=== PATIENT | female | born 1940 | race Caucasian/White ===

== ENCOUNTER 2016-09-20 16:32 | Emergency (ER) | payer MEDICARE, MEDICAID ==
[2016-09-20 16:47] VITALS: BP 156/97
--- NOTE | 2016-09-20 17:26 | EDM.PDOC ---
ED HPI GENERAL MEDICAL PROBLEM - General Chief Complaint: Neurological Problem Stated Complaint: SHARP PAIN IN HEAD SENT FROM [facility] Time Seen by Provider: 09/20/16 17:00 Source of Information: Reports: Patient History Limitations: Reports: No Limitations - History of Present Illness INITIAL COMMENTS - FREE TEXT/NARRATIVE: Patient is a 76-year-old female who presents to the ED with a 4 month history of intermittent sharp pain to the right side of her head/temporal area. Patient states this comes and goes intermittently throughout the course today with no precipitating factors. She states it usually comes on quickly and resolves quickly. States today it has occurred 7 times with increasing intensity noted. She presents to the ED with no complaints at this time. Has been no vision changes, slurred speech, difficulty walking, no sitting, weakness, chest pain, shortness breath, fever/chills, or neurological deficits, or recent head trauma. States symptoms started approx 4 months ago. Prior to that patient has not really had any headache complaints. States she has chronic back discomfort secondary to multiple surgeries to her shoulders and back. She denies any increasing discomfort to her hips. She is on multiple medications for pain therapy. Again patient describes pain as being sharp in intensity short in duration always located on the right side of her head. Onset: Sudden Duration: Getting Worse, Intermittent, Resolved Prior to Arrival, Waxing/Waning Location: Reports: Head, Face Quality: Reports: Sharp, Stabbing Severity: Severe Improves with: Reports: None Worsens with: Reports: None - Related Data Allergies Allergy/AdvReac Type Severity Reaction Status Date / Time codeine AdvReac Vomiting Verified 09/20/16 16:42 Home Meds: Home Meds Levothyroxine 25 mcg PO ACBREAKFAST 09/10/15 [History] Lisinopril 5 mg PO DAILY 09/10/15 [History] Mirabegron [Myrbetriq] 50 mg PO DAILY 09/10/15 [History] Omeprazole 20 mg PO ACBREAKFAST 09/10/15 [History] Pregabalin [Lyrica] 150 mg PO BID 09/10/15 [History] Venlafaxine HCl [Venlafaxine ER] 150 mg PO DAILY 09/10/15 [History] atorvaSTATin [Lipitor] 40 mg PO BEDTIME 09/10/15 [History] Cholecalciferol (Vitamin D3) [Vitamin D3] 5,000 unit PO WEEKLY 01/19/16 [History ] Ondansetron [Zofran ODT] 4 mg PO Q4H PRN 01/19/16 [History] fentaNYL [Duragesic] 50 mcg TRDERM Q72H 01/19/16 [History] Forteo 20 mcg SQ DAILY 02/12/16 [History] Aspirin 325 mg PO DAILY 02/14/16 [History] oxyCODONE HCl/Acetaminophen [Percocet 5-325 mg Tablet] 1 - 2 tab PO BID PRN [History] Modafinil [Provigil] 100 mg PO DAILY #14 tablet 03/07/16 [Rx] Sennosides/Docusate Sodium [Senna-Docusate Sodium] 2 tab PO DAILY #0 03/07/16 [ Rx] Past Medical History HEENT History: Reports: Glaucoma, Macular Degeneration Cardiovascular History: Reports: Heart Murmur, High Cholesterol, Hypertension Respiratory History: Reports: Asthma, TB Other Respiratory History: 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 Gastrointestinal History: Reports: GERD Genitourinary History: Reports: Other (See Below) Other Genitourinary History: Urinary dribbling [employer] History: Reports: Musculoskeletal History: Reports: Back Pain, Chronic, Osteoarthritis, Other ( See Below) Other Musculoskeletal History: Spinal Stenosis Neurological History: Reports: CVA Other Neuro History: Right side deficit, mild Psychiatric History: Reports: Anxiety, Depression Other Psychiatric History: Nicotine dependence Endocrine/Metabolic History: Reports: Hypothyroidism Hematologic History: Reports: Anemia Oncologic (Cancer) History: Reports: Breast - Infectious Disease History Infectious Disease History: Reports: Chicken Pox, Rheumatic Fever - Past Surgical History HEENT Surgical History: Reports: Cataract Surgery Respiratory Surgical History: Reports: Lung Resection GI Surgical History: Reports: Cholecystectomy Musculoskeletal Surgical History: Reports: Arthroscopic Procedure, Knee Replacement, Shoulder Surgery Oncologic Surgical History: Reports: Mastectomy, Other (See Below) Dermatological Surgical History: Reports: Other (See Below) Social & Family History - Family History Family Medical History: Noncontributory Cardiac: Reports: [place] - Tobacco Use Smoking Status *Q: Current Every Day Smoker Years of Tobacco use: 50 Packs/Tins Daily: 0.3 Used Tobacco, but Quit: Yes Month Tobacco Last Used: december Second Hand Smoke Exposure: No - Caffeine Use Caffeine Use: Reports: Coffee, Soda - Recreational Drug Use Recreational Drug Use: No - Living Situation & Occupation Living situation: Reports: Occupation: Retired ED ROS GENERAL - Review of Systems Review Of Systems: ROS reveals no pertinent complaints other than HPI. - Physical Exam Exam: See Below Exam Limited By: No Limitations General Appearance: Alert, WD/WN, No Apparent Distress Eye Exam: Bilateral Eye: EOMI, PERRL Ears: Hearing Grossly Normal Nose: Normal Inspection Throat/Mouth: Normal Voice, No Airway Compromise Head Exam: Facial Tenderness (Right temporal increased with palpation. No swelling, redness, trauma noted.) Neck: Normal Inspection, Supple, Non-Tender, Full Range of Motion. No: Lymphadenopathy (L), Lymphadenopathy (R) Respiratory/Chest: No Respiratory Distress, Lungs Clear, Normal Breath Sounds, No Accessory Muscle Use, Chest Non-Tender Cardiovascular: Normal Peripheral Pulses, Regular Rate, Rhythm Neuro Exam (Abbreviated): Alert, Oriented, CN II-XII Intact, Normal Cognition, No Motor/Sensory Deficits, Other (Cerebellar function intact. No facial droop, slurred speech, weakness to upper/lower extremities.) Back Exam: Normal Inspection Extremities: Normal Inspection, Non-Tender, No Pedal Edema, Normal Capillary Refill Psychiatric: Normal Affect, Normal Mood Skin Exam: Warm, Dry, Intact, Normal Color Course - Vital Signs Last Recorded V/S: Last Vital Signs Temp 97.9 F 09/20/16 16:42 Pulse 100 09/20/16 16:42 Resp 18 09/20/16 16:42 BP 156/97 H 09/20/16 16:42 Pulse Ox 98 09/20/16 16:42 - Orders/Labs/Meds Labs: Laboratory Tests 09/20/16 09/20/16 09/20/16 Range/Units 17:42 17:42 17:47 WBC 9.51 (3.98-10.04) K/mm3 RBC 4.34 (3.98-5.22) M/mm3 Hgb 12.8 (11.2-15.7) gm/L Hct 39.2 (34.1-44.9) % MCV 90.3 (79.4-94.8) fl MCH 29.5 (25.6-32.2) pg MCHC 32.7 (32.2-35.5) g/dl RDW Std Deviation 46.6 H (36.4-46.3) fL Plt Count 195 (182-369) K/mm3 MPV 11.4 (9.4-12.3) fl Neut % (Auto) 58.0 (34.0-71.1) % Lymph % (Auto) 32.0 (19.3-51.7) % [place] % (Auto) 6.9 (4.7-12.5) % Eos % (Auto) 2.5 (0.7-5.8) Baso % (Auto) 0.5 (0.1-1.2) % Neut # (Auto) 5.51 (1.56-6.13) K/mm3 Lymph # (Auto) 3.04 (1.18-3.74) K/mm3 [place] # (Auto) 0.66 H (0.24-0.36) K/mm3 Eos # (Auto) 0.24 (0.04-0.36) K/mm3 Baso # (Auto) 0.05 (0.01-0.08) K/mm3 ESR 19 (0-20) mm/hr Sodium 144 (136-145) mEq/L Potassium 3.7 (3.5-5.1) mEq/L Chloride 106 (98-107) mEq/L Carbon Dioxide 27 (21-32) mEq/L Anion Gap 14.7 (5-15) BUN 12 (7-18) mg/dL Creatinine 0.7 (0.55-1.02) mg/dL Est Cr Clr Drug Dosing 58.33 mL/min Estimated GFR (MDRD) > 60 (>60) mL/min BUN/Creatinine Ratio 17.1 (14-18) Glucose 101 (83-115) mg/dL Calcium 9.2 (8.5-10.1) mg/dL Total Bilirubin 0.2 (0.2-1.0) mg/dL AST 15 (15-37) U/L ALT 13 L (14-59) U/L Alkaline Phosphatase 71 (46-116) U/L C-Reactive Protein < 0.2 (<1.0) mg/dL Total Protein 7.3 (6.4-8.2) g/dl Albumin 3.5 (3.4-5.0) g/dl Globulin 3.8 gm/dL Albumin/Globulin Ratio 0.9 L (1-2) - Re-Assessments/Exams Free Text/Narrative Re-Assessment/Exam: Ordered CBC, chem 14, ESR, and CRP. Do not believe CT of the head would be beneficial at this time. Symptoms have been going on for the past 4 months intermittent and pattern. This more likely fall and a pattern of neuralgia and/ or temporal arteritis. CBC and chemistry panel essentially normal. 09/20/16 18:52 ESR and CRP within normal limits. Patient is wishing to be discharged home. Will do so with instructions as provided. Patient has no neurological deficits thus no CT of the head will be obtained. Etiology most likely related to neuralgia. Will have the patient see her primary care provider for further management. Departure - Departure Time of Disposition: 18:55 Disposition: Home, Self-Care 01 Condition: good Clinical Impression: Intermittent headache - Discharge Information Referrals: Eun Allen MD [Primary Care Provider] - Forms: ED Department Discharge Additional Instructions: Call your primary care's clinic tomorrow morning to schedule appointment to be seen in the next week for reevaluation. Continue taking all your home medications as prescribed. Return to ED if experience any new or worsening symptoms
== END 2016-09-20 19:20 | disposition home or self-care (01) ==
LOC: JD.ED 16:32
DX: R51 Headache (principal); F17.210 Nicotine dependence, cigarettes, uncomplicated; I10 Essential (primary) hypertension; E78.00 Pure hypercholesterolemia, unspecified; J45.909 Unspecified asthma, uncomplicated; K21.9 Gastro-esophageal reflux disease without esophagitis; M19.90 Unspecified osteoarthritis, unspecified site; F41.9 Anxiety disorder, unspecified; F32.9 Major depressive disorder, single episode, unspecified; E03.9 Hypothyroidism, unspecified; Z86.73 Personal history of transient ischemic attack (TIA), and cerebral infarction without residual deficits; Z98.49 Cataract extraction status, unspecified eye; Z96.659 Presence of unspecified artificial knee joint; Z98.890 Other specified postprocedural states; Z79.82 Long term (current) use of aspirin; Z79.899 Other long term (current) drug therapy; Z88.5 Allergy status to narcotic agent; Z85.3 Personal history of malignant neoplasm of breast; Z86.2 Personal history of diseases of the blood and blood-forming organs and certain disorders involving the immune mechanism
CPT/HCPCS: 36415; 80053; 85025; 85652; 86140; 99282; 99284

== ENCOUNTER 2016-12-05 13:14 | Emergency (ER) | payer MEDICARE, MEDICAID ==
[2016-12-05 13:51] VITALS: BP 98/79
[2016-12-05] MEDS ORDERED: Acetaminophen/HYDROcodone 325-5 MG Tab PO ONE (14:38)
--- NOTE | 2016-12-05 16:06 | EDM.PDOC ---
ED HPI GENERAL MEDICAL PROBLEM - General Chief Complaint: Lower Extremity Injury/Pain Stated Complaint: RT KNEE SWOLLEN Time Seen by Provider: 12/05/16 14:15 Source of Information: Reports: Patient History Limitations: Reports: No Limitations - History of Present Illness INITIAL COMMENTS - FREE TEXT/NARRATIVE: Patient is a 76 y/o female who presents to the E.D. complaining of pain to the right knee, ankle, and foot. Patient was walking to her neighbors yard and tripped on some rocks injuring the affected area. Swelling noted with increased pain with palpation. She was to get up on her own accord and ambulate with discomfort. This a.m. the pain has worsened thus prompting E.D. visit. Denies loc, head/neck/back pain, n/t, or any additional complaints. Right Leg Pain Score (Numeric/FACES): 6 - Related Data Allergies Allergy/AdvReac Type Severity Reaction Status Date / Time codeine AdvReac Vomiting Verified 12/05/16 13:42 Home Meds: Home Meds Levothyroxine 25 mcg PO ACBREAKFAST 09/10/15 [History] Lisinopril 5 mg PO DAILY 09/10/15 [History] Mirabegron [Myrbetriq] 50 mg PO DAILY 09/10/15 [History] Omeprazole 20 mg PO ACBREAKFAST 09/10/15 [History] Pregabalin [Lyrica] 150 mg PO BID 09/10/15 [History] Venlafaxine HCl [Venlafaxine ER] 150 mg PO DAILY 09/10/15 [History] atorvaSTATin [Lipitor] 40 mg PO BEDTIME 09/10/15 [History] Cholecalciferol (Vitamin D3) [Vitamin D3] 5,000 unit PO WEEKLY 01/19/16 [History ] Ondansetron [Zofran ODT] 4 mg PO Q4H PRN 01/19/16 [History] fentaNYL [Duragesic] 50 mcg TRDERM Q72H 01/19/16 [History] Forteo 20 mcg SQ DAILY 02/12/16 [History] Aspirin 325 mg PO DAILY 02/14/16 [History] Modafinil [Provigil] 100 mg PO DAILY #14 tablet 03/07/16 [Rx] Sennosides/Docusate Sodium [Senna-Docusate Sodium] 2 tab PO DAILY #0 03/07/16 [ Rx] traMADol [Ultram] 50 mg PO TID 12/05/16 [History] Past Medical History HEENT History: Reports: Glaucoma, Macular Degeneration Cardiovascular History: Reports: Heart Murmur, High Cholesterol, Hypertension Respiratory History: Reports: Asthma, TB Other Respiratory History: 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: Musculoskeletal History: Reports: Back Pain, Chronic, Osteoarthritis, Other ( See Below) Other Musculoskeletal History: Spinal Stenosis Neurological History: Reports: CVA Other Neuro History: Right side deficit, mild Psychiatric History: Reports: Anxiety, Depression Other Psychiatric History: Nicotine dependence Endocrine/Metabolic History: Reports: Hypothyroidism Hematologic History: Reports: Anemia Oncologic (Cancer) History: Reports: Breast - Infectious Disease History Infectious Disease History: Reports: Chicken Pox, Rheumatic Fever - Past Surgical History HEENT Surgical History: Reports: Cataract Surgery Respiratory Surgical History: Reports: Lung Resection GI Surgical History: Reports: Cholecystectomy Musculoskeletal Surgical History: Reports: Arthroscopic Procedure, Knee Replacement, Shoulder Surgery Oncologic Surgical History: Reports: Mastectomy, Other (See Below) Dermatological Surgical History: Reports: Other (See Below) Social & Family History - Family History Family Medical History: Noncontributory Cardiac: Reports: [place] - Tobacco Use Smoking Status *Q: Current Every Day Smoker Years of Tobacco use: 40 Packs/Tins Daily: 0.5 Used Tobacco, but Quit: Yes Month Tobacco Last Used: december Second Hand Smoke Exposure: No - Caffeine Use Caffeine Use: Reports: Coffee - Recreational Drug Use Recreational Drug Use: No - Living Situation & Occupation Living situation: Reports: Occupation: Retired Review of Systems - Review of Systems Review Of Systems: ROS reveals no pertinent complaints other than HPI. ED EXAM, GENERAL - Physical Exam Exam: See Below Exam Limited By: No Limitations General Appearance: Alert, WD/WN, No Apparent Distress Ears: Normal External Exam, Hearing Grossly Normal Nose: Normal Inspection Throat/Mouth: Normal Voice, No Airway Compromise Neck: Normal Inspection, Supple Respiratory/Chest: No Respiratory Distress, Lungs Clear, Normal Breath Sounds, No Accessory Muscle Use Cardiovascular: Normal Peripheral Pulses, Regular Rate, Rhythm Peripheral Pulses: 2+: Radial (R) GI/Abdominal: Normal Bowel Sounds, Soft, Non-Tender, No Organomegaly Back Exam: Normal Inspection, Full Range of Motion, Vertebral Tenderness. No: Decreased Range of Motion, Paraspinal Tenderness Extremities: No Pedal Edema, Normal Capillary Refill, Other (Right knee: swelling to the anterior lateral with increased pain with palpation. Limited exam due to pain with provactive testing. No bony abnormalities noted . Right ankle: swellinganterio/lateral. Pain with palpation and movement. No bony abnormalities. Right foot: pain with palpation of the dorsal aspect of the foot with no bony abnormalities. limted range of motion 2nd to pain. no sensory deficits. ) Neurological: Alert, Oriented, CN II-XII Intact, Normal Cognition. No: Normal Gait Psychiatric: Normal Affect, Normal Mood Skin Exam: Warm, Dry, Intact, Normal Color. No: Ecchymosis Course - Vital Signs Last Recorded V/S: Last Vital Signs Temp 98 F 12/05/16 13:46 Pulse 97 12/05/16 13:46 Resp 20 12/05/16 13:46 BP 98/79 12/05/16 13:46 Pulse Ox 96 12/05/16 13:46 - Orders/Labs/Meds Meds: Medications Discontinued Medications Generic Name Dose Route Start Last Admin Trade Name Freq PRN Reason Stop Dose Admin Hydrocodone Bitart/Acetaminophen 1 tab 12/05/16 14:38 12/05/16 14:44 [place] 325-5 Mg PO 12/05/16 14:39 1 tab ONETIME ONE Administration - Re-Assessments/Exams Free Text/Narrative Re-Assessment/Exam: Ordered x-ray of the right knee, ankle, foot, and [place] one tab by mouth. Will apply ice to the right knee. X-rays of the right knee, foot, ankle did not reveal any acute bony abnormalities. Final interpretation is pending. Will have a knee immobilizer applied with crutches. Patient is unable to straighten her knee 2nd to pain. Discharge home with instructions. Departure - Departure Time of Disposition: 16:03 Disposition: Home, Self-Care 01 Condition: Good Clinical Impression: Contusion, lower limb, multiple sites Qualifiers: Encounter type: initial encounter Laterality: right Qualified Code(s): S80.11XA - Contusion of right lower leg, initial encounter Contusion of knee, right Qualifiers: Encounter type: initial encounter Qualified Code(s): S80.01XA - Contusion of right knee, initial encounter Contusion of ankle, right Qualifiers: Encounter type: initial encounter Qualified Code(s): S90.01XA - Contusion of right ankle, initial encounter Contusion of foot, right Qualifiers: Encounter type: initial encounter Qualified Code(s): S90.31XA - Contusion of right foot, initial encounter Right ankle sprain Qualifiers: Encounter type: initial encounter Involved ligament of ankle: unspecified ligament Qualified Code(s): S93.401A - Sprain of unspecified ligament of right ankle, initial encounter - Discharge Information Instructions: Crutch Use, [id number], Ankle Sprain, [id number], Cast or Splint Care, [id number], Foot Sprain, Knee Sprain, [id number], Pain Medicine Instructions, [id number] Referrals: Eun Allen MD [Primary Care Provider] - Bruno Sexton MD [Physician] - Forms: ED Department Discharge Additional Instructions: No obvious fracture identified on x-ray of the right knee, ankle, and foot. Will have you wear the knee immobilizer and be nonweightbearing until evaluated by Dr. Sexton within the next week to 10 days. Most likely etiology current complaint is related to contusions and sprains. Elevate when able to reduce swelling and pain. Continue with her all your home medications including her narcotic pain medications. Take ibuprofen and Tylenol in alternating fashion. Apply ice to affected area 6 times daily, 20 to duration, do not apply ice directly on the skin. Followup with PCP this coming week as needed. Return to the E.D. for any new or worsening symptoms.
--- NOTE | 2016-12-06 09:20 | CR ---
Right knee: AP, lateral and sunrise patellar views of the right knee were obtained. Comparison: No previous study. Severe joint space narrowing is noted within the medial patellofemoral joint. Slight chondrocalcinosis is seen. Small joint effusion is seen. Minimal degenerative change is seen within the medial joint compartment. No acute fracture or other bony abnormality is appreciated. Impression: 1. Degenerative change as noted above. 2. Small joint effusion. 3. No acute bony abnormality is identified. Diagnostic code #2
--- NOTE | 2016-12-06 09:20 | CR ---
Right ankle: Three views of the right ankle were obtained. Comparison: No previous study. Plantar spur is seen. Slight calcification is also seen within the plantar fascia at the attachment to the calcaneus. Minimal spur is noted off the calcaneus at the attachment of the Achilles tendon. Slight calcification is noted medially compatible with old injury. Slight degenerative change is partially visualized within the mid foot. No acute fracture or dislocation is identified. Impression: 1. Incidental findings as noted above. 2. Nothing acute is appreciated on right ankle exam. Diagnostic code #2
--- NOTE | 2016-12-06 09:20 | CR ---
Right foot: Three views of the right foot were obtained. Comparison: No prior study. Deformity identified within the distal first metatarsal presumably from previous bunion surgery. Deformity involving the proximal phalanx of the first toe with bone staple in place likely representing change from previous bunion surgery. Please correlate. Calcaneal spurs are again noted. Mild degenerative change is scattered within the mid foot. No acute fracture or other abnormality is seen. Impression: 1. Findings which are felt to be incidental as described above. 2. No acute bony abnormality is identified on right foot exam. Diagnostic code #1
== END 2016-12-05 16:30 | disposition home or self-care (01) ==
LOC: JD.ED 13:14
DX: S93.401A Sprain of unspecified ligament of right ankle, initial encounter (principal); S90.01XA Contusion of right ankle, initial encounter; S90.31XA Contusion of right foot, initial encounter; S80.01XA Contusion of right knee, initial encounter; I10 Essential (primary) hypertension; E78.00 Pure hypercholesterolemia, unspecified; J45.909 Unspecified asthma, uncomplicated; K21.9 Gastro-esophageal reflux disease without esophagitis; M19.90 Unspecified osteoarthritis, unspecified site; F32.9 Major depressive disorder, single episode, unspecified; E03.9 Hypothyroidism, unspecified; F17.210 Nicotine dependence, cigarettes, uncomplicated; Z86.73 Personal history of transient ischemic attack (TIA), and cerebral infarction without residual deficits; Z79.82 Long term (current) use of aspirin; Z86.2 Personal history of diseases of the blood and blood-forming organs and certain disorders involving the immune mechanism; Z85.3 Personal history of malignant neoplasm of breast; Z98.49 Cataract extraction status, unspecified eye; Z90.49 Acquired absence of other specified parts of digestive tract; Z98.890 Other specified postprocedural states; Z96.659 Presence of unspecified artificial knee joint; Z79.899 Other long term (current) drug therapy; Z88.5 Allergy status to narcotic agent; W22.8XXA Striking against or struck by other objects, initial encounter
CPT/HCPCS: 73562; 73610; 73630; 99284; A9270; 99283

== ENCOUNTER 2017-03-07 07:49 | Day surgery (SDC) | payer MEDICARE, MEDICAID ==
[~2017-03-07 07:49] MED LIST: Lactated Ringers 1,000 ML IV SCH; Lidocaine 1% 4 ML ONE; Lidocaine 1%/Sod Bicarbonate in NS 8.4% 1 ML Syringe PRN; Propofol 200 MG/20 ML SDV ONE; Sodium Chloride 0.9% 10 ML Syringe FLUSH PRN; fentaNYL 100 MCG/2 ML SDV ONE
[2017-03-07] MEDS ORDERED: Propofol 200 MG/20 ML SDV ONE (09:24)
--- NOTE | 2017-03-07 09:42 | PCM.PREANE ---
Preanesthetic Assessment - Anesthesia/Transfusion/Family Hx Anesthesia History: Prior Anesthesia Without Reaction Transfusion History: Prior Transfusion Without Reaction Intubation History: Unknown - Review of Systems General: Other (Influenza about 2 weeks ago. Feels good today. ) Pulmonary: Shortness of Breath (with exertion), Cough (On occasion. ), Other ( COPD) Cardiovascular: No Symptoms, Other (Stroke) Gastrointestinal: Abdominal Pain Neurological: Other (memory loss, stroke, chronic back pain) Other: Reports: Thyroid Problems, Anxiety - Physical Assessment NPO Status Date: 03/06/17 NPO Status Time: 21:00 O2 Sat by Pulse Oximetry: 98 Respiratory Rate: 16 Vital Signs: Last Vital Signs Temp 37.1 C 03/07/17 08:10 Pulse 99 03/07/17 08:10 Resp 16 03/07/17 08:10 BP 150/80 H 03/07/17 08:10 Pulse Ox 98 03/07/17 08:10 Height: 1.63 m Weight: 60.781 kg ASA Class: 3 Mental Status: Alert & Oriented x3 Airway Class: Mallampati = 2 Dentition: Reports: Dentures Thyro-Mental Finger Breadths: 3 Mouth Opening Finger Breadths: 3 ROM/Head Extension: Full Lungs: Clear to Auscultation, Normal Respiratory Effort, Decreased Breath Sounds Cardiovascular: Regular Rate, Regular Rhythm - Allergies Allergies/Adverse Reactions: Allergies Allergy/AdvReac Type Severity Reaction Status Date / Time codeine AdvReac Vomiting Verified 03/04/17 11:09 - Anesthesia Plan Beta Adeola: Metoprolol Med Last Dose Date: 03/06/17 Med Last Dose Time: 08:00 - Acknowledgements Anesthesia Type Planned: MAC Pt an Appropriate Candidate for the Planned Anesthesia: Yes Alternatives and Risks of Anesthesia Discussed w Pt/Guardian: Yes Pt/Guardian Understands and Agrees with Anesthesia Plan: Yes PreAnesthesia Questionnaire HEENT History: Reports: Cataract, Glaucoma, Macular Degeneration, Other (See Below) Other HEENT History: dentures, glasses Cardiovascular History: Reports: Heart Murmur, High Cholesterol, Hypertension, Other (See Below) Other Cardiovascular History: palpitations, precordial pain, chest pain, aortic regurgitation Respiratory History: Reports: Asthma, COPD, TB Other Respiratory History: 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 Gastrointestinal History: Reports: GERD, Hemorrhoids, Other (See Below) Other Gastrointestinal History: anal itching and pain, abdominal wall pain Genitourinary History: Reports: Renal Calculus, Other (See Below) Other Genitourinary History: Urinary dribbling [employer] History: Reports: Musculoskeletal History: Reports: Arthritis, Back Pain, Chronic, Osteoarthritis , Other (See Below) Other Musculoskeletal History: Spinal Stenosis, chronic pain syndrome, lumbar facet arthropathy, myofascial pain, shoulder bursitis Neurological History: Reports: CVA, Headaches, Chronic Other Neuro History: dizziness, confusion, white matter periventricular infarction, hand tremor Psychiatric History: Reports: Addiction, Anxiety, Depression Other Psychiatric History: Nicotine dependence Endocrine/Metabolic History: Reports: Hypothyroidism Hematologic History: Reports: Anemia Immunologic History: Reports: None Oncologic (Cancer) History: Reports: Breast, Lung Dermatologic History: Reports: Cellulitis - Infectious Disease History Infectious Disease History: Reports: Chicken Pox, Rheumatic Fever - Past Surgical History Head Surgeries/Procedures: HEENT Surgical History: Reports: Cataract Surgery Cardiovascular Surgical History: Reports: None Respiratory Surgical History: Reports: Lung Resection GI Surgical History: Reports: Appendectomy, Cholecystectomy, Colonoscopy Female Surgical History: Reports: Hysterectomy, Mastectomy Other Female Surgeries/Procedures: L mastectomy r/t breast CA. Neurological Surgical History: Reports: None Musculoskeletal Surgical History: Reports: Arthroscopic Procedure, Knee Replacement, Shoulder Surgery, Other (See Below) Other Musculoskeletal Surgeries/Procedures:: left total knee replacement, toe surgery, shoulder surgery Oncologic Surgical History: Reports: Mastectomy, Other (See Below) Other Oncologic Surgeries/Procedures: Left side Dermatological Surgical History: Reports: Other (See Below) - SUBSTANCE USE Smoking Status *Q: Current Every Day Smoker Tobacco Use Within Last Twelve Months: Cigarettes Second Hand Smoke Exposure: No Recreational Drug Use History: No - HOME MEDS Home Medications: Home Meds Levothyroxine 25 mcg PO ACBREAKFAST 09/10/15 [History] Omeprazole 20 mg PO ACBREAKFAST 09/10/15 [History] Pregabalin [Lyrica] 150 mg PO BID 09/10/15 [History] atorvaSTATin [Lipitor] 40 mg PO BEDTIME 09/10/15 [History] Cholecalciferol (Vitamin D3) [Vitamin D3] 5,000 unit PO DAILY 01/19/16 [History] Ondansetron [Zofran ODT] 4 mg PO Q4H PRN 01/19/16 [History] fentaNYL [Duragesic] 50 mcg TRDERM Q72H 01/19/16 [History] Forteo 20 mcg SQ DAILY 02/12/16 [History] Aspirin 325 mg PO DAILY 02/14/16 [History] traMADol [Ultram] 50 mg PO TID 12/05/16 [History] Albuterol [Proventil HFA] 2 puff INH Q4H PRN 03/04/17 [History] Docusate Sodium [Colace] 100 mg PO BID 03/04/17 [History] Fluticasone/Salmeterol [Advair 250-50 Diskus] 1 puff INH BID 03/04/17 [History] Ketoprofen, Micronized [Frotek] 1 dose TOP ASDIRECTED 03/04/17 [History] Metoprolol Succinate 12.5 mg PO DAILY 03/04/17 [History] Oxybutynin [Oxybutynin ER] 5 mg PO DAILY 03/04/17 [History] Sertraline HCl [Sertraline HCl] 50 mg PO DAILY 03/04/17 [History] carBAMazepine [Tegretol XR] 100 mg PO QID 03/04/17 [History] guaiFENesin [Mucinex] 600 mg PO BID 03/04/17 [History] - CURRENT (IN HOUSE) MEDS Current Meds: Current Medications Lactated Ringer's (Ringers, Lactated) 1,000 mls @ 125 mls/hr IV ASDIRECTED EDYTA Stop: 03/07/17 23:00 Last Admin: 03/07/17 08:30 Dose: 125 mls/hr Lidocaine/Sodium Bicarbonate (Buffered Lidocaine 1% In Ns 8.4%) 0.25 ml .XX ONETIME PRN PRN Reason: Prior to IV Start Stop: 03/07/17 18:00 Sodium Chloride (Saline Flush) 10 ml FLUSH ASDIRECTED PRN PRN Reason: Keep Vein Open Stop: 03/07/17 18:00 Discontinued Medications Fentanyl (Sublimaze) Confirm Administered Dose 100 mcg .ROUTE .STK-MED ONE Stop: 03/07/17 07:04 Lidocaine HCl (Xylocaine-Mpf 1%) Confirm Administered Dose 4 mls @ as directed .ROUTE .STK-MED ONE Stop: 03/07/17 07:04 Propofol (Diprivan 20 Ml) Confirm Administered Dose 400 mg .ROUTE .STK-MED ONE Stop: 03/07/17 07:04 Propofol (Diprivan 20 Ml) Confirm Administered Dose 200 mg .ROUTE .STK-MED ONE Stop: 03/07/17 09:25
[2017-03-07] MEDS ORDERED: fentaNYL 100 MCG/2 ML SDV ONE (09:52)
[2017-03-07] MEDS ORDERED: Ondansetron 4 MG/2 ML SDV ONE (10:05)
[2017-03-07] MEDS ORDERED: Metoprolol Tartrate 5 MG/5 ML SDV ONE (10:34)
--- NOTE | 2017-03-07 10:41 | PCM.OPNOTE ---
- General Post-Op/Procedure Note Date of Surgery/Procedure: 03/07/17 Operative Procedure(s): EGD/colonoscopy to cecum Pre Op Diagnosis: positive FIT test Post-Op Diagnosis: Same Anesthesia Technique: MAC Primary Surgeon: Cristian Fabian EBL in mLs: 0 Complications: None Condition: Good
[2017-03-07 11:00] VITALS: BP 156/88
--- NOTE | 2017-03-07 11:01 | PCM48HPAN ---
Post Anesthesia Note - EVALUATION WITHIN 48HRS OF ANESTHETIC Vital Signs in Normal Range: Yes Patient Participated in Evaluation: Yes Respiratory Function Stable: Yes Airway Patent: Yes Cardiovascular Function Stable: Yes Hydration Status Stable: Yes Pain Control Satisfactory: Yes Nausea and Vomiting Control Satisfactory: Yes Mental Status Recovered: Yes
--- NOTE | 2017-03-07 13:01 | OR ---
DATE OF OPERATION: 03/07/2017 SURGEON: Cristian Fabian MD PREOPERATIVE DIAGNOSIS: Positive FIT test. POSTOPERATIVE DIAGNOSIS: Positive FIT test. OPERATION PERFORMED: Esophagogastroduodenoscopy. FINDINGS: Some chronic gastritis. Small sliding hiatal hernia and GE junction located about 38 cm, did not show any acute pathology at the GE junction. Second portion of the duodenum, duodenal bulb, pyloric channel, and balance of the esophagus did not show any acute disease. Fundus of the stomach could not be seen since the stomach would not completely expand. ANESTHESIA: Done under IV sedation. DESCRIPTION OF PROCEDURE: The patient was taken to the endoscopy room, connected to monitoring equipment, given IV sedation, and placed in a left lateral position. Bite block was inserted and secured. Video Olympus gastroscope was placed in the posterior oropharynx, under direct vision, threaded past the cricopharyngeus, down the esophagus and into the stomach. The stomach was insufflated, and the scope was then advanced through the pylorus to the second portion of the duodenum. It was slowly withdrawn showing normal second portion of the duodenum, duodenal bulb, and pyloric channel. Antrum showed chronic gastritis. Body and cardia of the stomach were only partially seen along with the fundus because the stomach would not insufflate, the patient kept erupting the air. Scope was withdrawn to the GE junction, which did not show any acute pathology. The rest of the esophagus seen as the scope withdrawn was negative. The patient tolerated the procedure. IV sedation continued for colonoscopy. ESTIMATED BLOOD LOSS: MMODAL /[id number]
--- NOTE | 2017-03-07 13:05 | OR ---
DATE OF OPERATION: 03/07/2017 SURGEON: Cristian Fabian MD PREOPERATIVE DIAGNOSIS: Positive FIT test. POSTOPERATIVE DIAGNOSIS: Positive FIT test. OPERATION PERFORMED: Colonoscopy to cecum. FINDINGS: Internal hemorrhoids and external hemorrhoidal tags, likely source of her positive FIT test. There was also melanosis coli noted on the right side of the colon. There were no angiodysplasias, neoplasias, large tumor masses, or ulcerations noted. ANESTHESIA: Done under IV sedation. DESCRIPTION OF PROCEDURE: The patient was taken to the endoscopy room and having been connected to monitoring equipment and given sedation for upper GI endoscopy, sedation was continued for colonoscopy. She was placed in left lateral position. Her perianal area showed hemorrhoidal tags. Rectal exam showed good sphincter tone. A video Olympus colonoscope was then introduced into the rectum and threaded up without problem to the cecum, where the appendicular orifice was noted and ileocecal valve was identified. Prep was good. [place] cleansing score grade B. The scope was slowly withdrawn showing the cecum, ascending colon, transverse colon, descending colon, sigmoid colon, and rectum. Retroflexed view was not done. The patient tolerated the procedure. The above noted was found. The patient will be followed up as needed in the clinic. ESTIMATED BLOOD LOSS: MMODAL /[id number]
== END 2017-03-07 11:30 | disposition home or self-care (01) ==
LOC: JD.SDS 07:49
PROVIDERS: ATTEND Surgery
DX: Z12.11 Encounter for screening for malignant neoplasm of colon (principal); K64.8 Other hemorrhoids; K64.4 Residual hemorrhoidal skin tags; K63.89 Other specified diseases of intestine; K29.50 Unspecified chronic gastritis without bleeding; K44.9 Diaphragmatic hernia without obstruction or gangrene; K59.00 Constipation, unspecified; I44.7 Left bundle-branch block, unspecified; I35.0 Nonrheumatic aortic (valve) stenosis; I35.1 Nonrheumatic aortic (valve) insufficiency; I10 Essential (primary) hypertension; E78.00 Pure hypercholesterolemia, unspecified; F41.9 Anxiety disorder, unspecified; M54.5 Low back pain; M81.0 Age-related osteoporosis without current pathological fracture; M51.36 Other intervertebral disc degeneration, lumbar region; G89.4 Chronic pain syndrome; M79.1 Myalgia; J44.9 Chronic obstructive pulmonary disease, unspecified; K21.9 Gastro-esophageal reflux disease without esophagitis; E03.9 Hypothyroidism, unspecified; F32.9 Major depressive disorder, single episode, unspecified; F17.210 Nicotine dependence, cigarettes, uncomplicated; Z85.3 Personal history of malignant neoplasm of breast; Z85.118 Personal history of other malignant neoplasm of bronchus and lung; Z86.73 Personal history of transient ischemic attack (TIA), and cerebral infarction without residual deficits; Z82.3 Family history of stroke; Z79.82 Long term (current) use of aspirin; Z79.51 Long term (current) use of inhaled steroids; Z79.891 Long term (current) use of opiate analgesic; Z79.899 Other long term (current) drug therapy; Z88.5 Allergy status to narcotic agent; Z96.652 Presence of left artificial knee joint; Z90.49 Acquired absence of other specified parts of digestive tract; Z90.710 Acquired absence of both cervix and uterus; Z90.12 Acquired absence of left breast and nipple; Z90.2 Acquired absence of lung [part of]; Z98.890 Other specified postprocedural states
CPT/HCPCS: 43235; G0105; J2405; J3010; J7120; J2704; J3490

== ENCOUNTER 2017-03-07 13:11 | Inpatient (IN) | payer MEDICARE, MEDICAID ==
[2017-03-07] MEDS ORDERED: Lactated Ringers 500 ML IV ONE (13:30)
--- NOTE | 2017-03-07 13:44 | EDM.PDOC ---
ED HPI GENERAL MEDICAL PROBLEM - General Chief Complaint: Cardiovascular Problem Stated Complaint: [facility] Time Seen by Provider: 03/07/17 13:20 - History of Present Illness INITIAL COMMENTS - FREE TEXT/NARRATIVE: 76-year-old female brought in the emergency room hypotensive. She also has some abdominal discomfort. Patient had a colonoscopy this morning. Patient states she had some significant dizziness last night before going to bed she had an oral bowel prep yesterday. Patient underwent a colonoscopy this morning without biopsy. According to the surgeon, Dr. Fabian, the procedure was uneventful. Patient does not have a history of heart problems denies congestive heart failure. She's had no breathing difficulties or shortness of breath no chest pain or chest pressure. The patient did have some dizziness last night after the bowel prep Abdomen Pain Score (Numeric/FACES): 10 - Related Data Allergies Allergy/AdvReac Type Severity Reaction Status Date / Time codeine AdvReac Vomiting Verified 03/07/17 13:21 Home Meds: Home Meds Levothyroxine 25 mcg PO ACBREAKFAST 09/10/15 [History] Omeprazole 20 mg PO ACBREAKFAST 09/10/15 [History] Pregabalin [Lyrica] 150 mg PO BID 09/10/15 [History] atorvaSTATin [Lipitor] 40 mg PO BEDTIME 09/10/15 [History] Ondansetron [Zofran ODT] 4 mg PO Q4H PRN 01/19/16 [History] fentaNYL [Duragesic] 50 mcg TRDERM Q72H 01/19/16 [History] Forteo 20 mcg SQ DAILY 02/12/16 [History] traMADol [Ultram] 50 mg PO Q6H PRN 12/05/16 [History] Albuterol [Proventil HFA] 2 puff INH Q4H PRN 03/04/17 [History] Docusate Sodium [Colace] 100 mg PO BID 03/04/17 [History] Fluticasone/Salmeterol [Advair 250-50 Diskus] 1 puff INH BID 03/04/17 [History] Ketoprofen, Micronized [Frotek] 1 dose TOP ASDIRECTED 03/04/17 [History] Oxybutynin [Oxybutynin ER] 5 mg PO DAILY 03/04/17 [History] Sertraline HCl [Sertraline HCl] 50 mg PO DAILY 03/04/17 [History] carBAMazepine [Tegretol XR] 200 mg PO BID 03/04/17 [History] guaiFENesin [Mucinex] 1,200 mg PO BID 03/04/17 [History] Aspirin [Lo-Dose Aspirin EC] 81 mg PO DAILY 03/07/17 [History] Cholecalciferol (Vitamin D3) [Vitamin D] 50,000 unit PO ASDIRECTED 03/07/17 [ History] Lisinopril [Prinivil] 5 mg PO DAILY 03/07/17 [History] Polyethylene Glycol 3350 [MiraLAX] 17 gm PO Q3D 03/07/17 [History] Verapamil [Calan SR] 120 mg PO DAILY 03/07/17 [History] Past Medical History HEENT History: Reports: Cataract, Glaucoma, Macular Degeneration, Other (See Below) Other HEENT History: dentures, glasses Cardiovascular History: Reports: Heart Murmur, High Cholesterol, Hypertension, Other (See Below) Other Cardiovascular History: palpitations, precordial pain, chest pain, aortic regurgitation Respiratory History: Reports: Asthma, COPD, TB Other Respiratory History: 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 Gastrointestinal History: Reports: GERD, Hemorrhoids, Other (See Below) Other Gastrointestinal History: anal itching and pain, abdominal wall pain Genitourinary History: Reports: Renal Calculus, Other (See Below) Other Genitourinary History: Urinary dribbling [employer] History: Reports: Musculoskeletal History: Reports: Arthritis, Back Pain, Chronic, Osteoarthritis , Other (See Below) Other Musculoskeletal History: Spinal Stenosis, chronic pain syndrome, lumbar facet arthropathy, myofascial pain, shoulder bursitis Neurological History: Reports: CVA, Headaches, Chronic Other Neuro History: dizziness, confusion, white matter periventricular infarction, hand tremor Psychiatric History: Reports: Addiction, Anxiety, Depression Other Psychiatric History: Nicotine dependence Endocrine/Metabolic History: Reports: Hypothyroidism Hematologic History: Reports: Anemia Immunologic History: Reports: None Oncologic (Cancer) History: Reports: Breast, Lung Dermatologic History: Reports: Cellulitis - Infectious Disease History Infectious Disease History: Reports: Chicken Pox, Rheumatic Fever - Past Surgical History Head Surgeries/Procedures: HEENT Surgical History: Reports: Cataract Surgery Cardiovascular Surgical History: Reports: None Respiratory Surgical History: Reports: Lung Resection GI Surgical History: Reports: Appendectomy, Cholecystectomy, Colonoscopy Female Surgical History: Reports: Hysterectomy, Mastectomy Other Female Surgeries/Procedures: L mastectomy r/t breast CA. Neurological Surgical History: Reports: None Musculoskeletal Surgical History: Reports: Arthroscopic Procedure, Knee Replacement, Shoulder Surgery, Other (See Below) Other Musculoskeletal Surgeries/Procedures:: left total knee replacement, toe surgery, shoulder surgery Oncologic Surgical History: Reports: Mastectomy, Other (See Below) Other Oncologic Surgeries/Procedures: Left side Dermatological Surgical History: Reports: Other (See Below) Social & Family History - Family History Family Medical History: Noncontributory Cardiac: Reports: MA - Tobacco Use Smoking Status *Q: Light Tobacco Smoker Years of Tobacco use: 15 Packs/Tins Daily: 0.1 Used Tobacco, but Quit: No Month Tobacco Last Used: december Hand Smoke Exposure: No - Caffeine Use Caffeine Use: Reports: Coffee, Tea - Recreational Drug Use Recreational Drug Use: No - Living Situation & Occupation Living situation: Reports: Occupation: Retired ED ROS GENERAL - Review of Systems Review Of Systems: See Below Constitutional: Reports: Weakness, Fatigue HEENT: Reports: No Symptoms Respiratory: Reports: No Symptoms Cardiovascular: Reports: No Symptoms GI/Abdominal: Reports: Abdominal Pain : Reports: No Symptoms Neurological: Reports: Dizziness. Denies: Headache ED EXAM, GENERAL - Physical Exam Exam: See Below Exam Limited By: No Limitations General Appearance: Alert, Other (She is hypotensive) Head: Atraumatic, Normocephalic Neck: Normal Inspection, Supple, Non-Tender, Full Range of Motion Respiratory/Chest: No Respiratory Distress, Lungs Clear, Normal Breath Sounds Cardiovascular: Regular Rate, Rhythm, No Edema, No Murmur GI/Abdominal: Other (She has active bowel sounds perhaps slightly diminished with some significant upper quadrant discomfort) Back Exam: Normal Inspection. No: CVA Tenderness (L), CVA Tenderness (R) Extremities: Normal Inspection, No Pedal Edema Course - Vital Signs Last Recorded V/S: Last Vital Signs Temp 36.7 C 03/07/17 13:15 Pulse 96 03/07/17 13:32 Resp 14 03/07/17 13:15 BP 81/39 L 03/07/17 13:32 Pulse Ox 94 L 03/07/17 13:15 - Orders/Labs/Meds Orders: Active Orders 24 hr Category Date Time Status EKG Documentation Completion [RC] STAT Care 03/07/17 14:09 Active PATIENT RETYPE [BBK] Stat Lab 03/07/17 14:57 Results TYPE AND SCREEN [BBK] Stat Lab 03/07/17 14:57 Results Lactated Ringers [Ringers, Lactated] 1,000 ml Med 03/07/17 15:30 Active IV ASDIRECTED fentaNYL [Duragesic] Med 03/07/17 16:45 Active 50 mcg TRDERM Q72H Medication Orders Fentanyl (Duragesic) 50 mcg TRDERM Q72H [facility] Last Admin: 03/07/17 16:56 Dose: 50 mcg Lactated Ringer's (Ringers, Lactated) 1,000 mls @ 125 mls/hr IV ASDIRECTED EDYTA Last Admin: 03/07/17 15:26 Dose: 125 mls/hr Labs: Laboratory Tests 03/07/17 03/07/17 03/07/17 Range/Units 14:57 14:57 14:57 WBC 16.55 H (3.98-10.04) K/mm3 RBC 3.06 L (3.98-5.22) M/mm3 Hgb 9.4 L (11.2-15.7) gm/L Hct 28.0 L (34.1-44.9) % MCV 91.5 (79.4-94.8) fl MCH 30.7 (25.6-32.2) pg MCHC 33.6 (32.2-35.5) g/dl RDW Std Deviation 47.0 H (36.4-46.3) fL Plt Count 186 (182-369) K/mm3 MPV 10.8 (9.4-12.3) fl Neutrophils % (Manual) 85 H (40-60) % Band Neutrophils % 0 (0-10) % Lymphocytes % (Manual) 8 L (20-40) % Atypical Lymphs % 0 % Monocytes % (Manual) 4 (2-10) % Eosinophils % (Manual) 1 (0.7-5.8) % Basophils % (Manual) 2 H (0.1-1.2) Toxic Granulation See note Platelet Estimate Adequate Plt Morphology Comment Normal RBC Morph Comment Normal PT (8.0-13.0) SECONDS INR Sodium 141 (136-145) mEq/L Potassium 4.0 (3.5-5.1) mEq/L Chloride 106 (98-107) mEq/L Carbon Dioxide 27 (21-32) mEq/L Anion Gap 12.0 (5-15) BUN 8 (7-18) mg/dL Creatinine 0.6 (0.55-1.02) mg/dL Est Cr Clr Drug Dosing 71.03 mL/min Estimated GFR (MDRD) > 60 (>60) mL/min BUN/Creatinine Ratio 13.3 L (14-18) Glucose 87 (83-115) mg/dL Lactic Acid (0.4-2.0) mmol/L Calcium 8.4 L (8.5-10.1) mg/dL Total Bilirubin 0.3 (0.2-1.0) mg/dL Direct Bilirubin (0.0-0.2) mg/dl GGT (5-55) U/L AST 22 (15-37) U/L ALT 16 (14-59) U/L Alkaline Phosphatase 67 (46-116) U/L Troponin I (0.00-0.056) ng/mL Total Protein 5.6 L (6.4-8.2) g/dl Albumin 2.6 L (3.4-5.0) g/dl Globulin 3.0 gm/dL Albumin/Globulin Ratio 0.9 L (1-2) Lipase (73-393) U/L Urine Color (Yellow) Urine Appearance (Clear) Urine pH (5.0-8.0) Ur Specific [place] (1.005-1.030) Urine Protein (Negative) Urine Glucose (UA) (Negative) Urine Ketones (Negative) Urine Occult Blood (Negative) Urine Nitrite (Negative) Urine Bilirubin (Negative) Urine Urobilinogen (0.2-1.0) Ur Leukocyte Esterase (Negative) Urine RBC (0-5) /hpf Urine WBC (0-5) /hpf Ur Epithelial Cells (0-5) /hpf Urine Bacteria (FEW) /hpf Hyaline Casts (0-5) /lpf Urine Mucus (FEW) /hpf Blood Type A NEGATIVE Gel Antibody Screen Negative 03/07/17 03/07/17 03/07/17 Range/Units 14:57 14:57 14:57 WBC (3.98-10.04) K/mm3 RBC (3.98-5.22) M/mm3 Hgb (11.2-15.7) gm/L Hct (34.1-44.9) % MCV (79.4-94.8) fl MCH (25.6-32.2) pg MCHC (32.2-35.5) g/dl RDW Std Deviation (36.4-46.3) fL Plt Count (182-369) K/mm3 MPV (9.4-12.3) fl Neutrophils % (Manual) (40-60) % Band Neutrophils % (0-10) % Lymphocytes % (Manual) (20-40) % Atypical Lymphs % % Monocytes % (Manual) (2-10) % Eosinophils % (Manual) (0.7-5.8) % Basophils % (Manual) (0.1-1.2) Toxic Granulation Platelet Estimate Plt Morphology Comment RBC Morph Comment PT 10.9 (8.0-13.0) SECONDS INR 1.00 Sodium (136-145) mEq/L Potassium (3.5-5.1) mEq/L Chloride (98-107) mEq/L Carbon Dioxide (21-32) mEq/L Anion Gap (5-15) BUN (7-18) mg/dL Creatinine (0.55-1.02) mg/dL Est Cr Clr Drug Dosing mL/min Estimated GFR (MDRD) (>60) mL/min BUN/Creatinine Ratio (14-18) Glucose (83-115) mg/dL Lactic Acid 1.8 (0.4-2.0) mmol/L Calcium (8.5-10.1) mg/dL Total Bilirubin (0.2-1.0) mg/dL Direct Bilirubin (0.0-0.2) mg/dl GGT (5-55) U/L AST (15-37) U/L ALT (14-59) U/L Alkaline Phosphatase (46-116) U/L Troponin I 0.046 (0.00-0.056) ng/mL Total Protein (6.4-8.2) g/dl Albumin (3.4-5.0) g/dl Globulin gm/dL Albumin/Globulin Ratio (1-2) Lipase (73-393) U/L Urine Color (Yellow) Urine Appearance (Clear) Urine pH (5.0-8.0) Ur Specific [place] (1.005-1.030) Urine Protein (Negative) Urine Glucose (UA) (Negative) Urine Ketones (Negative) Urine Occult Blood (Negative) Urine Nitrite (Negative) Urine Bilirubin (Negative) Urine Urobilinogen (0.2-1.0) Ur Leukocyte Esterase (Negative) Urine RBC (0-5) /hpf Urine WBC (0-5) /hpf Ur Epithelial Cells (0-5) /hpf Urine Bacteria (FEW) /hpf Hyaline Casts (0-5) /lpf Urine Mucus (FEW) /hpf Blood Type Gel Antibody Screen 03/07/17 03/07/17 Range/Units 14:57 15:06 WBC (3.98-10.04) K/mm3 RBC (3.98-5.22) M/mm3 Hgb (11.2-15.7) gm/L Hct (34.1-44.9) % MCV (79.4-94.8) fl MCH (25.6-32.2) pg MCHC (32.2-35.5) g/dl RDW Std Deviation (36.4-46.3) fL Plt Count (182-369) K/mm3 MPV (9.4-12.3) fl Neutrophils % (Manual) (40-60) % Band Neutrophils % (0-10) % Lymphocytes % (Manual) (20-40) % Atypical Lymphs % % Monocytes % (Manual) (2-10) % Eosinophils % (Manual) (0.7-5.8) % Basophils % (Manual) (0.1-1.2) Toxic Granulation Platelet Estimate Plt Morphology Comment RBC Morph Comment PT (8.0-13.0) SECONDS INR Sodium (136-145) mEq/L Potassium (3.5-5.1) mEq/L Chloride (98-107) mEq/L Carbon Dioxide (21-32) mEq/L Anion Gap (5-15) BUN (7-18) mg/dL Creatinine (0.55-1.02) mg/dL Est Cr Clr Drug Dosing mL/min Estimated GFR (MDRD) (>60) mL/min BUN/Creatinine Ratio (14-18) Glucose (83-115) mg/dL Lactic Acid (0.4-2.0) mmol/L Calcium (8.5-10.1) mg/dL Total Bilirubin (0.2-1.0) mg/dL Direct Bilirubin 0.10 (0.0-0.2) mg/dl GGT 20 (5-55) U/L AST (15-37) U/L ALT (14-59) U/L Alkaline Phosphatase (46-116) U/L Troponin I (0.00-0.056) ng/mL Total Protein (6.4-8.2) g/dl Albumin (3.4-5.0) g/dl Globulin gm/dL Albumin/Globulin Ratio (1-2) Lipase 46 L (73-393) U/L Urine Color Light yellow (Yellow) Urine Appearance Clear (Clear) Urine pH 6.0 (5.0-8.0) Ur Specific [place] 1.015 (1.005-1.030) Urine Protein Negative (Negative) Urine Glucose (UA) Negative (Negative) Urine Ketones Negative (Negative) Urine Occult Blood Negative (Negative) Urine Nitrite Negative (Negative) Urine Bilirubin Negative (Negative) Urine Urobilinogen 0.2 (0.2-1.0) Ur Leukocyte Esterase Negative (Negative) Urine RBC 0-5 (0-5) /hpf Urine WBC 0-5 (0-5) /hpf Ur Epithelial Cells 0-5 (0-5) /hpf Urine Bacteria Rare (FEW) /hpf Hyaline Casts 0-5 (0-5) /lpf Urine Mucus Not seen (FEW) /hpf Blood Type Gel Antibody Screen Meds: Medications Generic Name Dose Route Start Last Admin Trade Name Freq PRN Reason Stop Dose Admin Fentanyl 50 mcg 03/07/17 16:45 03/07/17 16:56 Duragesic TRDERM 50 mcg Q72H EDYTA Administration Lactated Ringer's 1,000 mls @ 125 mls/hr 03/07/17 15:30 03/07/17 15:26 Ringers, Lactated IV 125 mls/hr ASDIRECTED EDYTA Administration Discontinued Medications Generic Name Dose Route Start Last Admin Trade Name Freq PRN Reason Stop Dose Admin Fentanyl 25 mcg 03/07/17 14:54 03/07/17 15:17 Sublimaze IVPUSH 03/07/17 14:55 25 mcg ONETIME ONE Administration Fentanyl 25 mcg 03/07/17 15:37 03/07/17 15:43 Sublimaze IVPUSH 03/07/17 15:38 25 mcg ONETIME ONE Administration Hydromorphone HCl 0.5 mg 03/07/17 16:03 03/07/17 16:15 Dilaudid IVPUSH 03/07/17 16:04 0.5 mg ONETIME ONE Administration Lactated Ringer's 500 mls @ 999 mls/hr 03/07/17 13:30 03/07/17 13:37 Ringers, Lactated IV 03/07/17 14:00 999 mls/hr .BOLUS ONE Administration Lactated Ringer's 1,000 mls @ 999 mls/hr 03/07/17 14:13 03/07/17 14:23 Ringers, Lactated IV 03/07/17 15:13 999 mls/hr .BOLUS ONE Administration Iopamidol 100 ml 03/07/17 13:46 03/07/17 13:50 Isovue-300 (61%) IVPUSH 03/07/17 13:47 100 ml ONETIME ONE Administration - Re-Assessments/Exams Free Text/Narrative Re-Assessment/Exam: 03/07/17 14:19 Awaiting radiologic interpretation of her CT it appears that she has a fair amount of abdominal ascites and a little bit of fluid in the pelvis this does not appear to be blood 03/07/17 14:[address] Fabian including CT report he is reviewing the CT now. 03/07/17 17:18 Dr. Fabian is reviewed CT and discussed the patient's case with Dr. Allen the patient's regular physician they believe this is a new process with the ascites cause unknown thus far liver function tests appear fairly normal. At this point the patient will be placed in the hospital by the on-call surgeon who also discussed the situation with Dr. Fabian. Departure - Departure Time of Disposition: 16:44 Disposition: Refer to Observation Clinical Impression: Abdominal pain of unknown cause, Ascites - My Orders Last 24 Hours: My Active Orders 03/07/17 14:09 EKG Documentation Completion [RC] STAT 03/07/17 14:57 PATIENT RETYPE [BBK] Stat TYPE AND SCREEN [BBK] Stat 03/07/17 15:30 Lactated Ringers [Ringers, Lactated] 1,000 ml IV ASDIRECTED 03/07/17 16:45 fentaNYL [Duragesic] 50 mcg TRDERM Q72H - Assessment/Plan Last 24 Hours: My Active Orders 03/07/17 14:09 EKG Documentation Completion [RC] STAT 03/07/17 14:57 PATIENT RETYPE [BBK] Stat TYPE AND SCREEN [BBK] Stat 03/07/17 15:30 Lactated Ringers [Ringers, Lactated] 1,000 ml IV ASDIRECTED 03/07/17 16:45 fentaNYL [Duragesic] 50 mcg TRDERM Q72H
[2017-03-07] MEDS ORDERED: Iopamidol 612 MG/ML 100 ML Bottle IVPUSH ONE (13:46)
[2017-03-07] MEDS ORDERED: Lactated Ringers 1,000 ML IV ONE (14:13)
--- NOTE | 2017-03-07 14:29 | CT ---
CT abdomen and pelvis Technique: Multiple axial sections were obtained from above the dome of the diaphragm inferiorly through the pubic symphysis. Intravenous contrast was utilized. Delayed images were also obtained through the bladder. Comparison: Previous CT abdomen and pelvis exam of 01/19/16. Findings: Ascites is identified throughout the abdomen and pelvis. Liver appears somewhat small which appears as an interval change from prior exam suggesting cirrhosis. Small cyst is noted within the left lobe of the liver which appear stable from prior exam. Mild intrahepatic biliary duct dilatation is seen which is felt compatible with previous cholecystectomy. Right-sided hydronephrosis is seen which stops at the UPJ. This is similar to previous exam. Small nonobstructing stone measuring less than 5 mm is seen within the upper right kidney. Larger nonobstructing stone noted inferiorly within the right kidney measuring 1.0 cm. Left kidney shows no hydronephrosis. Small nonobstructing stone is noted within the upper left kidney measuring about 1 mm. Adrenal glands show no nodule. Pancreas is atrophied. Aorta shows atherosclerotic change which continues into the iliac vessels. No aneurysm is seen. No bowel dilatation is identified. No pelvic mass or adenopathy is seen. Delayed images shows contrast within the bladder. Bone window settings were reviewed which shows scoliosis and scattered degenerative change within the spine. Artifact is noted within the lower abdomen from surgical clips. Impression: 1. Ascites throughout the abdomen and pelvis. Liver appears somewhat small suggesting cirrhosis. These findings are an interval change from prior CT exam. 2. 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 Nonobstructing calculi are seen within both kidneys. 3. Other findings which are felt to be incidental as described above. Diagnostic code #3
[2017-03-07] MEDS ORDERED: fentaNYL 100 MCG/2 ML SDV IVPUSH ONE ×2 (14:54→15:37)
[2017-03-07] MEDS ORDERED: Lactated Ringers 1,000 ML IV SCH ×2 (15:30→20:30)
[2017-03-07] MEDS ORDERED: HYDROmorphone 0.5 MG/0.5 ML Syringe IVPUSH ONE (16:03)
[2017-03-07] MEDS: fentaNYL 50 MCG/HR Transdermal Patch TRDERM SCH (16:56)
[2017-03-07] MEDS ORDERED: traMADol 50 MG Tab PO PRN ×2 (18:37→20:17)
[2017-03-07] MEDS: Ondansetron 4 MG/2 ML SDV IVPUSH PRN (18:50)
[2017-03-07] MEDS ORDERED: Albuterol 6.7 GM Inhaler INH PRN (20:17)
[2017-03-07] MEDS ORDERED: Ondansetron 4 MG Tab.DIS PO PRN (20:17)
[2017-03-07] MEDS: Verapamil 120 MG Tab.ER PO SCH (20:20)
[2017-03-07] MEDS ORDERED: fentaNYL 50 MCG/HR Transdermal Patch TRDERM SCH (20:30)
[2017-03-07] MEDS ORDERED: CARBAMAZEPINE 100 MG PO SCH (21:00)
[2017-03-07] MEDS: guaiFENesin 600 MG Tab.ER PO SCH (22:16)
[2017-03-07] MEDS: traMADol 50 MG Tab PO SCH (22:16)
[2017-03-07] MEDS ORDERED: Metoprolol Tartrate 5 MG in Sodium Chloride 0.9% 50 ML IV ONE (23:39)
[2017-03-07] MEDS ORDERED: Metoprolol Tartrate 5 MG/5 ML SDV IV ONE (23:50)
[2017-03-07] MEDS ORDERED: Metoprolol Tartrate 5 MG/5 ML SDV IVPUSH ONE (23:50)
[2017-03-08] MEDS: traMADol 50 MG Tab PO SCH ×5 (05:51→19:23)
[2017-03-08] MEDS: Levothyroxine 25 MCG Tab PO SCH (06:24)
[2017-03-08] MEDS ORDERED: Sodium Chloride 0.9% 1,000 ML IV SCH (08:55)
[2017-03-08] MEDS ORDERED: Lactated Ringers 500 ML IV ONE (08:55)
[2017-03-08] MEDS ORDERED: Verapamil 120 MG Tab.ER PO SCH (09:00)
[2017-03-08] MEDS ORDERED: Lisinopril 5 MG Tab PO SCH (09:00)
[2017-03-08] MEDS ORDERED: METOPROLOL SUCCINATE 25 MG PO SCH (09:00)
[2017-03-08] MEDS: guaiFENesin 600 MG Tab.ER PO SCH ×2 (09:58→20:41)
[2017-03-08] MEDS: Oxybutynin 5 MG Tab.ER PO SCH (09:58)
[2017-03-08] MEDS: Formoterol/Mometasone 200-5 MCG 8.8 GM Inhaler IH SCH ×3 (09:59→21:07)
[2017-03-08] MEDS: Verapamil 120 MG Tab.ER PO SCH (10:04)
[2017-03-08] MEDS: Lisinopril 5 MG Tab PO SCH (10:07)
[2017-03-08] MEDS: Sertraline 50 MG Tab PO SCH (10:09)
[2017-03-08] MEDS: Lactated Ringers 1,000 ML IV SCH ×2 (16:18→23:10)
[2017-03-08] MEDS: Ondansetron 4 MG/2 ML SDV IVPUSH PRN (16:18)
[2017-03-08] MEDS: Morphine 2 MG/ML Syringe IVPUSH PRN ×3 (16:37→23:16)
[2017-03-08] MEDS ORDERED: Iopamidol 612 MG/ML 100 ML Bottle IVPUSH ONE (16:51)
[2017-03-08] MEDS ORDERED: Diatrizoate Meglumine/Diatrizoate Sodium 37% 120 ML Bottle PO ONE (16:51)
[2017-03-08] MEDS ORDERED: Sodium Chloride 0.9% 10 ML Syringe FLUSH PRN (16:51)
--- NOTE | 2017-03-08 21:18 | PN ---
DATE OF SERVICE: 03/08/2017 Gisela Leger became my patient last evening. The events of the day included colonoscopy and sudden onset of abdominal pain a few hours after her normal colonoscopy. She throughout the night dipped her pressure and this was supported with fluids, and yesterday when she arrived back from her home after her colonoscopy her hemoglobin last evening was 9.4, drifted down to 7.7 overnight, at 4 o'clock in the morning on the it was 7.7, and then now after transfusion of 1 unit of blood her hemoglobin is 8.8. [place] [address] [place] [address]. Her vital signs throughout the night remained roughly stable. She did get some hypotensive and was treated with boluses of fluid, and this morning her hemoglobin had dropped from I believe 12 down to 9.4, and with that a review of the CT scan performed yesterday, which was essentially unremarkable except having fluid in the abdominal cavity. No sign of any perforation. The patient was empirically given 1 unit of blood, which brought her from 7.7 back up to 8.8 L. Her vital signs remained stable since that time. She has been at bedrest in the ICU. Her blood pressure is running in the 120 range over 70 and pulse rate of about 80-90. She is on multiple medications for pain and this has increased the difficulty in evaluating her. She has maintained tenderness in her entire abdomen yesterday and then with bowel sounds present, and now the pain is localized basically in the left flank and left lower quadrant. The patient underwent a repeat CT scan this evening to delineate what further information and its salient finding was basically that the patient did have an increased amount of blood. The fluid along the left lateral aspect of the abdomen measures 40-60 Hounsfield units consistent with a hemoperitoneum. On the basis of this and although the spleen appears to be intact, perhaps the pedicle of the spleen and some smaller vessels were torn in the process of negotiating the splenic flexure and she may well have had adhesions in that area to limiting the amount of mobility. Anyway, the mystery appears to be solved and that is the source of her pain in her hemoperitoneum. Presumably, it is all in the left flank and the left lower quadrant now. So, we will continue to watch her. Her hemoglobin now is close to 9. We will recheck it in the morning. She is going to be kept in the ICU and her blood pressures will be monitored. She has some blood available, type and crossed should she need that and we will see what the lab shows in the morning and what progress tonight shows. JIGAR /[id number]
[2017-03-08] MEDS ORDERED: Sodium Chloride 0.9% 250 ML IV SCH (21:30)
[2017-03-09] MEDS: Morphine 2 MG/ML Syringe IVPUSH PRN ×7 (01:16→20:50)
[2017-03-09] MEDS: traMADol 50 MG Tab PO SCH ×4 (01:17→20:21)
[2017-03-09] MEDS: Levothyroxine 25 MCG Tab PO SCH (05:38)
[2017-03-09] MEDS: Formoterol/Mometasone 200-5 MCG 8.8 GM Inhaler IH SCH ×2 (06:06→20:40)
[2017-03-09] MEDS: Lactated Ringers 1,000 ML IV SCH ×2 (07:39→16:08)
[2017-03-09] MEDS: Verapamil 120 MG Tab.ER PO SCH (09:49)
[2017-03-09] MEDS: Metoprolol Succinate 25 MG Tab.ER PO SCH (09:49)
[2017-03-09] MEDS: Lisinopril 5 MG Tab PO SCH (09:49)
[2017-03-09] MEDS: Sertraline 50 MG Tab PO SCH (09:59)
[2017-03-09] MEDS: Oxybutynin 5 MG Tab.ER PO SCH (09:59)
[2017-03-09] MEDS: guaiFENesin 600 MG Tab.ER PO SCH ×2 (09:59→20:20)
--- NOTE | 2017-03-09 10:45 | CT ---
CT abdomen and pelvis Technique: Multiple axial sections were obtained from above the dome of the diaphragm inferiorly through the pubic symphysis. Intravenous contrast was utilized. Oral contrast is seen. Comparison: Prior CT abdomen and pelvis exam of 03/07/17. Findings: Fluid is identified within the abdomen and pelvis. Fluid within the right side of the abdomen and within the pelvis does not have Hounsfield unit measurements of blood. Hounsfield unit measurements within the left side of the abdomen have increased Hounsfield unit measurements possibly representing hemoperitoneum. Spleen is somewhat abnormal in configuration and difficult to exclude a chronic subcapsular splenic hematoma that is leaking. Deformity to several right lower ribs are seen compatible with old trauma. Small right-sided pleural effusion is seen. Parenchymal densities seen within both lung bases worse on the left side which is felt compatible with atelectasis. Small cysts noted within the dome of the left lobe of the liver. Intrahepatic biliary duct dilatation is seen which is stable. Liver again felt to be slightly small in size. Kidneys show contrast enhancement. Dilated right renal pelvis is seen compatible with so-called functional UPJ obstruction. Several nonobstructing calculi are seen within the right kidney. Small nonobstructing calculus seen within the left kidney. Adrenal glands show no nodule. Aorta shows atherosclerotic change without aneurysmal dilatation. Atherosclerotic calcification continues into the iliac vessels. Surgical clips are seen within the retroperitoneum. No pelvic mass or adenopathy is seen. Delayed images show contrast within the distal ureters and within the bladder. Cecum is somewhat dilated felt to be incidental as contrast is noted within other portions of the colon. Small bowel appears slightly prominent in size felt to be due to the hypertonic effect of contrast. Scoliosis present within the spine with degenerative change. Impression: 1. Fluid within the abdomen and pelvis which appears fairly stable from prior exam. As noted above, fluid on the left side of the abdomen could represent hemoperitoneum with fluid on the right side having more of a transudate Hounsfield unit measurements. Sampling would confirm which etiology. 2. Mildly abnormal configuration of the spleen as seen on the reconstructed coronal images. Findings raise the possibility of a chronic leaking subcapsular splenic hematoma. 3. Other findings as described above believed to be incidental. Diagnostic code #3 I agree with preliminary report issued by [facility] ([facility] report finalized on 03/08/17, 7:09 PM Central Time)
--- NOTE | 2017-03-09 20:20 | PN ---
DATE OF SERVICE: 03/09/2017 Gisela Leger has been in the unit now overnight and her hemoglobin this morning was 9.9 and this evening is 9.9. She overnight finished off her second unit of blood. She is doing well. Her vital signs remained stable. Her pressure right now, systolic was 150. She is running at about 90 to 100 beats per minute and generally feels well. Her pain is about the same as it was earlier, but that is controversial because of the fact that she is basically a person who has a lot of pain and takes multiple medications for that, but her abdominal examination reveals the right side of the abdomen now is pretty much normal sensation. In the left lower quadrant and left flank, she still has pain from the area where the bleeding presumably from the short vessels or at least the splenic pedicle emanates. She is starting to take a full liquid diet and basically is doing well and hopefully in the morning, we would able to move her to the brown and see how she does. JIGAR /[id number]
[2017-03-10] MEDS: Morphine 2 MG/ML Syringe IVPUSH PRN ×6 (00:46→18:02)
[2017-03-10] MEDS: traMADol 50 MG Tab PO SCH ×4 (01:53→20:24)
[2017-03-10] MEDS ORDERED: Metoprolol Tartrate 5 MG/5 ML SDV IVPUSH PRN (03:52)
[2017-03-10] MEDS: Formoterol/Mometasone 200-5 MCG 8.8 GM Inhaler IH SCH ×2 (05:45→20:41)
[2017-03-10] MEDS: Levothyroxine 25 MCG Tab PO SCH (06:12)
[2017-03-10] MEDS: Metoprolol Succinate 25 MG Tab.ER PO SCH (10:17)
[2017-03-10] MEDS: Oxybutynin 5 MG Tab.ER PO SCH (10:17)
[2017-03-10] MEDS: Potassium Chloride 20 MEQ Tab.ER PO SCH ×3 (10:21→20:24)
[2017-03-10] MEDS: Lisinopril 5 MG Tab PO SCH (10:23)
[2017-03-10] MEDS: guaiFENesin 600 MG Tab.ER PO SCH ×3 (10:23→20:27)
[2017-03-10] MEDS: Verapamil 120 MG Tab.ER PO SCH (10:24)
[2017-03-10] MEDS: Sertraline 50 MG Tab PO SCH (10:26)
[2017-03-10] MEDS: Acetaminophen/oxyCODONE 325-5 MG Tab PO PRN ×3 (10:39→22:37)
[2017-03-10] MEDS: Lactated Ringers 1,000 ML IV SCH (10:44)
--- NOTE | 2017-03-10 11:35 | PN ---
DATE OF SERVICE: 03/10/2017 Gisela Hall is doing well. Her hemoglobin is up to 10 from 9.9 yesterday, so she is not losing. She is running a little bit of a tachycardia that might be just fluid overloaded. She also has a low potassium of 3.3. Her pain, she says is about the same, maybe a little bit less and now more localized just medial to the anterior superior iliac spine and anterior abdominal wall and left lower quadrant. Rest of her abdomen is soft, and bowel sounds are present, and she is tolerating a full liquid diet now. Her potassium is 3.3, and she will need some oral potassium supplements. I will be leaving him. I have discussed the patient with Dr. Garibay, and he will assume her care in the interim. She will probably need several more days, and if the patient will need to stay greater than 96 hours because of the severity of her injury, which at the time of her admission was not able to be ascertained, then she will require at least 2-3 more days of care. She is in the ICU at this point. She hopefully will be able to have progressive mobility, and her diet can be advanced as tolerated. She did have a bowel movement yesterday, and is passing gas. JIGAR /[id number]
[2017-03-10] MEDS ORDERED: Potassium Chloride 20 MEQ Tab.ER PO SCH (15:00)
[2017-03-10] MEDS: fentaNYL 50 MCG/HR Transdermal Patch TRDERM SCH (16:42)
[2017-03-11] MEDS: Acetaminophen/oxyCODONE 325-5 MG Tab PO PRN ×4 (02:13→21:59)
[2017-03-11] MEDS: traMADol 50 MG Tab PO SCH ×4 (02:13→21:54)
[2017-03-11] MEDS: Formoterol/Mometasone 200-5 MCG 8.8 GM Inhaler IH SCH ×2 (05:48→20:06)
[2017-03-11] MEDS: Levothyroxine 25 MCG Tab PO SCH (06:18)
[2017-03-11] MEDS: Lactated Ringers 1,000 ML IV SCH (06:18)
--- NOTE | 2017-03-11 08:53 | PCM.CONSN ---
- General Info Date of Service: 03/11/17 Functional Status: Reports: Pain Controlled (She states her pain is improving daily and she emphasizes much better than yesterday.), Tolerating Diet ( Tolerating a clear liquid diet well and specifically asked for a regular diet.) , Urinating - Review of Systems Gastrointestinal: Reports: Abdominal Pain (She has left upper quadrant and left lower quadrant abdominal pain.), Flatus - Patient Data Vitals - Most Recent: Last Vital Signs Temp 37.2 C 03/11/17 08:12 Pulse 92 03/11/17 08:12 Resp 20 03/11/17 08:12 BP 133/67 03/11/17 08:12 Pulse Ox 96 03/11/17 08:12 Weight - Most Recent: 67.358 kg I&O - Last 24 Hours: Intake & Output 03/10/17 03/11/17 03/11/17 22:59 06:59 14:59 Intake Total 1387 751 Output Total 820 700 200 Balance 567 51 -200 Med Orders - Current: Current Medications Albuterol (Proventil Hfa) 0 gm INH Q4H PRN PRN Reason: Shortness of Breath Carbamazepine (Tegretol) 200 mg PO BID [facility] Last Admin: 03/10/17 20:25 Dose: 200 mg Fentanyl (Duragesic) 50 mcg TRDERM Q72H [facility] Last Admin: 03/10/17 16:42 Dose: 50 mcg Guaifenesin (Mucinex) 1,200 mg PO BID [facility] Last Admin: 03/10/17 20:27 Dose: Not Given Sodium Chloride (Normal Saline) 250 mls @ 25 mls/hr IV ASDIRECTED [facility] Lactated Ringer's (Ringers, Lactated) 1,000 mls @ 50 mls/hr IV ASDIRECTED [facility] Last Admin: 03/11/17 06:18 Dose: 50 mls/hr Levothyroxine Sodium (Levothyroxine) 25 mcg PO ACBREAKFAST [facility] Last Admin: 03/11/17 06:18 Dose: 25 mcg Lisinopril (Prinivil) 5 mg PO DAILY [facility] Last Admin: 03/10/17 10:23 Dose: 5 mg Metoprolol Succinate (Toprol Xl) 12.5 mg PO DAILY [facility] Last Admin: 03/10/17 10:17 Dose: 12.5 mg Metoprolol Tartrate (Lopressor) 5 mg IVPUSH Q6H PRN PRN Reason: Tachycardia Last Admin: 03/10/17 04:04 Dose: 5 mg Mometasone Furoate/Formoterol Fumar (Dulera 200-5 Mcg) 2 puff IH BIDRT [facility] Last Admin: 03/11/17 05:48 Dose: 2 puff Morphine Sulfate (Morphine) 2 mg IVPUSH Q2H PRN PRN Reason: Pain Last Admin: 03/10/17 18:02 Dose: 2 mg Ondansetron HCl (Zofran) 4 mg IVPUSH Q4H PRN PRN Reason: Nausea Last Admin: 03/08/17 16:18 Dose: 4 mg Ondansetron HCl (Zofran Odt) 4 mg PO Q4H PRN PRN Reason: Nausea/Vomiting Last Admin: 03/10/17 02:33 Dose: 4 mg Oxybutynin Chloride (Oxybutynin Er) 5 mg PO DAILY [facility] Last Admin: 03/10/17 10:17 Dose: 5 mg Oxycodone/Acetaminophen (Percocet 325-5 Mg) 1 tab PO Q4H PRN PRN Reason: Pain Last Admin: 03/11/17 06:18 Dose: 1 tab Potassium Chloride (Klor-Con M20) 20 meq PO TID [facility] Last Admin: 03/10/17 20:24 Dose: 20 meq Sertraline HCl (Zoloft) 50 mg PO DAILY [facility] Last Admin: 03/10/17 10:26 Dose: 50 mg Sodium Chloride (Saline Flush) 10 ml FLUSH ONETIME PRN PRN Reason: IV FLUSH Last Admin: 03/08/17 17:31 Dose: 10 ml Tramadol HCl (Ultram) 50 mg PO Q6H [facility] Last Admin: 03/11/17 02:13 Dose: 50 mg Verapamil HCl (Calan Sr) 120 mg PO DAILY [facility] Last Admin: 03/10/17 10:24 Dose: 120 mg Discontinued Medications Diatrizoate Meglum/Diatrizoate Sod (Gastrografin 37%) 90 ml PO ONETIME ONE Stop: 03/08/17 16:52 Last Admin: 03/08/17 17:31 Dose: 90 ml Fentanyl (Sublimaze) 25 mcg IVPUSH ONETIME ONE Stop: 03/07/17 14:55 Last Admin: 03/07/17 15:17 Dose: 25 mcg Fentanyl (Sublimaze) 25 mcg IVPUSH ONETIME ONE Stop: 03/07/17 15:38 Last Admin: 03/07/17 15:43 Dose: 25 mcg Fentanyl (Duragesic) 50 mcg TRDERM Q72H [facility] Last Admin: 03/07/17 22:15 Dose: Not Given Hydromorphone HCl (Dilaudid) 0.5 mg IVPUSH ONETIME ONE Stop: 03/07/17 16:04 Last Admin: 03/07/17 16:15 Dose: 0.5 mg Lactated Ringer's (Ringers, Lactated) 500 mls @ 999 mls/hr IV .BOLUS ONE Stop: 03/07/17 14:00 Last Admin: 03/07/17 13:37 Dose: 999 mls/hr Lactated Ringer's (Ringers, Lactated) 1,000 mls @ 999 mls/hr IV .BOLUS ONE Stop: 03/07/17 15:13 Last Admin: 03/07/17 14:23 Dose: 999 mls/hr Lactated Ringer's (Ringers, Lactated) 1,000 mls @ 125 mls/hr IV ASDIRECTED [facility] Last Admin: 03/07/17 15:26 Dose: 125 mls/hr Lactated Ringer's (Ringers, Lactated) 1,000 mls @ 75 mls/hr IV ASDIRECTED [facility] Last Admin: 03/08/17 01:26 Dose: 75 mls/hr Metoprolol Tartrate 5 mg/ (Sodium Chloride) 55 mls @ 100 mls/hr IV ONETIME ONE Stop: 03/08/17 00:11 Last Admin: 03/07/17 23:45 Dose: Not Given Sodium Chloride (Normal Saline) 1,000 mls @ 150 mls/hr IV ASDIRECTED [facility] Last Admin: 03/08/17 11:00 Dose: 150 mls/hr Lactated Ringer's (Ringers, Lactated) 500 mls @ 999 mls/hr IV .BOLUS ONE Stop: 03/08/17 09:25 Last Admin: 03/08/17 08:55 Dose: 999 mls/hr Lactated Ringer's (Ringers, Lactated) 1,000 mls @ 125 mls/hr IV ASDIRECTED [facility] Last Admin: 03/09/17 07:39 Dose: 125 mls/hr Iopamidol (Isovue-300 (61%)) 100 ml IVPUSH ONETIME ONE Stop: 03/07/17 13:47 Last Admin: 03/07/17 13:50 Dose: 100 ml Iopamidol (Isovue-300 (61%)) 100 ml IVPUSH ONETIME ONE Stop: 03/08/17 16:52 Last Admin: 03/08/17 17:31 Dose: 100 ml Lisinopril (Prinivil) 5 mg PO DAILY [facility] Metoprolol Succinate (Toprol Xl) 25 mg PO DAILY [facility] Last Admin: 03/08/17 21:03 Dose: Not Given Metoprolol Tartrate (Lopressor) 5 mg IV ONETIME ONE Stop: 03/07/17 23:51 Metoprolol Tartrate (Lopressor) 5 mg IVPUSH ONETIME ONE Stop: 03/07/17 23:51 Last Admin: 03/07/17 23:50 Dose: 5 mg (Carbamazepine [ Tegretol Xr] 100 Mg) Own Med 200 mg PO BID [facility] Last Admin: 03/07/17 22:15 Dose: Not Given Potassium Chloride (Klor-Con M20) 20 meq PO TID [facility] Tramadol HCl (Ultram) 50 mg PO Q6H PRN PRN Reason: Pain Last Admin: 03/07/17 18:50 Dose: 50 mg Tramadol HCl (Ultram) 50 mg PO Q6H PRN PRN Reason: Pain (moderate 4-6) Verapamil HCl (Calan Sr) 120 mg PO DAILY [facility] - Exam General: Alert, Oriented, Cooperative, No Acute Distress GI/Abdominal Exam: No Distention, Tender (Left upper quadrant tenderness with some voluntary guarding and mild left lower quadrant tenderness) Consult PN Assessment/Plan Procedures: Procedures AIRWAY INHALATION TREATMENT (02/12/16) ASSAY OF BLOOD OSMOLALITY (09/10/15) ASSAY OF FREE THYROXINE (01/19/16) ASSAY OF LIPASE (01/19/16) ASSAY OF MAGNESIUM (03/05/16) ASSAY OF NATRIURETIC PEPTIDE (09/10/15) ASSAY OF SERUM POTASSIUM (02/12/16) ASSAY OF TROPONIN QUANT (03/05/16) ASSAY THYROID STIM HORMONE (01/19/16) C-REACTIVE PROTEIN (09/20/16) CARDIOVASCULAR STRESS TEST (07/30/15) CHEST X-RAY 1 VIEW FRONTAL (03/05/16) CHEST X-RAY 2VW FRONTAL&LATL (08/22/15) COMPLETE CBC W/AUTO DIFF WBC (09/20/16) COMPREHEN METABOLIC PANEL (09/20/16) CREATINE MB FRACTION (09/10/15) CT ABD & PELV W/CONTRAST (01/19/16) CT HEAD/BRAIN W/O DYE (03/05/16) CT NECK SPINE W/O DYE (08/22/15) DXA BONE DENSITY AXIAL (02/07/17) EGD DIAGNOSTIC BRUSH WASH (03/07/17) ELECTROCARDIOGRAM TRACING (03/05/16) EMERGENCY DEPT VISIT (12/05/16) EMERGENCY DEPT VISIT (03/05/16) EVALUATE PT USE OF INHALER (02/12/16) EVALUATE SWALLOWING FUNCTION (03/05/16) EXTRACRANIAL BILAT STUDY (01/19/16) FLUOROSCOPE EXAMINATION (02/12/16) GAIT TRAINING THERAPY (02/12/16) HT MUSCLE IMAGE SPECT MULT (07/30/15) HYDRATE IV INFUSION ADD-ON (01/19/16) HYDRATION IV INFUSION INIT (09/10/15) INSERT BLADDER CATHETER (01/19/16) LIPID PANEL (03/05/16) MANUAL THERAPY 1/> REGIONS (02/12/16) MEASURE BLOOD OXYGEN LEVEL (01/19/16) METABOLIC PANEL TOTAL CA (03/05/16) MR-STAPH DNA AMP PROBE (12/21/16) MRI BRAIN STEM W/O & W/DYE (01/19/16) MRI BRAIN STEM W/O DYE (03/05/16) OT EVALUATION (02/12/16) PROTHROMBIN TIME (03/05/16) PT EVALUATION (03/05/16) RBC SED RATE AUTOMATED (09/20/16) ROUTINE VENIPUNCTURE (09/20/16) SELF CARE MNGMENT TRAINING (02/12/16) THER/PROPH/DIAG INJ IV PUSH (03/05/16) THERAPEUTIC ACTIVITIES (02/12/16) THERAPEUTIC EXERCISES (03/05/16) THROMBOPLASTIN TIME PARTIAL (03/05/16) TTE W/DOPPLER COMPLETE (01/19/16) TX/PRO/DX INJ NEW DRUG ADDON (01/19/16) TX/PRO/DX INJ SAME DRUG CANE LOADER (03/05/16) URINALYSIS AUTO W/SCOPE (03/05/16) URINE CULTURE/COLONY COUNT (09/10/15) X-RAY EXAM OF ANKLE (12/05/16) X-RAY EXAM OF FOOT (12/05/16) X-RAY EXAM OF HAND (08/22/15) X-RAY EXAM OF KNEE 3 (12/05/16) X-RAY EXAM OF SHOULDER (02/12/16) (1) 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 SNOMED Code(s): 844071345 Code(s): D78.32 - POSTPROC HEMATOMA OF THE SPLEEN FOLLOWING OTHER PROCEDURE Priority: Medium Current Visit: Yes Onset Date: ~03/07/17 Assessment:: imp: Improving clinically as she is noting less and less abdominal discomfort. Her vital signs have been stable. Her abdominal examination is consistent with local chemical peritonitis from the hemoperitoneum. This inflammatory reaction should improve daily. Her hematocrits 4 have been stable. Her potassium is a little low but is being supplemented. With this grade 1 type of splenic injury, generally a week of bed rest with bathroom privileges is sufficient to minimize the chances of a rebleed. After discharge she'll need a follow-up CT scan at 6 weeks to evaluate her for a pseudoaneurysm. Dr. Fabian is aware of this. Problem List Initiated/Reviewed/Updated: Yes Plan: Rec: Regular diet. She can shower.
[2017-03-11] MEDS ORDERED: Sodium Chloride 0.9% 10 ML Syringe FLUSH PRN (08:55)
[2017-03-11] MEDS: Lisinopril 5 MG Tab PO SCH (09:15)
[2017-03-11] MEDS: Oxybutynin 5 MG Tab.ER PO SCH (09:16)
[2017-03-11] MEDS: Metoprolol Succinate 25 MG Tab.ER PO SCH (09:18)
[2017-03-11] MEDS: Potassium Chloride 20 MEQ Tab.ER PO SCH ×3 (09:18→21:52)
[2017-03-11] MEDS: Sertraline 50 MG Tab PO SCH (09:18)
[2017-03-11] MEDS: Verapamil 120 MG Tab.ER PO SCH (09:20)
[2017-03-11] MEDS: Ondansetron 4 MG/2 ML SDV IVPUSH PRN (09:49)
[2017-03-11] MEDS ORDERED: Ergocalciferol (Vitamin D2) 50,000 Unit Cap PO SCH (10:15)
[2017-03-11] MEDS: guaiFENesin 600 MG Tab.ER PO SCH ×2 (10:30→21:54)
--- NOTE | 2017-03-11 14:14 | PCM.CONSN ---
- General Info Date of Service: 03/11/17 (Hospitalist Serv Consult requested by primary service , gen surg.) Functional Status: Reports: Pain Controlled, Tolerating Diet - Review of Systems General: Reports: No Symptoms HEENT: Reports: No Symptoms Pulmonary: Reports: No Symptoms Cardiovascular: Reports: No Symptoms Gastrointestinal: Reports: No Symptoms Genitourinary: Reports: No Symptoms Musculoskeletal: Reports: No Symptoms Skin: Reports: No Symptoms Neurological: Reports: No Symptoms Psychiatric: Reports: No Symptoms - Patient Data Vitals - Most Recent: Last Vital Signs Temp 37.2 C 03/11/17 08:12 Pulse 101 H 03/11/17 09:20 Resp 20 03/11/17 08:12 BP 133/67 03/11/17 09:20 Pulse Ox 96 03/11/17 08:12 Weight - Most Recent: 67.358 kg I&O - Last 24 Hours: Intake & Output 03/10/17 03/11/17 03/11/17 22:59 06:59 14:59 Intake Total 1387 751 159 Output Total 820 700 400 Balance 567 51 -241 Lab Results Last 24 Hours: Laboratory Results - last 24 hr 03/11/17 03/11/17 03/11/17 Range/Units 09:29 10:55 10:55 WBC 7.36 (3.98-10.04) K/mm3 RBC 3.21 L (3.98-5.22) M/mm3 Hgb 9.5 L (11.2-15.7) gm/L Hct 29.3 L (34.1-44.9) % MCV 91.3 (79.4-94.8) fl MCH 29.6 (25.6-32.2) pg MCHC 32.4 (32.2-35.5) g/dl RDW Std Deviation 50.4 H (36.4-46.3) fL Plt Count 160 L (182-369) K/mm3 MPV 10.7 (9.4-12.3) fl Neut % (Auto) 82.5 H (34.0-71.1) % Lymph % (Auto) 5.8 L (19.3-51.7) % [place] % (Auto) 10.1 (4.7-12.5) % Eos % (Auto) 1.4 (0.7-5.8) Baso % (Auto) 0.1 (0.1-1.2) % Neut # (Auto) 6.07 (1.56-6.13) K/mm3 Lymph # (Auto) 0.43 L (1.18-3.74) K/mm3 [place] # (Auto) 0.74 H (0.24-0.36) K/mm3 Eos # (Auto) 0.10 (0.04-0.36) K/mm3 Baso # (Auto) 0.01 (0.01-0.08) K/mm3 Manual Slide Review Abnormal smear Sodium 138 (136-145) mEq/L Potassium 3.9 (3.5-5.1) mEq/L Chloride 103 (98-107) mEq/L Carbon Dioxide 30 (21-32) mEq/L Anion Gap 8.9 (5-15) BUN 6 L (7-18) mg/dL Creatinine 0.4 L (0.55-1.02) mg/dL Est Cr Clr Drug Dosing 106.55 mL/min Estimated GFR (MDRD) > 60 (>60) mL/min BUN/Creatinine Ratio 15.0 (14-18) Glucose 109 (83-115) mg/dL Calcium 8.1 L (8.5-10.1) mg/dL Magnesium 1.6 L (1.8-2.4) mg/dl C-Reactive Protein 27.2 H* (<1.0) mg/dL Med Orders - Current: Current Medications Albuterol (Proventil Hfa) 0 gm INH Q4H PRN PRN Reason: Shortness of Breath Carbamazepine (Tegretol) 200 mg PO BID [facility] Last Admin: 03/11/17 09:16 Dose: 200 mg Docusate Sodium (Colace) 100 mg PO BID [facility] Ergocalciferol (Vitamin D2) 50,000 units PO ASDIRECTED [facility] Ergocalciferol (Vitamin D2) 50,000 units PO Mo@0900 [facility] Fentanyl (Duragesic) 50 mcg TRDERM Q72H [facility] Last Admin: 03/10/17 16:42 Dose: 50 mcg Guaifenesin (Mucinex) 1,200 mg PO BID [facility] Last Admin: 03/11/17 10:30 Dose: Not Given Sodium Chloride (Normal Saline) 250 mls @ 25 mls/hr IV ASDIRECTED [facility] Lactated Ringer's (Ringers, Lactated) 1,000 mls @ 50 mls/hr IV ASDIRECTED [facility] Last Admin: 03/11/17 06:18 Dose: 50 mls/hr Levothyroxine Sodium (Levothyroxine) 25 mcg PO ACBREAKFAST [facility] Last Admin: 03/11/17 06:18 Dose: 25 mcg Lisinopril (Prinivil) 5 mg PO DAILY [facility] Last Admin: 03/11/17 09:15 Dose: 5 mg Metoprolol Succinate (Toprol Xl) 12.5 mg PO DAILY [facility] Last Admin: 03/11/17 09:18 Dose: 12.5 mg Metoprolol Tartrate (Lopressor) 5 mg IVPUSH Q6H PRN PRN Reason: Tachycardia Last Admin: 03/10/17 04:04 Dose: 5 mg Mometasone Furoate/Formoterol Fumar (Dulera 200-5 Mcg) 2 puff IH BIDRT [facility] Last Admin: 03/11/17 05:48 Dose: 2 puff Morphine Sulfate (Morphine) 2 mg IVPUSH Q2H PRN PRN Reason: Pain Last Admin: 03/10/17 18:02 Dose: 2 mg Ondansetron HCl (Zofran) 4 mg IVPUSH Q4H PRN PRN Reason: Nausea Last Admin: 03/11/17 09:49 Dose: 4 mg Ondansetron HCl (Zofran Odt) 4 mg PO Q4H PRN PRN Reason: Nausea/Vomiting Last Admin: 03/10/17 02:33 Dose: 4 mg Oxybutynin Chloride (Oxybutynin Er) 5 mg PO DAILY [facility] Last Admin: 03/11/17 09:16 Dose: 5 mg Oxycodone/Acetaminophen (Percocet 325-5 Mg) 1 tab PO Q4H PRN PRN Reason: Pain Last Admin: 03/11/17 12:27 Dose: 1 tab Potassium Chloride (Klor-Con M20) 20 meq PO TID [facility] Last Admin: 03/11/17 09:18 Dose: 20 meq Pregabalin (Lyrica) 150 mg PO BID [facility] Rosuvastatin Calcium (Crestor) 10 mg PO BEDTIME [facility] Sertraline HCl (Zoloft) 50 mg PO DAILY [facility] Last Admin: 03/11/17 09:18 Dose: 50 mg Sodium Chloride (Saline Flush) 10 ml FLUSH ONETIME PRN PRN Reason: IV FLUSH Last Admin: 03/08/17 17:31 Dose: 10 ml Sodium Chloride (Saline Flush) 10 ml FLUSH ASDIRECTED PRN PRN Reason: Keep Vein Open Tramadol HCl (Ultram) 50 mg PO Q6H [facility] Last Admin: 03/11/17 09:17 Dose: 50 mg Verapamil HCl (Calan Sr) 120 mg PO DAILY [facility] Last Admin: 03/11/17 09:20 Dose: 120 mg Discontinued Medications Diatrizoate Meglum/Diatrizoate Sod (Gastrografin 37%) 90 ml PO ONETIME ONE Stop: 03/08/17 16:52 Last Admin: 03/08/17 17:31 Dose: 90 ml Fentanyl (Sublimaze) 25 mcg IVPUSH ONETIME ONE Stop: 03/07/17 14:55 Last Admin: 03/07/17 15:17 Dose: 25 mcg Fentanyl (Sublimaze) 25 mcg IVPUSH ONETIME ONE Stop: 03/07/17 15:38 Last Admin: 03/07/17 15:43 Dose: 25 mcg Fentanyl (Duragesic) 50 mcg TRDERM Q72H [facility] Last Admin: 03/07/17 22:15 Dose: Not Given Hydromorphone HCl (Dilaudid) 0.5 mg IVPUSH ONETIME ONE Stop: 03/07/17 16:04 Last Admin: 03/07/17 16:15 Dose: 0.5 mg Lactated Ringer's (Ringers, Lactated) 500 mls @ 999 mls/hr IV .BOLUS ONE Stop: 03/07/17 14:00 Last Admin: 03/07/17 13:37 Dose: 999 mls/hr Lactated Ringer's (Ringers, Lactated) 1,000 mls @ 999 mls/hr IV .BOLUS ONE Stop: 03/07/17 15:13 Last Admin: 03/07/17 14:23 Dose: 999 mls/hr Lactated Ringer's (Ringers, Lactated) 1,000 mls @ 125 mls/hr IV ASDIRECTED [facility] Last Admin: 03/07/17 15:26 Dose: 125 mls/hr Lactated Ringer's (Ringers, Lactated) 1,000 mls @ 75 mls/hr IV ASDIRECTED [facility] Last Admin: 03/08/17 01:26 Dose: 75 mls/hr Metoprolol Tartrate 5 mg/ (Sodium Chloride) 55 mls @ 100 mls/hr IV ONETIME ONE Stop: 03/08/17 00:11 Last Admin: 03/07/17 23:45 Dose: Not Given Sodium Chloride (Normal Saline) 1,000 mls @ 150 mls/hr IV ASDIRECTED [facility] Last Admin: 03/08/17 11:00 Dose: 150 mls/hr Lactated Ringer's (Ringers, Lactated) 500 mls @ 999 mls/hr IV .BOLUS ONE Stop: 03/08/17 09:25 Last Admin: 03/08/17 08:55 Dose: 999 mls/hr Lactated Ringer's (Ringers, Lactated) 1,000 mls @ 125 mls/hr IV ASDIRECTED [facility] Last Admin: 03/09/17 07:39 Dose: 125 mls/hr Iopamidol (Isovue-300 (61%)) 100 ml IVPUSH ONETIME ONE Stop: 03/07/17 13:47 Last Admin: 03/07/17 13:50 Dose: 100 ml Iopamidol (Isovue-300 (61%)) 100 ml IVPUSH ONETIME ONE Stop: 03/08/17 16:52 Last Admin: 03/08/17 17:31 Dose: 100 ml Lisinopril (Prinivil) 5 mg PO DAILY [facility] Metoprolol Succinate (Toprol Xl) 25 mg PO DAILY [facility] Last Admin: 03/08/17 21:03 Dose: Not Given Metoprolol Tartrate (Lopressor) 5 mg IV ONETIME ONE Stop: 03/07/17 23:51 Metoprolol Tartrate (Lopressor) 5 mg IVPUSH ONETIME ONE Stop: 03/07/17 23:51 Last Admin: 03/07/17 23:50 Dose: 5 mg (Carbamazepine [ Tegretol Xr] 100 Mg) Own Med 200 mg PO BID [facility] Last Admin: 03/07/17 22:15 Dose: Not Given Potassium Chloride (Klor-Con M20) 20 meq PO TID [facility] Tramadol HCl (Ultram) 50 mg PO Q6H PRN PRN Reason: Pain Last Admin: 03/07/17 18:50 Dose: 50 mg Tramadol HCl (Ultram) 50 mg PO Q6H PRN PRN Reason: Pain (moderate 4-6) Verapamil HCl (Calan Sr) 120 mg PO DAILY [facility] - Exam Quality Assessment: DVT Prophylaxis General: Alert, Oriented, Cooperative, No Acute Distress HEENT: Pupils Equal, Pupils Reactive, EOMI Neck: Supple, Trachea Midline Lungs: Normal Respiratory Effort Cardiovascular: Regular Rate, Regular Rhythm GI/Abdominal Exam: Normal Bowel Sounds, Soft, No Organomegaly, No Distention, Distended (left sided) (Female) Exam: Deferred Back Exam: Normal Inspection Extremities: Normal Inspection Skin: Warm Neurological: No New Focal Deficit Psy/Mental Status: Alert, Normal Affect, Normal Mood Consult PN Assessment/Plan POD#: 5 Procedures: Procedures AIRWAY INHALATION TREATMENT (02/12/16) ASSAY OF BLOOD OSMOLALITY (09/10/15) ASSAY OF FREE THYROXINE (01/19/16) ASSAY OF LIPASE (01/19/16) ASSAY OF MAGNESIUM (03/05/16) ASSAY OF NATRIURETIC PEPTIDE (09/10/15) ASSAY OF SERUM POTASSIUM (02/12/16) ASSAY OF TROPONIN QUANT (03/05/16) ASSAY THYROID STIM HORMONE (01/19/16) C-REACTIVE PROTEIN (09/20/16) CARDIOVASCULAR STRESS TEST (07/30/15) CHEST X-RAY 1 VIEW FRONTAL (03/05/16) CHEST X-RAY 2VW FRONTAL&LATL (08/22/15) COMPLETE CBC W/AUTO DIFF WBC (09/20/16) COMPREHEN METABOLIC PANEL (09/20/16) CREATINE MB FRACTION (09/10/15) CT ABD & PELV W/CONTRAST (01/19/16) CT HEAD/BRAIN W/O DYE (03/05/16) CT NECK SPINE W/O DYE (08/22/15) DXA BONE DENSITY AXIAL (02/07/17) EGD DIAGNOSTIC BRUSH WASH (03/07/17) ELECTROCARDIOGRAM TRACING (03/05/16) EMERGENCY DEPT VISIT (12/05/16) EMERGENCY DEPT VISIT (03/05/16) EVALUATE PT USE OF INHALER (02/12/16) EVALUATE SWALLOWING FUNCTION (03/05/16) EXTRACRANIAL BILAT STUDY (01/19/16) FLUOROSCOPE EXAMINATION (02/12/16) GAIT TRAINING THERAPY (02/12/16) HT MUSCLE IMAGE SPECT MULT (07/30/15) HYDRATE IV INFUSION ADD-ON (01/19/16) HYDRATION IV INFUSION INIT (09/10/15) INSERT BLADDER CATHETER (01/19/16) LIPID PANEL (03/05/16) MANUAL THERAPY 1/> REGIONS (02/12/16) MEASURE BLOOD OXYGEN LEVEL (01/19/16) METABOLIC PANEL TOTAL CA (03/05/16) MR-STAPH DNA AMP PROBE (12/21/16) MRI BRAIN STEM W/O & W/DYE (01/19/16) MRI BRAIN STEM W/O DYE (03/05/16) OT EVALUATION (02/12/16) PROTHROMBIN TIME (03/05/16) PT EVALUATION (03/05/16) RBC SED RATE AUTOMATED (09/20/16) ROUTINE VENIPUNCTURE (09/20/16) SELF CARE MNGMENT TRAINING (02/12/16) THER/PROPH/DIAG INJ IV PUSH (03/05/16) THERAPEUTIC ACTIVITIES (02/12/16) THERAPEUTIC EXERCISES (03/05/16) THROMBOPLASTIN TIME PARTIAL (03/05/16) TTE W/DOPPLER COMPLETE (01/19/16) TX/PRO/DX INJ NEW DRUG ADDON (01/19/16) TX/PRO/DX INJ SAME DRUG KNIFE CHANGER (03/05/16) URINALYSIS AUTO W/SCOPE (03/05/16) URINE CULTURE/COLONY COUNT (09/10/15) X-RAY EXAM OF ANKLE (12/05/16) X-RAY EXAM OF FOOT (12/05/16) X-RAY EXAM OF HAND (08/22/15) X-RAY EXAM OF KNEE 3 (12/05/16) X-RAY EXAM OF SHOULDER (02/12/16) (1) Abdominal pain of unknown cause SNOMED Code(s): 221469908 Code(s): R10.9 - UNSPECIFIED ABDOMINAL PAIN Current Visit: Yes (2) Ascites SNOMED Code(s): 994761995 Code(s): R18.8 - OTHER ASCITES Current Visit: Yes (3) 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 SNOMED Code(s): 050735787 Code(s): D78.32 - POSTPROC HEMATOMA OF THE SPLEEN FOLLOWING OTHER PROCEDURE Priority: Medium Current Visit: Yes Onset Date: ~03/07/17 (4) Abdominal pain SNOMED Code(s): 64995497 Code(s): R10.9 - UNSPECIFIED ABDOMINAL PAIN Priority: High Current Visit : No Qualifiers: Abdominal location: generalized Qualified Code(s): R10.84 - Generalized abdominal pain (5) 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 SNOMED Code(s): 982343167 Code(s): Z47.1 - AFTERCARE FOLLOWING JOINT REPLACEMENT SURGERY; 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 Priority: High Current Visit: No (6) COPD (chronic obstructive pulmonary disease) SNOMED Code(s): 26505513 Code(s): J44.9 - CHRONIC OBSTRUCTIVE PULMONARY DISEASE, UNSPECIFIED Priority: High Current Visit: No Qualifiers: COPD type: unspecified COPD Qualified Code(s): J44.9 - Chronic obstructive pulmonary disease, unspecified (7) CVA (cerebral vascular accident) SNOMED Code(s): 770509196 Code(s): I63.9 - CEREBRAL INFARCTION, UNSPECIFIED Current Visit: No Qualifiers: CVA mechanism: unspecified Qualified Code(s): I63.9 - Cerebral infarction, unspecified (8) Chronic anemia SNOMED Code(s): 846966188 Code(s): D64.9 - ANEMIA, UNSPECIFIED Priority: Medium Current Visit: No (9) Chronic pain SNOMED Code(s): 36324814 Code(s): G89.29 - OTHER CHRONIC PAIN Priority: Medium Current Visit: No Qualifiers: Chronic pain type: chronic pain syndrome Qualified Code(s): G89.4 - Chronic pain syndrome (10) HTN (hypertension) SNOMED Code(s): 80490552 Code(s): I10 - ESSENTIAL (PRIMARY) HYPERTENSION Priority: Medium Current Visit: No Qualifiers: Hypertension type: essential hypertension Qualified Code(s): I10 - Essential (primary) hypertension (11) Hydronephrosis SNOMED Code(s): 83044902 Code(s): N13.30 - UNSPECIFIED HYDRONEPHROSIS Priority: Medium Current Visit: No Comment: noted on abdominal CT- fup with Urology as outpatient Qualifiers: Hydronephrosis type: unspecified Qualified Code(s): N13.30 - Unspecified hydronephrosis (12) Hypothyroid SNOMED Code(s): 66151217 Code(s): E03.9 - HYPOTHYROIDISM, UNSPECIFIED Priority: Medium Current Visit: No Qualifiers: Hypothyroidism type: unspecified Qualified Code(s): E03.9 - Hypothyroidism , unspecified (13) Mild atherosclerosis of both carotid arteries SNOMED Code(s): 943164893 Code(s): I65.23 - OCCLUSION AND STENOSIS OF BILATERAL CAROTID ARTERIES Priority: Medium Current Visit: No Comment: 1-49% plaque bilaterally on carotid US during hospital stay Problem List Initiated/Reviewed/Updated: Yes Plan: Impression: S/P Colonoscopy complication with hemoperitoneum S/P transfusion for drop in Hgb 9.4--->7.7 Improving left sided abdominal pain Diet advance per primary service Chronic Valvular heart disease HTN HLD H/O TB CPS on narcotics Spinal stenosis Plan: Resume Home meds Advance diet per Gen Surg Advance activity per primary service, General Surgery Daily Labs Replace electrolytes as needed DVT/GI prophylaxis
[2017-03-11] MEDS ORDERED: Morphine 2 MG/ML Syringe IM PRN (18:06)
[2017-03-11] MEDS: Rosuvastatin 10 MG Tab PO SCH (21:52)
[2017-03-11] MEDS: Pregabalin 75 MG Cap PO SCH (21:52)
[2017-03-11] MEDS: Docusate Sodium 100 MG Cap PO SCH (21:54)
[2017-03-12] MEDS: traMADol 50 MG Tab PO SCH ×4 (03:26→21:51)
[2017-03-12] MEDS: Levothyroxine 25 MCG Tab PO SCH (06:29)
[2017-03-12] MEDS: Formoterol/Mometasone 200-5 MCG 8.8 GM Inhaler IH SCH ×2 (06:54→20:18)
[2017-03-12] MEDS: Metoprolol Succinate 25 MG Tab.ER PO SCH (08:37)
[2017-03-12] MEDS: Oxybutynin 5 MG Tab.ER PO SCH (08:38)
[2017-03-12] MEDS: Pregabalin 75 MG Cap PO SCH ×2 (08:39→21:52)
[2017-03-12] MEDS: Verapamil 120 MG Tab.ER PO SCH (08:41)
[2017-03-12] MEDS: Sertraline 50 MG Tab PO SCH (08:42)
[2017-03-12] MEDS: Lisinopril 5 MG Tab PO SCH (08:43)
[2017-03-12] MEDS: Docusate Sodium 100 MG Cap PO SCH ×2 (08:43→21:52)
[2017-03-12] MEDS: guaiFENesin 600 MG Tab.ER PO SCH ×2 (08:44→22:03)
[2017-03-12] MEDS: Potassium Chloride 20 MEQ Tab.ER PO SCH ×3 (08:44→21:52)
--- NOTE | 2017-03-12 08:56 | PCM.CONSN ---
- General Info Date of Service: 03/12/17 Functional Status: Reports: Pain Controlled, Tolerating Diet, Ambulating, Urinating - Review of Systems General: Reports: Other (She is insistent in wanting to go home.) Gastrointestinal: Reports: Abdominal Pain (She notes daily improvement.), Diarrhea - Patient Data Vitals - Most Recent: Last Vital Signs Temp 36.7 C 03/12/17 03:00 Pulse 99 03/12/17 08:41 Resp 18 03/12/17 03:00 BP 125/62 03/12/17 08:43 Pulse Ox 94 L 03/12/17 06:57 Weight - Most Recent: 64.319 kg I&O - Last 24 Hours: Intake & Output 03/11/17 03/12/17 03/12/17 22:59 06:59 14:59 Intake Total 1095 850 100 Output Total 200 600 350 Balance 895 250 -250 Lab Results Last 24 Hours: Laboratory Results - last 24 hr 03/11/17 03/11/17 03/11/17 Range/Units 09:29 10:55 10:55 WBC 7.36 (3.98-10.04) K/mm3 RBC 3.21 L (3.98-5.22) M/mm3 Hgb 9.5 L (11.2-15.7) gm/L Hct 29.3 L (34.1-44.9) % MCV 91.3 (79.4-94.8) fl MCH 29.6 (25.6-32.2) pg MCHC 32.4 (32.2-35.5) g/dl RDW Std Deviation 50.4 H (36.4-46.3) fL Plt Count 160 L (182-369) K/mm3 MPV 10.7 (9.4-12.3) fl Neut % (Auto) 82.5 H (34.0-71.1) % Lymph % (Auto) 5.8 L (19.3-51.7) % [place] % (Auto) 10.1 (4.7-12.5) % Eos % (Auto) 1.4 (0.7-5.8) Baso % (Auto) 0.1 (0.1-1.2) % Neut # (Auto) 6.07 (1.56-6.13) K/mm3 Lymph # (Auto) 0.43 L (1.18-3.74) K/mm3 [place] # (Auto) 0.74 H (0.24-0.36) K/mm3 Eos # (Auto) 0.10 (0.04-0.36) K/mm3 Baso # (Auto) 0.01 (0.01-0.08) K/mm3 Manual Slide Review Abnormal smear Sodium 138 (136-145) mEq/L Potassium 3.9 (3.5-5.1) mEq/L Chloride 103 (98-107) mEq/L Carbon Dioxide 30 (21-32) mEq/L Anion Gap 8.9 (5-15) BUN 6 L (7-18) mg/dL Creatinine 0.4 L (0.55-1.02) mg/dL Est Cr Clr Drug Dosing 106.55 mL/min Estimated GFR (MDRD) > 60 (>60) mL/min BUN/Creatinine Ratio 15.0 (14-18) Glucose 109 (83-115) mg/dL Calcium 8.1 L (8.5-10.1) mg/dL Magnesium 1.6 L (1.8-2.4) mg/dl C-Reactive Protein 27.2 H* (<1.0) mg/dL 03/12/17 03/12/17 Range/Units 07:03 07:03 WBC 6.07 (3.98-10.04) K/mm3 RBC 3.34 L (3.98-5.22) M/mm3 Hgb 9.9 L (11.2-15.7) gm/L Hct 31.0 L (34.1-44.9) % MCV 92.8 (79.4-94.8) fl MCH 29.6 (25.6-32.2) pg MCHC 31.9 L (32.2-35.5) g/dl RDW Std Deviation 51.6 H (36.4-46.3) fL Plt Count 204 (182-369) K/mm3 MPV 10.7 (9.4-12.3) fl Neut % (Auto) 68.4 (34.0-71.1) % Lymph % (Auto) 14.7 L (19.3-51.7) % [place] % (Auto) 14.5 H (4.7-12.5) % Eos % (Auto) 2.0 (0.7-5.8) Baso % (Auto) 0.2 (0.1-1.2) % Neut # (Auto) 4.16 (1.56-6.13) K/mm3 Lymph # (Auto) 0.89 L (1.18-3.74) K/mm3 [place] # (Auto) 0.88 H (0.24-0.36) K/mm3 Eos # (Auto) 0.12 (0.04-0.36) K/mm3 Baso # (Auto) 0.01 (0.01-0.08) K/mm3 Manual Slide Review Sodium 137 (136-145) mEq/L Potassium 3.5 (3.5-5.1) mEq/L Chloride 102 (98-107) mEq/L Carbon Dioxide 27 (21-32) mEq/L Anion Gap 11.5 (5-15) BUN 7 (7-18) mg/dL Creatinine 0.7 (0.55-1.02) mg/dL Est Cr Clr Drug Dosing 60.89 mL/min Estimated GFR (MDRD) > 60 (>60) mL/min BUN/Creatinine Ratio 10.0 L (14-18) Glucose 115 (83-115) mg/dL Calcium 8.3 L (8.5-10.1) mg/dL Magnesium (1.8-2.4) mg/dl C-Reactive Protein (<1.0) mg/dL Med Orders - Current: Current Medications Albuterol (Proventil Hfa) 0 gm INH Q4H PRN PRN Reason: Shortness of Breath Carbamazepine (Tegretol) 200 mg PO BID [facility] Last Admin: 03/12/17 08:41 Dose: 200 mg Docusate Sodium (Colace) 100 mg PO BID [facility] Last Admin: 03/12/17 08:43 Dose: 100 mg Ergocalciferol (Vitamin D2) 50,000 units PO ASDIRECTED [facility] Ergocalciferol (Vitamin D2) 50,000 units PO Mo@0900 [facility] Fentanyl (Duragesic) 50 mcg TRDERM Q72H [facility] Last Admin: 03/10/17 16:42 Dose: 50 mcg Guaifenesin (Mucinex) 1,200 mg PO BID [facility] Last Admin: 03/12/17 08:44 Dose: Not Given Sodium Chloride (Normal Saline) 250 mls @ 25 mls/hr IV ASDIRECTED [facility] Lactated Ringer's (Ringers, Lactated) 1,000 mls @ 50 mls/hr IV ASDIRECTED [facility] Last Admin: 03/11/17 06:18 Dose: 50 mls/hr Levothyroxine Sodium (Levothyroxine) 25 mcg PO ACBREAKFAST [facility] Last Admin: 03/12/17 06:29 Dose: 25 mcg Lisinopril (Prinivil) 5 mg PO DAILY [facility] Last Admin: 03/12/17 08:43 Dose: 5 mg Metoprolol Succinate (Toprol Xl) 12.5 mg PO DAILY [facility] Last Admin: 03/12/17 08:37 Dose: 12.5 mg Metoprolol Tartrate (Lopressor) 5 mg IVPUSH Q6H PRN PRN Reason: Tachycardia Last Admin: 03/10/17 04:04 Dose: 5 mg Mometasone Furoate/Formoterol Fumar (Dulera 200-5 Mcg) 2 puff IH BIDRT [facility] Last Admin: 03/12/17 06:54 Dose: 2 puff Morphine Sulfate (Morphine) 2 mg IM Q2H PRN PRN Reason: Pain Ondansetron HCl (Zofran) 4 mg IVPUSH Q4H PRN PRN Reason: Nausea Last Admin: 03/11/17 09:49 Dose: 4 mg Ondansetron HCl (Zofran Odt) 4 mg PO Q4H PRN PRN Reason: Nausea/Vomiting Last Admin: 03/10/17 02:33 Dose: 4 mg Oxybutynin Chloride (Oxybutynin Er) 5 mg PO DAILY [facility] Last Admin: 03/12/17 08:38 Dose: 5 mg Oxycodone/Acetaminophen (Percocet 325-5 Mg) 1 tab PO Q4H PRN PRN Reason: Pain Last Admin: 03/11/17 21:59 Dose: 1 tab Potassium Chloride (Klor-Con M20) 20 meq PO TID [facility] Last Admin: 03/12/17 08:44 Dose: 20 meq Pregabalin (Lyrica) 150 mg PO BID [facility] Last Admin: 03/12/17 08:39 Dose: 150 mg Rosuvastatin Calcium (Crestor) 10 mg PO BEDTIME [facility] Last Admin: 03/11/17 21:52 Dose: 10 mg Sertraline HCl (Zoloft) 50 mg PO DAILY [facility] Last Admin: 03/12/17 08:42 Dose: 50 mg Sodium Chloride (Saline Flush) 10 ml FLUSH ONETIME PRN PRN Reason: IV FLUSH Last Admin: 03/08/17 17:31 Dose: 10 ml Sodium Chloride (Saline Flush) 10 ml FLUSH ASDIRECTED PRN PRN Reason: Keep Vein Open Tramadol HCl (Ultram) 50 mg PO Q6H [facility] Last Admin: 03/12/17 08:42 Dose: 50 mg Verapamil HCl (Calan Sr) 120 mg PO DAILY [facility] Last Admin: 03/12/17 08:41 Dose: 120 mg Discontinued Medications Diatrizoate Meglum/Diatrizoate Sod (Gastrografin 37%) 90 ml PO ONETIME ONE Stop: 03/08/17 16:52 Last Admin: 03/08/17 17:31 Dose: 90 ml Fentanyl (Sublimaze) 25 mcg IVPUSH ONETIME ONE Stop: 03/07/17 14:55 Last Admin: 03/07/17 15:17 Dose: 25 mcg Fentanyl (Sublimaze) 25 mcg IVPUSH ONETIME ONE Stop: 03/07/17 15:38 Last Admin: 03/07/17 15:43 Dose: 25 mcg Fentanyl (Duragesic) 50 mcg TRDERM Q72H [facility] Last Admin: 03/07/17 22:15 Dose: Not Given Hydromorphone HCl (Dilaudid) 0.5 mg IVPUSH ONETIME ONE Stop: 03/07/17 16:04 Last Admin: 03/07/17 16:15 Dose: 0.5 mg Lactated Ringer's (Ringers, Lactated) 500 mls @ 999 mls/hr IV .BOLUS ONE Stop: 03/07/17 14:00 Last Admin: 03/07/17 13:37 Dose: 999 mls/hr Lactated Ringer's (Ringers, Lactated) 1,000 mls @ 999 mls/hr IV .BOLUS ONE Stop: 03/07/17 15:13 Last Admin: 03/07/17 14:23 Dose: 999 mls/hr Lactated Ringer's (Ringers, Lactated) 1,000 mls @ 125 mls/hr IV ASDIRECTED [facility] Last Admin: 03/07/17 15:26 Dose: 125 mls/hr Lactated Ringer's (Ringers, Lactated) 1,000 mls @ 75 mls/hr IV ASDIRECTED [facility] Last Admin: 03/08/17 01:26 Dose: 75 mls/hr Metoprolol Tartrate 5 mg/ (Sodium Chloride) 55 mls @ 100 mls/hr IV ONETIME ONE Stop: 03/08/17 00:11 Last Admin: 03/07/17 23:45 Dose: Not Given Sodium Chloride (Normal Saline) 1,000 mls @ 150 mls/hr IV ASDIRECTED [facility] Last Admin: 03/08/17 11:00 Dose: 150 mls/hr Lactated Ringer's (Ringers, Lactated) 500 mls @ 999 mls/hr IV .BOLUS ONE Stop: 03/08/17 09:25 Last Admin: 03/08/17 08:55 Dose: 999 mls/hr Lactated Ringer's (Ringers, Lactated) 1,000 mls @ 125 mls/hr IV ASDIRECTED [facility] Last Admin: 03/09/17 07:39 Dose: 125 mls/hr Iopamidol (Isovue-300 (61%)) 100 ml IVPUSH ONETIME ONE Stop: 03/07/17 13:47 Last Admin: 03/07/17 13:50 Dose: 100 ml Iopamidol (Isovue-300 (61%)) 100 ml IVPUSH ONETIME ONE Stop: 03/08/17 16:52 Last Admin: 03/08/17 17:31 Dose: 100 ml Lisinopril (Prinivil) 5 mg PO DAILY [facility] Metoprolol Succinate (Toprol Xl) 25 mg PO DAILY [facility] Last Admin: 03/08/17 21:03 Dose: Not Given Metoprolol Tartrate (Lopressor) 5 mg IV ONETIME ONE Stop: 03/07/17 23:51 Metoprolol Tartrate (Lopressor) 5 mg IVPUSH ONETIME ONE Stop: 03/07/17 23:51 Last Admin: 03/07/17 23:50 Dose: 5 mg Morphine Sulfate (Morphine) 2 mg IVPUSH Q2H PRN PRN Reason: Pain Last Admin: 03/10/17 18:02 Dose: 2 mg (Carbamazepine [ Tegretol Xr] 100 Mg) Own Med 200 mg PO BID [facility] Last Admin: 03/07/17 22:15 Dose: Not Given Potassium Chloride (Klor-Con M20) 20 meq PO TID [facility] Tramadol HCl (Ultram) 50 mg PO Q6H PRN PRN Reason: Pain Last Admin: 03/07/17 18:50 Dose: 50 mg Tramadol HCl (Ultram) 50 mg PO Q6H PRN PRN Reason: Pain (moderate 4-6) Verapamil HCl (Calan Sr) 120 mg PO DAILY [facility] - Exam Quality Assessment: Supplemental Oxygen General: Alert, Oriented, Cooperative, No Acute Distress GI/Abdominal Exam: Soft, Tender (Mild in the left upper quadrant) Consult PN Assessment/Plan Procedures: Procedures AIRWAY INHALATION TREATMENT (02/12/16) ASSAY OF BLOOD OSMOLALITY (09/10/15) ASSAY OF FREE THYROXINE (01/19/16) ASSAY OF LIPASE (01/19/16) ASSAY OF MAGNESIUM (03/05/16) ASSAY OF NATRIURETIC PEPTIDE (09/10/15) ASSAY OF SERUM POTASSIUM (02/12/16) ASSAY OF TROPONIN QUANT (03/05/16) ASSAY THYROID STIM HORMONE (01/19/16) C-REACTIVE PROTEIN (09/20/16) CARDIOVASCULAR STRESS TEST (07/30/15) CHEST X-RAY 1 VIEW FRONTAL (03/05/16) CHEST X-RAY 2VW FRONTAL&LATL (08/22/15) COMPLETE CBC W/AUTO DIFF WBC (09/20/16) COMPREHEN METABOLIC PANEL (09/20/16) CREATINE MB FRACTION (09/10/15) CT ABD & PELV W/CONTRAST (01/19/16) CT HEAD/BRAIN W/O DYE (03/05/16) CT NECK SPINE W/O DYE (08/22/15) DXA BONE DENSITY AXIAL (02/07/17) EGD DIAGNOSTIC BRUSH WASH (03/07/17) ELECTROCARDIOGRAM TRACING (03/05/16) EMERGENCY DEPT VISIT (12/05/16) EMERGENCY DEPT VISIT (03/05/16) EVALUATE PT USE OF INHALER (02/12/16) EVALUATE SWALLOWING FUNCTION (03/05/16) EXTRACRANIAL BILAT STUDY (01/19/16) FLUOROSCOPE EXAMINATION (02/12/16) GAIT TRAINING THERAPY (02/12/16) HT MUSCLE IMAGE SPECT MULT (07/30/15) HYDRATE IV INFUSION ADD-ON (01/19/16) HYDRATION IV INFUSION INIT (09/10/15) INSERT BLADDER CATHETER (01/19/16) LIPID PANEL (03/05/16) MANUAL THERAPY 1/> REGIONS (02/12/16) MEASURE BLOOD OXYGEN LEVEL (01/19/16) METABOLIC PANEL TOTAL CA (03/05/16) MR-STAPH DNA AMP PROBE (12/21/16) MRI BRAIN STEM W/O & W/DYE (01/19/16) MRI BRAIN STEM W/O DYE (03/05/16) OT EVALUATION (02/12/16) PROTHROMBIN TIME (03/05/16) PT EVALUATION (03/05/16) RBC SED RATE AUTOMATED (09/20/16) ROUTINE VENIPUNCTURE (09/20/16) SELF CARE MNGMENT TRAINING (02/12/16) THER/PROPH/DIAG INJ IV PUSH (03/05/16) THERAPEUTIC ACTIVITIES (02/12/16) THERAPEUTIC EXERCISES (03/05/16) THROMBOPLASTIN TIME PARTIAL (03/05/16) TTE W/DOPPLER COMPLETE (01/19/16) TX/PRO/DX INJ NEW DRUG ADDON (01/19/16) TX/PRO/DX INJ SAME DRUG APPLIANCE REPAIRER (03/05/16) URINALYSIS AUTO W/SCOPE (03/05/16) URINE CULTURE/COLONY COUNT (09/10/15) X-RAY EXAM OF ANKLE (12/05/16) X-RAY EXAM OF FOOT (12/05/16) X-RAY EXAM OF HAND (08/22/15) X-RAY EXAM OF KNEE 3 (12/05/16) X-RAY EXAM OF SHOULDER (02/12/16) (1) 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 Patient has a slightly low magnesium which will be replaced. Nursing staff tells me that she is little unstable with her balance in moving about the room. She is clear about her refusal to participate in a [facility] facility status. Problem List Initiated/Reviewed/Updated: Yes My Orders Last 24 Hours: My Active Orders 03/11/17 08:55 Bedrest Bathroom Privileges [RC] ASDIRECTED May Shower [RC] ASDIRECTED Sodium Chloride 0.9% [Saline Flush] 10 ml FLUSH ASDIRECTED PRN Convert IV to Peripheral Lock [Convert IV to Saline Lock] [OM.PC] Routine 03/11/17 14:36 OT Evaluation and Treatment [CONS] Routine 03/11/17 17:57 Admission Status [Patient Status] [ADT] Routine 03/11/17 18:03 Cut Off Operator Scorer Discontinue [Cardiac Monitoring Discontinue] [RC] Click to Edit 03/11/17 18:04 Peripheral IV Discontinue [OM.PC] Routine 03/11/17 18:06 Morphine 2 mg IM Q2H PRN 03/11/17 Lunch Regular Diet [DIET] 03/12/17 09:00 Magnesium Oxide 400 mg PO BID Potassium Chloride [Klor-Con M20] 20 meq PO DAILY Plan: Same. Considering discharge tomorrow, or Tuesday.
[2017-03-12] MEDS ORDERED: Potassium Chloride 20 MEQ Tab.ER PO SCH (09:00)
[2017-03-12] MEDS: Magnesium Oxide 400 MG Tab PO SCH ×2 (09:26→21:53)
--- NOTE | 2017-03-12 12:55 | PCM.CONSN ---
- General Info Date of Service: 03/12/17 Functional Status: Reports: Tolerating Diet, Ambulating, Urinating - Review of Systems General: Reports: Weakness HEENT: Reports: No Symptoms Pulmonary: Reports: No Symptoms Cardiovascular: Reports: No Symptoms Gastrointestinal: Reports: No Symptoms Genitourinary: Reports: No Symptoms Musculoskeletal: Reports: No Symptoms Skin: Reports: No Symptoms Neurological: Reports: No Symptoms Psychiatric: Reports: No Symptoms - Patient Data Vitals - Most Recent: Last Vital Signs Temp 37.3 C 03/12/17 09:00 Pulse 99 03/12/17 09:00 Resp 16 03/12/17 09:00 BP 125/62 03/12/17 08:43 Pulse Ox 97 03/12/17 09:00 Weight - Most Recent: 64.319 kg I&O - Last 24 Hours: Intake & Output 03/11/17 03/12/17 03/12/17 22:59 06:59 14:59 Intake Total 1095 850 280 Output Total 200 600 350 Balance 895 250 -70 Lab Results Last 24 Hours: Laboratory Results - last 24 hr 03/12/17 03/12/17 Range/Units 07:03 07:03 WBC 6.07 (3.98-10.04) K/mm3 RBC 3.34 L (3.98-5.22) M/mm3 Hgb 9.9 L (11.2-15.7) gm/L Hct 31.0 L (34.1-44.9) % MCV 92.8 (79.4-94.8) fl MCH 29.6 (25.6-32.2) pg MCHC 31.9 L (32.2-35.5) g/dl RDW Std Deviation 51.6 H (36.4-46.3) fL Plt Count 204 (182-369) K/mm3 MPV 10.7 (9.4-12.3) fl Neut % (Auto) 68.4 (34.0-71.1) % Lymph % (Auto) 14.7 L (19.3-51.7) % [place] % (Auto) 14.5 H (4.7-12.5) % Eos % (Auto) 2.0 (0.7-5.8) Baso % (Auto) 0.2 (0.1-1.2) % Neut # (Auto) 4.16 (1.56-6.13) K/mm3 Lymph # (Auto) 0.89 L (1.18-3.74) K/mm3 [place] # (Auto) 0.88 H (0.24-0.36) K/mm3 Eos # (Auto) 0.12 (0.04-0.36) K/mm3 Baso # (Auto) 0.01 (0.01-0.08) K/mm3 Sodium 137 (136-145) mEq/L Potassium 3.5 (3.5-5.1) mEq/L Chloride 102 (98-107) mEq/L Carbon Dioxide 27 (21-32) mEq/L Anion Gap 11.5 (5-15) BUN 7 (7-18) mg/dL Creatinine 0.7 (0.55-1.02) mg/dL Est Cr Clr Drug Dosing 60.89 mL/min Estimated GFR (MDRD) > 60 (>60) mL/min BUN/Creatinine Ratio 10.0 L (14-18) Glucose 115 (83-115) mg/dL Calcium 8.3 L (8.5-10.1) mg/dL Med Orders - Current: Current Medications Albuterol (Proventil Hfa) 0 gm INH Q4H PRN PRN Reason: Shortness of Breath Carbamazepine (Tegretol) 200 mg PO BID [facility] Last Admin: 03/12/17 08:41 Dose: 200 mg Docusate Sodium (Colace) 100 mg PO BID [facility] Last Admin: 03/12/17 08:43 Dose: 100 mg Ergocalciferol (Vitamin D2) 50,000 units PO ASDIRECTED [facility] Ergocalciferol (Vitamin D2) 50,000 units PO Mo@0900 [facility] Fentanyl (Duragesic) 50 mcg TRDERM Q72H [facility] Last Admin: 03/10/17 16:42 Dose: 50 mcg Guaifenesin (Mucinex) 1,200 mg PO BID [facility] Last Admin: 03/12/17 08:44 Dose: Not Given Sodium Chloride (Normal Saline) 250 mls @ 25 mls/hr IV ASDIRECTED [facility] Lactated Ringer's (Ringers, Lactated) 1,000 mls @ 50 mls/hr IV ASDIRECTED [facility] Last Admin: 03/11/17 06:18 Dose: 50 mls/hr Levothyroxine Sodium (Levothyroxine) 25 mcg PO ACBREAKFAST [facility] Last Admin: 03/12/17 06:29 Dose: 25 mcg Lisinopril (Prinivil) 5 mg PO DAILY [facility] Last Admin: 03/12/17 08:43 Dose: 5 mg Magnesium Oxide (Magnesium Oxide) 400 mg PO BID [facility] Last Admin: 03/12/17 09:26 Dose: 400 mg Metoprolol Succinate (Toprol Xl) 12.5 mg PO DAILY [facility] Last Admin: 03/12/17 08:37 Dose: 12.5 mg Metoprolol Tartrate (Lopressor) 5 mg IVPUSH Q6H PRN PRN Reason: Tachycardia Last Admin: 03/10/17 04:04 Dose: 5 mg Mometasone Furoate/Formoterol Fumar (Dulera 200-5 Mcg) 2 puff IH BIDRT [facility] Last Admin: 03/12/17 06:54 Dose: 2 puff Morphine Sulfate (Morphine) 2 mg IM Q2H PRN PRN Reason: Pain Ondansetron HCl (Zofran) 4 mg IVPUSH Q4H PRN PRN Reason: Nausea Last Admin: 03/11/17 09:49 Dose: 4 mg Ondansetron HCl (Zofran Odt) 4 mg PO Q4H PRN PRN Reason: Nausea/Vomiting Last Admin: 03/10/17 02:33 Dose: 4 mg Oxybutynin Chloride (Oxybutynin Er) 5 mg PO DAILY [facility] Last Admin: 03/12/17 08:38 Dose: 5 mg Oxycodone/Acetaminophen (Percocet 325-5 Mg) 1 tab PO Q4H PRN PRN Reason: Pain Last Admin: 03/11/17 21:59 Dose: 1 tab Potassium Chloride (Klor-Con M20) 20 meq PO TID [facility] Last Admin: 03/12/17 08:44 Dose: 20 meq Pregabalin (Lyrica) 150 mg PO BID [facility] Last Admin: 03/12/17 08:39 Dose: 150 mg Rosuvastatin Calcium (Crestor) 10 mg PO BEDTIME [facility] Last Admin: 03/11/17 21:52 Dose: 10 mg Sertraline HCl (Zoloft) 50 mg PO DAILY [facility] Last Admin: 03/12/17 08:42 Dose: 50 mg Sodium Chloride (Saline Flush) 10 ml FLUSH ONETIME PRN PRN Reason: IV FLUSH Last Admin: 03/08/17 17:31 Dose: 10 ml Sodium Chloride (Saline Flush) 10 ml FLUSH ASDIRECTED PRN PRN Reason: Keep Vein Open Tramadol HCl (Ultram) 50 mg PO Q6H [facility] Last Admin: 03/12/17 08:42 Dose: 50 mg Verapamil HCl (Calan Sr) 120 mg PO DAILY [facility] Last Admin: 03/12/17 08:41 Dose: 120 mg Discontinued Medications Diatrizoate Meglum/Diatrizoate Sod (Gastrografin 37%) 90 ml PO ONETIME ONE Stop: 03/08/17 16:52 Last Admin: 03/08/17 17:31 Dose: 90 ml Fentanyl (Sublimaze) 25 mcg IVPUSH ONETIME ONE Stop: 03/07/17 14:55 Last Admin: 03/07/17 15:17 Dose: 25 mcg Fentanyl (Sublimaze) 25 mcg IVPUSH ONETIME ONE Stop: 03/07/17 15:38 Last Admin: 03/07/17 15:43 Dose: 25 mcg Fentanyl (Duragesic) 50 mcg TRDERM Q72H [facility] Last Admin: 03/07/17 22:15 Dose: Not Given Hydromorphone HCl (Dilaudid) 0.5 mg IVPUSH ONETIME ONE Stop: 03/07/17 16:04 Last Admin: 03/07/17 16:15 Dose: 0.5 mg Lactated Ringer's (Ringers, Lactated) 500 mls @ 999 mls/hr IV .BOLUS ONE Stop: 03/07/17 14:00 Last Admin: 03/07/17 13:37 Dose: 999 mls/hr Lactated Ringer's (Ringers, Lactated) 1,000 mls @ 999 mls/hr IV .BOLUS ONE Stop: 03/07/17 15:13 Last Admin: 03/07/17 14:23 Dose: 999 mls/hr Lactated Ringer's (Ringers, Lactated) 1,000 mls @ 125 mls/hr IV ASDIRECTED [facility] Last Admin: 03/07/17 15:26 Dose: 125 mls/hr Lactated Ringer's (Ringers, Lactated) 1,000 mls @ 75 mls/hr IV ASDIRECTED [facility] Last Admin: 03/08/17 01:26 Dose: 75 mls/hr Metoprolol Tartrate 5 mg/ (Sodium Chloride) 55 mls @ 100 mls/hr IV ONETIME ONE Stop: 03/08/17 00:11 Last Admin: 03/07/17 23:45 Dose: Not Given Sodium Chloride (Normal Saline) 1,000 mls @ 150 mls/hr IV ASDIRECTED [facility] Last Admin: 03/08/17 11:00 Dose: 150 mls/hr Lactated Ringer's (Ringers, Lactated) 500 mls @ 999 mls/hr IV .BOLUS ONE Stop: 03/08/17 09:25 Last Admin: 03/08/17 08:55 Dose: 999 mls/hr Lactated Ringer's (Ringers, Lactated) 1,000 mls @ 125 mls/hr IV ASDIRECTED [facility] Last Admin: 03/09/17 07:39 Dose: 125 mls/hr Iopamidol (Isovue-300 (61%)) 100 ml IVPUSH ONETIME ONE Stop: 03/07/17 13:47 Last Admin: 03/07/17 13:50 Dose: 100 ml Iopamidol (Isovue-300 (61%)) 100 ml IVPUSH ONETIME ONE Stop: 03/08/17 16:52 Last Admin: 03/08/17 17:31 Dose: 100 ml Lisinopril (Prinivil) 5 mg PO DAILY [facility] Metoprolol Succinate (Toprol Xl) 25 mg PO DAILY [facility] Last Admin: 03/08/17 21:03 Dose: Not Given Metoprolol Tartrate (Lopressor) 5 mg IV ONETIME ONE Stop: 03/07/17 23:51 Metoprolol Tartrate (Lopressor) 5 mg IVPUSH ONETIME ONE Stop: 03/07/17 23:51 Last Admin: 03/07/17 23:50 Dose: 5 mg Morphine Sulfate (Morphine) 2 mg IVPUSH Q2H PRN PRN Reason: Pain Last Admin: 03/10/17 18:02 Dose: 2 mg (Carbamazepine [ Tegretol Xr] 100 Mg) Own Med 200 mg PO BID [facility] Last Admin: 03/07/17 22:15 Dose: Not Given Potassium Chloride (Klor-Con M20) 20 meq PO TID [facility] Tramadol HCl (Ultram) 50 mg PO Q6H PRN PRN Reason: Pain Last Admin: 03/07/17 18:50 Dose: 50 mg Tramadol HCl (Ultram) 50 mg PO Q6H PRN PRN Reason: Pain (moderate 4-6) Verapamil HCl (Calan Sr) 120 mg PO DAILY [facility] - Exam Quality Assessment: DVT Prophylaxis General: Alert, Oriented, Cooperative, No Acute Distress HEENT: Pupils Equal, Pupils Reactive, EOMI Neck: Supple, Trachea Midline Lungs: Clear to Auscultation, Normal Respiratory Effort Cardiovascular: Regular Rate, Regular Rhythm GI/Abdominal Exam: Normal Bowel Sounds, Soft, Non-Tender, No Organomegaly, No Distention (Female) Exam: Deferred Back Exam: Normal Inspection Extremities: Normal Inspection Skin: Warm Neurological: No New Focal Deficit Psy/Mental Status: Alert Consult PN Assessment/Plan POD#: 6 Procedures: Procedures AIRWAY INHALATION TREATMENT (02/12/16) ASSAY OF BLOOD OSMOLALITY (09/10/15) ASSAY OF FREE THYROXINE (01/19/16) ASSAY OF LIPASE (01/19/16) ASSAY OF MAGNESIUM (03/05/16) ASSAY OF NATRIURETIC PEPTIDE (09/10/15) ASSAY OF SERUM POTASSIUM (02/12/16) ASSAY OF TROPONIN QUANT (03/05/16) ASSAY THYROID STIM HORMONE (01/19/16) C-REACTIVE PROTEIN (09/20/16) CARDIOVASCULAR STRESS TEST (07/30/15) CHEST X-RAY 1 VIEW FRONTAL (03/05/16) CHEST X-RAY 2VW FRONTAL&LATL (08/22/15) COMPLETE CBC W/AUTO DIFF WBC (09/20/16) COMPREHEN METABOLIC PANEL (09/20/16) CREATINE MB FRACTION (09/10/15) CT ABD & PELV W/CONTRAST (01/19/16) CT HEAD/BRAIN W/O DYE (03/05/16) CT NECK SPINE W/O DYE (08/22/15) DXA BONE DENSITY AXIAL (02/07/17) EGD DIAGNOSTIC BRUSH WASH (03/07/17) ELECTROCARDIOGRAM TRACING (03/05/16) EMERGENCY DEPT VISIT (12/05/16) EMERGENCY DEPT VISIT (03/05/16) EVALUATE PT USE OF INHALER (02/12/16) EVALUATE SWALLOWING FUNCTION (03/05/16) EXTRACRANIAL BILAT STUDY (01/19/16) FLUOROSCOPE EXAMINATION (02/12/16) GAIT TRAINING THERAPY (02/12/16) HT MUSCLE IMAGE SPECT MULT (07/30/15) HYDRATE IV INFUSION ADD-ON (01/19/16) HYDRATION IV INFUSION INIT (09/10/15) INSERT BLADDER CATHETER (01/19/16) LIPID PANEL (03/05/16) MANUAL THERAPY 1/> REGIONS (02/12/16) MEASURE BLOOD OXYGEN LEVEL (01/19/16) METABOLIC PANEL TOTAL CA (03/05/16) MR-STAPH DNA AMP PROBE (12/21/16) MRI BRAIN STEM W/O & W/DYE (01/19/16) MRI BRAIN STEM W/O DYE (03/05/16) OT EVALUATION (02/12/16) PROTHROMBIN TIME (03/05/16) PT EVALUATION (03/05/16) RBC SED RATE AUTOMATED (09/20/16) ROUTINE VENIPUNCTURE (09/20/16) SELF CARE MNGMENT TRAINING (02/12/16) THER/PROPH/DIAG INJ IV PUSH (03/05/16) THERAPEUTIC ACTIVITIES (02/12/16) THERAPEUTIC EXERCISES (03/05/16) THROMBOPLASTIN TIME PARTIAL (03/05/16) TTE W/DOPPLER COMPLETE (01/19/16) TX/PRO/DX INJ NEW DRUG ADDON (01/19/16) TX/PRO/DX INJ SAME DRUG AUDIT MACHINE OPERATOR (03/05/16) URINALYSIS AUTO W/SCOPE (03/05/16) URINE CULTURE/COLONY COUNT (09/10/15) X-RAY EXAM OF ANKLE (12/05/16) X-RAY EXAM OF FOOT (12/05/16) X-RAY EXAM OF HAND (08/22/15) X-RAY EXAM OF KNEE 3 (12/05/16) X-RAY EXAM OF SHOULDER (02/12/16) (1) Abdominal pain of unknown cause SNOMED Code(s): 707413584 Code(s): R10.9 - UNSPECIFIED ABDOMINAL PAIN Current Visit: Yes (2) Ascites SNOMED Code(s): 284079861 Code(s): R18.8 - OTHER ASCITES Current Visit: Yes (3) 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 SNOMED Code(s): 377741487 Code(s): D78.32 - POSTPROC HEMATOMA OF THE SPLEEN FOLLOWING OTHER PROCEDURE Priority: Medium Current Visit: Yes Onset Date: ~03/07/17 (4) Abdominal pain SNOMED Code(s): 39869765 Code(s): R10.9 - UNSPECIFIED ABDOMINAL PAIN Priority: High Current Visit : No Qualifiers: Abdominal location: generalized Qualified Code(s): R10.84 - Generalized abdominal pain (5) 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 SNOMED Code(s): 905391946 Code(s): Z47.1 - AFTERCARE FOLLOWING JOINT REPLACEMENT SURGERY; 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 Priority: High Current Visit: No (6) COPD (chronic obstructive pulmonary disease) SNOMED Code(s): 93325782 Code(s): J44.9 - CHRONIC OBSTRUCTIVE PULMONARY DISEASE, UNSPECIFIED Priority: High Current Visit: No Qualifiers: COPD type: unspecified COPD Qualified Code(s): J44.9 - Chronic obstructive pulmonary disease, unspecified (7) CVA (cerebral vascular accident) SNOMED Code(s): 920387296 Code(s): I63.9 - CEREBRAL INFARCTION, UNSPECIFIED Current Visit: No Qualifiers: CVA mechanism: unspecified Qualified Code(s): I63.9 - Cerebral infarction, unspecified (8) Chronic anemia SNOMED Code(s): 649174867 Code(s): D64.9 - ANEMIA, UNSPECIFIED Priority: Medium Current Visit: No (9) Chronic pain SNOMED Code(s): 69913653 Code(s): G89.29 - OTHER CHRONIC PAIN Priority: Medium Current Visit: No Qualifiers: Chronic pain type: chronic pain syndrome Qualified Code(s): G89.4 - Chronic pain syndrome (10) HTN (hypertension) SNOMED Code(s): 51556913 Code(s): I10 - ESSENTIAL (PRIMARY) HYPERTENSION Priority: Medium Current Visit: No Qualifiers: Hypertension type: essential hypertension Qualified Code(s): I10 - Essential (primary) hypertension (11) Hydronephrosis SNOMED Code(s): 97527626 Code(s): N13.30 - UNSPECIFIED HYDRONEPHROSIS Priority: Medium Current Visit: No Comment: noted on abdominal CT- fup with Urology as outpatient Qualifiers: Hydronephrosis type: unspecified Qualified Code(s): N13.30 - Unspecified hydronephrosis (12) Hypothyroid SNOMED Code(s): 67080750 Code(s): E03.9 - HYPOTHYROIDISM, UNSPECIFIED Priority: Medium Current Visit: No Qualifiers: Hypothyroidism type: unspecified Qualified Code(s): E03.9 - Hypothyroidism , unspecified (13) Mild atherosclerosis of both carotid arteries SNOMED Code(s): 045596162 Code(s): I65.23 - OCCLUSION AND STENOSIS OF BILATERAL CAROTID ARTERIES Priority: Medium Current Visit: No Comment: 1-49% plaque bilaterally on carotid US during hospital stay Problem List Initiated/Reviewed/Updated: Yes Plan: Impression: S/P Colonoscopy complication with hemoperitoneum S/P transfusion for drop in Hgb 9.4--->7.7 Improving left sided abdominal pain Diet advance per primary service Chronic Valvular heart disease HTN HLD H/O TB CPS on narcotics Spinal stenosis Plan: Resume Home meds Advance diet per Gen Surg Advance activity per primary service, General Surgery Daily Labs Replace electrolytes as needed DVT/GI prophylaxis
[2017-03-12] MEDS: Rosuvastatin 10 MG Tab PO SCH (21:52)
[2017-03-13] MEDS: traMADol 50 MG Tab PO SCH ×3 (03:17→13:27)
[2017-03-13] MEDS: Levothyroxine 25 MCG Tab PO SCH (06:21)
[2017-03-13] MEDS: Formoterol/Mometasone 200-5 MCG 8.8 GM Inhaler IH SCH (06:57)
[2017-03-13] MEDS: Verapamil 120 MG Tab.ER PO SCH (08:34)
[2017-03-13] MEDS: Pregabalin 75 MG Cap PO SCH (08:35)
[2017-03-13] MEDS: Docusate Sodium 100 MG Cap PO SCH (08:35)
[2017-03-13] MEDS: Potassium Chloride 20 MEQ Tab.ER PO SCH (08:35)
[2017-03-13] MEDS: guaiFENesin 600 MG Tab.ER PO SCH (08:36)
[2017-03-13] MEDS: Magnesium Oxide 400 MG Tab PO SCH (08:36)
[2017-03-13] MEDS: Oxybutynin 5 MG Tab.ER PO SCH (08:36)
[2017-03-13] MEDS: Lisinopril 5 MG Tab PO SCH (08:37)
[2017-03-13] MEDS: Sertraline 50 MG Tab PO SCH (08:38)
[2017-03-13] MEDS: Metoprolol Succinate 25 MG Tab.ER PO SCH (08:40)
[2017-03-13 08:42] VITALS: BP 144/67
--- NOTE | 2017-03-13 08:44 | PCM.CONSN ---
- General Info Date of Service: 03/13/17 Admission Dx/Problem (Free Text): Abdominal pain secondary to iatrogenic splenic injury Functional Status: Reports: Pain Controlled (Noted minor residual left lower quadrant abdominal pain), Tolerating Diet, Ambulating, Urinating - Review of Systems Gastrointestinal: Reports: Abdominal Pain (Noted minor residual left lower quadrant abdominal pain) - Patient Data Vitals - Most Recent: Last Vital Signs Temp 37.4 C 03/13/17 03:30 Pulse 90 03/13/17 03:30 Resp 18 03/13/17 03:30 BP 123/59 L 03/13/17 03:30 Pulse Ox 92 L 03/13/17 03:30 Weight - Most Recent: 63.367 kg I&O - Last 24 Hours: Intake & Output 03/12/17 03/13/17 03/13/17 22:59 06:59 14:59 Intake Total 680 500 Output Total 350 950 Balance 330 -450 Med Orders - Current: Current Medications Albuterol (Proventil Hfa) 0 gm INH Q4H PRN PRN Reason: Shortness of Breath Carbamazepine (Tegretol) 200 mg PO BID [facility] Last Admin: 03/12/17 21:53 Dose: 200 mg Docusate Sodium (Colace) 100 mg PO BID [facility] Last Admin: 03/12/17 21:52 Dose: 100 mg Ergocalciferol (Vitamin D2) 50,000 units PO ASDIRECTED [facility] Ergocalciferol (Vitamin D2) 50,000 units PO Mo@0900 [facility] Fentanyl (Duragesic) 50 mcg TRDERM Q72H [facility] Last Admin: 03/10/17 16:42 Dose: 50 mcg Guaifenesin (Mucinex) 1,200 mg PO BID [facility] Last Admin: 03/12/17 22:03 Dose: Not Given Sodium Chloride (Normal Saline) 250 mls @ 25 mls/hr IV ASDIRECTED [facility] Lactated Ringer's (Ringers, Lactated) 1,000 mls @ 50 mls/hr IV ASDIRECTED [facility] Last Admin: 03/11/17 06:18 Dose: 50 mls/hr Levothyroxine Sodium (Levothyroxine) 25 mcg PO ACBREAKFAST [facility] Last Admin: 03/13/17 06:21 Dose: 25 mcg Lisinopril (Prinivil) 5 mg PO DAILY [facility] Last Admin: 03/12/17 08:43 Dose: 5 mg Magnesium Oxide (Magnesium Oxide) 400 mg PO BID [facility] Last Admin: 03/12/17 21:53 Dose: 400 mg Metoprolol Succinate (Toprol Xl) 12.5 mg PO DAILY [facility] Last Admin: 03/12/17 08:37 Dose: 12.5 mg Metoprolol Tartrate (Lopressor) 5 mg IVPUSH Q6H PRN PRN Reason: Tachycardia Last Admin: 03/10/17 04:04 Dose: 5 mg Mometasone Furoate/Formoterol Fumar (Dulera 200-5 Mcg) 2 puff IH BIDRT [facility] Last Admin: 03/13/17 06:57 Dose: 2 puff Morphine Sulfate (Morphine) 2 mg IM Q2H PRN PRN Reason: Pain Ondansetron HCl (Zofran) 4 mg IVPUSH Q4H PRN PRN Reason: Nausea Last Admin: 03/11/17 09:49 Dose: 4 mg Ondansetron HCl (Zofran Odt) 4 mg PO Q4H PRN PRN Reason: Nausea/Vomiting Last Admin: 03/10/17 02:33 Dose: 4 mg Oxybutynin Chloride (Oxybutynin Er) 5 mg PO DAILY [facility] Last Admin: 03/12/17 08:38 Dose: 5 mg Oxycodone/Acetaminophen (Percocet 325-5 Mg) 1 tab PO Q4H PRN PRN Reason: Pain Last Admin: 03/11/17 21:59 Dose: 1 tab Potassium Chloride (Klor-Con M20) 20 meq PO TID [facility] Last Admin: 03/12/17 21:52 Dose: 20 meq Pregabalin (Lyrica) 150 mg PO BID [facility] Last Admin: 03/12/17 21:52 Dose: 150 mg Rosuvastatin Calcium (Crestor) 10 mg PO BEDTIME [facility] Last Admin: 03/12/17 21:52 Dose: 10 mg Sertraline HCl (Zoloft) 50 mg PO DAILY [facility] Last Admin: 03/12/17 08:42 Dose: 50 mg Sodium Chloride (Saline Flush) 10 ml FLUSH ONETIME PRN PRN Reason: IV FLUSH Last Admin: 03/08/17 17:31 Dose: 10 ml Sodium Chloride (Saline Flush) 10 ml FLUSH ASDIRECTED PRN PRN Reason: Keep Vein Open Tramadol HCl (Ultram) 50 mg PO Q6H [facility] Last Admin: 03/13/17 03:17 Dose: 50 mg Verapamil HCl (Calan Sr) 120 mg PO DAILY [facility] Last Admin: 03/12/17 08:41 Dose: 120 mg Discontinued Medications Diatrizoate Meglum/Diatrizoate Sod (Gastrografin 37%) 90 ml PO ONETIME ONE Stop: 03/08/17 16:52 Last Admin: 03/08/17 17:31 Dose: 90 ml Fentanyl (Sublimaze) 25 mcg IVPUSH ONETIME ONE Stop: 03/07/17 14:55 Last Admin: 03/07/17 15:17 Dose: 25 mcg Fentanyl (Sublimaze) 25 mcg IVPUSH ONETIME ONE Stop: 03/07/17 15:38 Last Admin: 03/07/17 15:43 Dose: 25 mcg Fentanyl (Duragesic) 50 mcg TRDERM Q72H [facility] Last Admin: 03/07/17 22:15 Dose: Not Given Hydromorphone HCl (Dilaudid) 0.5 mg IVPUSH ONETIME ONE Stop: 03/07/17 16:04 Last Admin: 03/07/17 16:15 Dose: 0.5 mg Lactated Ringer's (Ringers, Lactated) 500 mls @ 999 mls/hr IV .BOLUS ONE Stop: 03/07/17 14:00 Last Admin: 03/07/17 13:37 Dose: 999 mls/hr Lactated Ringer's (Ringers, Lactated) 1,000 mls @ 999 mls/hr IV .BOLUS ONE Stop: 03/07/17 15:13 Last Admin: 03/07/17 14:23 Dose: 999 mls/hr Lactated Ringer's (Ringers, Lactated) 1,000 mls @ 125 mls/hr IV ASDIRECTED [facility] Last Admin: 03/07/17 15:26 Dose: 125 mls/hr Lactated Ringer's (Ringers, Lactated) 1,000 mls @ 75 mls/hr IV ASDIRECTED [facility] Last Admin: 03/08/17 01:26 Dose: 75 mls/hr Metoprolol Tartrate 5 mg/ (Sodium Chloride) 55 mls @ 100 mls/hr IV ONETIME ONE Stop: 03/08/17 00:11 Last Admin: 03/07/17 23:45 Dose: Not Given Sodium Chloride (Normal Saline) 1,000 mls @ 150 mls/hr IV ASDIRECTED [facility] Last Admin: 03/08/17 11:00 Dose: 150 mls/hr Lactated Ringer's (Ringers, Lactated) 500 mls @ 999 mls/hr IV .BOLUS ONE Stop: 03/08/17 09:25 Last Admin: 03/08/17 08:55 Dose: 999 mls/hr Lactated Ringer's (Ringers, Lactated) 1,000 mls @ 125 mls/hr IV ASDIRECTED [facility] Last Admin: 03/09/17 07:39 Dose: 125 mls/hr Iopamidol (Isovue-300 (61%)) 100 ml IVPUSH ONETIME ONE Stop: 03/07/17 13:47 Last Admin: 03/07/17 13:50 Dose: 100 ml Iopamidol (Isovue-300 (61%)) 100 ml IVPUSH ONETIME ONE Stop: 03/08/17 16:52 Last Admin: 03/08/17 17:31 Dose: 100 ml Lisinopril (Prinivil) 5 mg PO DAILY [facility] Metoprolol Succinate (Toprol Xl) 25 mg PO DAILY [facility] Last Admin: 03/08/17 21:03 Dose: Not Given Metoprolol Tartrate (Lopressor) 5 mg IV ONETIME ONE Stop: 03/07/17 23:51 Metoprolol Tartrate (Lopressor) 5 mg IVPUSH ONETIME ONE Stop: 03/07/17 23:51 Last Admin: 03/07/17 23:50 Dose: 5 mg Morphine Sulfate (Morphine) 2 mg IVPUSH Q2H PRN PRN Reason: Pain Last Admin: 03/10/17 18:02 Dose: 2 mg (Carbamazepine [ Tegretol Xr] 100 Mg) Own Med 200 mg PO BID [facility] Last Admin: 03/07/17 22:15 Dose: Not Given Potassium Chloride (Klor-Con M20) 20 meq PO TID [facility] Tramadol HCl (Ultram) 50 mg PO Q6H PRN PRN Reason: Pain Last Admin: 03/07/17 18:50 Dose: 50 mg Tramadol HCl (Ultram) 50 mg PO Q6H PRN PRN Reason: Pain (moderate 4-6) Verapamil HCl (Calan Sr) 120 mg PO DAILY [facility] - Exam General: Alert, Oriented, Cooperative, No Acute Distress GI/Abdominal Exam: Tender (Very mild to deep palpation in the left lower quadrant) Consult PN Assessment/Plan Procedures: Procedures AIRWAY INHALATION TREATMENT (02/12/16) ASSAY OF BLOOD OSMOLALITY (09/10/15) ASSAY OF FREE THYROXINE (01/19/16) ASSAY OF LIPASE (01/19/16) ASSAY OF MAGNESIUM (03/05/16) ASSAY OF NATRIURETIC PEPTIDE (09/10/15) ASSAY OF SERUM POTASSIUM (02/12/16) ASSAY OF TROPONIN QUANT (03/05/16) ASSAY THYROID STIM HORMONE (01/19/16) C-REACTIVE PROTEIN (09/20/16) CARDIOVASCULAR STRESS TEST (07/30/15) CHEST X-RAY 1 VIEW FRONTAL (03/05/16) CHEST X-RAY 2VW FRONTAL&LATL (08/22/15) COMPLETE CBC W/AUTO DIFF WBC (09/20/16) COMPREHEN METABOLIC PANEL (09/20/16) CREATINE MB FRACTION (09/10/15) CT ABD & PELV W/CONTRAST (01/19/16) CT HEAD/BRAIN W/O DYE (03/05/16) CT NECK SPINE W/O DYE (08/22/15) DXA BONE DENSITY AXIAL (02/07/17) EGD DIAGNOSTIC BRUSH WASH (03/07/17) ELECTROCARDIOGRAM TRACING (03/05/16) EMERGENCY DEPT VISIT (12/05/16) EMERGENCY DEPT VISIT (03/05/16) EVALUATE PT USE OF INHALER (02/12/16) EVALUATE SWALLOWING FUNCTION (03/05/16) EXTRACRANIAL BILAT STUDY (01/19/16) FLUOROSCOPE EXAMINATION (02/12/16) GAIT TRAINING THERAPY (02/12/16) HT MUSCLE IMAGE SPECT MULT (07/30/15) HYDRATE IV INFUSION ADD-ON (01/19/16) HYDRATION IV INFUSION INIT (09/10/15) INSERT BLADDER CATHETER (01/19/16) LIPID PANEL (03/05/16) MANUAL THERAPY 1/> REGIONS (02/12/16) MEASURE BLOOD OXYGEN LEVEL (01/19/16) METABOLIC PANEL TOTAL CA (03/05/16) MR-STAPH DNA AMP PROBE (12/21/16) MRI BRAIN STEM W/O & W/DYE (01/19/16) MRI BRAIN STEM W/O DYE (03/05/16) OT EVALUATION (02/12/16) PROTHROMBIN TIME (03/05/16) PT EVALUATION (03/05/16) RBC SED RATE AUTOMATED (09/20/16) ROUTINE VENIPUNCTURE (09/20/16) SELF CARE MNGMENT TRAINING (02/12/16) THER/PROPH/DIAG INJ IV PUSH (03/05/16) THERAPEUTIC ACTIVITIES (02/12/16) THERAPEUTIC EXERCISES (03/05/16) THROMBOPLASTIN TIME PARTIAL (03/05/16) TTE W/DOPPLER COMPLETE (01/19/16) TX/PRO/DX INJ NEW DRUG ADDON (01/19/16) TX/PRO/DX INJ SAME DRUG CUTTING MACHINE OPERATOR (03/05/16) URINALYSIS AUTO W/SCOPE (03/05/16) URINE CULTURE/COLONY COUNT (09/10/15) X-RAY EXAM OF ANKLE (12/05/16) X-RAY EXAM OF FOOT (12/05/16) X-RAY EXAM OF HAND (08/22/15) X-RAY EXAM OF KNEE 3 (12/05/16) X-RAY EXAM OF SHOULDER (02/12/16) (1) 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 SNOMED Code(s): 005195880 Code(s): D78.32 - POSTPROC HEMATOMA OF THE SPLEEN FOLLOWING OTHER PROCEDURE Priority: Medium Current Visit: Yes Onset Date: ~03/07/17 Assessment:: Patient satisfies all discharge criteria. Her ambulatory status has improved and she demonstrated this to me while I rounded on her this morning. Slightly elevated temperatures overnight but 98 this morning and this is most likely due to the inflammatory response from resolution of her hematoma. Ready for discharge. Problem List Initiated/Reviewed/Updated: Yes My Orders Last 24 Hours: My Active Orders 03/12/17 09:00 Magnesium Oxide 400 mg PO BID 03/13/17 08:39 Ready for Discharge [RC] PER UNIT ROUTINE Plan: Discharge today. I informed her that it would be important for her to avoid strenuous activity and heavy lifting of more than 10 pounds for another week. She agreed to this. Her son will drive her home. In the morning she'll be contacted regarding the need for home health. The patient and her son will make that decision. She will need to follow-up with her primary care provider to have her potassium levels checked. In 6 weeks consideration could be giving to repeat CT scan to look for resolution of the sub-capsular splenic hematoma and to look for potential longer-term complications from this iatrogenic event.
--- NOTE | 2017-03-13 08:48 | PCM.DCSUM1 ---
Discharge Summary - Hospital Course Free Text/Narrative:: The patient was admitted after undergoing colonoscopy when she was doubled over by abdominal pain and lightheadedness as a outpatient. CT scan revealed a subcapsular possibly extravasating splenic hematoma. Her hemoglobin had dropped and she was given blood transfusions. Her hematocrit stabilized as well as her vital signs. Her abdominal pain dramatically improved. She tolerated a full liquid diet then easily tolerated a regular diet and demonstrated progressive slow but steady increases in her level of activity to bed rest and bathroom privileges. Initially she was unsteady on her feet but this quickly resolved. Her potassium was replaced. Her magnesium was replaced. She wanted to go home 2 days ago. - Discharge Data Discharge Date: 03/13/17 Discharge Disposition: Home, Self-Care 01 Condition: Good - Discharge Diagnosis/Problem(s) (1) 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 SNOMED Code(s): 821750482 ICD Code: D78.32 - POSTPROC HEMATOMA OF THE SPLEEN FOLLOWING OTHER PROCEDURE Status: Acute Priority: Medium Current Visit: Yes Onset Date: ~ - Patient Summary/Data Operative Procedure(s) Performed: None Complications: None this admission Consults: Consultations 03/10/17 10:00 Consult to Physician [CONS] Routine Consult to Physician [CONS] Routine 03/11/17 14:36 OT Evaluation and Treatment [CONS] Routine Recommended Follow-up Testing/Procedures: Potassium check. Consideration for a CT scan in 6 weeks to evaluate the spleen. Hospital Course: See above. - Patient Instructions Diet: Usual Diet as Tolerated Activity: As Tolerated, No Lifting Over 10 Pounds (For one week), Rest and Relax Today Driving: Do Not Drive (Until a.m.) Showering/Bathing: May Shower Notify Provider of: Fever, Increased Pain, Nausea and/or Vomiting - Discharge Plan Home Medications: Home Meds Levothyroxine 25 mcg PO ACBREAKFAST 09/10/15 [History] Omeprazole 20 mg PO ACBREAKFAST 09/10/15 [History] Pregabalin [Lyrica] 150 mg PO BID 09/10/15 [History] atorvaSTATin [Lipitor] 40 mg PO BEDTIME 09/10/15 [History] Ondansetron [Zofran ODT] 4 mg PO Q4H PRN 01/19/16 [History] fentaNYL [Duragesic] 50 mcg TRDERM Q72H 01/19/16 [History] Forteo 20 mcg SQ DAILY 02/12/16 [History] traMADol [Ultram] 50 mg PO Q6H PRN 12/05/16 [History] Albuterol [Proventil HFA] 2 puff INH Q4H PRN 03/04/17 [History] Docusate Sodium [Colace] 100 mg PO BID 03/04/17 [History] Fluticasone/Salmeterol [Advair 250-50 Diskus] 1 puff INH BID 03/04/17 [History] Ketoprofen, Micronized [Frotek] 1 dose TOP ASDIRECTED 03/04/17 [History] Oxybutynin [Oxybutynin ER] 5 mg PO DAILY 03/04/17 [History] Sertraline HCl 50 mg PO DAILY 03/04/17 [History] carBAMazepine [Tegretol XR] 200 mg PO BID 03/04/17 [History] guaiFENesin [Mucinex] 1,200 mg PO BID 03/04/17 [History] Aspirin [Lo-Dose Aspirin EC] 81 mg PO DAILY 03/07/17 [History] Cholecalciferol (Vitamin D3) [Vitamin D3] 50,000 unit PO ASDIRECTED 03/07/17 [ History] Lisinopril [Prinivil] 5 mg PO DAILY 03/07/17 [History] Metoprolol Succinate [Toprol XL] 25 mg PO DAILY 03/07/17 [History] Polyethylene Glycol 3350 [MiraLAX] 17 gm PO Q3D 03/07/17 [History] Verapamil [Calan SR] 120 mg PO DAILY 03/07/17 [History] Patient Handouts: Smoking Cessation, Tips for Success, [id number], Colonoscopy, [id number], Blood Transfusion, [id number], Cirrhosis, Ascites Forms: ED Department Discharge Referrals: Eun Allen MD [Primary Care Provider] - (Can follow-up with Dr. Allen regarding her potassium levels and consideration for an abdominal CT scan in 6 weeks to check for resolution of the splenic hematoma.) - Discharge Summary/Plan Comment DC Time >30 min.: No Discharge Summary/Plan Comment: See progress note. - Patient Data Vitals - Most Recent: Last Vital Signs Temp 36.7 C 03/13/17 08:29 Pulse 101 H 03/13/17 08:40 Resp 19 03/13/17 08:29 BP 144/67 H 03/13/17 08:40 Pulse Ox 93 L 03/13/17 08:29 Weight - Most Recent: 63.367 kg I&O - Last 24 hours: Intake & Output 03/12/17 03/13/17 03/13/17 22:59 06:59 14:59 Intake Total 680 500 Output Total 350 950 Balance 330 -450 Med Orders - Current: Current Medications Albuterol (Proventil Hfa) 0 gm INH Q4H PRN PRN Reason: Shortness of Breath Carbamazepine (Tegretol) 200 mg PO BID [facility] Last Admin: 03/13/17 08:38 Dose: 200 mg Docusate Sodium (Colace) 100 mg PO BID [facility] Last Admin: 03/13/17 08:35 Dose: 100 mg Ergocalciferol (Vitamin D2) 50,000 units PO ASDIRECTED [facility] Ergocalciferol (Vitamin D2) 50,000 units PO Mo@0900 [facility] Fentanyl (Duragesic) 50 mcg TRDERM Q72H [facility] Last Admin: 03/10/17 16:42 Dose: 50 mcg Guaifenesin (Mucinex) 1,200 mg PO BID [facility] Last Admin: 03/13/17 08:36 Dose: Not Given Sodium Chloride (Normal Saline) 250 mls @ 25 mls/hr IV ASDIRECTED [facility] Lactated Ringer's (Ringers, Lactated) 1,000 mls @ 50 mls/hr IV ASDIRECTED [facility] Last Admin: 03/11/17 06:18 Dose: 50 mls/hr Levothyroxine Sodium (Levothyroxine) 25 mcg PO ACBREAKFAST [facility] Last Admin: 03/13/17 06:21 Dose: 25 mcg Lisinopril (Prinivil) 5 mg PO DAILY [facility] Last Admin: 03/13/17 08:37 Dose: 5 mg Magnesium Oxide (Magnesium Oxide) 400 mg PO BID [facility] Last Admin: 03/13/17 08:36 Dose: 400 mg Metoprolol Succinate (Toprol Xl) 12.5 mg PO DAILY [facility] Last Admin: 03/13/17 08:40 Dose: 12.5 mg Metoprolol Tartrate (Lopressor) 5 mg IVPUSH Q6H PRN PRN Reason: Tachycardia Last Admin: 03/10/17 04:04 Dose: 5 mg Mometasone Furoate/Formoterol Fumar (Dulera 200-5 Mcg) 2 puff IH BIDRT [facility] Last Admin: 03/13/17 06:57 Dose: 2 puff Morphine Sulfate (Morphine) 2 mg IM Q2H PRN PRN Reason: Pain Ondansetron HCl (Zofran) 4 mg IVPUSH Q4H PRN PRN Reason: Nausea Last Admin: 03/11/17 09:49 Dose: 4 mg Ondansetron HCl (Zofran Odt) 4 mg PO Q4H PRN PRN Reason: Nausea/Vomiting Last Admin: 03/10/17 02:33 Dose: 4 mg Oxybutynin Chloride (Oxybutynin Er) 5 mg PO DAILY [facility] Last Admin: 03/13/17 08:36 Dose: 5 mg Oxycodone/Acetaminophen (Percocet 325-5 Mg) 1 tab PO Q4H PRN PRN Reason: Pain Last Admin: 03/11/17 21:59 Dose: 1 tab Potassium Chloride (Klor-Con M20) 20 meq PO TID [facility] Last Admin: 03/13/17 08:35 Dose: 20 meq Pregabalin (Lyrica) 150 mg PO BID [facility] Last Admin: 03/13/17 08:35 Dose: 150 mg Rosuvastatin Calcium (Crestor) 10 mg PO BEDTIME [facility] Last Admin: 03/12/17 21:52 Dose: 10 mg Sertraline HCl (Zoloft) 50 mg PO DAILY [facility] Last Admin: 03/13/17 08:38 Dose: 50 mg Sodium Chloride (Saline Flush) 10 ml FLUSH ONETIME PRN PRN Reason: IV FLUSH Last Admin: 03/08/17 17:31 Dose: 10 ml Sodium Chloride (Saline Flush) 10 ml FLUSH ASDIRECTED PRN PRN Reason: Keep Vein Open Tramadol HCl (Ultram) 50 mg PO Q6H [facility] Last Admin: 03/13/17 08:34 Dose: 50 mg Verapamil HCl (Calan Sr) 120 mg PO DAILY [facility] Last Admin: 03/13/17 08:34 Dose: 120 mg Discontinued Medications Diatrizoate Meglum/Diatrizoate Sod (Gastrografin 37%) 90 ml PO ONETIME ONE Stop: 03/08/17 16:52 Last Admin: 03/08/17 17:31 Dose: 90 ml Fentanyl (Sublimaze) 25 mcg IVPUSH ONETIME ONE Stop: 03/07/17 14:55 Last Admin: 03/07/17 15:17 Dose: 25 mcg Fentanyl (Sublimaze) 25 mcg IVPUSH ONETIME ONE Stop: 03/07/17 15:38 Last Admin: 03/07/17 15:43 Dose: 25 mcg Fentanyl (Duragesic) 50 mcg TRDERM Q72H [facility] Last Admin: 03/07/17 22:15 Dose: Not Given Hydromorphone HCl (Dilaudid) 0.5 mg IVPUSH ONETIME ONE Stop: 03/07/17 16:04 Last Admin: 03/07/17 16:15 Dose: 0.5 mg Lactated Ringer's (Ringers, Lactated) 500 mls @ 999 mls/hr IV .BOLUS ONE Stop: 03/07/17 14:00 Last Admin: 03/07/17 13:37 Dose: 999 mls/hr Lactated Ringer's (Ringers, Lactated) 1,000 mls @ 999 mls/hr IV .BOLUS ONE Stop: 03/07/17 15:13 Last Admin: 03/07/17 14:23 Dose: 999 mls/hr Lactated Ringer's (Ringers, Lactated) 1,000 mls @ 125 [facility] Admin: 03/07/17 15:26 Dose: 125 mls/hr Lactated Ringer's (Ringers, Lactated) 1,000 mls @ 75 mls[facility] Last Admin: 03/08/17 01:26 Dose: 75 mls/hr Metoprolol Tartrate 5 mg/ (Sodium Chloride) 55 mls @ 100 mls/hr IV ONETIME ONE Stop: 03/08/17 00:11 Last Admin: 03/07/17 23:45 Dose: Not Given Sodium Chloride (Normal Saline) 1,000 mls @ 150 [facility]ls[facility] Last Admin: 03/08/17 11:00 Dose: 150 mls/hr Lactated Ringer's (Ringers, Lactated) 500 mls @ 999 mls/hr IV .BOLUS ONE Stop: 03/08/17 09:25 Last Admin: 03/08/17 08:55 Dose: 999 mls/hr Lactated Ringer's (Ringers, Lactated) 1,000 mls @ 125 mls/hr IV ASDIRECTED [facility] Last Admin: 03/09/17 07:39 Dose: 125 mls/hr Iopamidol (Isovue-300 (61%)) 100 ml IVPUSH ONETIME ONE Stop: 03/07/17 13:47 Last Admin: 03/07/17 13:50 Dose: 100 ml Iopamidol (Isovue-300 (61%)) 100 ml IVPUSH ONETIME ONE Stop: 03/08/17 16:52 Last Admin: 03/08/17 17:31 Dose: 100 ml Lisinopril (Prinivil) 5 mg PO DAILY [facility] Metoprolol Succinate (Toprol Xl) 25 mg PO DAILY [facility] Last Admin: 03/08/17 21:03 Dose: Not Given Metoprolol Tartrate (Lopressor) 5 mg IV ONETIME ONE Stop: 03/07/17 23:51 Metoprolol Tartrate (Lopressor) 5 mg IVPUSH ONETIME ONE Stop: 03/07/17 23:51 Last Admin: 03/07/17 23:50 Dose: 5 mg Morphine Sulfate (Morphine) 2 mg IVPUSH Q2H PRN PRN Reason: Pain Last Admin: 03/10/17 18:02 Dose: 2 mg (Carbamazepine [ Tegretol Xr] 100 Mg) Own Med 200 mg PO BID [facility] Last Admin: 03/07/17 22:15 Dose: Not Given Potassium Chloride (Klor-Con M20) 20 meq PO TID [facility] Tramadol HCl (Ultram) 50 mg PO Q6H PRN PRN Reason: Pain Last Admin: 03/07/17 18:50 Dose: 50 mg Tramadol HCl (Ultram) 50 mg PO Q6H PRN PRN Reason: Pain (moderate 4-6) Verapamil HCl (Calan Sr) 120 mg PO DAILY [facility] *Q Meaningful Use (DIS) - VTE *Q VTE Criteria *Q: - Stroke *Q Stroke Criteria *Q: - AMI *Q AMI Criteria *Q:
[2017-03-14] MEDS ORDERED: Ergocalciferol (Vitamin D2) 50,000 Unit Cap PO SCH (09:00)
--- NOTE | 2017-03-30 14:36 | HP ---
DATE OF ADMISSION: 03/07/2017 CHIEF COMPLAINT: Abdominal pain. HISTORY OF PRESENT ILLNESS: This 76-year-old patient is admitted to the hospital, having come through the emergency room, with the history of having had a colonoscopy earlier in the morning, which revealed no abnormalities, no biopsies were taken, and the procedure was uneventful. The patient went home, had some moderate abdominal discomfort, but this became very severe, mostly on the left side of the abdomen, and she presented back to the emergency room and was evaluated by Dr. Hogue. She had a CT scan, which showed a shadow on the left upper quadrant in the area of the spleen, which on the evaluation revealed Hounsfield units consistent with that of a hemoperitoneum. No other abnormalities were noted. There was a watery discharge once per rectum indicating most likely there was no internal bleeding, but that this was bleeding within the peritoneal cavity itself. The etiology or what vessels were involved was not available because of the distortion of the anatomy for the hemoperitoneum. Her initial hemoglobin upon admission was 7.7. The patient was admitted with a diagnosis of a substantial bleed to the left upper quadrant, etiology unknown, perhaps injury to the short vessels passing through the left transverse descending colon flexure, i.e. the splenic flexure, at colonoscopy. The patient will be admitted for observation and transfusion. I feel that, most likely, we will begin with 2 units of blood for her. She does have a tachycardia, and her blood pressure is lower than normal. ALLERGIES: She is allergic to codeine. CURRENT MEDICATIONS: She takes multiple medications as per her previous questioning prior to her procedure. PHYSICAL EXAMINATION: VITAL SIGNS: Blood pressure was 118/64. Her pulse rate was 95. GENERAL: She is alert and oriented to time, person, and place. EYES, EARS, NOSE, AND THROAT: Unremarkable. NECK: Supple. Trachea midline. Full range of motion. CHEST: Clear to auscultation. HEART: Rhythm is regular. No murmurs are heard. ABDOMEN: Examination of the abdomen reveals a diffusely tender abdomen, more in the left upper quadrant and left flank, with slightly decreased bowel sounds. PELVIC AND RECTAL: Not performed at this time. EXTREMITIES: Reveal full peripheral pulses. No edema. No varicosities. NEUROLOGIC: Intact to gross exam. Cranial nerves 2 through 12 are intact. Reflexes are symmetrical and 2+ or 4+. ASSESSMENT: At this point, hemoperitoneum secondary to some form of vascular incident within the peritoneal cavity involving the spleen and the colon secondary to colonoscopy. PLAN: The patient will be admitted for observation and for transfusion and possible surgery if necessary. The diagnosis and the hospital course have been explained to the patient, she is in agreement, and will be admitted for observation and transfusion. MMODAL /[id number]
== END 2017-03-13 13:30 | disposition home or self-care (01) | DRG 919 ==
LOC: JD.ED 13:11 → UNDOADMOB 17:09 → JD.MS 17:09 → UNDOADMOB 17:52 → OBSVTOIN 17:52 → JD.MS 17:52 → INTOOBSV 17:52 → JD.ICU 03-08 09:41 → JD.MS 03-08 09:41 → JD.ICU 03-11 15:18 → OBSVTOIN 03-11 15:18 → JD.MS 03-11 15:18 → JD.ICU 03-12 11:30 → JD.MS 03-12 11:30 → UNDODISIN 03-13 13:30
PROVIDERS: ADMIT Surgery; ATTEND Surgery
PROC: 30233N1 Transfusion of Nonautologous Red Blood Cells into Peripheral Vein, Percutaneous Approach (ICD-10-PCS; principal; 2017-03-08)
DX: R10.9 Unspecified abdominal pain (principal); D78.32 Postprocedural hematoma of the spleen following other procedure; Z12.11 Encounter for screening for malignant neoplasm of colon; K64.8 Other hemorrhoids; K64.4 Residual hemorrhoidal skin tags; K63.89 Other specified diseases of intestine; K29.50 Unspecified chronic gastritis without bleeding; K44.9 Diaphragmatic hernia without obstruction or gangrene; K59.00 Constipation, unspecified; I44.7 Left bundle-branch block, unspecified; I35.0 Nonrheumatic aortic (valve) stenosis; I35.1 Nonrheumatic aortic (valve) insufficiency; K66.1 Hemoperitoneum; R18.8 Other ascites; I10 Essential (primary) hypertension; E78.00 Pure hypercholesterolemia, unspecified; J44.9 Chronic obstructive pulmonary disease, unspecified; K21.9 Gastro-esophageal reflux disease without esophagitis; G89.4 Chronic pain syndrome; M54.9 Dorsalgia, unspecified; M19.90 Unspecified osteoarthritis, unspecified site; E03.9 Hypothyroidism, unspecified; H40.9 Unspecified glaucoma; H35.30 Unspecified macular degeneration; F17.200 Nicotine dependence, unspecified, uncomplicated; F32.9 Major depressive disorder, single episode, unspecified; F41.9 Anxiety disorder, unspecified; I65.23 Occlusion and stenosis of bilateral carotid arteries; Z86.73 Personal history of transient ischemic attack (TIA), and cerebral infarction without residual deficits; Z88.5 Allergy status to narcotic agent; Z79.82 Long term (current) use of aspirin; Z79.899 Other long term (current) drug therapy
CPT/HCPCS: 36415; 74177; 80053; 81001; 82248; 82977; 83605; 83690; 84484; 85025; 85610; 86850; 86900; 86901; 86922; 93005; 96361; 96374; 96375; 99285; A9270; J1170; J2405; J3010 ×4; J7120 ×4; Q9967; 00810; 36430; 80048; 83735; 85014; 85018; 86140; 93010; 94640; 94664; 94761; 97165-GO; 97535-GO; 99284; G0378; J2270; J2704; J3490; J7040; J7050; P9016; Q9963

== ENCOUNTER 2017-03-16 09:58 | Emergency (ER) | payer MEDICARE, MEDICAID ==
[2017-03-16 10:14] VITALS: BP 150/80
[2017-03-16] MEDS ORDERED: Ondansetron 4 MG/2 ML SDV IVPUSH ONE (10:26)
[2017-03-16] MEDS ORDERED: Sodium Chloride 0.9% 1,000 ML IV STA (10:26)
[2017-03-16] MEDS ORDERED: HYDROmorphone 0.5 MG/0.5 ML Syringe IVPUSH ONE ×3 (10:29→14:22)
[2017-03-16] MEDS: Sodium Chloride 0.9% 10 ML Syringe FLUSH PRN ×2 (10:38→10:51)
[2017-03-16] MEDS ORDERED: Sodium Chloride 0.9% 10 ML Syringe FLUSH ONE (10:43)
[2017-03-16] MEDS ORDERED: Iopamidol 755 Mg/ML 100 ML Bottle IVPUSH ONE (10:43)
--- NOTE | 2017-03-16 11:46 | CT ---
CT abdomen and pelvis Technique: Multiple axial sections were obtained from above the dome of the diaphragm inferiorly through the pubic symphysis. Intravenous contrast was utilized. No oral contrast has been given. Comparison: Prior CT abdomen and pelvis exam of 04/07/17. Findings: Small left-sided pleural effusion is seen. Consolidating parenchymal density is noted within the left base. These findings are more prominent than on previous exam. Liver shows mild intrahepatic biliary duct dilatation. Small cyst is identified within the left lobe of the liver measuring 6 mm. Spleen size is normal. Fluid collection is seen around the spleen slightly increased in size from prior exam. Fluid within the abdomen is otherwise improved. Fluid along the spleen descends into the pelvis. Minimal fluid is seen around the liver. Parapelvic cyst is noted within the right kidney. Kidneys show no hydronephrosis. Adrenal glands are unremarkable. Pancreas is atrophied but otherwise unremarkable. Aorta shows atherosclerotic change without aneurysmal dilatation. Surgical clips are seen within the retroperitoneum causing some artifact. Several slightly prominent loops of small bowel containing fluid are seen which are likely incidental. Small amount of fluid is seen within the dependent portion of the pelvis. No pelvic mass or adenopathy is seen. Impression: 1. 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 This fluid collection extends along the left side of the abdomen into the pelvis. This has worsened from prior exam. 2. Minimal fluid around the liver as well as fluid within the dependent portions of the pelvis. This free fluid has decreased in amount from prior exam. 3. Increased consolidation within the left lower lung either due to increased atelectasis, aspiration or pneumonia. Small left sided pleural effusion which is an interval change. 4. Other incidental findings as noted above. Diagnostic code #3
[2017-03-16] MEDS ORDERED: Levofloxacin/Dextrose 5%-Water 750 MG in Premix Bag 1 BAG IV ONE (12:46)
[2017-03-16] MEDS ORDERED: Metoclopramide 10 MG/2 ML SDV IVPUSH ONE (14:22)
--- NOTE | 2017-03-16 14:34 | EDM.PDOC ---
ED HPI GENERAL MEDICAL PROBLEM - General Chief Complaint: Abdominal Pain Stated Complaint: [facility] Time Seen by Provider: 03/16/17 10:21 Source of Information: Reports: Patient History Limitations: Reports: No Limitations - History of Present Illness INITIAL COMMENTS - FREE TEXT/NARRATIVE: The patient presents with abdominal pain, nausea, vomiting, diarrhea, left sided abdominal pain, cough and chills. This all started last night. She had a colonoscopy on 03/07/[address] Fabian. Everything went fine and she went home. That night she developed pain to the left abdomen. She came to the ER and a CT was done and it showed ascities. She was admitted to the hospital. The next day she still had pain so a CT was repeated. The CT showed a subcapsular hematoma. Her Hgb went down and she was watched in the hospital and did well. On the she was discharged. She developed the above symptoms yesterday. She denies chest pain or shortness of breath. She has no dysuria. Onset: Gradual Duration: Day(s): (Yesterday) Location: Reports: Abdomen Quality: Reports: Sharp Severity: Moderate Improves with: Reports: None Worsens with: Reports: Movement Associated Symptoms: Reports: Cough, Fever/Chills, Nausea/Vomiting. Denies: Chest Pain, Headaches, Shortness of Breath - Related Data Allergies Allergy/AdvReac Type Severity Reaction Status Date / Time codeine AdvReac Vomiting Verified 03/16/17 10:47 Home Meds: Home Meds Levothyroxine 25 mcg PO ACBREAKFAST 09/10/15 [History] Omeprazole 20 mg PO ACBREAKFAST 09/10/15 [History] Pregabalin [Lyrica] 150 mg PO BID 09/10/15 [History] atorvaSTATin [Lipitor] 40 mg PO BEDTIME 09/10/15 [History] Ondansetron [Zofran ODT] 4 mg PO Q4H PRN 01/19/16 [History] fentaNYL [Duragesic] 50 mcg TRDERM Q72H 01/19/16 [History] Forteo 20 mcg SQ DAILY 02/12/16 [History] traMADol [Ultram] 50 mg PO Q6H PRN 12/05/16 [History] Albuterol [Proventil HFA] 2 puff INH Q4H PRN 03/04/17 [History] Docusate Sodium [Colace] 100 mg PO BID 03/04/17 [History] Fluticasone/Salmeterol [Advair 250-50 Diskus] 1 puff INH BID 03/04/17 [History] Ketoprofen, Micronized [Frotek] 1 dose TOP ASDIRECTED 03/04/17 [History] Oxybutynin [Oxybutynin ER] 5 mg PO DAILY 03/04/17 [History] Sertraline HCl 50 mg PO DAILY 03/04/17 [History] carBAMazepine [Tegretol XR] 200 mg PO BID 03/04/17 [History] guaiFENesin [Mucinex] 1,200 mg PO BID 03/04/17 [History] Aspirin [Lo-Dose Aspirin EC] 81 mg PO DAILY 03/07/17 [History] Cholecalciferol (Vitamin D3) [Vitamin D3] 50,000 unit PO ASDIRECTED 03/07/17 [ History] Lisinopril [Prinivil] 5 mg PO DAILY 03/07/17 [History] Metoprolol Succinate [Toprol XL] 25 mg PO DAILY 03/07/17 [History] Polyethylene Glycol 3350 [MiraLAX] 17 gm PO Q3D 03/07/17 [History] Verapamil [Calan SR] 120 mg PO DAILY 03/07/17 [History] Past Medical History HEENT History: Reports: Cataract, Glaucoma, Macular Degeneration, Other (See Below) Other HEENT History: dentures, glasses Cardiovascular History: Reports: Heart Murmur, High Cholesterol, Hypertension, Other (See Below) Other Cardiovascular History: palpitations, precordial pain, chest pain, aortic regurgitation Respiratory History: Reports: None, Asthma, COPD, TB Other Respiratory History: 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 Gastrointestinal History: Reports: GERD, Hemorrhoids, Other (See Below) Other Gastrointestinal History: anal itching and pain, abdominal wall pain Genitourinary History: Reports: Renal Calculus, Other (See Below) Other Genitourinary History: Urinary dribbling [employer] History: Reports: Musculoskeletal History: Reports: Arthritis, Back Pain, Chronic, Osteoarthritis , Other (See Below) Other Musculoskeletal History: Spinal Stenosis, chronic pain syndrome, lumbar facet arthropathy, myofascial pain, shoulder bursitis Neurological History: Reports: CVA, Headaches, Chronic Other Neuro History: dizziness, confusion, white matter periventricular infarction, hand tremor Psychiatric History: Reports: Addiction, Anxiety, Depression Other Psychiatric History: Nicotine dependence Endocrine/Metabolic History: Reports: Hypothyroidism Hematologic History: Reports: Anemia Immunologic History: Reports: None Oncologic (Cancer) History: Reports: Breast, Lung Dermatologic History: Reports: Cellulitis - Infectious Disease History Infectious Disease History: Reports: Chicken Pox, Rheumatic Fever - Past Surgical History HEENT Surgical History: Reports: Cataract Surgery Cardiovascular Surgical History: Reports: None Respiratory Surgical History: Reports: Lung Resection GI Surgical History: Reports: Appendectomy, Cholecystectomy, Colonoscopy Female Surgical History: Reports: Hysterectomy, Mastectomy, Salpingo- Oophorectomy Other Female Surgeries/Procedures: L mastectomy r/t breast CA. Endocrine Surgical History: Reports: None Neurological Surgical History: Reports: None Musculoskeletal Surgical History: Reports: Arthroscopic Procedure, Knee Replacement, Shoulder Surgery, Other (See Below) Other Musculoskeletal Surgeries/Procedures:: left total knee replacement, toe surgery, shoulder surgery Oncologic Surgical History: Reports: None, Mastectomy, Other (See Below) Other Oncologic Surgeries/Procedures: Left side Dermatological Surgical History: Reports: Other (See Below) Social & Family History - Family History Family Medical History: Noncontributory Cardiac: Reports: [place] - Tobacco Use Smoking Status *Q: Former Smoker Years of Tobacco use: 15 Packs/Tins Daily: 5 Used Tobacco, but Quit: Yes Month Tobacco Last Used: DEc Second Hand Smoke Exposure: Yes - Caffeine Use Caffeine Use: Reports: Coffee Other Caffeine Use: 2 cups a day and pepsi - Recreational Drug Use Recreational Drug Use: No - Living Situation & Occupation Living situation: Reports: Occupation: Retired ED ROS GENERAL - Review of Systems Review Of Systems: See Below Constitutional: Reports: Chills, Malaise, Weakness, Fatigue. Denies: Fever HEENT: Reports: No Symptoms Respiratory: Reports: Cough. Denies: Shortness of Breath Cardiovascular: Reports: No Symptoms Endocrine: Reports: No Symptoms GI/Abdominal: Reports: Abdominal Pain, Diarrhea, Nausea, Vomiting : Reports: No Symptoms Musculoskeletal: Reports: No Symptoms ED EXAM, GI/ABD - Physical Exam Exam: See Below Exam Limited By: No Limitations General Appearance: Alert, No Apparent Distress Ears: Normal External Exam Nose: Normal Inspection Head: Atraumatic, Normocephalic Neck: Normal Inspection Respiratory/Chest: No Respiratory Distress, Lungs Clear, Normal Breath Sounds Cardiovascular: Regular Rate, Rhythm, No Edema, No Murmur GI/Abdominal Exam: Soft, No Organomegaly, Tender (Moderate tenderness to the left abdomen) Course - Vital Signs Last Recorded V/S: Last Vital Signs Temp 97.4 F 03/16/17 10:05 Pulse 119 H 03/16/17 10:05 Resp 13 03/16/17 10:05 BP 150/80 H 03/16/17 10:05 Pulse Ox 96 03/16/17 10:05 - Orders/Labs/Meds Orders: Active Orders 24 hr Category Date Time Status Peripheral IV Care [RC] . DIRECTED Care 03/16/17 10:27 Active CULTURE BLOOD [BC] Stat Lab 03/16/17 12:20 Received CULTURE STOOL + SHIGATOX [RM] Stat Lab 03/16/17 10:20 Received Sodium Chloride 0.9% [Saline Flush] Med 03/16/17 10:26 Active 10 ml FLUSH ASDIRECTED PRN ED Antiemetic Medication Reflex [OM.PC] Stat Oth 03/16/17 10:26 Ordered Peripheral IV Insertion Adult [OM.PC] Stat Oth 03/16/17 10:26 Ordered Medication Orders Sodium Chloride (Saline Flush) 10 ml FLUSH ASDIRECTED PRN PRN Reason: Keep Vein Open Last Admin: 03/16/17 10:51 Dose: 10 ml Admin: 03/16/17 10:38 Dose: 10 ml Labs: Laboratory Tests 03/16/17 03/16/17 03/16/17 Range/Units 10:05 10:05 10:20 WBC 17.37 H (3.98-10.04) K/mm3 RBC 4.58 (3.98-5.22) M/mm3 Hgb 13.3 (11.2-15.7) gm/L Hct 40.2 (34.1-44.9) % MCV 87.8 (79.4-94.8) fl MCH 29.0 (25.6-32.2) pg MCHC 33.1 (32.2-35.5) g/dl RDW Std Deviation 48.5 H (36.4-46.3) fL Plt Count 492 H (182-369) K/mm3 MPV 10.9 (9.4-12.3) fl Neut % (Auto) 79.2 H (34.0-71.1) % Lymph % (Auto) 7.8 L (19.3-51.7) % Camas % (Auto) 12.0 (4.7-12.5) % Eos % (Auto) 0.1 L (0.7-5.8) Baso % (Auto) 0.2 (0.1-1.2) % Neut # (Auto) 13.76 H (1.56-6.13) K/mm3 Lymph # (Auto) 1.36 (1.18-3.74) K/mm3 Camas # (Auto) 2.09 H (0.24-0.36) K/mm3 Eos # (Auto) 0.01 L (0.04-0.36) K/mm3 Baso # (Auto) 0.03 (0.01-0.08) K/mm3 Manual Slide Review Abnormal smear Sodium 135 L (136-145) mEq/L Potassium 3.1 L (3.5-5.1) mEq/L Chloride 101 (98-107) mEq/L Carbon Dioxide 23 (21-32) mEq/L Anion Gap 14.1 (5-15) BUN 16 (7-18) mg/dL Creatinine 0.6 (0.55-1.02) mg/dL Est Cr Clr Drug Dosing 71.03 mL/min Estimated GFR (MDRD) > 60 (>60) mL/min BUN/Creatinine Ratio 26.7 H (14-18) Glucose 116 H (83-115) mg/dL Lactic Acid (0.4-2.0) mmol/L Calcium 9.4 (8.5-10.1) mg/dL Total Bilirubin 0.9 (0.2-1.0) mg/dL AST 77 H (15-37) U/L ALT 58 (14-59) U/L Alkaline Phosphatase 110 (46-116) U/L Total Protein 8.1 (6.4-8.2) g/dl Albumin 2.8 L (3.4-5.0) g/dl Globulin 5.3 gm/dL Albumin/Globulin Ratio 0.5 L (1-2) Lipase 49 L (73-393) U/L Urine Color (Yellow) Urine Appearance (Clear) Urine pH (5.0-8.0) Ur Specific Jewell (1.005-1.030) Urine Protein (Negative) Urine Glucose (UA) (Negative) Urine Ketones (Negative) Urine Occult Blood (Negative) Urine Nitrite (Negative) Urine Bilirubin (Negative) Urine Urobilinogen (0.2-1.0) Ur Leukocyte Esterase (Negative) Urine RBC (0-5) /hpf Urine WBC (0-5) /hpf Ur Epithelial Cells (0-5) /hpf Urine Bacteria (FEW) /hpf Urine Mucus (FEW) /hpf C.difficile [id number] Presumptive negative C. difficile Tox (PCR) Negative 03/16/17 03/16/17 Range/Units 12:20 13:00 WBC (3.98-10.04) K/mm3 RBC (3.98-5.22) M/mm3 Hgb (11.2-15.7) gm/L Hct (34.1-44.9) % MCV (79.4-94.8) fl MCH (25.6-32.2) pg MCHC (32.2-35.5) g/dl RDW Std Deviation (36.4-46.3) fL Plt Count (182-369) K/mm3 MPV (9.4-12.3) fl Neut % (Auto) (34.0-71.1) % Lymph % (Auto) (19.3-51.7) % Camas % (Auto) (4.7-12.5) % Eos % (Auto) (0.7-5.8) Baso % (Auto) (0.1-1.2) % Neut # (Auto) (1.56-6.13) K/mm3 Lymph # (Auto) (1.18-3.74) K/mm3 Cam[place] # (Auto) (0.24-0.36) K/mm3 Eos # (Auto) (0.04-0.36) K/mm3 Baso # (Auto) (0.01-0.08) K/mm3 Manual Slide Review Sodium (136-145) mEq/L Potassium (3.5-5.1) mEq/L Chloride (98-107) mEq/L Carbon Dioxide (21-32) mEq/L Anion Gap (5-15) BUN (7-18) mg/dL Creatinine (0.55-1.02) mg/dL Est Cr Clr Drug Dosing mL/min Estimated GFR (MDRD) (>60) mL/min BUN/Creatinine Ratio (14-18) Glucose (83-115) mg/dL Lactic Acid 1.8 (0.4-2.0) mmol/L Calcium (8.5-10.1) mg/dL Total Bilirubin (0.2-1.0) mg/dL AST (15-37) U/L ALT (14-59) U/L Alkaline Phosphatase (46-116) U/L Total Protein (6.4-8.2) g/dl Albumin (3.4-5.0) g/dl Globulin gm/dL Albumin/Globulin Ratio (1-2) Lipase (73-393) U/L Urine Color Yellow (Yellow) Urine Appearance Clear (Clear) Urine pH 6.0 (5.0-8.0) Ur Specific Jewell <=1.005 (1.005-1.030) Urine Protein 1+ H (Negative) Urine Glucose (UA) Negative (Negative) Urine Ketones 1+ H (Negative) Urine Occult Blood 1+ H (Negative) Urine Nitrite Negative (Negative) Urine Bilirubin 1+ H (Negative) Urine Urobilinogen 0.2 (0.2-1.0) Ur Leukocyte Esterase Negative (Negative) Urine RBC 0-5 (0-5) /hpf Urine WBC 0-5 (0-5) /hpf Ur Epithelial Cells 0-5 (0-5) /hpf Urine Bacteria Moderate H (FEW) /hpf Urine Mucus Not seen (FEW) /hpf C.difficile [id number] C. difficile Tox (PCR) Meds: Medications Generic Name Dose Route Start Last Admin Trade Name Freq PRN Reason Stop Dose Admin Sodium Chloride 10 ml 03/16/17 10:26 03/16/17 10:51 Saline Flush FLUSH 10 ml ASDIRECTED PRN Administration Keep Vein Open Discontinued Medications Generic Name Dose Route Start Last Admin Trade Name Freq PRN Reason Stop Dose Admin Hydromorphone HCl 0.5 mg 03/16/17 10:29 03/16/17 10:37 Dilaudid IVPUSH 03/16/17 10:30 0.5 mg ONETIME ONE Administration Hydromorphone HCl 0.5 mg 03/16/17 11:55 03/16/17 11:58 Dilaudid IVPUSH 03/16/17 11:56 0.5 mg ONETIME ONE Administration Hydromorphone HCl 0.5 mg 03/16/17 14:22 Dilaudid IVPUSH 03/16/17 14:23 ONETIME ONE Sodium Chloride 1,000 mls @ 1,000 mls/hr 03/16/17 10:26 03/16/17 10:36 Normal Saline IV 03/16/17 11:25 1,000 mls/hr .BOLUS STA Administration Levofloxacin/Dextrose 750 mg/ 150 mls @ 100 mls/hr 03/16/17 12:46 03/16/17 12 :54 Premix IV 03/16/17 14:15 100 mls/hr ONETIME ONE Administration Iopamidol 100 ml 03/16/17 10:43 03/16/17 10:51 Isovue-370 (76%) IVPUSH 03/16/17 10:44 100 ml ONETIME ONE Administration Metoclopramide HCl 10 mg 03/16/17 14:22 Reglan IVPUSH 03/16/17 14:23 ONETIME ONE Ondansetron HCl 4 mg 03/16/17 10:26 03/16/17 10:36 Zofran IVPUSH 03/16/17 10:27 4 mg ONETIME ONE Administration Sodium Chloride 10 ml 03/16/17 10:43 03/16/17 11:32 Saline Flush FLUSH 03/16/17 10:44 10 ml ONETIME ONE Administration - Re-Assessments/Exams Free Text/Narrative Re-Assessment/Exam: 03/16/17 14:34 I ordered an IV NS 1L bolus, zofran 4mg IV, dilaudid 0.5mg IV, labs, CT of her abdomen and pelvis. Her WBC was elevated at 17.37. Her Hgb was normal at 13.3. Her platelets were elevated at 492. Her K was low at 3.1. Her Na was 135. Her glucose was 116. Her lactic acid was normal at 1.8. Her AST was elevated at 77. Her lipase was negative. Her UA shows no UTI. Her CT showed loculated fluid collection around the spleen possibly representing chronic subcapsular hematoma. This fluid collection extends along the left side of the abdomen into the pelvis. This has worsened from prior exam. Minimal fluid around the liver as well as fluid within the dependent portions of the pelvis. This free fluid has decreased in the amount from prior exam. Increased consolidation within the left lower lung either due to increased atelectasis aspiration or pneumonia. Small left sided pleural effusin which is an interval change. She has pneumonia and this subcapsular hematoma has gotten bigger. I ordered blood cultures an levaquin 750mg IV. I called Dr Fabian our surgeon weigher production and the one who did the colonoscopy and he recommended the patient go to [place]. I called [facility] in [place] and talked with Dr Talley the hospitalist and he accepted the patient. I also talked with Dr Lowry the surgeon weigher production. Departure - Departure Time of Disposition: 14:45 Disposition: DC/Tfer to [facility] 02 Condition: Serious Clinical Impression: 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 Pneumonia Qualifiers: Pneumonia type: due to unspecified organism Laterality: left Lung location: lower lobe of lung Qualified Code(s): J18.1 - Lobar pneumonia, unspecified organism Nausea & vomiting Qualifiers: Vomiting type: unspecified Vomiting Intractability: non-intractable Qualified Code(s): R11.2 - Nausea with vomiting, unspecified Diarrhea Qualifiers: Diarrhea type: unspecified type Qualified Code(s): R19.7 - Diarrhea, unspecified - Discharge Information Referrals: Eun Allen MD [Primary Care Provider] - - My Orders Last 24 Hours: My Active Orders 03/16/17 10:20 CULTURE STOOL + SHIGATOX [RM] Stat 03/16/17 10:26 Sodium Chloride 0.9% [Saline Flush] 10 ml FLUSH ASDIRECTED PRN ED Antiemetic Medication Reflex [OM.PC] Stat Peripheral IV Insertion Adult [OM.PC] Stat 03/16/17 10:27 Peripheral IV Care [RC] . DIRECTED 03/16/17 12:20 CULTURE BLOOD [BC] Stat - Assessment/Plan Last 24 Hours: My Active Orders 03/16/17 10:20 CULTURE STOOL + SHIGATOX [RM] Stat 03/16/17 10:26 Sodium Chloride 0.9% [Saline Flush] 10 ml FLUSH ASDIRECTED PRN ED Antiemetic Medication Reflex [OM.PC] Stat Peripheral IV Insertion Adult [OM.PC] Stat 03/16/17 10:27 Peripheral IV Care [RC] . DIRECTED 03/16/17 12:20 CULTURE BLOOD [BC] Stat
== END 2017-03-16 14:50 ==
LOC: JD.ED 09:58 → SUPCPDRO 09:58 → JD.ED 14:50
DX: D78.32 Postprocedural hematoma of the spleen following other procedure (principal); J18.9 Pneumonia, unspecified organism; E78.00 Pure hypercholesterolemia, unspecified; I10 Essential (primary) hypertension; J44.9 Chronic obstructive pulmonary disease, unspecified; Z87.891 Personal history of nicotine dependence; Z88.5 Allergy status to narcotic agent; Z79.82 Long term (current) use of aspirin; Z79.899 Other long term (current) drug therapy
CPT/HCPCS: 36415; 74177; 80053; 81001; 83605; 83690; 85025; 87040; 87046; 87493; 96361; 96365; 96366; 96375; 96376; 99285; J1170; J1956; J2405; J2765; J7040; J7050; Q9967; 87427; 99284

== ENCOUNTER 2019-10-29 17:34 | Emergency (ER) | payer MEDICARE, MEDICAID ==
[2019-10-29] MEDS ORDERED: Sodium Chloride 0.9% 10 ML Syringe FLUSH PRN (17:46)
--- NOTE | 2019-10-29 17:52 | EDM.PDOC ---
ED HPI GENERAL MEDICAL PROBLEM - General Chief Complaint: Syncope Stated Complaint: [facility] Time Seen by Provider: 10/29/19 17:37 Source of Information: Reports: Patient, EMS History Limitations: Reports: No Limitations - History of Present Illness INITIAL COMMENTS - FREE TEXT/NARRATIVE: The patient presents by [facility] for a syncopal episode. The patient said she was at a friend's house and she got up to leave and she felt dizzy and sat back down. She felt fine again and got up again and she felt dizzy and lightheaded and her friend helped her to the floor. She did not hit her head or hurt her neck. Her legs were under her so her right leg hurts now. She feels fine now. She has no fever, chills, cough, congestion, runny nose, chest pain, shortness of breath, abdominal pain, nausea or vomiting. She has no dysuria. She had a recent heart cath a few months ago and the patient says that looks good. She also had a CT of her abdomen and pelvis a few days ago and that looked good. Onset: Sudden Duration: Minutes: Severity: Moderate Improves with: Reports: None Worsens with: Reports: None Associated Symptoms: Denies: Chest Pain, Cough, Fever/Chills, Headaches, Nausea/Vomiting, Shortness of Breath Bilateral Anterior Thigh Pain Score (Numeric/FACES): 9 - Related Data Allergies Allergy/AdvReac Type Severity Reaction Status Date / Time codeine AdvReac Severe Nausea/Vomi Verified 10/29/19 17:47 ting Home Meds: Home Meds Levothyroxine 25 mcg PO ACBREAKFAST 09/10/15 [History] Omeprazole 20 mg PO BID 09/10/15 [History] Pregabalin [Lyrica] 150 mg PO BID 09/10/15 [History] atorvaSTATin [Lipitor] 40 mg PO BEDTIME 09/10/15 [History] Oxybutynin [Oxybutynin ER] 10 mg PO DAILY 03/04/17 [History] Sertraline HCl 50 mg PO DAILY 03/04/17 [History] Aspirin [Lo-Dose Aspirin EC] 81 mg PO DAILY 03/07/17 [History] Metoprolol Succinate [Toprol XL] 25 mg PO DAILY 03/07/17 [History] Polyethylene Glycol 3350 [MiraLAX] 17 gm PO DAILY PRN 03/07/17 [History] Albuterol Sulfate [Proair Respiclick] 2 puff IH Q8HR PRN 11/04/17 [History] Potassium Chloride [Klor-Con Sprinkle] 10 meq PO DAILY 11/04/17 [History] Bimatoprost [Lumigan 0.01% Ophth Soln] 1 drop EYEBOTH BEDTIME 10/29/19 [History] Cholecalciferol (Vitamin D3) [Vitamin D3] 2,000 unit PO DAILY 10/29/19 [History] Fluticasone/Vilanterol [Breo Ellipta 100-25 MCG Inhalation Kit] 1 puff INH DAILY 10/29/19 [History] Hydrocodone/Acetaminophen [Hydrocodone-Acetamin 10-325 mg] 1 tab PO Q6HR PRN 10/29/19 [History] Isosorbide Mononitrate [Isosorbide Mononitrate ER] 30 mg PO DAILY 10/29/19 [History] Multivitamin [Multivitamins] 1 cap PO DAILY 10/29/19 [History] Naloxone HCl [Narcan] 4 mg FAYE ASDIRECTED PRN 10/29/19 [History] Nitroglycerin 0.4 mg PO ASDIRECTED PRN 10/29/19 [History] Tamsulosin [Flomax] 0.4 mg PO DAILY 10/29/19 [History] Past Medical History HEENT History: Reports: Cataract, Glaucoma, Macular Degeneration, Other (See Below) Other HEENT History: dentures, glasses Cardiovascular History: Reports: Heart Murmur, High Cholesterol, Hypertension, Other (See Below) Other Cardiovascular History: palpitations, precordial pain, chest pain, aortic regurgitation Respiratory History: Reports: None, Asthma, COPD, TB Other Respiratory History: 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: Musculoskeletal History: Reports: Arthritis, Back Pain, Chronic, Osteoarthritis, Other (See Below) Other Musculoskeletal History: Spinal Stenosis, chronic pain syndrome, lumbar facet arthropathy, myofascial pain, shoulder bursitis Neurological History: Reports: CVA, Headaches, Chronic Other Neuro History: dizziness, confusion, white matter periventricular infarction, hand tremor Psychiatric History: Reports: Addiction, Anxiety, Depression Other Psychiatric History: Nicotine dependence Endocrine/Metabolic History: Reports: Hypothyroidism Hematologic History: Reports: Anemia Immunologic History: Reports: None Oncologic (Cancer) History: Reports: Breast, Lung Dermatologic History: Reports: Cellulitis - Infectious Disease History Infectious Disease History: Reports: Chicken Pox, Rheumatic Fever - Past Surgical History HEENT Surgical History: Reports: Cataract Surgery Cardiovascular Surgical History: Reports: None Respiratory Surgical History: Reports: Lung Resection GI Surgical History: Reports: Appendectomy, Cholecystectomy, Colonoscopy Female Surgical History: Reports: Hysterectomy, Mastectomy, Salpingo- Oophorectomy Other Female Surgeries/Procedures: L mastectomy r/t breast CA. Endocrine Surgical History: Reports: None Neurological Surgical History: Reports: None Musculoskeletal Surgical History: Reports: Arthroscopic Procedure, Knee Replacement, Shoulder Surgery, Other (See Below) Other Musculoskeletal Surgeries/Procedures:: left total knee replacement, toe surgery, shoulder surgery Oncologic Surgical History: Reports: None, Mastectomy, Other (See Below) Other Oncologic Surgeries/Procedures: Left side Dermatological Surgical History: Reports: Other (See Below) Social & Family History - Family History Family Medical History: Noncontributory Cardiac: Reports: [place] - Caffeine Use Caffeine Use: Reports: Coffee Other Caffeine Use: 2 cups a day and pepsi - Living Situation & Occupation Living situation: Reports: Occupation: Retired ED ROS GENERAL - Review of Systems Review Of Systems: See Below Constitutional: Reports: No Symptoms HEENT: Reports: No Symptoms Respiratory: Reports: No Symptoms Cardiovascular: Reports: Syncope. Denies: Chest Pain Endocrine: Reports: No Symptoms GI/Abdominal: Reports: No Symptoms : Reports: No Symptoms Musculoskeletal: Reports: Other (Right thigh pain) Skin: Reports: No Symptoms Neurological: Reports: Dizziness - Physical Exam Exam: See Below Exam Limited By: No Limitations General Appearance: Alert, No Apparent Distress Ears: Normal External Exam Nose: Normal Inspection Head Exam: Atraumatic, Normocephalic Neck: Normal Inspection Respiratory/Chest: No Respiratory Distress, Lungs Clear, Normal Breath Sounds Cardiovascular: Regular Rate, Rhythm, No Edema, No Murmur GI/Abdominal: Soft, Non-Tender, No Organomegaly, No Mass Neuro Exam (Abbreviated): Alert, Oriented, No Motor/Sensory Deficits Course - Vital Signs Last Recorded V/S: Last Vital Signs Temp 97.6 F 10/29/19 17:38 Pulse 74 10/29/19 18:20 Resp 16 10/29/19 18:20 BP 104/69 10/29/19 18:20 Pulse Ox 95 10/29/19 18:20 - Orders/Labs/Meds Orders: Active Orders 24 hr Category Date Time Status Cardiac Monitoring [RC] . DIRECTED Care 10/29/19 17:46 Active EKG Documentation Completion [RC] STAT Care 10/29/19 17:46 Active Peripheral IV Care [RC] . DIRECTED Care 10/29/19 17:46 Active Femur Min 2V Rt [CR] Stat Exams 10/29/19 17:47 Taken Potassium Chloride [KCl 10 MEQ in Water 100 ML] 10 meq Med 10/29/19 19:00 Active Premix Bag 1 bag IV Q1H Sodium Chloride 0.9% [Normal Saline] 500 ml Med 10/29/19 18:00 Active IV .BOLUS Sodium Chloride 0.9% [Saline Flush] Med 10/29/19 17:46 Active 10 ml FLUSH ASDIRECTED PRN Peripheral IV Insertion Adult [OM.PC] Stat Oth 10/29/19 17:46 Ordered Medication Orders Sodium Chloride (Normal Saline) 500 mls @ 1,000 mls/hr IV .BOLUS EDYTA Last Admin: 10/29/19 18:19 Dose: 1,000 mls/hr Documented by: MC Potassium Chloride 10 meq/ (Premix) 100 mls @ 100 mls/hr IV Q1H EDYTA Stop: 10/29/19 19:59 Sodium Chloride (Saline Flush) 10 ml FLUSH ASDIRECTED PRN PRN Reason: Keep Vein Open Last Admin: 10/29/19 18:19 Dose: 10 ml Documented by: MC Labs: Laboratory Tests 10/29/19 10/29/19 10/29/19 Range/Units 18:00 18:00 18:45 WBC 9.08 (3.98-10.04) K/mm3 RBC 4.11 (3.98-5.22) M/mm3 Hgb 13.2 (11.2-15.7) gm/dl Hct 39.2 (34.1-44.9) % MCV 95.4 H (79.4-94.8) fl MCH 32.1 (25.6-32.2) pg MCHC 33.7 (32.2-35.5) g/dl RDW Std Deviation 47.2 H (36.4-46.3) fL Plt Count 227 (182-369) K/mm3 MPV 10.2 (9.4-12.3) fl Neut % (Auto) 64.4 (34.0-71.1) % Lymph % (Auto) 26.3 (19.3-51.7) % [place] % (Auto) 7.6 (4.7-12.5) % Eos % (Auto) 1.2 (0.7-5.8) Baso % (Auto) 0.4 (0.1-1.2) % Neut # (Auto) 5.84 (1.56-6.13) K/mm3 Lymph # (Auto) 2.39 (1.18-3.74) K/mm3 [place] # (Auto) 0.69 H (0.24-0.36) K/mm3 Eos # (Auto) 0.11 (0.04-0.36) K/mm3 Baso # (Auto) 0.04 (0.01-0.08) K/mm3 Sodium 140 (136-145) mEq/L Potassium 2.8 L (3.5-5.1) mEq/L Chloride 100 (98-107) mEq/L Carbon Dioxide 32 (21-32) mEq/L Anion Gap 10.8 (5-15) BUN 18 (7-18) mg/dL Creatinine 0.8 (0.55-1.02) mg/dL Est Cr Clr Drug Dosing 50.85 mL/min Estimated GFR (MDRD) > 60 (>60) mL/min BUN/Creatinine Ratio 22.5 H (14-18) Glucose 108 (83-115) mg/dL Calcium 8.7 (8.5-10.1) mg/dL Total Bilirubin 0.4 (0.2-1.0) mg/dL AST 16 (15-37) U/L ALT 21 (14-59) U/L Alkaline Phosphatase 36 L (46-116) U/L Troponin I < 0.017 (0.00-0.056) ng/mL Total Protein 7.1 (6.4-8.2) g/dl Albumin 3.7 (3.4-5.0) g/dl Globulin 3.4 gm/dL Albumin/Globulin Ratio 1.1 (1-2) Urine Color Yellow (Yellow) Urine Appearance Clear (Clear) Urine pH 6.0 (5.0-8.0) Ur Specific [place] 1.020 (1.005-1.030) Urine Protein Negative (Negative) Urine Glucose (UA) Negative (Negative) Urine Ketones Negative (Negative) Urine Occult Blood Negative (Negative) Urine Nitrite Negative (Negative) Urine Bilirubin Negative (Negative) Urine Urobilinogen 0.2 (0.2-1.0) Ur Leukocyte Esterase Negative (Negative) Meds: Medications Generic Name Dose Route Start Last Admin Trade Name Freq PRN Reason Stop Dose Admin Sodium Chloride 500 mls @ 1,000 mls/hr 10/29/19 18:00 10/29/19 18:19 Normal Saline IV 1,000 mls/hr .BOLUS EDYTA Administration Potassium Chloride 10 meq/ 100 mls @ 100 mls/hr 10/29/19 19:00 Premix IV 10/29/19 19:59 Q1H EDYTA Sodium Chloride 10 ml 10/29/19 17:46 10/29/19 18:19 Saline Flush FLUSH 10 ml ASDIRECTED PRN Administration Keep Vein Open Discontinued Medications Generic Name Dose Route Start Last Admin Trade Name Freq PRN Reason Stop Dose Admin Potassium Chloride 10 meq 10/29/19 18:58 Klor-Con 10 PO 10/29/19 18:59 ONETIME ONE - Re-Assessments/Exams Free Text/Narrative Re-Assessment/Exam: 10/29/19 17:53 I ordered an IV NS 500mL bolus and then 50ml/hr, EKG, labs and a UA. 10/29/19 19:01 Her EKG shows a NSR with a LBBB. The LBBB was there before. Her x-ray of her leg looks good. Her CBC looks good. Her K is low at 2.8. Her troponin is negative. Her UA shows no UTI. I have ordered potassium 10meq IV and 10 orally. I will have her increase her potassium to 3 pills at home. Departure - Departure Time of Disposition: 19:05 Disposition: Home, Self-Care 01 Condition: Good Clinical Impression: Hypokalemia Syncope Qualifiers: Syncope type: unspecified Qualified Code(s): R55 - Syncope and collapse - Discharge Information *PRESCRIPTION DRUG MONITORING PROGRAM REVIEWED*: Not Applicable *COPY OF PRESCRIPTION DRUG MONITORING REPORT IN PATIENT BOGDAN: Not Applicable Forms: ED Department Discharge Additional Instructions: Take 3 of you potassium pills for 5 days and then go back to your normal dose. Follow up with your doctor within a week. Please return if you are worse. Sepsis Event Note (ED) - Evaluation Sepsis Screening Result: No Definite Risk - Focused Exam Vital Signs: Vital Signs Temp Pulse Resp BP Pulse Ox 10/29/19 18:20 74 16 104/69 95 10/29/19 17:38 97.6 F 79 20 121/73 93 L - My Orders Last 24 Hours: My Active Orders 10/29/19 17:46 Cardiac Monitoring [RC] . DIRECTED EKG Documentation Completion [RC] STAT Peripheral IV Care [RC] . DIRECTED Sodium Chloride 0.9% [Saline Flush] 10 ml FLUSH ASDIRECTED PRN Peripheral IV Insertion Adult [OM.PC] Stat 10/29/19 17:47 Femur Min 2V Rt [CR] Stat 10/29/19 18:00 Sodium Chloride 0.9% [Normal Saline] 500 ml IV .BOLUS 10/29/19 19:00 Potassium Chloride [KCl 10 MEQ in Water 100 ML] 10 meq Premix Bag 1 bag IV Q1H - Assessment/Plan Last 24 Hours: My Active Orders 10/29/19 17:46 Cardiac Monitoring [RC] . DIRECTED EKG Documentation Completion [RC] STAT Peripheral IV Care [RC] . DIRECTED Sodium Chloride 0.9% [Saline Flush] 10 ml FLUSH ASDIRECTED PRN Peripheral IV Insertion Adult [OM.PC] Stat 10/29/19 17:47 Femur Min 2V Rt [CR] Stat 10/29/19 18:00 Sodium Chloride 0.9% [Normal Saline] 500 ml IV .BOLUS 10/29/19 19:00 Potassium Chloride [KCl 10 MEQ in Water 100 ML] 10 meq Premix Bag 1 bag IV Q1H
[2019-10-29] MEDS ORDERED: Sodium Chloride 0.9% 500 ML IV SCH (18:00)
[2019-10-29] MEDS ORDERED: Potassium Chloride 10 MEQ Tab.ER PO ONE (18:58)
[2019-10-29] MEDS ORDERED: Potassium Chloride 10 MEQ in Premix Bag 1 BAG IV SCH (19:00)
[2019-10-29] MEDS ORDERED: Potassium Chloride 100 ML ONE (19:03)
[2019-10-29 19:30] VITALS: BP 112/60; PULSE 70
--- NOTE | 2019-10-30 07:50 | CR ---
Right femur: AP and lateral views of the right femur were obtained. Comparison: No previous femur study. Knee prosthesis is seen. Bony structures are osteopenic. Minimal vascular calcification is seen. Surgical clips are partially visualized within the pelvis. No acute fracture or other abnormality is appreciated. Impression: 1. Nonacute findings as noted above. 2. No acute fracture or other acute abnormality is seen. Diagnostic code #2 This report was dictated in MDT
== END 2019-10-29 20:28 | disposition home or self-care (01) ==
LOC: JD.ED 17:34
DX: R55 Syncope and collapse (principal); E87.6 Hypokalemia; I10 Essential (primary) hypertension; E78.00 Pure hypercholesterolemia, unspecified; J44.9 Chronic obstructive pulmonary disease, unspecified; K21.9 Gastro-esophageal reflux disease without esophagitis; M19.90 Unspecified osteoarthritis, unspecified site; F41.9 Anxiety disorder, unspecified; F32.9 Major depressive disorder, single episode, unspecified; Z88.5 Allergy status to narcotic agent; Z79.82 Long term (current) use of aspirin; Z79.899 Other long term (current) drug therapy
CPT/HCPCS: 36415; 73552; 80053; 81003; 84484; 85025; 93005; 96361; 96365; 99285; A9270; J3480; J7030; 99283

== ENCOUNTER 2020-02-27 07:58 | Day surgery (SDC) | payer MEDICARE, MEDICAID ==
[~2020-02-27 07:58] MED LIST changes: -Lidocaine 1% 4 ML ONE; +Lidocaine 1%/Sod Bicarbonate in NS 8.4% 1 ML Syringe IDERM PRN; -Lidocaine 1%/Sod Bicarbonate in NS 8.4% 1 ML Syringe PRN; -Propofol 200 MG/20 ML SDV ONE; -fentaNYL 100 MCG/2 ML SDV ONE
[2020-02-27] MEDS ORDERED: Propofol 200 MG/20 ML SDV ONE (08:05)
[2020-02-27] MEDS ORDERED: Lidocaine 1% 4 ML ONE (08:06)
[2020-02-27] MEDS ORDERED: fentaNYL 100 MCG/2 ML SDV ONE (08:06)
[2020-02-27] MEDS ORDERED: Ketamine 500 mg/10 ML MDV ONE (08:06)
--- NOTE | 2020-02-27 08:47 | PCM.PREANE ---
Preanesthetic Assessment - Procedure Proposed Procedure: EGD and Colonoscopy - Anesthesia/Transfusion/Family Hx Anesthesia History: Prior Anesthesia Without Reaction Family History of Anesthesia Reaction: No Transfusion History: Prior Transfusion Without Reaction Intubation History: Unknown - Review of Systems General: Weakness, Fatigue Pulmonary: Shortness of Breath, Cough (Smoker 40 pack year history, 1/4 ppd), Other (Cannot lie flat without feeling SOB. ) Neurological: No Symptoms (Vertigo, memory loss. ), Pre-Existing Deficit (Chronic lumbar back pain, chronic pain syndrome, back steriod injections with pain management. ), Weakness (From a series of 3 strokes (several years ago).Generalized weakness. 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 - Allergies Allergies/Adverse Reactions: Allergies Allergy/AdvReac Type Severity Reaction Status Date / Time codeine AdvReac Severe Nausea/Vomi Verified 02/27/20 09:02 ting - Anesthesia Plan Pre-Op Medication Ordered: Beta Adeola Beta Adeola: Metoprolol Med Last Dose Date: 02/27/20 Med Last Dose Time: 06:30 - Acknowledgements Anesthesia Type Planned: MAC Pt an Appropriate Candidate for the Planned Anesthesia: Yes Alternatives and Risks of Anesthesia Discussed w Pt/Guardian: Yes Pt/Guardian Understands and Agrees with Anesthesia Plan: Yes PreAnesthesia Questionnaire HEENT History: Reports: Cataract, Glaucoma, Macular Degeneration, Other (See Below) Other HEENT History: dentures, glasses Cardiovascular History: Reports: CAD, Heart Murmur, High Cholesterol, Hypertension, Other (See Below) Other Cardiovascular History: palpitations, precordial pain, chest pain, aortic regurgitation Respiratory History: Reports: None, Asthma, COPD, TB Other Respiratory History: 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 Gastrointestinal History: Reports: GERD, Hemorrhoids, Other (See Below) Other Gastrointestinal History: anal itching and pain, abdominal wall pain Genitourinary History: Reports: Renal Calculus, Other (See Below) Other Genitourinary History: Urinary dribbling CAD DETAILER History: Reports: Musculoskeletal History: Reports: Arthritis, Back Pain, Chronic, Osteoarthritis, Other (See Below) Other Musculoskeletal History: Spinal Stenosis, chronic pain syndrome, lumbar facet arthropathy, myofascial pain, shoulder bursitis Neurological History: Reports: CVA, Headaches, Chronic Other Neuro History: dizziness, confusion, white matter periventricular i nfarction, hand tremor, spinal stenosis Psychiatric History: Reports: Addiction, Anxiety, Depression Other Psychiatric History: Nicotine dependence Endocrine/Metabolic History: Reports: Hypothyroidism Hematologic History: Reports: Anemia Immunologic History: Reports: None Oncologic (Cancer) History: Reports: Breast, Lung Dermatologic History: Reports: Cellulitis - Infectious Disease History Infectious Disease History: Reports: Chicken Pox, Rheumatic Fever - Past Surgical History HEENT Surgical History: Reports: Cataract Surgery Cardiovascular Surgical History: Reports: None Respiratory Surgical History: Reports: Lung Resection GI Surgical History: Reports: Appendectomy, Cholecystectomy, Colonoscopy, EGD Female Surgical History: Reports: Hysterectomy, Mastectomy, Salpingo- Oophorectomy Other Female Surgeries/Procedures: L mastectomy r/t breast CA. Male Surgical History: Reports: None Endocrine Surgical History: Reports: None Neurological Surgical History: Reports: None Musculoskeletal Surgical History: Reports: Arthroscopic Procedure, Knee Replacement, Shoulder Surgery, Other (See Below) Other Musculoskeletal Surgeries/Procedures:: left total knee replacement, toe surgery, shoulder surgery Oncologic Surgical History: Reports: None, Mastectomy, Other (See Below) Other Oncologic Surgeries/Procedures: Left side Dermatological Surgical History: Reports: Other (See Below) - SUBSTANCE USE Tobacco Use Status *Q: Current Every Day Tobacco User Recreational Drug Use History: No - HOME MEDS Home Medications: Home Meds Levothyroxine 25 mcg PO ACBREAKFAST 09/10/15 [History] Omeprazole 20 mg PO BID 09/10/15 [History] Pregabalin [Lyrica] 150 mg PO BID 09/10/15 [History] atorvaSTATin [Lipitor] 40 mg PO BEDTIME 09/10/15 [History] Oxybutynin [Oxybutynin ER] 10 mg PO DAILY 03/04/17 [History] Sertraline HCl 50 mg PO DAILY 03/04/17 [History] Metoprolol Succinate [Toprol XL] 25 mg PO DAILY 03/07/17 [History] Potassium Chloride [Klor-Con Sprinkle] 10 meq PO BID 11/04/17 [History] Bimatoprost [Lumigan 0.01% Ophth Soln] 1 drop EYEBOTH BEDTIME 10/29/19 [History] Cholecalciferol (Vitamin D3) [Vitamin D3] 2,000 unit PO DAILY 10/29/19 [History] Fluticasone/Vilanterol [Breo Ellipta 100-25 MCG Inhalation Kit] 1 puff INH DAILY 10/29/19 [History] Hydrocodone/Acetaminophen [Hydrocodone-Acetamin 10-325 mg] 1 tab PO Q6HR PRN 10/29/19 [History] Isosorbide Mononitrate [Isosorbide Mononitrate ER] 60 mg PO DAILY 10/29/19 [History] Naloxone HCl [Narcan] 4 mg FAYE ASDIRECTED PRN 10/29/19 [History] Nitroglycerin 0.4 mg PO ASDIRECTED PRN 10/29/19 [History] Tamsulosin [Flomax] 0.4 mg PO DAILY 10/29/19 [History] Albuterol Sulfate [Albuterol Sulfate Hfa] 2 puff INH TID PRN 02/26/20 [History] Aspirin 81 mg PO DAILY 02/26/20 [History] Ondansetron [Zofran] 4 mg PO TID PRN 02/26/20 [History] Sennosides [Senna Lax] 17.2 mg PO DAILY 02/26/20 [History] Spironolactone [Aldactone] 25 mg PO DAILY 02/26/20 [History] Sucralfate [Carafate] 1 gm PO BID 02/26/20 [History] Travoprost [Travatan Z] 1 drop EYEBOTH ASDIRECTED 02/26/20 [History] hydroCHLOROthiazide [Hydrochlorothiazide] 25 mg PO DAILY 02/26/20 [History] - CURRENT (IN HOUSE) MEDS Current Meds: Current Medications Lactated Ringer's (Ringers, Lactated) 1,000 mls @ 125 mls/hr IV ASDIRECTED EDYTA Stop: 02/27/20 23:00 Lidocaine/Sodium Bicarbonate (Buffered Lidocaine 1% In Ns 8.4%) 0.25 ml IDERM ONETIME PRN PRN Reason: Prior to IV Start Stop: 02/27/20 18:00 Sodium Chloride (Saline Flush) 10 ml FLUSH ASDIRECTED PRN PRN Reason: Keep Vein Open Stop: 02/27/20 18:00 Discontinued Medications Fentanyl (Sublimaze) Confirm Administered Dose 100 mcg .ROUTE .STK-MED ONE Stop: 02/27/20 08:07 Lidocaine HCl (Xylocaine-Mpf 1%) Confirm Administered Dose 4 mls @ as directed .ROUTE .STK-MED ONE Stop: 02/27/20 08:07 Ketamine HCl (Ketalar) Confirm Administered Dose 500 mg .ROUTE .STK-MED ONE Stop: 02/27/20 08:07 Propofol (Diprivan 20 Ml) Confirm Administered Dose 600 mg .ROUTE .STK-MED ONE Stop: 02/27/20 08:06
[2020-02-27] MEDS ORDERED: ePHEDrine 50 MG/ML SDV ONE (09:31)
--- NOTE | 2020-02-27 10:09 | PCM.OPNOTE ---
- General Post-Op/Procedure Note Date of Surgery/Procedure: 02/27/20 Operative Procedure(s): EGD and colonoscopy Findings: 1. Hiatal hernia 2. Irregular GE junction 3. Hemorrhagic gastritis 4. Bile reflux 5. Melanosis coli 6. Ascending colon polyp x3 7. Hepatic flexure polyp- incomplete resection 8. Rectal polyp x2 Pre Op Diagnosis: Periumbilical abdominal pain Post-Op Diagnosis: same Anesthesia Technique: MAC Primary Surgeon: Viviane Oliva Anesthesia Provider: Nika Rollins Pathology: 1. GE junction biopsies 2. Gastric antrum biopsies 3. Ascending colon polyp x3 4. Hepatic flexure polyp- incomplete resection 5. Rectal polyp x2 Fluid Replacement, Intraop: 600 Output, Urine Amount: 0 EBL in mLs: 0 Complications: none apparent Condition: Good
--- NOTE | 2020-02-27 10:12 | PCM.POSTAN ---
POST ANESTHESIA ASSESSMENT - MENTAL STATUS Mental Status: Other (Drowsy) - VITAL SIGNS Vital Signs: Last Vital Signs Temp 36.5 C 02/27/20 08:00 Pulse 71 02/27/20 08:00 Resp 16 02/27/20 08:00 BP 113/68 02/27/20 08:00 Pulse Ox 94 L 02/27/20 08:00 1006 107/52 81 16 90% 97.3F - RESPIRATORY Respiratory Status: Respiratory Rate WNL, Airway Patent, O2 Saturation Stable - CARDIOVASCULAR CV Status: Pulse Rate WNL, Blood Pressure Stable - GASTROINTESTINAL GI Status: No Symptoms - PAIN Pain Score: 0 - POST OP HYDRATION Hydration Status: Adequate & Stable
--- NOTE | 2020-02-27 10:17 | PCM48HPAN ---
Post Anesthesia Note - EVALUATION WITHIN 48HRS OF ANESTHETIC Vital Signs in Normal Range: Yes Patient Participated in Evaluation: Yes Respiratory Function Stable: Yes Airway Patent: Yes Cardiovascular Function Stable: Yes Hydration Status Stable: Yes Pain Control Satisfactory: Yes Nausea and Vomiting Control Satisfactory: Yes Mental Status Recovered: Yes Vital Signs: Last Vital Signs Temp 36.3 C 02/27/20 10:06 Pulse 81 02/27/20 10:06 Resp 16 02/27/20 10:06 BP 107/52 L 02/27/20 10:06 Pulse Ox 90 L 02/27/20 10:06 History of COPD, Current Smoker, SPO2 at 90% prior to the administration of anesthesia.
--- NOTE | 2020-02-27 11:00 | PCM.PRNOTE ---
- Free Text/Narrative Note: Operative Report Date of Procedure: February 27, 2020 Pre Op Diagnosis: Periumbilical abdominal pain Post-Op Diagnosis: same Operative Procedures: 1. EGD with biopsy 2. Colonoscopy to the cecum Primary Surgeon: Viviane Oliva MD Anesthesia Provider: Nika Rollins CRNA Anesthesia Technique: MAC IV Fluid Replacement, Intraop: 600cc crystalloid Output, Urine Amount: 0cc EBL in mLs: 0cc Findings: 1 . Hiatal hernia 2. Irregular GE junction 3. Hemorrhagic gastritis 4. Bile reflux 5. Melanosis coli 6. Ascending colon polyp x3 7. Hepatic flexure polyp- incomplete resection 8. Rectal polyp x2 Specimens: 1. GE junction biopsies 2. Gastric antrum biopsies 3. Ascending colon polyp x3 4. Hepatic flexure polyp- incomplete resection 5. Rectal polyp x2 Drain/Tubes: None Indication: The patient is a 79-year-old lady who presented to the clinic with a history of periumbilical pain. The patient was consented for a diagnostic EGD and colonoscopy. Risks of bleeding, and perforation were discussed, and the patient agreed to the risks and wished to proceed. Description of the procedure: The patient was taken back to the endoscopy suite, and placed in the left lateral decubitus position. A bite block was placed. The patient was sedated with MAC anesthesia. The Olympus video endoscope was inserted into the oropharynx and guided under direct vision into the esophagus, stomach, and duodenum. The duodenal bulb and second portion of the duodenum were unremarkable. The gastric antrum was inspected and cold biopsy forceps were used to take tissue samples for H. pylori. There was erythema and adherent blood in the antrum and body of the stomach consistent with hemorrhagic gastritis. There was bilious fluid in the antrum and lower body of the stomach. The scope was withdrawn to the stomach and retroflexed. No erosions or ulcers were noted. The scope was withdrawn to the esophagus. A this point we noted a hiatal hernia. The GE junction was irregular and biopsies were taken in four quadrants with a cold biopsy forceps. The endoscope was then withdrawn. Next, anorectal examination was performed. External skin tags were noted at the anal opening. The scope was placed into the rectum and advanced to cecum. Upon reaching the cecum, and the patients cecum was entered. There was mild tortuosity of the colon requiring external abdominal pressure. The ileocecal valve was well visualized and the appendiceal orifice identified. At this point, the scope was slowly withdrawn, paying attention to the mucosa. The patient had good bowel prep, 85-90% of the mucosa was visible. Three flat 2-3mm polyps were seen in the ascending colon and removed with a jumbo cold biopsy forceps. A semipedunculated 6mm polyp was noted in the hepatic flexure. This was partially removed due to technical difficulty with position of the polyp. Two flat rectal polyps measuring 2-3mm were seen in the rectum and removed with a jumbo cold biopsy forceps. In the rectum, scope was retroflexed and some hemorrhoidal tissue was noted. The scope was placed back in the lumen and excess air was aspirated. The scope was removed. The patient tolerated the procedure very well. Complications: None apparent Condition: The patient was transported to PACU in stable condition. Viviane Oliva MD General Surgery
[2020-02-27 11:34] VITALS: BP 91/49; PULSE 60
== END 2020-02-27 11:45 | disposition home or self-care (01) ==
LOC: JD.SDS 07:58
PROVIDERS: ATTEND Surgery
DX: D12.2 Benign neoplasm of ascending colon (principal); D12.3 Benign neoplasm of transverse colon; K44.9 Diaphragmatic hernia without obstruction or gangrene; K31.89 Other diseases of stomach and duodenum; K29.71 Gastritis, unspecified, with bleeding; K21.9 Gastro-esophageal reflux disease without esophagitis; K63.89 Other specified diseases of intestine; K64.9 Unspecified hemorrhoids; K62.1 Rectal polyp; K62.89 Other specified diseases of anus and rectum; F17.210 Nicotine dependence, cigarettes, uncomplicated; I10 Essential (primary) hypertension; F41.9 Anxiety disorder, unspecified; G89.4 Chronic pain syndrome; F32.9 Major depressive disorder, single episode, unspecified; I25.10 Atherosclerotic heart disease of native coronary artery without angina pectoris; E78.00 Pure hypercholesterolemia, unspecified; E03.9 Hypothyroidism, unspecified; Z90.49 Acquired absence of other specified parts of digestive tract; Z98.890 Other specified postprocedural states; Z88.5 Allergy status to narcotic agent; Z79.899 Other long term (current) drug therapy; Z86.73 Personal history of transient ischemic attack (TIA), and cerebral infarction without residual deficits; Z79.890 Hormone replacement therapy
CPT/HCPCS: 43239; 45380; J2001; J2704; J3010; J7120; 00813

== ENCOUNTER → 2020-10-08 | Day surgery (SDC) | payer MEDICARE, MEDICAID ==
[~2020-10-08] MED LIST changes: +Lidocaine 1% 4 ML ONE; +Propofol 200 MG/20 ML SDV ONE
--- NOTE | 2020-10-08 07:54 | PCM.PREANE ---
Preanesthetic Assessment - Procedure Proposed Procedure: EGD & colonoscopy - Anesthesia/Transfusion/Family Hx Anesthesia History: Prior Anesthesia Without Reaction Family History of Anesthesia Reaction: No Transfusion History: Prior Transfusion Without Reaction Intubation History: Unknown - Review of Systems General: No Symptoms Pulmonary: No Symptoms, Shortness of Breath, Wheezing (uses an inhaler no current symptoms ), Other (had a right lobectomy 50 years ago due to TB ) Cardiovascular: No Symptoms Gastrointestinal: No Symptoms, Other (history of GERD not currently ) Neurological: No Symptoms, Headache (hx ), Other (hx of strokes - does not remember history ) Other: Reports: None, Easy Bleeding, Easy Bruising, Thyroid Problems - Physical Assessment NPO Status Date: 10/07/20 NPO Status Time: 23:00 Height: 1.63 m Weight: 63 kg ASA Class: 3 Mental Status: Alert & Oriented x3 Airway Class: Mallampati = 1 Dentition: Reports: Normal Dentition Thyro-Mental Finger Breadths: 3 Mouth Opening Finger Breadths: 3 ROM/Head Extension: Full Lungs: Clear to Auscultation (bilateral despite lobectomy ), Normal Respiratory Effort Cardiovascular: Regular Rate, Regular Rhythm - Allergies Allergies/Adverse Reactions: Allergies Allergy/AdvReac Type Severity Reaction Status Date / Time codeine AdvReac Mild Nausea/Vomi Verified 10/07/20 16:12 ting - Blood Blood Available: No Product(s) Available: None - Anesthesia Plan Pre-Op Medication Ordered: None - Acknowledgements Anesthesia Type Planned: MAC Pt an Appropriate Candidate for the Planned Anesthesia: Yes Alternatives and Risks of Anesthesia Discussed w Pt/Guardian: Yes Pt/Guardian Understands and Agrees with Anesthesia Plan: Yes PreAnesthesia Questionnaire HEENT History: Reports: Cataract, Glaucoma, Macular Degeneration, Other (See Below) Other HEENT History: dentures, glasses Cardiovascular History: Reports: Heart Murmur, High Cholesterol, Hypertension, Other (See Below) Other Cardiovascular History: palpitations, precordial pain, chest pain, aortic regurgitation Respiratory History: Reports: Asthma, COPD, TB Other Respiratory History: 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 Gastrointestinal History: Reports: GERD, Hemorrhoids, Hiatal Hernia, Other (See Below) Other Gastrointestinal History: anal itching and pain, abdominal wall pain, black's esophagus, spleen hematoma Genitourinary History: Reports: Renal Calculus, Other (See Below) Other Genitourinary History: Urinary dribbling [employer] History: Reports: Musculoskeletal History: Reports: Arthritis, Back Pain, Chronic, Osteoarthritis, Other (See Below) Other Musculoskeletal History: Spinal Stenosis, chronic pain syndrome, lumbar facet arthropathy, myofascial pain, shoulder bursitis Neurological History: Reports: CVA, Headaches, Chronic Other Neuro History: dizziness, confusion, white matter periventricular infarction, hand tremor Psychiatric History: Reports: Addiction, Anxiety, Depression Other Psychiatric History: Nicotine dependence Endocrine/Metabolic History: Reports: Hypothyroidism Hematologic History: Reports: Anemia Immunologic History: Reports: None Oncologic (Cancer) History: Reports: Breast, Lung Dermatologic History: Reports: Cellulitis, Other (See Below) Other Dermatologic History: actinic keratosis - Infectious Disease History Infectious Disease History: 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 Male Surgical History: Reports: None Endocrine Surgical History: Reports: None Neurological Surgical History: Reports: None Musculoskeletal Surgical History: Reports: Arthroscopic Procedure, Knee Replacement, Shoulder Surgery, Other (See Below) Other Musculoskeletal Surgeries/Procedures:: bilateral total knee replacements, toe surgery, shoulder surgery Oncologic Surgical History: Reports: None, Mastectomy, Other (See Below) Other Oncologic Surgeries/Procedures: Left side Dermatological Surgical History: Reports: Other (See Below) - SUBSTANCE USE Tobacco Use Status *Q: Current Every Day Tobacco User Recreational Drug Use History: No - HOME MEDS Home Medications: Home Meds Levothyroxine 25 mcg PO ACBREAKFAST 09/10/15 [History] atorvaSTATin [Lipitor] 40 mg PO BEDTIME 09/10/15 [History] Oxybutynin [Oxybutynin ER] 10 mg PO DAILY 03/04/17 [History] Sertraline HCl 50 mg PO DAILY 03/04/17 [History] Metoprolol Succinate [Toprol XL] 25 mg PO DAILY 03/07/17 [History] Potassium Chloride [Klor-Con Sprinkle] 10 meq PO BID 11/04/17 [History] Cholecalciferol (Vitamin D3) [Vitamin D3] 2,000 unit PO DAILY 10/29/19 [History] Fluticasone/Vilanterol [Breo Ellipta 100-25 MCG Inhalation Kit] 1 puff INH DAILY 10/29/19 [History] Hydrocodone/Acetaminophen [Hydrocodone-Acetamin 10-325 mg] 1 tab PO Q6HR PRN 10/29/19 [History] Isosorbide Mononitrate [Isosorbide Mononitrate ER] 60 mg PO DAILY 10/29/19 [History] Naloxone HCl [Narcan] 4 mg FAYE ASDIRECTED PRN 10/29/19 [History] Nitroglycerin 0.4 mg PO ASDIRECTED PRN 10/29/19 [History] Tamsulosin [Flomax] 0.4 mg PO DAILY 10/29/19 [History] Albuterol Sulfate [Albuterol Sulfate Hfa] 2 puff INH TID PRN 02/26/20 [History] Aspirin 81 mg PO DAILY 02/26/20 [History] Sennosides [Senna Lax] 17.2 mg PO BEDTIME PRN 02/26/20 [History] Travoprost [Travatan Z] 1 drop EYEBOTH DAILY 02/26/20 [History] hydroCHLOROthiazide [Hydrochlorothiazide] 25 mg PO DAILY 02/26/20 [History] Cholestyramine (With Sugar) [Questran Powder] 1 dose PO QAM 10/07/20 [History] Esomeprazole Magnesium [Nexium] 40 mg PO DAILY 10/07/20 [History] Famotidine [Pepcid] 10 mg PO BEDTIME 10/07/20 [History] Pregabalin [Lyrica] 150 mg PO BID 10/07/20 [History] Timolol [Betimol] 1 drop EYEBOTH DAILY 10/07/20 [History] ondansetron HCL [Zofran] 4 mg PO TID PRN 10/07/20 [History] polyethylene glycoL 3350 [MiraLAX] 1 dose PO DAILY PRN 10/07/20 [History] - CURRENT (IN HOUSE) MEDS Current Meds: Current Medications Lactated Ringer's (Ringers, Lactated) 1,000 mls @ 125 mls/hr IV ASDIRECTED EDYTA Stop: 10/08/20 23:00 Lidocaine/Sodium Bicarbonate (Lidocaine 1%/Sod Bicarbonate In Ns 8.4% 1 Ml Syringe) 0.25 ml IDERM ONETIME PRN PRN Reason: Prior to IV Start Stop: 10/08/20 18:00 Sodium Chloride (Sodium Chloride 0.9% 10 Ml Syringe) 10 ml FLUSH ASDIRECTED PRN PRN Reason: Keep Vein Open Stop: 10/08/20 18:00
--- NOTE | 2020-10-08 09:46 | PCM48HPAN ---
Post Anesthesia Note - EVALUATION WITHIN 48HRS OF ANESTHETIC Vital Signs in Normal Range: Yes Patient Participated in Evaluation: Yes Respiratory Function Stable: Yes Airway Patent: Yes Cardiovascular Function Stable: Yes Hydration Status Stable: Yes Pain Control Satisfactory: Yes Nausea and Vomiting Control Satisfactory: Yes Mental Status Recovered: Yes Vital Signs: Last Vital Signs Temp 37.0 C 10/08/20 07:30 Pulse 65 10/08/20 07:30 Resp 16 10/08/20 07:30 BP 93/61 10/08/20 07:30 Pulse Ox 96 10/08/20 07:30
--- NOTE | 2020-10-08 09:48 | PCM.OPNOTE ---
- General Post-Op/Procedure Note Date of Surgery/Procedure: 10/08/20 Operative Procedure(s): EGD and colonoscopy Findings: 1. Irregular Z line 2. Hiatal hernia 3. Bile reflux 4. Gastritis 5. Corrugated esophagus 6. Melanosis coli 7. colon polyps Pre Op Diagnosis: History of colon polyps, dysphagia, epigastric pain, reflux, heartburn Post-Op Diagnosis: same Anesthesia Technique: MAC Primary Surgeon: Viviane Oliva Anesthesia Provider: Angie Baum Pathology: 1. Gastric antrum biopsies 2. Z-line (GE junction biopsies) 3. Mid-esophagus biopsies 4. Transverse colon polyps x2 5. Rectal polyps x3 Fluid Replacement, Intraop: 450 EBL in mLs: 0 Complications: none apparent Condition: Good
--- NOTE | 2020-10-08 09:50 | PCM.PRNOTE ---
- Free Text/Narrative Note: Operative Report Date of Procedure: October 08, 2020 Pre Op Diagnosis: History of colon polyps, dysphagia, epigastric pain, reflux, heartburn Post-Op Diagnosis: same Operative Procedures: 1. EGD with biopsy 2. Colonoscopy to the cecum Primary Surgeon: Viviane Oliva MD Anesthesia Provider: Agnie Baum CRNA Anesthesia Technique: MAC IV Fluid Replacement, Intraop: []cc crystalloid Output, Urine Amount: []cc EBL in mLs: []cc Findings: 1. Irregular Z line 2. Hiatal hernia 3. Bile reflux 4. Gastritis 5. Corrugated esophagus 6. Melanosis coli 7. colon polyps Specimens: 1. Gastric antrum biopsies 2. Z-line (GE junction biopsies) 3. Mid-esophagus biopsies 4. Transverse colon polyps x2 5. Rectal polyps x3 Drain/Tubes: None Indication: The patient is an 80-year-old lady who presented to the clinic with history of colon polyps. The patient reported symptoms of dysphagia, epigastric pain, reflux and heartburn. The patient was consented for a diagnostic EGD and colonoscopy. Risks of bleeding, and perforation were discussed, and the patient agreed to the risks and wished to proceed. Description of the procedure: The patient was taken back to the endoscopy suite, and placed in the left lateral decubitus position. A bite block was placed. The patient was sedated with MAC anesthesia. The Olympus video endoscope was inserted into the oropharynx and guided under direct vision into the esophagus, stomach, and duodenum. The duodenal bulb and second portion of the duodenum were unrem arkable. The gastric antrum was inspected and cold biopsy forceps were used to take tissue samples for H. pylori. There was patchy erythema in this area consistent with gastritis. The scope was withdrawn to the stomach and retroflexed. There was bilious fluid pooled in the stomach, consistent with bile reflux. No erosions or ulcers were noted. The scope was withdrawn to the esophagus. We noted a hiatal hernia. The Z-line was irregular and biopsied in 4 quadrants using a cold biopsy forceps. The scope was withdrawn while inspecting the esophagus. There was a corrugated appearance of the tissue, and this was biopsied in the midesophagus using cold biopsy forceps. The endoscope was then withdrawn Next, anorectal examination was performed. No lesions, masses or hemorrhoids were noted externally or on palpation. The scope was placed into the rectum and advanced to cecum. Upon reaching the cecum, and the patients cecum was entered. There was mild tortuosity of the colon. The ileocecal valve was well visualized and the appendiceal orifice identified. At this point, the scope was slowly withdrawn, paying attention to the mucosa. The patient had a good bowel prep, 90-95% of the mucosa was visible. Moderate diffuse melanosis coli was noted. She had two 3-4mm flat polyps in the transverse colon, removed with a cold biopsy forceps. Three additional 2-3mm flat polyps were removed from the rectum using a cold biopsy forceps. In the rectum, scope was retroflexed and some hemorrhoidal tissue was noted. The scope was placed back in the lumen and excess air was aspirated. The scope was removed. The patient tolerated the procedure very well. Complications: None apparent Condition: The patient was transported to PACU in stable condition. Viviane Oliva MD General Surgery
[2020-10-08 12:00] VITALS: BP 102/65; PULSE 61
== END | disposition home or self-care (01) ==
LOC: JD.SDS 07:35
PROVIDERS: ATTEND Surgery
DX: D12.3 Benign neoplasm of transverse colon (principal); K62.1 Rectal polyp; K22.70 Barrett's esophagus without dysplasia; K31.89 Other diseases of stomach and duodenum; K22.8 Other specified diseases of esophagus; K44.9 Diaphragmatic hernia without obstruction or gangrene; K63.89 Other specified diseases of intestine; K64.9 Unspecified hemorrhoids; I25.10 Atherosclerotic heart disease of native coronary artery without angina pectoris; E78.5 Hyperlipidemia, unspecified; I10 Essential (primary) hypertension; F17.210 Nicotine dependence, cigarettes, uncomplicated; J44.9 Chronic obstructive pulmonary disease, unspecified; Z88.6 Allergy status to analgesic agent; Z79.899 Other long term (current) drug therapy; Z98.890 Other specified postprocedural states; Z86.010 Personal history of colon polyps; Z86.73 Personal history of transient ischemic attack (TIA), and cerebral infarction without residual deficits
CPT/HCPCS: 00813; 99100; J2704; J7120

== ENCOUNTER 2021-03-10 07:41 | Emergency (ER) | payer MEDICARE, MEDICAID ==
[2021-03-10] MEDS ORDERED: HYDROmorphone 0.5 MG/0.5 ML Syringe IVPUSH ONE ×2 (09:15→14:48)
[2021-03-10] MEDS ORDERED: Famotidine 20 MG/2 ML SDV IVPUSH ONE (09:15)
[2021-03-10] MEDS ORDERED: Ondansetron 4 MG/2 ML SDV IVPUSH ONE (09:15)
[2021-03-10] MEDS ORDERED: Sodium Chloride 0.9% 10 ML Syringe FLUSH PRN (09:15)
[2021-03-10] MEDS ORDERED: Sodium Chloride 0.9% 1,000 ML IV SCH ×2 (09:15→12:00)
[2021-03-10 09:16] LABS: CORONAVIRUS COVID-19 NAA NEGATIVE (NEGATIVE)
[2021-03-10] MEDS ORDERED: Lactated Ringers 1,000 ML IV ONE (12:27)
[2021-03-10] MEDS: Potassium Chloride 10 MEQ in Premix Bag 1 BAG IV SCH ×2 (12:47→14:03)
--- NOTE | 2021-03-10 14:09 | EDM.PDOC ---
ED HPI GENERAL MEDICAL PROBLEM - General Chief Complaint: Gastrointestinal Problem Stated Complaint: VOMITING\COUGH\BODY PAIN Time Seen by Provider: 03/10/21 08:45 Source of Information: Reports: Patient, Family, RN Notes Reviewed - History of Present Illness INITIAL COMMENTS - FREE TEXT/NARRATIVE: 80 yr old female has come in with sx weakness, vomiting, diarrhea, chills for the past 2 or 3 days. Has low back pain that is somewhat more chronic. No cough, chest pain or difficulty breathing. Back Pain Score (Numeric/FACES): 9 - Related Data Allergies Allergy/AdvReac Type Severity Reaction Status Date / Time codeine AdvReac Mild Nausea/Vomi Verified 10/07/20 16:12 ting Home Meds: Home Meds Levothyroxine 25 mcg PO ACBREAKFAST 09/10/15 [History] atorvaSTATin [Lipitor] 40 mg PO BEDTIME 09/10/15 [History] Oxybutynin [Oxybutynin ER] 10 mg PO DAILY 03/04/17 [History] Sertraline HCl 50 mg PO DAILY 03/04/17 [History] Metoprolol Succinate [Toprol XL] 25 mg PO DAILY 03/07/17 [History] Potassium Chloride [Klor-Con Sprinkle] 10 meq PO BID 11/04/17 [History] Cholecalciferol (Vitamin D3) [Vitamin D3] 2,000 unit PO DAILY 10/29/19 [History] Fluticasone/Vilanterol [Breo Ellipta 100-25 MCG Inhalation Kit] 1 puff INH DAILY 10/29/19 [History] Hydrocodone/Acetaminophen [HYDROcodone-Acetaminophen 10-325 MG] 1 tab PO Q6HR PRN 10/29/19 [History] Isosorbide Mononitrate [Isosorbide Mononitrate ER] 60 mg PO DAILY 10/29/19 [History] Naloxone HCl [Narcan] 4 mg FAYE ASDIRECTED PRN 10/29/19 [History] Nitroglycerin 0.4 mg PO ASDIRECTED PRN 10/29/19 [History] Tamsulosin [Flomax] 0.4 mg PO DAILY 10/29/19 [History] Albuterol Sulfate [Albuterol Sulfate Hfa] 2 puff INH TID PRN 02/26/20 [History] Aspirin 81 mg PO DAILY 11/17/20 [History] Sennosides [Senna Lax] 17.2 mg PO BEDTIME PRN 02/26/20 [History] Travoprost [Travatan Z] 1 drop EYEBOTH DAILY 02/26/20 [History] hydroCHLOROthiazide [Hydrochlorothiazide] 25 mg PO DAILY 02/26/20 [History] Cholestyramine (With Sugar) [Questran Powder] 1 dose PO QAM 10/07/20 [History] Esomeprazole Magnesium [Nexium] 40 mg PO DAILY 10/07/20 [History] Famotidine [Pepcid] 10 mg PO BEDTIME 10/07/20 [History] Pregabalin [Lyrica] 150 mg PO BID 10/07/20 [History] Timolol [Betimol] 1 drop EYEBOTH DAILY 10/07/20 [History] ondansetron HCL [Zofran] 4 mg PO TID PRN 10/07/20 [History] polyethylene glycoL 3350 [MiraLAX] 1 dose PO DAILY PRN 10/07/20 [History] Past Medical History HEENT History: Reports: Cataract, Glaucoma, Macular Degeneration, Other (See Below) Other HEENT History: dentures, glasses Cardiovascular History: Reports: Heart Murmur, High Cholesterol, Hypertension, Other (See Below) Other Cardiovascular History: palpitations, precordial pain, chest pain, aortic regurgitation Respiratory History: Reports: Asthma, COPD, TB Other Respiratory History: 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 Gastrointestinal History: Reports: GERD, Hemorrhoids, Hiatal Hernia, Other (See Below) Other Gastrointestinal History: anal itching and pain, abdominal wall pain, black's esophagus, spleen hematoma Genitourinary History: Reports: Renal Calculus, Other (See Below) Other Genitourinary History: Urinary dribbling [employer] History: Reports: Musculoskeletal History: Reports: Arthritis, Back Pain, Chronic, Osteoarthritis, Other (See Below) Other Musculoskeletal History: Spinal Stenosis, chronic pain syndrome, lumbar facet arthropathy, myofascial pain, shoulder bursitis Neurological History: Reports: CVA, Headaches, Chronic Other Neuro History: dizziness, confusion, white matter periventricular infarction, hand tremor Psychiatric History: Reports: Addiction, Anxiety, Depression Other Psychiatric History: Nicotine dependence Endocrine/Metabolic History: Reports: Hypothyroidism Hematologic History: Reports: Anemia Immunologic History: Reports: Immunosuppression Oncologic (Cancer) History: Reports: Breast, Lung Dermatologic History: Reports: Cellulitis, Other (See Below) Other Dermatologic History: actinic keratosis - Infectious Disease History Infectious Disease History: 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 Neurological Surgical History: Reports: None Musculoskeletal Surgical History: Reports: Arthroscopic Procedure, Knee Replacement, Shoulder Surgery, Other (See Below) Other Musculoskeletal Surgeries/Procedures:: bilateral total knee replacements, toe surgery, shoulder surgery Oncologic Surgical History: Reports: Mastectomy, Other (See Below) Other Oncologic Surgeries/Procedures: Left side Dermatological Surgical History: Reports: Other (See Below) Social & Family History - Family History Family Medical History: No Pertinent Family History Cardiac: Reports: [place] - Tobacco Use Tobacco Use Status *Q: Current Every Day Tobacco User Years of Tobacco use: 50 Packs/Tins Daily: 0.5 Second Hand Smoke Exposure: Yes - Caffeine Use Caffeine Use: Reports: Coffee Other Caffeine Use: 2 cups a day and pepsi - Recreational Drug Use Recreational Drug Use: No - Living Situation & Occupation Living situation: Reports: Occupation: Retired ED ROS GENERAL - Review of Systems Review Of Systems: See Below Constitutional: Reports: Chills, Weakness, Fatigue. Denies: Fever HEENT: Reports: Other (mouth is dry). Denies: Throat Pain Respiratory: Denies: Shortness of Breath Cardiovascular: Denies: Chest Pain GI/Abdominal: Reports: Diarrhea, Nausea, Vomiting. Denies: Abdominal Pain : Reports: No Symptoms Musculoskeletal: Reports: Back Pain Skin: Reports: No Symptoms Neurological: Reports: Dizziness, Weakness (generalized) ED EXAM, GI/ABD - Physical Exam Exam: See Below General Appearance: Alert, No Apparent Distress Throat/Mouth: Other (mouth is dry) Neck: Supple Respiratory/Chest: No Respiratory Distress, Lungs Clear, Normal Breath Sounds Cardiovascular: Regular Rate, Rhythm GI/Abdominal Exam: Soft, Non-Tender. No: Guarding Back Exam: No: CVA Tenderness (L), CVA Tenderness (R) Extremities: Normal Inspection. No: Pedal Edema, Leg Pain Neurological: Alert, Oriented, No Motor/Sensory Deficits Skin Exam: Warm, Dry, Normal Color Course - Vital Signs Last Recorded V/S: Last Vital Signs Temp 97.6 F 03/10/21 07:50 Pulse 85 03/10/21 07:50 Resp 15 03/10/21 07:50 BP 177/77 H 03/10/21 07:50 Pulse Ox 96 03/10/21 07:50 - Orders/Labs/Meds Orders: Active Orders 24 hr Category Date Time Status Peripheral IV Care [RC] . DIRECTED Care 03/10/21 09:15 Active Sodium Chloride 0.9% [Normal Saline] 1,000 ml Med 03/10/21 09:15 Active IV ONETIME Sodium Chloride 0.9% [Normal Saline] 1,000 ml Med 03/10/21 12:00 Active IV ONETIME Sodium Chloride 0.9% [Saline Flush] Med 03/10/21 09:15 Active 10 ml FLUSH ASDIRECTED PRN Peripheral IV Insertion Adult [OM.PC] Stat Oth 03/10/21 09:15 Ordered Medication Orders Sodium Chloride (Normal Saline) 1,000 mls @ 999 mls/hr IV ONETIME [facility] Last Admin: 03/10/21 09:53 Dose: 999 mls/hr Documented by: NEISHA Sodium Chloride (Normal Saline) 1,000 mls @ 999 mls/hr IV ONETIME EDYTA Last Admin: 03/10/21 12:46 Dose: 999 mls/hr Documented by: NAMRATA Sodium Chloride (Sodium Chloride 0.9% 10 Ml Syringe) 10 ml FLUSH ASDIRECTED PRN PRN Reason: Keep Vein Open Last Admin: 03/10/21 09:46 Dose: 10 ml Documented by: NEISHA Labs: Laboratory Tests 03/10/21 03/10/21 03/10/21 Range/Units 08:00 09:20 09:45 WBC 10.57 H (3.98-10.04) K/mm3 RBC 4.57 (3.98-5.22) M/mm3 Hgb 13.9 (11.2-15.7) gm/dl Hct 41.9 (34.1-44.9) % MCV 91.7 D (79.4-94.8) fl MCH 30.4 (25.6-32.2) pg MCHC 33.2 (32.2-35.5) g/dl RDW Std Deviation 48.8 H (36.4-46.3) fL Plt Count 302 D (182-369) K/mm3 MPV 10.7 (9.4-12.3) fl Neut % (Auto) 81.0 H (34.0-71.1) % Lymph % (Auto) 10.6 L (19.3-51.7) % Bent % (Auto) 7.9 (4.7-12.5) % Eos % (Auto) 0.1 L (0.7-5.8) Baso % (Auto) 0.2 (0.1-1.2) % Neut # (Auto) 8.57 H (1.56-6.13) K/mm3 Lymph # (Auto) 1.12 L (1.18-3.74) K/mm3 Bent # (Auto) 0.83 H (0.24-0.36) K/mm3 Eos # (Auto) 0.01 L (0.04-0.36) K/mm3 Baso # (Auto) 0.02 (0.01-0.08) K/mm3 Sodium (136-145) mEq/L Potassium (3.5-5.1) mEq/L Chloride (98-107) mEq/L Carbon Dioxide (21-32) mEq/L Anion Gap (5-15) BUN (7-18) mg/dL Creatinine (0.55-1.02) mg/dL Est Cr Clr Drug Dosing mL/min Estimated GFR (MDRD) (>60) mL/min BUN/Creatinine Ratio (14-18) Glucose (70-99) mg/dL Calcium (8.5-10.1) mg/dL Total Bilirubin (0.2-1.0) mg/dL AST (15-37) U/L ALT (14-59) U/L Alkaline Phosphatase (46-116) U/L Total Protein (6.4-8.2) g/dl Albumin (3.4-5.0) g/dl Globulin gm/dL Albumin/Globulin Ratio (1-2) Urine Color Yellow (Yellow) Urine Appearance Clear (Clear) Urine pH 6.0 (5.0-8.0) Ur Specific [place] 1.025 (1.005-1.030) Urine Protein 2+ H (Negative) Urine Glucose (UA) Negative (Negative) Urine Ketones 4+ H (Negative) Urine Occult Blood 2+ H (Negative) Urine Nitrite Negative (Negative) Urine Bilirubin 2+ H (Negative) Urine Urobilinogen 0.2 (0.2-1.0) Ur Leukocyte Esterase Negative (Negative) Urine RBC 5-10 H (0-5) /hpf Urine WBC 0-5 (0-5) /hpf Ur Squamous Epith Cells 0-5 (0-5) /hpf Urine Bacteria Few (FEW) /hpf Urine Mucus Few (FEW) /hpf Influenza Type A RNA Negative (NEGATIVE) Influenza Type B RNA Negative (NEGATIVE) SARS-CoV-2 RNA (TERESA) Negative (NEGATIVE) 03/10/21 Range/Units 09:45 WBC (3.98-10.04) K/mm3 RBC (3.98-5.22) M/mm3 Hgb (11.2-15.7) gm/dl Hct (34.1-44.9) % MCV (79.4-94.8) fl MCH (25.6-32.2) pg MCHC (32.2-35.5) g/dl RDW Std Deviation (36.4-46.3) fL Plt Count (182-369) K/mm3 MPV (9.4-12.3) fl Neut % (Auto) (34.0-71.1) % Lymph % (Auto) (19.3-51.7) % Bent % (Auto) (4.7-12.5) % Eos % (Auto) (0.7-5.8) Baso % (Auto) (0.1-1.2) % Neut # (Auto) (1.56-6.13) K/mm3 Lymph # (Auto) (1.18-3.74) K/mm3 Bent # (Auto) (0.24-0.36) K/mm3 Eos # (Auto) (0.04-0.36) K/mm3 Baso # (Auto) (0.01-0.08) K/mm3 Sodium 146 H (136-145) mEq/L Potassium 2.7 L (3.5-5.1) mEq/L Chloride 106 (98-107) mEq/L Carbon Dioxide 24 (21-32) mEq/L Anion Gap 18.7 H (5-15) BUN 15 (7-18) mg/dL Creatinine 0.7 (0.55-1.02) mg/dL Est Cr Clr Drug Dosing 57.20 mL/min Estimated GFR (MDRD) > 60 (>60) mL/min BUN/Creatinine Ratio 21.4 H (14-18) Glucose 90 (70-99) mg/dL Calcium 9.4 (8.5-10.1) mg/dL Total Bilirubin 0.7 (0.2-1.0) mg/dL AST 28 (15-37) U/L ALT 20 (14-59) U/L Alkaline Phosphatase 44 L (46-116) U/L Total Protein 8.0 (6.4-8.2) g/dl Albumin 3.7 (3.4-5.0) g/dl Globulin 4.3 gm/dL Albumin/Globulin Ratio 0.9 L (1-2) Urine Color (Yellow) Urine Appearance (Clear) Urine pH (5.0-8.0) Ur Specific [place] (1.005-1.030) Urine Protein (Negative) Urine Glucose (UA) (Negative) Urine Ketones (Negative) Urine Occult Blood (Negative) Urine Nitrite (Negative) Urine Bilirubin (Negative) Urine Urobilinogen (0.2-1.0) Ur Leukocyte Esterase (Negative) Urine RBC (0-5) /hpf Urine WBC (0-5) /hpf Ur Squamous Epith Cells (0-5) /hpf Urine Bacteria (FEW) /hpf Urine Mucus (FEW) /hpf Influenza Type A RNA (NEGATIVE) Influenza Type B RNA (NEGATIVE) SARS-CoV-2 RNA ([place]ESA) (NEGATIVE) Meds: Medications Generic Name Dose Route Start Last Admin Trade Name Freq PRN Reason Stop Dose Admin Sodium Chloride 1,000 mls @ 999 mls/hr 03/10/21 09:15 03/10/21 09:53 Normal Saline IV 999 mls/hr ONETIME EDYTA Administration Sodium Chloride 1,000 mls @ 999 mls/hr 03/10/21 12:00 03/10/21 12:46 Normal Saline IV 999 mls/hr ONETIME EDYTA Administration Sodium Chloride 10 ml 03/10/21 09:15 03/10/21 09:46 Sodium Chloride 0.9% 10 Ml Syringe FLUSH 10 ml ASDIRECTED PRN Administration Keep Vein Open Discontinued Medications Generic Name Dose Route Start Last Admin Trade Name Dusty PRN Reason Stop Dose Admin Famotidine 20 mg 03/10/21 09:15 03/10/21 09:48 Famotidine 20 Mg/2 Ml Sdv IVPUSH 03/10/21 09:16 20 mg ONETIME ONE Administration Hydromorphone HCl 0.5 mg 03/10/21 09:15 03/10/21 09:51 Hydromorphone 0.5 Mg/0.5 Ml Syringe IVPUSH 03/10/21 09:16 0.5 mg ONETIME ONE Administration Hydromorphone HCl 0.5 mg 03/10/21 14:48 Hydromorphone 0.5 Mg/0.5 Ml Syringe IVPUSH 03/10/21 14:49 ONETIME ONE Potassium Chloride 10 meq/ 100 mls @ 100 mls/hr 03/10/21 12:00 03/10/21 14:03 Premix IV 03/10/21 13:59 100 mls/hr Q1H EDYTA Administration Lactated Ringer's 1,000 mls @ 999 mls/hr 03/10/21 12:27 03/10/21 13:25 Ringers, Lactated IV 03/10/21 13:27 500 mls/hr .BOLUS ONE Administration Ondansetron HCl 4 mg 03/10/21 09:15 03/10/21 09:46 Ondansetron 4 Mg/2 Ml Sdv IVPUSH 03/10/21 09:16 4 mg ONETIME ONE Administration - Re-Assessments/Exams Free Text/Narrative Re-Assessment/Exam: 03/10/21 15:03 K+ 2.7, anion gap elevated at 18.7. Other labs relatively OK. Have given 2 L IV fluid, zofran IV, 20 meq K+ IV. She feels better. Have given IV dilaudid for her low back pain, she does not have a UTI. Discharge instr. as documented. Departure - Departure Time of Disposition: 15:25 Disposition: Home, Self-Care 01 Condition: Fair Clinical Impression: Dehydration, Hypokalemia Vomiting Qualifiers: Vomiting type: unspecified Vomiting Intractability: non-intractable Nausea presence: with nausea Qualified Code(s): R11.2 - Nausea with vomiting, unspecified Diarrhea Qualifiers: Diarrhea type: unspecified type Qualified Code(s): R19.7 - Diarrhea, unspecified Back pain Qualifiers: Back pain location: low back pain Chronicity: acute Back pain laterality: unspecified - Discharge Information Referrals: Eun Allen MD [Primary Care Provider] - Forms: ED Department Discharge Additional Instructions: Rest. Clear liquids until tomorrow, than careful bland diet as tolerated. Probiotic twice daily, available OTC. Your potassium was low today. Bananas are a good source of potassium, try eat one or 2 bananas per day for the next week. Follow up clinic as needed if not better, return to ED as needed if symptoms worsening in any way. Sepsis Event Note (ED) - Evaluation Sepsis Screening Result: No Definite Risk - Focused Exam Vital Signs: Vital Signs Temp Pulse Resp BP Pulse Ox 03/10/21 07:50 97.6 F 85 15 177/77 H 96 - My Orders Last 24 Hours: My Active Orders 03/10/21 09:15 Peripheral IV Care [RC] . DIRECTED Sodium Chloride 0.9% [Normal Saline] 1,000 ml IV ONETIME Sodium Chloride 0.9% [Saline Flush] 10 ml FLUSH ASDIRECTED PRN Peripheral IV Insertion Adult [OM.PC] Stat 03/10/21 12:00 Sodium Chloride 0.9% [Normal Saline] 1,000 ml IV ONETIME - Assessment/Plan Last 24 Hours: My Active Orders 03/10/21 09:15 Peripheral IV Care [RC] . DIRECTED Sodium Chloride 0.9% [Normal Saline] 1,000 ml IV ONETIME Sodium Chloride 0.9% [Saline Flush] 10 ml FLUSH ASDIRECTED PRN Peripheral IV Insertion Adult [OM.PC] Stat 03/10/21 12:00 Sodium Chloride 0.9% [Normal Saline] 1,000 ml IV ONETIME
[2021-03-10 15:12] VITALS: BP 152/81; PULSE 81
== END 2021-03-10 15:50 | disposition home or self-care (01) ==
LOC: JD.ED 07:41
DX: R11.2 Nausea with vomiting, unspecified (principal); R19.7 Diarrhea, unspecified; M54.50 Low back pain, unspecified; E86.0 Dehydration; E87.6 Hypokalemia; E78.00 Pure hypercholesterolemia, unspecified; I10 Essential (primary) hypertension; K21.9 Gastro-esophageal reflux disease without esophagitis; J44.9 Chronic obstructive pulmonary disease, unspecified; E03.9 Hypothyroidism, unspecified; Z72.0 Tobacco use; Z88.5 Allergy status to narcotic agent; Z79.899 Other long term (current) drug therapy; Z79.82 Long term (current) use of aspirin; Z86.73 Personal history of transient ischemic attack (TIA), and cerebral infarction without residual deficits; Z20.822 Contact with and (suspected) exposure to COVID-19
CPT/HCPCS: 0240U; 36415; 80053; 81001; 85025; 96365; 96366; 96375; 96376; 99284; J1170; J2405; J3480; J3490; J7030; J7120

== ENCOUNTER 2021-03-22 14:22 | Emergency (ER) | payer MEDICARE, MEDICAID ==
[2021-03-22 14:32] VITALS: BP 63/43
[2021-03-22] MEDS ORDERED: Sodium Chloride 0.9% 10 ML Syringe FLUSH PRN (14:36)
[2021-03-22] MEDS ORDERED: Sodium Chloride 0.9% 1,000 ML IV ONE ×2 (14:37→14:53)
--- NOTE | 2021-03-22 14:45 | EDM.PDOC ---
ED HPI GENERAL MEDICAL PROBLEM - General Chief Complaint: Cardiovascular Problem Stated Complaint: WEAK Time Seen by Provider: 03/22/21 14:28 Source of Information: Reports: Family History Limitations: Reports: No Limitations, Other (ED vital signs reveal a temp of 96.7, pulse of 78, respiratory rate of 12, blood pressure 63/43, pulse ox 96% on room air) - History of Present Illness INITIAL COMMENTS - FREE TEXT/NARRATIVE: 80-year-old female brought to the emergency department by her neighbor for complaints of increased weakness. On the drive to the hospital, the neighbor ates that the patient would not respond to her few minutes out of the hospital. Unable to get much history from the patient as she only speaks in one-word sentences and is quite lethargic, however, patient is able to tell me that she developed lower abdominal discomfort last evening. - Related Data Allergies Allergy/AdvReac Type Severity Reaction Status Date / Time codeine AdvReac Mild Nausea/Vomi Verified 03/22/21 17:09 ting Home Meds: Home Meds Levothyroxine 25 mcg PO ACBREAKFAST 09/10/15 [History] atorvaSTATin [Lipitor] 40 mg PO BEDTIME 09/10/15 [History] Oxybutynin [Oxybutynin ER] 10 mg PO DAILY 03/04/17 [History] Sertraline HCl 75 mg PO DAILY 03/04/17 [History] Metoprolol Succinate [Toprol XL] 25 mg PO DAILY 03/07/17 [History] Potassium Chloride [Klor-Con Sprinkle] 10 meq PO BID 11/04/17 [History] Cholecalciferol (Vitamin D3) [Vitamin D3] 2,000 unit PO DAILY 10/29/19 [History] Fluticasone/Vilanterol [Breo Ellipta 100-25 MCG Inhalation Kit] 1 puff INH DAILY 10/29/19 [History] Hydrocodone/Acetaminophen [HYDROcodone-Acetaminophen 10-325 MG] 1 tab PO Q6HR PRN 10/29/19 [History] Isosorbide Mononitrate [Isosorbide Mononitrate ER] 60 mg PO DAILY 10/29/19 [History] Naloxone HCl [Narcan] 4 mg FAYE ASDIRECTED PRN 10/29/19 [History] Nitroglycerin 0.4 mg PO ASDIRECTED PRN 10/29/19 [History] Albuterol Sulfate [Albuterol Sulfate Hfa] 2 puff INH TID PRN 02/26/20 [History] Aspirin 81 mg PO DAILY 02/26/20 [History] Sennosides [Senna Lax] 17.2 mg PO BEDTIME PRN 02/26/20 [History] Travoprost [Travatan Z] 1 drop EYEBOTH DAILY 02/26/20 [History] hydroCHLOROthiazide [Hydrochlorothiazide] 25 mg PO DAILY 02/26/20 [History] Cholestyramine (With Sugar) [Questran Powder] 1 dose PO QAM 10/07/20 [History] Esomeprazole Magnesium [Nexium] 40 mg PO DAILY 10/07/20 [History] Famotidine [Pepcid] 10 mg PO BEDTIME 10/07/20 [History] Pregabalin [Lyrica] 150 mg PO BID 10/07/20 [History] Timolol [Betimol 0.25% O/S 5 ML] 1 drop EYEBOTH DAILY 10/07/20 [History] ondansetron HCL [Zofran] 4 mg PO TID PRN 10/07/20 [History] polyethylene glycoL 3350 [MiraLAX] 1 dose PO DAILY PRN 10/07/20 [History] Past Medical History HEENT History: Reports: Cataract, Glaucoma, Macular Degeneration, Other (See Below) Other HEENT History: dentures, glasses Cardiovascular History: Reports: Heart Murmur, High Cholesterol, Hypertension, Other (See Below) Other Cardiovascular History: palpitations, precordial pain, chest pain, aortic regurgitation Respiratory History: Reports: Asthma, COPD, TB Other Respiratory History: 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: Musculoskeletal History: Reports: Arthritis, Back Pain, Chronic, Osteoarthritis, Other (See Below) Other Musculoskeletal History: Spinal Stenosis, chronic pain syndrome, lumbar facet arthropathy, myofascial pain, shoulder bursitis Neurological History: Reports: CVA, Headaches, Chronic Other Neuro History: dizziness, confusion, white matter periventricular infarction, hand tremor Psychiatric History: Reports: Addiction, Anxiety, Depression Other Psychiatric History: Nicotine dependence Endocrine/Metabolic History: Reports: Hypothyroidism Hematologic History: Reports: Anemia Immunologic History: Reports: Immunosuppression Oncologic (Cancer) History: Reports: Breast, Lung Dermatologic History: Reports: Cellulitis, Other (See Below) Other Dermatologic History: actinic keratosis - Infectious Disease History Infectious Disease History: 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 Neurological Surgical History: Reports: None Musculoskeletal Surgical History: Reports: Arthroscopic Procedure, Knee Replacement, Shoulder Surgery, Other (See Below) Other Musculoskeletal Surgeries/Procedures:: bilateral total knee replacements, toe surgery, shoulder surgery Oncologic Surgical History: Reports: Mastectomy, Other (See Below) Other Oncologic Surgeries/Procedures: Left side Dermatological Surgical History: Reports: Other (See Below) Social & Family History - Family History Family Medical History: No Pertinent Family History Cardiac: Reports: OR - Caffeine Use Caffeine Use: Reports: Coffee Other Caffeine Use: 2 cups a day and pepsi - Living Situation & Occupation Living situation: Reports: Occupation: Retired ED ROS GENERAL - Review of Systems Review Of Systems: Comprehensive ROS is negative, except as noted in HPI. ED EXAM, GENERAL - Physical Exam Exam: See Below Exam Limited By: No Limitations General Appearance: WD/WN, Lethargic Eye Exam: Bilateral Eye: PERRL Ears: Normal External Exam, Hearing Grossly Normal Nose: Normal Inspection Throat/Mouth: Normal Inspection, Normal Lips, Normal Voice, No Airway Compromise. No: Normal Oropharynx (Oropharynx is pale and dry) Head: Atraumatic, Normocephalic Neck: Normal Inspection, Supple Respiratory/Chest: No Respiratory Distress, Lungs Clear, Normal Breath Sounds, No Accessory Muscle Use, Chest Non-Tender Cardiovascular: Normal Peripheral Pulses, Regular Rate, Rhythm, No Edema, No Murmur Peripheral Pulses: 2+: Radial (L), Radial (R) GI/Abdominal: Normal Bowel Sounds, Soft, Tender (Right and left lower quadrant) (Female) Exam: Deferred Rectal (Female) Exam: Deferred Back Exam: Normal Inspection Extremities: Normal Inspection Neurological: Oriented, Normal Cognition, Slow to Respond Psychiatric: Normal Affect, Normal Mood Skin Exam: Warm, Dry, Intact, No Rash, Pallor Lymphatic: No Adenopathy #1 Interpretation EKG Date: 03/22/21 Time: 14:32 Rhythm: NSR Rate (Beats/Min): 74 [place]: Normal P-Wave: Present QRS: LBBB ST-T: Normal QT: Normal EKG Interpretation Comments: Per Dr. Walls interpretation: Sinus rhythm at 74 bpm; left bundle branch block Course - Vital Signs Text/Narrative:: As stated above patient presents with weakness and was brought in by her neighbor by private vehicle. Upon exam, the patient is laying in bed with her eyes closed however does respond to verbal command. She only speaks in one-word sentences but is oriented. She is quite pale in appearance. Conjunctive a and oral mucosa is pale. Oral mucosa is also very dry. Heart and lungs are unremarkable. Abdomen is soft with tenderness noted to right and left lower quadrant. Will obtain lab studies as well as a portable chest x-ray and urinalysis with micro and culture if indicated as well as an EKG. ordered for the patient to have 2 L of normal saline wide open. Last Recorded V/S: Last Vital Signs Temp 98.7 F 03/22/21 17:20 Pulse 86 03/22/21 17:20 Resp 16 03/22/21 17:20 BP 63/43 L 03/22/21 14:31 Pulse Ox 94 L 03/22/21 17:20 - Orders/Labs/Meds Orders: Active Orders 24 hr Category Date Time Status Blood Glucose Check, Bedside [RC] ONETIME Care 03/22/21 14:51 Active Abdomen Pelvis w Cont [CT] Stat Exams 03/22/21 16:49 Taken BLOOD CULTURE [MREF] Stat Lab 03/22/21 15:05 Received BLOOD CULTURE [MREF] Stat Lab 03/22/21 15:30 Received Sodium Chloride 0.9% [Normal Saline] 1,000 ml Med 03/22/21 16:15 Active IV ASDIRECTED Sodium Chloride 0.9% [Saline Flush] Med 03/22/21 14:36 Active 10 ml FLUSH ASDIRECTED PRN Blood Culture x2 Reflex Set [OM.PC] Stat Oth 03/22/21 14:48 Ordered Saline Lock Insert [OM.PC] Stat Oth 03/22/21 14:36 Ordered Code Status [Resuscitation Status] Stat Resus Stat 03/22/21 14:59 Ordered Medication Orders Sodium Chloride (Normal Saline) 1,000 mls @ 250 mls/hr IV ASDIRECTED EDYTA Last Admin: 03/22/21 16:12 Dose: 250 mls/hr Documented by: NEISHA Sodium Chloride (Sodium Chloride 0.9% 10 Ml Syringe) 10 ml FLUSH ASDIRECTED PRN PRN Reason: Keep Vein Open Last Admin: 03/22/21 14:40 Dose: 10 ml Documented by: NEISHA Labs: Laboratory Tests 03/22/21 03/22/21 03/22/21 Range/Units 14:37 14:50 14:50 WBC (3.98-10.04) K/mm3 RBC (3.98-5.22) M/mm3 Hgb (11.2-15.7) gm/dl Hct (34.1-44.9) % MCV (79.4-94.8) fl MCH (25.6-32.2) pg MCHC (32.2-35.5) g/dl RDW Std Deviation (36.4-46.3) fL Plt Count (182-369) K/mm3 MPV (9.4-12.3) fl Neut % (Auto) (34.0-71.1) % Lymph % (Auto) (19.3-51.7) % [place] % (Auto) (4.7-12.5) % Eos % (Auto) (0.7-5.8) Baso % (Auto) (0.1-1.2) % Neut # (Auto) (1.56-6.13) K/mm3 Lymph # (Auto) (1.18-3.74) K/mm3 [place] # (Auto) (0.24-0.36) K/mm3 Eos # (Auto) (0.04-0.36) K/mm3 Baso # (Auto) (0.01-0.08) K/mm3 Manual Slide Review Not Reportable Sodium (136-145) mEq/L Potassium (3.5-5.1) mEq/L Chloride (98-107) mEq/L Carbon Dioxide (21-32) mEq/L Anion Gap (5-15) BUN (7-18) mg/dL Creatinine (0.55-1.02) mg/dL Est Cr Clr Drug Dosing mL/min Estimated GFR (MDRD) (>60) mL/min BUN/Creatinine Ratio (14-18) Glucose (70-99) mg/dL POC Glucose 163 H (70-99) mg/dL Lactic Acid (0.4-2.0) mmol/L Calcium (8.5-10.1) mg/dL Magnesium (1.8-2.4) mg/dL Total Bilirubin (0.2-1.0) mg/dL AST (15-37) U/L ALT (14-59) U/L Alkaline Phosphatase (46-116) U/L Troponin I (0.00-0.056) ng/mL C-Reactive Protein (<1.0) mg/dL NT-Pro-B Natriuret Pep (0-450) pg/mL Total Protein (6.4-8.2) g/dl Albumin (3.4-5.0) g/dl Globulin gm/dL Albumin/Globulin Ratio (1-2) Urine Color Yellow (Yellow) Urine Appearance Clear (Clear) Urine pH 5.5 (5.0-8.0) Ur Specific [place] 1.025 (1.005-1.030) Urine Protein 2+ H (Negative) Urine Glucose (UA) Negative (Negative) Urine Ketones Negative (Negative) Urine Occult Blood Negative (Negative) Urine Nitrite Negative (Negative) Urine Bilirubin 1+ H (Negative) Urine Urobilinogen 0.2 (0.2-1.0) Ur Leukocyte Esterase Negative (Negative) Urine RBC 0-5 (0-5) /hpf Urine WBC 0-5 (0-5) /hpf Ur Squamous Epith Cells 5-10 H (0-5) /hpf Urine Bacteria Moderate H (FEW) /hpf Urine Mucus Few (FEW) /hpf SARS-CoV-2 RNA (TERESA) (NEGATIVE) Blood Type Gel Antibody Screen 03/22/21 03/22/21 03/22/21 Range/Units 15:06 15:06 15:06 WBC 8.31 (3.98-10.04) K/mm3 RBC 2.87 L (3.98-5.22) M/mm3 Hgb 8.8 L D (11.2-15.7) gm/dl Hct 27.2 L (34.1-44.9) % MCV 94.8 D (79.4-94.8) fl MCH 30.7 (25.6-32.2) pg MCHC 32.4 (32.2-35.5) g/dl RDW Std Deviation 46.7 H (36.4-46.3) fL Plt Count 184 D (182-369) K/mm3 MPV 10.9 (9.4-12.3) fl Neut % (Auto) 80.0 H (34.0-71.1) % Lymph % (Auto) 13.5 L (19.3-51.7) % [place] % (Auto) 4.8 (4.7-12.5) % Eos % (Auto) 0.6 L (0.7-5.8) Baso % (Auto) 0.4 (0.1-1.2) % Neut # (Auto) 6.65 H (1.56-6.13) K/mm3 Lymph # (Auto) 1.12 L (1.18-3.74) K/mm3 [place] # (Auto) 0.40 H (0.24-0.36) K/mm3 Eos # (Auto) 0.05 (0.04-0.36) K/mm3 Baso # (Auto) 0.03 (0.01-0.08) K/mm3 Manual Slide Review Sodium 147 H (136-145) mEq/L Potassium 3.0 L (3.5-5.1) mEq/L Chloride 114 H (98-107) mEq/L Carbon Dioxide 23 (21-32) mEq/L Anion Gap 13.0 (5-15) BUN 12 (7-18) mg/dL Creatinine 0.8 (0.55-1.02) mg/dL Est Cr Clr Drug Dosing 50.05 mL/min Estimated GFR (MDRD) > 60 (>60) mL/min BUN/Creatinine Ratio 15.0 (14-18) Glucose 141 H (70-99) mg/dL POC Glucose (70-99) mg/dL Lactic Acid (0.4-2.0) mmol/L Calcium 6.9 L D (8.5-10.1) mg/dL Magnesium 1.4 L (1.8-2.4) mg/dL Total Bilirubin 0.3 (0.2-1.0) mg/dL AST 9 L (15-37) U/L ALT 8 L (14-59) U/L Alkaline Phosphatase 30 L (46-116) U/L Troponin I < 0.017 (0.00-0.056) ng/mL C-Reactive Protein <0.2 (<1.0) mg/dL NT-Pro-B Natriuret Pep 2802 H (0-450) pg/mL Total Protein 5.0 L (6.4-8.2) g/dl Albumin 2.3 L (3.4-5.0) g/dl Globulin 2.7 gm/dL Albumin/Globulin Ratio 0.9 L (1-2) Urine Color (Yellow) Urine Appearance (Clear) Urine pH (5.0-8.0) Ur Specific [place] (1.005-1.030) Urine Protein (Negative) Urine Glucose (UA) (Negative) Urine Ketones (Negative) Urine Occult Blood (Negative) Urine Nitrite (Negative) Urine Bilirubin (Negative) Urine Urobilinogen (0.2-1.0) Ur Leukocyte Esterase (Negative) Urine RBC (0-5) /hpf Urine WBC (0-5) /hpf Ur Squamous Epith Cells (0-5) /hpf Urine Bacteria (FEW) /hpf Urine Mucus (FEW) /hpf SARS-CoV-2 RNA (TERESA) (NEGATIVE) Blood Type Gel Antibody Screen 03/22/21 03/22/21 03/22/21 Range/Units 15:06 15:30 17:05 WBC (3.98-10.04) K/mm3 RBC (3.98-5.22) M/mm3 Hgb (11.2-15.7) gm/dl Hct (34.1-44.9) % MCV (79.4-94.8) fl MCH (25.6-32.2) pg MCHC (32.2-35.5) g/dl RDW Std Deviation (36.4-46.3) fL Plt Count (182-369) K/mm3 MPV (9.4-12.3) fl Neut % (Auto) (34.0-71.1) % Lymph % (Auto) (19.3-51.7) % [place] % (Auto) (4.7-12.5) % Eos % (Auto) (0.7-5.8) Baso % (Auto) (0.1-1.2) % Neut # (Auto) (1.56-6.13) K/mm3 Lymph # (Auto) (1.18-3.74) K/mm3 [place] # (Auto) (0.24-0.36) K/mm3 Eos # (Auto) (0.04-0.36) K/mm3 Baso # (Auto) (0.01-0.08) K/mm3 Manual Slide Review Sodium (136-145) mEq/L Potassium (3.5-5.1) mEq/L Chloride (98-107) mEq/L Carbon Dioxide (21-32) mEq/L Anion Gap (5-15) BUN (7-18) mg/dL Creatinine (0.55-1.02) mg/dL Est Cr Clr Drug Dosing mL/min Estimated GFR (MDRD) (>60) mL/min BUN/Creatinine Ratio (14-18) Glucose (70-99) mg/dL POC Glucose (70-99) mg/dL Lactic Acid 1.9 (0.4-2.0) mmol/L Calcium (8.5-10.1) mg/dL Magnesium (1.8-2.4) mg/dL Total Bilirubin (0.2-1.0) mg/dL AST (15-37) U/L ALT (14-59) U/L Alkaline Phosphatase (46-116) U/L Troponin I (0.00-0.056) ng/mL C-Reactive Protein (<1.0) mg/dL NT-Pro-B Natriuret Pep (0-450) pg/mL Total Protein (6.4-8.2) g/dl Albumin (3.4-5.0) g/dl Globulin gm/dL Albumin/Globulin Ratio (1-2) Urine Color (Yellow) Urine Appearance (Clear) Urine pH (5.0-8.0) Ur Specific [place] (1.005-1.030) Urine Protein (Negative) Urine Glucose (UA) (Negative) Urine Ketones (Negative) Urine Occult Blood (Negative) Urine Nitrite (Negative) Urine Bilirubin (Negative) Urine Urobilinogen (0.2-1.0) Ur Leukocyte Esterase (Negative) Urine RBC (0-5) /hpf Urine WBC (0-5) /hpf Ur Squamous Epith Cells (0-5) /hpf Urine Bacteria (FEW) /hpf Urine Mucus (FEW) /hpf SARS-CoV-2 RNA (TERESA) Negative (NEGATIVE) Blood Type A NEGATIVE Gel Antibody Screen Negative 03/22/21 Range/Units 17:40 WBC (3.98-10.04) K/mm3 RBC (3.98-5.22) M/mm3 Hgb 11.5 D (11.2-15.7) gm/dl Hct (34.1-44.9) % MCV (79.4-94.8) fl MCH (25.6-32.2) pg MCHC (32.2-35.5) g/dl RDW Std Deviation (36.4-46.3) fL Plt Count (182-369) K/mm3 MPV (9.4-12.3) fl Neut % (Auto) (34.0-71.1) % Lymph % (Auto) (19.3-51.7) % [place] % (Auto) (4.7-12.5) % Eos % (Auto) (0.7-5.8) Baso % (Auto) (0.1-1.2) % Neut # (Auto) (1.56-6.13) K/mm3 Lymph # (Auto) (1.18-3.74) K/mm3 [place] # (Auto) (0.24-0.36) K/mm3 Eos # (Auto) (0.04-0.36) K/mm3 Baso # (Auto) (0.01-0.08) K/mm3 Manual Slide Review Sodium (136-145) mEq/L Potassium (3.5-5.1) mEq/L Chloride (98-107) mEq/L Carbon Dioxide (21-32) mEq/L Anion Gap (5-15) BUN (7-18) mg/dL Creatinine (0.55-1.02) mg/dL Est Cr Clr Drug Dosing mL/min Estimated GFR (MDRD) (>60) mL/min BUN/Creatinine Ratio (14-18) Glucose (70-99) mg/dL POC Glucose (70-99) mg/dL Lactic Acid (0.4-2.0) mmol/L Calcium (8.5-10.1) mg/dL Magnesium (1.8-2.4) mg/dL Total Bilirubin (0.2-1.0) mg/dL AST (15-37) U/L ALT (14-59) U/L Alkaline Phosphatase (46-116) U/L Troponin I (0.00-0.056) ng/mL C-Reactive Protein (<1.0) mg/dL NT-Pro-B Natriuret Pep (0-450) pg/mL Total Protein (6.4-8.2) g/dl Albumin (3.4-5.0) g/dl Globulin gm/dL Albumin/Globulin Ratio (1-2) Urine Color (Yellow) Urine Appearance (Clear) Urine pH (5.0-8.0) Ur Specific [place] (1.005-1.030) Urine Protein (Negative) Urine Glucose (UA) (Negative) Urine Ketones (Negative) Urine Occult Blood (Negative) Urine Nitrite (Negative) Urine Bilirubin (Negative) Urine Urobilinogen (0.2-1.0) Ur Leukocyte Esterase (Negative) Urine RBC (0-5) /hpf Urine WBC (0-5) /hpf Ur Squamous Epith Cells (0-5) /hpf Urine Bacteria (FEW) /hpf Urine Mucus (FEW) /hpf SARS-CoV-2 RNA (TERESA) (NEGATIVE) Blood Type Gel Antibody Screen Meds: Medications Generic Name Dose Route Start Last Admin Trade Name Freq PRN Reason Stop Dose Admin Sodium Chloride 1,000 mls @ 250 mls/hr 03/22/21 16:15 03/22/21 16:12 Normal Saline IV 250 mls/hr ASDIRECTED EDYTA Administration Sodium Chloride 10 ml 03/22/21 14:36 03/22/21 14:40 Sodium Chloride 0.9% 10 Ml Syringe FLUSH 10 ml ASDIRECTED PRN Administration Keep Vein Open Discontinued Medications Generic Name Dose Route Start Last Admin Trade Name Freq PRN Reason Stop Dose Admin Diatrizoate Meglum/Diatrizoate Sod 90 ml 03/22/21 19:14 03/22/21 19:22 Diatrizoate Meglumine/Diatrizoate Sodium 37% 120 Ml Bottle PO 03/22/21 19:15 90 ml ONETIME ONE Administration Sodium Chloride 1,000 mls @ 999 mls/hr 03/22/21 14:37 03/22/21 14:40 Normal Saline IV 03/22/21 15:37 999 mls/hr ONETIME ONE Administration Sodium Chloride 1,000 mls @ 999 mls/hr 03/22/21 14:53 03/22/21 14:55 Normal Saline IV 03/22/21 15:53 999 mls/hr ONETIME ONE Administration Potassium Chloride 10 meq/ 100 mls @ 100 mls/hr 03/22/21 17:00 03/22/21 20:32 Premix IV 03/22/21 20:59 100 mls/hr Q1H EDYTA Administration Iopamidol 100 ml 03/22/21 19:14 03/22/21 19:22 Iopamidol 612 Mg/Ml 100 Ml Bottle IVPUSH 03/22/21 19:15 100 ml ONETIME ONE Administration Magnesium Oxide 400 mg 03/22/21 16:48 03/22/21 17:59 Magnesium Oxide 400 Mg Tab PO 03/22/21 16:49 400 mg ONETIME ONE Administration Potassium Chloride 40 meq 03/22/21 16:48 03/22/21 17:58 Potassium Chloride 20 Meq Tab.Er PO 03/22/21 16:49 40 meq ONETIME ONE Administration - Radiology Interpretation Free Text/Narrative:: Nothing acute is appreciated on portable view of the chest. Formal radiologist report is pending. - Re-Assessments/Exams Free Text/Narrative Re-Assessment/Exam: 03/22/21 15:16 Blood pressures are now in the 80s systolic and she is much more awake and alert and able to give a history. She denies any dark tarry or bright red stools. States she developed lower abdominal discomfort last evening and over the past few days has been avoiding much more frequently. She denies any burning associated with voiding. She denies any recent fever, chills, nausea, vomiting or diarrhea. She does inform me that she is scheduled to have a procedure done on her back tomorrow at [facility] in [place] as she has had chronic back pain for quite some time. 03/22/21 16:00 Radiologist impression portable view of the chest: Heart size and mediastinum are within normal limits. Left shoulder prosthesis is noted. Scoliosis is noted within the spine as well as scattered degenerative change within the spine. Previous rib resection is seen with the right upper chest. Slight rib deformities are noted within the right chest which are stable. Healed right clavicle fracture is noted. Linear scarring is noted within the right upper lung which is stable. Slight scarring or atelectasis is seen within the right midlung. Lungs otherwise are clear. Impression: 1. Chronic findings as noted above. 2. Minimal scarring or atelectasis within the right midlung. 3. Nothing acute is otherwise seen. 03/22/21 17:04 Hematology reveals a WBC of 8.31, hemoglobin 8.8, hematocrit 27.2, MCV 94.8, platelet count 184 Chemistry reveals a sodium of 147, potassium 3.0, chloride 114, anion gap 13.0, BUN 12, creatinine 0.8, GFR greater than 60, glucose 141, lactic acid 1.9, calcium 6.9, magnesium 1.4, total bilirubin 0.3, AST 9, ALT 8, alk phos 30, troponin less than 0.017, C-reactive protein less than 0.2, proBNP 2802 Urinalysis reveals 2+ protein, nitrite negative, urine bilirubin 1+, leukocyte Estrace negative, urine WBC 0-5 I have ordered for the patient to receive 40 mEq of IV potassium as well as 40 mEq p.o. potassium. We will also give her 400 mg magnesium oxide. Rectal exam was completed and patient is occult negative for any blood. Unable to discern where patient's blood loss would be coming from. Last ER visit which was only 13 days ago revealed hemoglobin of 13. Discussed all the results with the patient. She denies taking her pain medications excessively. She states she has pain pills prescribed for 1 tab every 6 hours as needed for pain. She states she takes that as prescribed. She denies being on any recent steroids. We will obtain a CT of the abdomen and pelvis due to right and left lower quadrant abdominal discomfort. 03/22/21 18:06 Discussed the case with our hospitalist, , and he suspects the cause of the patient's hypotension is likely due to her Imdur. Recommends that this be discontinued. 03/22/21 19:23 I had lab or repeat the patient's hemoglobin level. Repeat level 11.5. 03/22/21 21:26 The read radiologist impression CT of the abdomen and pelvis with contrast: Chronic changes as above without superimposed acute abnormality. Patient's blood pressures are now in the 130s to 140s systolically. She has eaten supper and states she feels significantly better. She will be discharged to home with recommendation that she follow-up with her primary care provider later this week. Departure - Departure Time of Disposition: 21:26 Disposition: Home, Self-Care 01 Condition: Fair Clinical Impression: Hypotension Qualifiers: Hypotension type: unspecified hypotension type Qualified Code(s): I95.9 - Hypotension, unspecified Referrals: Eun Allen MD [Primary Care Provider] - Forms: ED Department Discharge Additional Instructions: You were seen in the emergency department today as your blood pressure was significantly low. Numerous lab studies were completed as well as chest x-ray, EKG and CT scan of your abdomen. Lab studies initially showed that your hemoglobin level is low, however as discussed lab was rechecked and it was within normal limits. Chest x-ray did not show anything acute. CT scan of the abdomen did not show anything acute. Both were unremarkable studies. Your potassium level as well as your magnesium level were slightly low while in the emergency department. You did receive oral supplementation of your potassium and magnesium. You also did receive IV potassium supplementation. Recommend you eat potassium rich foods such as bananas and leafy greens. As discussed, I spoke with our hospitalist and suspects that the reason your blood pressure dropped so low was due to your Imdur. You need to stop taking this medication immediately. Be sure to drink plenty of fluids and get plenty rest. You will need to follow-up with Dr. Allen in the clinic later this week. Should your condition worsen or change, do not hesitate returning to the emergency department. Sepsis Event Note (ED) - Focused Exam Vital Signs: Vital Signs Temp Pulse Resp BP Pulse Ox 03/22/21 17:20 98.7 F 86 16 94 L 03/22/21 14:31 96.7 F L 78 12 63/43 L 96 - My Orders Last 24 Hours: My Active Orders 03/22/21 14:36 Sodium Chloride 0.9% [Saline Flush] 10 ml FLUSH ASDIRECTED PRN Saline Lock Insert [OM.PC] Stat 03/22/21 14:48 Blood Culture x2 Reflex Set [OM.PC] Stat 03/22/21 14:51 Blood Glucose Check, Bedside [RC] ONETIME 03/22/21 14:59 Code Status [Resuscitation Status] Stat 03/22/21 15:05 BLOOD CULTURE [MREF] Stat 03/22/21 15:30 BLOOD CULTURE [MREF] Stat 03/22/21 16:15 Sodium Chloride 0.9% [Normal Saline] 1,000 ml IV ASDIRECTED 03/22/21 16:49 Abdomen Pelvis w Cont [CT] Stat - Assessment/Plan Last 24 Hours: My Active Orders 03/22/21 14:36 Sodium Chloride 0.9% [Saline Flush] 10 ml FLUSH ASDIRECTED PRN Saline Lock Insert [OM.PC] Stat 03/22/21 14:48 Blood Culture x2 Reflex Set [OM.PC] Stat 03/22/21 14:51 Blood Glucose Check, Bedside [RC] ONETIME 03/22/21 14:59 Code Status [Resuscitation Status] Stat 03/22/21 15:05 BLOOD CULTURE [MREF] Stat 03/22/21 15:30 BLOOD CULTURE [MREF] Stat 03/22/21 16:15 Sodium Chloride 0.9% [Normal Saline] 1,000 ml IV ASDIRECTED 03/22/21 16:49 Abdomen Pelvis w Cont [CT] Stat
--- NOTE | 2021-03-22 15:56 | CR ---
Chest: Portable supine view of the chest was obtained. Comparison: Prior chest x-ray of 02/12/16. Heart size and mediastinum are within normal limits. Left shoulder prosthesis is noted. Scoliosis is noted within the spine as well as scattered degenerative change within the spine. Previous rib resection is seen within the right upper chest. Slight rib deformities are noted within the right chest which are stable. Healed right clavicle fracture is noted. Linear scarring is noted within the right upper lung which is stable. Slight scarring or atelectasis is seen within the right midlung. Lungs otherwise are clear. Impression: 1. Chronic findings as noted above. 2. Minimal scarring or atelectasis within the right mid lung. 3. Nothing acute is otherwise seen. Diagnostic code #2
[2021-03-22] MEDS ORDERED: Sodium Chloride 0.9% 1,000 ML IV SCH (16:15)
[2021-03-22] MEDS ORDERED: Magnesium Oxide 400 MG Tab PO ONE (16:48)
[2021-03-22] MEDS ORDERED: Potassium Chloride 20 MEQ Tab.ER PO ONE (16:48)
[2021-03-22 17:30] VITALS: PULSE 86
[2021-03-22] MEDS: Potassium Chloride 10 MEQ in Premix Bag 1 BAG IV SCH ×2 (18:01→20:32)
[2021-03-22] MEDS ORDERED: Diatrizoate Meglumine/Diatrizoate Sodium 37% 120 ML Bottle PO ONE (19:14)
[2021-03-22] MEDS ORDERED: Iopamidol 612 MG/ML 100 ML Bottle IVPUSH ONE (19:14)
--- NOTE | 2021-03-23 07:18 | CT ---
CT abdomen and pelvis Technique: Multiple axial sections were obtained from slightly below the top of the liver inferiorly through the pubic symphysis. Intravenous and oral contrast were utilized. Delayed images were obtained through the bladder. Reconstructed coronal and sagittal images were also obtained. Comparison: Prior CT abdomen and pelvis study of 03/16/17. Findings: Visualized lung bases show slight increased parenchymal change and mild pleural thickening on the left side which are most likely chronic. Mitral annulus calcification is also noted. Visualized portions of the liver show no focal abnormality. Spleen is within normal limits. Adrenal glands show no nodule. Cyst is noted within the right kidney measuring approximately 6.6 cm. Kidneys otherwise show normal enhancement. Calcifications are noted within the right kidney with largest measuring 7 mm. These findings are stable from prior CT study. Pancreas shows no discrete abnormality but is atrophied. Abdominal aorta shows atherosclerotic change which continues into the iliac vessels. No aneurysm is seen. Surgical clips are seen within the lower retroperitoneum. No mesenteric abnormalities are seen. Appendix is not visualized with certainty. No free fluid or inflammatory change is seen. Prior hysterectomy is noted. Delayed images show contrast within the bladder. Bone window settings were reviewed which show scoliosis within the spine as well as diffuse degenerative changes throughout the spine. Impression: 1. Multiple findings as described above which are stable from prior CT exam. 2. Nothing acute is appreciated on CT study of the abdomen and pelvis. Diagnostic code #2 I agree with preliminary report from [facility], finalized on 03/22/21, 9:44 PM INTAKE RN, code 1.
== END 2021-03-22 21:40 | disposition home or self-care (01) ==
LOC: JD.ED 14:22
DX: I95.9 Hypotension, unspecified (principal); J44.9 Chronic obstructive pulmonary disease, unspecified; E78.00 Pure hypercholesterolemia, unspecified; I10 Essential (primary) hypertension; M19.90 Unspecified osteoarthritis, unspecified site; Z86.73 Personal history of transient ischemic attack (TIA), and cerebral infarction without residual deficits; Z88.5 Allergy status to narcotic agent; Z79.82 Long term (current) use of aspirin; Z79.899 Other long term (current) drug therapy; Z20.822 Contact with and (suspected) exposure to COVID-19
CPT/HCPCS: 36415; 71045; 74177; 80053; 81001; 82947; 83605; 83735; 83880; 84484; 85018; 85025; 86140; 86850; 86900; 86901; 87040; 93005; 96365; 96366; 99285; A9270; J3480; J7030; Q9963; Q9967; U0002; 93010

== ENCOUNTER 2021-04-14 13:58 | Observation (INO) | payer MEDICARE, MEDICAID ==
[2021-04-14] MEDS ORDERED: Sodium Chloride 0.9% 10 ML Syringe FLUSH PRN (14:42)
--- NOTE | 2021-04-14 15:10 | EDM.PDOC ---
<KimCassy - Last Filed: 04/14/21 15:24> ED HPI GENERAL MEDICAL PROBLEM - General Chief Complaint: General Stated Complaint: FELL X3 WEAK \\ COUGH Time Seen by Provider: 04/14/21 14:09 Source of Information: Reports: Patient, Family (Son - Venkat) - History of Present Illness INITIAL COMMENTS - FREE TEXT/NARRATIVE: Ms. Gisela Hall is a pleasant 80 year-old female who presents to the ER for evaluation of weakness and falls. She reports falling 3 times in the last 24 hours. With the falls she denies any injury, loss of conscious, hitting her head, dizziness, tripping, feeling like she will pass out and feelings the room is spinning. Her son mentions she should be using a walker at home, but she does not. Ms. Hall is also here for evaluation of worsening cough over the past 2 weeks. She has a "smokers cough" at baseline but feels her current cough is worse and she is "spitting up yellow stuff", which is new for her. 3 days ago she had several episodes of vomiting and diarrhea, which have since subsided. Her last bowel movement was 2 days ago, which is not normal for her. She is able to drink, reports no appetite, has not eaten today. She denies any changes in the force, frequency, color or odor of her urine stream. She denies headache, fever, chills, change in shortness of breath, chest pain. When asked, patient reports left abdominal pain, 7/10, that began when the cough started. She reports 1 sick contact recently during the holidays. Her past surgical history includes removal of appendix and gallbladder, >40 years ago. 10 days ago she say her PCP, Dr. Allen, who changed several of her medications. Gisela is unsure exactly what medications were changed. She was on Lasix previously, and unsure if she still takes it. Onset: Gradual Duration: Day(s): Back Pain Score (Numeric/FACES): 10 Left Abdomen Pain Score (Numeric/FACES): 7 - Related Data Allergies Allergy/AdvReac Type Severity Reaction Status Date / Time codeine AdvReac Mild Nausea/Vomi Verified 03/22/21 17:09 ting Home Meds: Home Meds Levothyroxine 25 mcg PO ACBREAKFAST 09/10/15 [History] atorvaSTATin [Lipitor] 40 mg PO BEDTIME 09/10/15 [History] Oxybutynin [Oxybutynin ER] 10 mg PO DAILY 03/04/17 [History] Sertraline HCl 75 mg PO DAILY 03/04/17 [History] Metoprolol Succinate [Toprol XL] 25 mg PO DAILY 03/07/17 [History] Potassium Chloride [Klor-Con Sprinkle] 10 meq PO BID 11/04/17 [History] Cholecalciferol (Vitamin D3) [Vitamin D3] 2,000 unit PO DAILY 10/29/19 [History] Fluticasone/Vilanterol [Breo Ellipta 100-25 MCG Inhalation Kit] 1 puff INH DAILY 10/29/19 [History] Hydrocodone/Acetaminophen [HYDROcodone-Acetaminophen 10-325 MG] 1 tab PO Q6HR PRN 10/29/19 [History] Isosorbide Mononitrate [Isosorbide Mononitrate ER] 60 mg PO DAILY 10/29/19 [History] Naloxone HCl [Narcan] 4 mg FAYE ASDIRECTED PRN 10/29/19 [History] Nitroglycerin 0.4 mg PO ASDIRECTED PRN 10/29/19 [History] Albuterol Sulfate [Albuterol Sulfate Hfa] 2 puff INH TID PRN 02/26/20 [History] Aspirin 81 mg PO DAILY 02/26/20 [History] Sennosides [Senna Lax] 17.2 mg PO BEDTIME PRN 02/26/20 [History] Travoprost [Travatan Z] 1 drop EYEBOTH DAILY 02/26/20 [History] hydroCHLOROthiazide [Hydrochlorothiazide] 25 mg PO DAILY 02/26/20 [History] Cholestyramine (With Sugar) [Questran Powder] 1 dose PO QAM 10/07/20 [History] Esomeprazole Magnesium [Nexium] 40 mg PO DAILY 10/07/20 [History] Famotidine [Pepcid] 10 mg PO BEDTIME 10/07/20 [History] Pregabalin [Lyrica] 150 mg PO BID 10/07/20 [History] Timolol [Betimol 0.25% O/S 5 ML] 1 drop EYEBOTH DAILY 10/07/20 [History] ondansetron HCL [Zofran] 4 mg PO TID PRN 10/07/20 [History] polyethylene glycoL 3350 [MiraLAX] 1 dose PO DAILY PRN 10/07/20 [History] Past Medical History HEENT History: Reports: Cataract, Glaucoma, Macular Degeneration, Other (See Below) Other HEENT History: dentures, glasses Cardiovascular History: Reports: Heart Murmur, High Cholesterol, Hypertension, Other (See Below) Other Cardiovascular History: palpitations, precordial pain, chest pain, aortic regurgitation Respiratory History: Reports: Asthma, COPD, TB Other Respiratory History: 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 Gastrointestinal History: Reports: GERD, Hemorrhoids, Hiatal Hernia, Other (See Below) Other Gastrointestinal History: anal itching and pain, abdominal wall pain, black's esophagus, spleen hematoma Genitourinary History: Reports: Renal Calculus, Other (See Below) Other Genitourinary History: Urinary dribbling [employer] History: Reports: Musculoskeletal History: Reports: Arthritis, Back Pain, Chronic, Osteoarthritis, Other (See Below) Other Musculoskeletal History: Spinal Stenosis, chronic pain syndrome, lumbar facet arthropathy, myofascial pain, shoulder bursitis Neurological History: Reports: CVA, Headaches, Chronic Other Neuro History: dizziness, confusion, white matter periventricular infarction, hand tremor Psychiatric History: Reports: Addiction, Anxiety, Depression Other Psychiatric History: Nicotine dependence Endocrine/Metabolic History: Reports: Hypothyroidism Hematologic History: Reports: Anemia Immunologic History: Reports: Immunosuppression Oncologic (Cancer) History: Reports: Breast, Lung Dermatologic History: Reports: Cellulitis, Other (See Below) Other Dermatologic History: actinic keratosis - Infectious Disease History Infectious Disease History: 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 Endocrine Surgical History: Reports: None Neurological Surgical History: Reports: None Musculoskeletal Surgical History: Reports: Arthroscopic Procedure, Knee Replacement, Shoulder Surgery, Other (See Below) Other Musculoskeletal Surgeries/Procedures:: bilateral total knee replacements, toe surgery, shoulder surgery Oncologic Surgical History: Reports: Mastectomy, Other (See Below) Other Oncologic Surgeries/Procedures: Left side Dermatological Surgical History: Reports: Other (See Below) Social & Family History - Family History Family Medical History: No Pertinent Family History Cardiac: Reports: [place] - Tobacco Use Tobacco Use Status *Q: Current Every Day Tobacco User Years of Tobacco use: 40 Packs/Tins Daily: 0.4 - Caffeine Use Caffeine Use: Reports: Coffee Other Caffeine Use: 2 cups a day and pepsi - Recreational Drug Use Recreational Drug Use: No - Living Situation & Occupation Living situation: Reports: Occupation: Retired ED ROS GENERAL - Review of Systems Review Of Systems: Comprehensive ROS is negative, except as noted in HPI. Constitutional: Reports: Weakness, Decreased Appetite. Denies: Fever, Chills HEENT: Reports: No Symptoms Respiratory: Reports: Cough, Sputum ("yellow"). Denies: Shortness of Breath (no change from baseline), Hemoptysis Cardiovascular: Reports: No Symptoms Endocrine: Reports: No Symptoms GI/Abdominal: Reports: Abdominal Pain, Diarrhea (stopped 3 days ago) : Reports: No Symptoms Musculoskeletal: Reports: No Symptoms Skin: Reports: No Symptoms Neurological: Reports: No Symptoms Psychiatric: Reports: No Symptoms Hematologic/Lymphatic: Reports: No Symptoms Immunologic: Reports: No Symptoms ED EXAM, GENERAL - Physical Exam Exam: See Below Exam Limited By: No Limitations General Appearance: Alert, Mild Distress, Other (diaphoretic) Nose: Normal Inspection, Normal Mucosa, No Blood Throat/Mouth: Normal Inspection Head: Atraumatic, Normocephalic Respiratory/Chest: Crackles, Rhonchi, Wheezing Cardiovascular: Regular Rate, Rhythm, No Edema, JVD GI/Abdominal: Soft, Tender (Periumblical starting right lateral), Abnormal Bowel Sounds (Hypoactive) Back Exam: Normal Inspection Extremities: Slow Capillary Refill Neurological: Alert, Oriented, Normal Cognition, No Motor/Sensory Deficits Psychiatric: Normal Affect, Normal Mood Skin Exam: Warm, Dry, Intact Course - Re-Assessments/Exams Free Text/Narrative Re-Assessment/Exam: 04/14/21 15:25 Initial orders include CRP, CBC, CMP, COIVD/Influenza swab, Magnesium, troponin, ProBNP, UA, 2 view chest x-ray, abdominal pelvis with contrast EKG and IV insertion. 04/14/21 15:27 Departure - Departure Disposition: Admitted As Inpatient 68 Clinical Impression: Hypokalemia, Respiratory syncytial virus (RSV), Weakness Abdominal pain Qualifiers: Abdominal location: generalized Qualified Code(s): R10.84 - Generalized abdominal pain - Discharge Information <Mattie Yun - Last Filed: 04/14/21 23:11> #1 Interpretation EKG Date: 04/14/21 Time: 14:41 Rhythm: NSR Rate (Beats/Min): 77 [place]: Normal P-Wave: Present QRS: LBBB ST-T: Normal QT: Normal Course - Vital Signs Last Recorded V/S: Last Vital Signs Temp 98.2 F 04/14/21 19:49 Pulse 81 04/14/21 19:42 Resp 18 04/14/21 19:42 BP 108/42 L 04/14/21 19:42 Pulse Ox 92 L 04/14/21 19:42 - Orders/Labs/Meds Orders: Active Orders 24 hr Category Date Time Status Peripheral IV Care [RC] . DIRECTED Care 04/14/21 14:43 Active Chest 2V [CR] Stat Exams 04/14/21 14:58 Taken BLOOD CULTURE [MREF] Stat Lab 04/14/21 17:32 Received BLOOD CULTURE [MREF] Stat Lab 04/14/21 17:39 Received Potassium Chloride [KCl in Water 10 MEQ/100 ML] 10 meq Med 04/14/21 16:00 Active Premix Bag 1 bag IV Q1H Sodium Chloride 0.9% [Normal Saline] 250 ml Med 04/14/21 16:30 Active IV ASDIRECTED Sodium Chloride 0.9% [Saline Flush] Med 04/14/21 14:42 Active 10 ml FLUSH ASDIRECTED PRN Blood Culture x2 Reflex Set [OM.PC] Stat Oth 04/14/21 16:50 Ordered Isolation [COMM] Routine Oth 04/14/21 16:03 Ordered Peripheral IV Insertion Adult [OM.PC] Stat Oth 04/14/21 14:42 Ordered Medication Orders Acetaminophen (Acetaminophen 325 Mg Tab) 650 mg PO Q4H PRN PRN Reason: Pain (Mild 1-3)/fever Enoxaparin Sodium (Enoxaparin 40 Mg/0.4 Ml Syringe) 40 mg SUBCUT DAILY EDYTA Potassium Chloride 10 meq/ (Premix) 100 mls @ 100 mls/hr IV Q1H EDYTA Stop: 04/14/21 23:59 Last Infusion: 04/14/21 22:12 Dose: 70 mls/hr Documented by: Admin: 04/14/21 22:12 Dose: 100 mls/hr Documented by: Infusion: 04/14/21 20:53 Dose: 100 mls/hr Documented by: Admin: 04/14/21 19:53 Dose: 100 mls/hr Documented by: Infusion: 04/14/21 17:58 Dose: 50 mls/hr Documented by: Infusion: 04/14/21 16:30 Dose: 50 mls/hr Documented by: Admin: 04/14/21 16:14 Dose: 100 mls/hr Documented by: BORDMIN Sodium Chloride (Normal Saline) 250 mls @ 25 mls/hr IV ASDIRECTED EDYTA Last Infusion: 04/14/21 19:54 Dose: 75 mls/hr Documented by: Infusion: 04/14/21 16:40 Dose: 50 mls/hr Documented by: Admin: 04/14/21 16:33 Dose: 25 mls/hr Documented by: EVARISTODMADELAIDA Sodium Chloride (Normal Saline) 1,000 mls @ 100 mls/hr IV ASDIRECTED EDYTA Last Admin: 04/14/21 22:12 Dose: 100 mls/hr Documented by: MAXIMILIANO Sodium Chloride (Sodium Chloride 0.9% 10 Ml Syringe) 10 ml FLUSH ASDIRECTED PRN PRN Reason: Keep Vein Open Labs: Laboratory Tests 04/14/21 04/14/21 04/14/21 Range/Units 15:00 15:00 15:00 WBC 12.77 H (3.98-10.04) K/mm3 RBC 4.31 (3.98-5.22) M/mm3 Hgb 13.3 D (11.2-15.7) gm/dl Hct 39.4 (34.1-44.9) % MCV 91.4 D (79.4-94.8) fl MCH 30.9 (25.6-32.2) pg MCHC 33.8 (32.2-35.5) g/dl RDW Std Deviation 48.9 H (36.4-46.3) fL Plt Count 229 (182-369) K/mm3 MPV 10.9 (9.4-12.3) fl Neut % (Auto) 84.4 H (34.0-71.1) % Lymph % (Auto) 7.6 L (19.3-51.7) % [place] % (Auto) 7.4 (4.7-12.5) % Eos % (Auto) 0.1 L (0.7-5.8) Baso % (Auto) 0.2 (0.1-1.2) % Neut # (Auto) 10.78 H (1.56-6.13) K/mm3 Lymph # (Auto) 0.97 L (1.18-3.74) K/mm3 [place] # (Auto) 0.95 H (0.24-0.36) K/mm3 Eos # (Auto) 0.01 L (0.04-0.36) K/mm3 Baso # (Auto) 0.02 (0.01-0.08) K/mm3 Sodium 138 (136-145) mEq/L Potassium 2.2 L* (3.5-5.1) mEq/L Chloride 98 D (98-107) mEq/L Carbon Dioxide 31 (21-32) mEq/L Anion Gap 11.2 (5-15) BUN 19 H (7-18) mg/dL Creatinine 0.9 (0.55-1.02) mg/dL Est Cr Clr Drug Dosing 44.49 mL/min Estimated GFR (MDRD) > 60 (>60) mL/min BUN/Creatinine Ratio 21.1 H (14-18) Glucose 115 H (70-99) mg/dL Lactic Acid (0.4-2.0) mmol/L Calcium 8.2 L (8.5-10.1) mg/dL Magnesium (1.8-2.4) mg/dL Total Bilirubin 0.9 (0.2-1.0) mg/dL AST 34 (15-37) U/L ALT 24 (14-59) U/L Alkaline Phosphatase 47 (46-116) U/L Troponin I < 0.017 (0.00-0.056) ng/mL C-Reactive Protein 13.6 H* (<1.0) mg/dL NT-Pro-B Natriuret Pep 859 H (0-450) pg/mL Total Protein 7.7 (6.4-8.2) g/dl Albumin 3.3 L (3.4-5.0) g/dl Globulin 4.4 gm/dL Albumin/Globulin Ratio 0.8 L (1-2) Urine Color (Yellow) Urine Appearance (Clear) Urine pH (5.0-8.0) Ur Specific [place] (1.005-1.030) Urine Protein (Negative) Urine Glucose (UA) (Negative) Urine Ketones (Negative) Urine Occult Blood (Negative) Urine Nitrite (Negative) Urine Bilirubin (Negative) Urine Urobilinogen (0.2-1.0) Ur Leukocyte Esterase (Negative) Urine RBC (0-5) /hpf Urine WBC (0-5) /hpf Ur Squamous Epith Cells (0-5) /hpf Urine Bacteria (FEW) /hpf Urine Mucus (FEW) /hpf Influenza Type A RNA (NEGATIVE) RSV RNA (INAAT) (NEGATIVE) Influenza Type B RNA (NEGATIVE) SARS-CoV-2 RNA (TERESA) (NEGATIVE) 04/14/21 04/14/21 04/14/21 Range/Units 15:00 15:16 15:16 WBC (3.98-10.04) K/mm3 RBC (3.98-5.22) M/mm3 Hgb (11.2-15.7) gm/dl Hct (34.1-44.9) % MCV (79.4-94.8) fl MCH (25.6-32.2) pg MCHC (32.2-35.5) g/dl RDW Std Deviation (36.4-46.3) fL Plt Count (182-369) K/mm3 MPV (9.4-12.3) fl Neut % (Auto) (34.0-71.1) % Lymph % (Auto) (19.3-51.7) % [place] % (Auto) (4.7-12.5) % Eos % (Auto) (0.7-5.8) Baso % (Auto) (0.1-1.2) % Neut # (Auto) (1.56-6.13) K/mm3 Lymph # (Auto) (1.18-3.74) K/mm3 [place] # (Auto) (0.24-0.36) K/mm3 Eos # (Auto) (0.04-0.36) K/mm3 Baso # (Auto) (0.01-0.08) K/mm3 Sodium (136-145) mEq/L Potassium (3.5-5.1) mEq/L Chloride (98-107) mEq/L Carbon Dioxide (21-32) mEq/L Anion Gap (5-15) BUN (7-18) mg/dL Creatinine (0.55-1.02) mg/dL Est Cr Clr Drug Dosing mL/min Estimated GFR (MDRD) (>60) mL/min BUN/Creatinine Ratio (14-18) Glucose (70-99) mg/dL Lactic Acid (0.4-2.0) mmol/L Calcium (8.5-10.1) mg/dL Magnesium 1.9 (1.8-2.4) mg/dL Total Bilirubin (0.2-1.0) mg/dL AST (15-37) U/L ALT (14-59) U/L Alkaline Phosphatase (46-116) U/L Troponin I (0.00-0.056) ng/mL C-Reactive Protein (<1.0) mg/dL NT-Pro-B Natriuret Pep (0-450) pg/mL Total Protein (6.4-8.2) g/dl Albumin (3.4-5.0) g/dl Globulin gm/dL Albumin/Globulin Ratio (1-2) Urine Color (Yellow) Urine Appearance (Clear) Urine pH (5.0-8.0) Ur Specific [place] (1.005-1.030) Urine Protein (Negative) Urine Glucose (UA) (Negative) Urine Ketones (Negative) Urine Occult Blood (Negative) Urine Nitrite (Negative) Urine Bilirubin (Negative) Urine Urobilinogen (0.2-1.0) Ur Leukocyte Esterase (Negative) Urine RBC (0-5) /hpf Urine WBC (0-5) /hpf Ur Squamous Epith Cells (0-5) /hpf Urine Bacteria (FEW) /hpf Urine Mucus (FEW) /hpf Influenza Type A RNA Negative (NEGATIVE) RSV RNA (INAAT) Positive H (NEGATIVE) Influenza Type B RNA Negative (NEGATIVE) SARS-CoV-2 RNA (TERESA) Negative (NEGATIVE) 04/14/21 04/14/21 Range/Units 15:30 17:32 WBC (3.98-10.04) K/mm3 RBC (3.98-5.22) M/mm3 Hgb (11.2-15.7) gm/dl Hct (34.1-44.9) % MCV (79.4-94.8) fl MCH (25.6-32.2) pg MCHC (32.2-35.5) g/dl RDW Std Deviation (36.4-46.3) fL Plt Count (182-369) K/mm3 MPV (9.4-12.3) fl Neut % (Auto) (34.0-71.1) % Lymph % (Auto) (19.3-51.7) % [place] % (Auto) (4.7-12.5) % Eos % (Auto) (0.7-5.8) Baso % (Auto) (0.1-1.2) % Neut # (Auto) (1.56-6.13) K/mm3 Lymph # (Auto) (1.18-3.74) K/mm3 [place] # (Auto) (0.24-0.36) K/mm3 Eos # (Auto) (0.04-0.36) K/mm3 Baso # (Auto) (0.01-0.08) K/mm3 Sodium (136-145) mEq/L Potassium (3.5-5.1) mEq/L Chloride (98-107) mEq/L Carbon Dioxide (21-32) mEq/L Anion Gap (5-15) BUN (7-18) mg/dL Creatinine (0.55-1.02) mg/dL Est Cr Clr Drug Dosing mL/min Estimated GFR (MDRD) (>60) mL/min BUN/Creatinine Ratio (14-18) Glucose (70-99) mg/dL Lactic Acid 0.7 (0.4-2.0) mmol/L Calcium (8.5-10.1) mg/dL Magnesium (1.8-2.4) mg/dL Total Bilirubin (0.2-1.0) mg/dL AST (15-37) U/L ALT (14-59) U/L Alkaline Phosphatase (46-116) U/L Troponin I (0.00-0.056) ng/mL C-Reactive Protein (<1.0) mg/dL NT-Pro-B Natriuret Pep (0-450) pg/mL Total Protein (6.4-8.2) g/dl Albumin (3.4-5.0) g/dl Globulin gm/dL Albumin/Globulin Ratio (1-2) Urine Color Yellow (Yellow) Urine Appearance Clear (Clear) Urine pH 6.0 (5.0-8.0) Ur Specific [place] 1.025 (1.005-1.030) Urine Protein 1+ H (Negative) Urine Glucose (UA) Negative (Negative) Urine Ketones Negative (Negative) Urine Occult Blood 1+ H (Negative) Urine Nitrite Negative (Negative) Urine Bilirubin Negative (Negative) Urine Urobilinogen 0.2 (0.2-1.0) Ur Leukocyte Esterase Negative (Negative) Urine RBC 5-10 H (0-5) /hpf Urine WBC 0-5 (0-5) /hpf Ur Squamous Epith Cells 0-5 (0-5) /hpf Urine Bacteria Few (FEW) /hpf Urine Mucus Few (FEW) /hpf Influenza Type A RNA (NEGATIVE) RSV RNA (INAAT) (NEGATIVE) Influenza Type B RNA (NEGATIVE) SARS-CoV-2 RNA (TERESA) (NEGATIVE) Meds: Medications Generic Name Dose Route Start Last Admin Trade Name Freq PRN Reason Stop Dose Admin Acetaminophen 650 mg 04/14/21 19:48 Acetaminophen 325 Mg Tab PO Q4H PRN Pain (Mild 1-3)/fever Enoxaparin Sodium 40 mg 04/15/21 09:00 Enoxaparin 40 Mg/0.4 Ml Syringe SUBCUT DAILY EDYTA Potassium Chloride 10 meq/ 100 mls @ 100 mls/hr 04/14/21 16:00 04/14/21 22:12 Premix IV 04/14/21 23:59 70 mls/hr Q1H EDYTA Infusion Sodium Chloride 250 mls @ 25 mls/hr 04/14/21 16:30 04/14/21 19:54 Normal Saline IV 75 mls/hr ASDIRECTED EDYTA Infusion Sodium Chloride 1,000 mls @ 100 mls/hr 04/14/21 22:00 04/14/21 22:12 Normal Saline IV 100 mls/hr ASDIRECTED EDYTA Administration Sodium Chloride 10 ml 04/14/21 14:42 Sodium Chloride 0.9% 10 Ml Syringe FLUSH ASDIRECTED PRN Keep Vein Open Discontinued Medications Generic Name Dose Route Start Last Admin Trade Name Dusty PRN Reason Stop Dose Admin Sodium Chloride Confirm 04/14/21 16:25 04/14/21 16:36 Normal Saline Advbag Administered 04/14/21 16:26 Not Given Dose 250 mls @ as directed .ROUTE .STK-MED ONE Iopamidol 100 ml 04/14/21 15:23 04/14/21 16:02 Iopamidol 612 Mg/Ml 100 Ml Bottle IVPUSH 04/14/21 15:24 100 ml ONETIME ONE Administration Potassium Chloride 40 meq 04/14/21 15:48 04/14/21 16:14 Potassium Chloride 20 Meq Tab.Er PO 04/14/21 15:49 40 meq ONETIME ONE Administration - Re-Assessments/Exams Free Text/Narrative Re-Assessment/Exam: I have examined the patient and agree with the HPI and examination as documented by GAVINO [place] student. Patient reports 2-week history of cough as well as nausea vomiting diarrhea 3 days ago which have since resolved. She is having increased weakness and falls over the last few days with 3 falls in the last 24 hours. On exam, she does have fine crackles to bilateral bases and scattered rhonchi with occasional expiratory wheezes posteriorly. She also has abdominal tenderness which she states is worse with coughing. We will order blood work, Covid influenza testing, urinalysis, chest x-ray, and CT scan of the abdomen pelvis with IV and oral contrast. 04/14/21 1550 Hematology significant for WBC slightly elevated at 12.77, potassium low at 2.2, CRP 13.6, proBNP 859. Urine is negative for infection. Covid and influenza testing were negative. Although RSV was not ordered initially, lab suggested that this be ordered as it is automatically ran with the Covid influenza ended, positive. I added on the RSV for documentation of positive results. Chest x- ray shows nothing acute. Results of CT scan are pending. I have ordered 40 mEq oral potassium of 8K riders to be given. 04/14/[address] the abdomen pelvis shows constipation with no other acute abnormalities. Case discussed with hospitalist, Dr. Aguilar. He will admit the patient for hypokalemia. Patient updated and is in agreement with this plan. Departure - Departure Time of Disposition: 18:03 Condition: Good Sepsis Event Note (ED) - Focused Exam Vital Signs: Vital Signs Temp Pulse Resp BP Pulse Ox 04/14/21 17:00 83 16 96/45 L 92 L 04/14/21 16:30 68 21 H 104/47 L 92 L 04/14/21 15:30 74 21 H 105/43 L 93 L 04/14/21 14:25 97.2 F 77 20 99/69 90 L - My Orders Last 24 Hours: My Active Orders 04/14/21 14:42 Sodium Chloride 0.9% [Saline Flush] 10 ml FLUSH ASDIRECTED PRN Peripheral IV Insertion Adult [OM.PC] Stat 04/14/21 14:43 Peripheral IV Care [RC] . DIRECTED 04/14/21 14:58 Chest 2V [CR] Stat 04/14/21 16:00 Potassium Chloride [KCl in Water 10 MEQ/100 ML] 10 meq Premix Bag 1 bag IV Q1H 04/14/21 16:03 Isolation [COMM] Routine 04/14/21 16:30 Sodium Chloride 0.9% [Normal Saline] 250 ml IV ASDIRECTED 04/14/21 16:50 Blood Culture x2 Reflex Set [OM.PC] Stat 04/14/21 17:32 BLOOD CULTURE [MREF] Stat 04/14/21 17:39 BLOOD CULTURE [MREF] Stat - Assessment/Plan Last 24 Hours: My Active Orders 04/14/21 14:42 Sodium Chloride 0.9% [Saline Flush] 10 ml FLUSH ASDIRECTED PRN Peripheral IV Insertion Adult [OM.PC] Stat 04/14/21 14:43 Peripheral IV Care [RC] . DIRECTED 04/14/21 14:58 Chest 2V [CR] Stat 04/14/21 16:00 Potassium Chloride [KCl in Water 10 MEQ/100 ML] 10 meq Premix Bag 1 bag IV Q1H 04/14/21 16:03 Isolation [COMM] Routine 04/14/21 16:30 Sodium Chloride 0.9% [Normal Saline] 250 ml IV ASDIRECTED 04/14/21 16:50 Blood Culture x2 Reflex Set [OM.PC] Stat 04/14/21 17:32 BLOOD CULTURE [MREF] Stat 04/14/21 17:39 BLOOD CULTURE [MREF] Stat
[2021-04-14] MEDS ORDERED: Iopamidol 612 MG/ML 100 ML Bottle IVPUSH ONE (15:23)
[2021-04-14] MEDS ORDERED: Potassium Chloride 20 MEQ Tab.ER PO ONE (15:48)
[2021-04-14 15:57] LABS: CORONAVIRUS COVID-19 NAA NEGATIVE (NEGATIVE)
[2021-04-14] MEDS: Potassium Chloride 10 MEQ in Premix Bag 1 BAG IV SCH ×4 (16:14→23:27)
[2021-04-14] MEDS ORDERED: Sodium Chloride 0.9% 250 ML ONE (16:25)
[2021-04-14] MEDS ORDERED: Sodium Chloride 0.9% 250 ML IV SCH (16:30)
--- NOTE | 2021-04-14 16:48 | CT ---
EXAM: CT ABDOMEN PELVIS WITH CONTRAST LOCATION: [facility] DATE/TIME: 04/14/2021 3:57 PM INDICATION: Pain. COMPARISON: None. TECHNIQUE: CT scan of the abdomen and pelvis was performed following injection of IV contrast. Multiplanar reformats were obtained. Dose reduction techniques were used. CONTRAST: 100 mL Isovue 300. FINDINGS: LOWER CHEST: Elevation of the right hemidiaphragm. Right lower chest wall deformity. Coronary artery calcification. HEPATOBILIARY: Cholecystectomy. PANCREAS: Normal. SPLEEN: Normal. ADRENAL GLANDS: Normal. KIDNEYS/BLADDER: Large simple parapelvic cyst right kidney. No follow-up is needed. BOWEL: No appendicitis. Constipation. LYMPH NODES: Normal. VASCULATURE: Retroperitoneal surgical clips. PELVIC ORGANS: Hysterectomy. MUSCULOSKELETAL: Scoliosis with lumbar degenerative change. IMPRESSION: 1. Constipation. 2. Cholecystectomy and hysterectomy. Postsurgical changes in the retroperitoneum with multiple surgical clips. 3. Simple parapelvic cyst right kidney. No follow-up is needed. 4. Scoliosis with lumbar degenerative change. SIGNED BY: Popeye Bedolla MD 04/14/2021 5:41 PM BONY
--- NOTE | 2021-04-14 19:47 | PCM.HP.2 ---
H&P History of Present Illness - General Date of Service: 04/14/21 Admit Problem/Dx: Admission Diagnosis/Problem Admission Diagnosis/Problem Hypokalemia Source of Information: Patient, Other (ED provider) - History of Present Illness Initial Comments - Free Text/Narative: 80-year-old female brought to the emergency department secondary to weakness and 3 falls in the last 24 hours. Patient states that her legs just did not feel like they worked. She did not have any injury and did not hit her head or lose consciousness. She states that over the last couple of weeks she has had runny nose and mild congestion. She has had a bit of a cough and spitting up yellow sputum. In the emergency department she was found to be RSV positive and have a potassium of 2.2. She was given 40 mEq of p.o. potassium and started on KCl IV riders. Unfortunately they did burn and he was taking 2 hours to get 10 mEq of KCl administered. A total of 80 mEq IV was ordered. Apparently initially she had some significant abdominal pain and a CT of her abdomen showed constipation. She just told me that she has had bowel movements and is no longer constipated. Back Pain Score (Numeric/FACES): 10 Left Abdomen Pain Score (Numeric/FACES): 7 - Related Data Allergies/Adverse Reactions: Allergies Allergy/AdvReac Type Severity Reaction Status Date / Time codeine AdvReac Mild Nausea/Vomi Verified 03/22/21 17:09 ting Home Medications: Home Meds Levothyroxine 25 mcg PO ACBREAKFAST 09/10/15 [History] atorvaSTATin [Lipitor] 40 mg PO BEDTIME 09/10/15 [History] Oxybutynin [Oxybutynin ER] 10 mg PO DAILY 03/04/17 [History] Sertraline HCl 75 mg PO DAILY 03/04/17 [History] Metoprolol Succinate [Toprol XL] 25 mg PO DAILY 03/07/17 [History] Potassium Chloride [Klor-Con Sprinkle] 10 meq PO BID 11/04/17 [History] Cholecalciferol (Vitamin D3) [Vitamin D3] 2,000 unit PO DAILY 10/29/19 [History] Fluticasone/Vilanterol [Breo Ellipta 100-25 MCG Inhalation Kit] 1 puff INH DAILY 10/29/19 [History] Hydrocodone/Acetaminophen [HYDROcodone-Acetaminophen 10-325 MG] 1 tab PO Q6HR PRN 10/29/19 [History] Isosorbide Mononitrate [Isosorbide Mononitrate ER] 60 mg PO DAILY 10/29/19 [H istory] Naloxone HCl [Narcan] 4 mg FAYE ASDIRECTED PRN 10/29/19 [History] Nitroglycerin 0.4 mg PO ASDIRECTED PRN 10/29/19 [History] Albuterol Sulfate [Albuterol Sulfate Hfa] 2 puff INH TID PRN 02/26/20 [History] Aspirin 81 mg PO DAILY 02/26/20 [History] Sennosides [Senna Lax] 17.2 mg PO BEDTIME PRN 02/26/20 [History] Travoprost [Travatan Z] 1 drop EYEBOTH DAILY 02/26/20 [History] hydroCHLOROthiazide [Hydrochlorothiazide] 25 mg PO DAILY 02/26/20 [History] Cholestyramine (With Sugar) [Questran Powder] 1 dose PO QAM 10/07/20 [History] Esomeprazole Magnesium [Nexium] 40 mg PO DAILY 10/07/20 [History] Famotidine [Pepcid] 10 mg PO BEDTIME 10/07/20 [History] Pregabalin [Lyrica] 150 mg PO BID 10/07/20 [History] Timolol [Betimol 0.25% O/S 5 ML] 1 drop EYEBOTH DAILY 10/07/20 [History] ondansetron HCL [Zofran] 4 mg PO TID PRN 10/07/20 [History] polyethylene glycoL 3350 [MiraLAX] 1 dose PO DAILY PRN 10/07/20 [History] Past Medical History HEENT History: Reports: Cataract, Glaucoma, Macular Degeneration, Other (See Below) Other HEENT History: dentures, glasses Cardiovascular History: Reports: Heart Murmur, High Cholesterol, Hypertension, Other (See Below) Other Cardiovascular History: palpitations, precordial pain, chest pain, aortic regurgitation Respiratory History: Reports: Asthma, COPD, TB Other Respiratory History: 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: Musculoskeletal History: Reports: Arthritis, Back Pain, Chronic, Osteoarthritis, Other (See Below) Other Musculoskeletal History: Spinal Stenosis, chronic pain syndrome, lumbar facet arthropathy, myofascial pain, shoulder bursitis Neurological History: Reports: CVA, Headaches, Chronic Other Neuro History: dizziness, confusion, white matter periventricular infarction, hand tremor Psychiatric History: Reports: Addiction, Anxiety, Depression Other Psychiatric History: Nicotine dependence Endocrine/Metabolic History: Reports: Hypothyroidism Hematologic History: Reports: Anemia Immunologic History: Reports: Immunosuppression Oncologic (Cancer) History: Reports: Breast, Lung Dermatologic History: Reports: Cellulitis, Other (See Below) Other Dermatologic History: actinic keratosis - Infectious Disease History Infectious Disease History: 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 Endocrine Surgical History: Reports: None Neurological Surgical History: Reports: None Musculoskeletal Surgical History: Reports: Arthroscopic Procedure, Knee Replacement, Shoulder Surgery, Other (See Below) Other Musculoskeletal Surgeries/Procedures:: bilateral total knee replacements, toe surgery, shoulder surgery Oncologic Surgical History: Reports: Mastectomy, Other (See Below) Other Oncologic Surgeries/Procedures: Left side Dermatological Surgical History: Reports: Other (See Below) Social & Family History - Family History Family Medical History: No Pertinent Family History Cardiac: Reports: NE - Tobacco Use Tobacco Use Status *Q: Current Every Day Tobacco User Years of Tobacco use: 40 Packs/Tins Daily: 0.4 - Caffeine Use Caffeine Use: Reports: Coffee Other Caffeine Use: 2 cups a day and pepsi - Recreational Drug Use Recreational Drug Use: No - Living Situation & Occupation Living situation: Reports: Occupation: Retired H&P Review of Systems - Review of Systems: Review Of Systems: Comprehensive ROS is negative, except as noted in HPI. Exam - Exam Exam: See Below - Vital Signs Vital Signs: Last Vital Signs Temp 97.2 F 01/04/22 14:25 Pulse 83 04/14/21 19:32 Resp 20 04/14/21 19:32 BP 96/45 L 04/14/21 19:32 Pulse Ox 92 L 04/14/21 19:32 Weight: 136 lb 2 oz - Exam General: Alert, Oriented HEENT: Conjunctiva Clear, EACs Clear, EOMI, Hearing Intact, Mucosa Moist & [place] Neck: Supple, Trachea Midline, 2 Lungs: Clear to Auscultation, Normal Respiratory Effort Cardiovascular: Regular Rate, Regular Rhythm GI/Abdominal Exam: Normal Bowel Sounds, Soft, Non-Tender, No Organomegaly, No Distention, No Abnormal Bruit, No Mass Extremities: Normal Inspection, Normal Range of Motion, Non-Tender, No Pedal Edema, Normal Capillary Refill Skin: Warm, Dry, Intact Neuro Extensive - Mental Status: Alert, Oriented x3, Normal Mood/Affect, Normal Cognition, Memory Intact Neuro Extensive - Motor, Sensory, Reflexes: CN II-XII Intact Psychiatric: Alert, Normal Affect, Normal Mood - Patient Data Lab Results Last 24 hrs: Laboratory Results - last 24 hr 04/14/21 04/14/21 04/14/21 Range/Units 15:00 15:00 15:00 WBC 12.77 H (3.98-10.04) K/mm3 RBC 4.31 (3.98-5.22) M/mm3 Hgb 13.3 D (11.2-15.7) gm/dl Hct 39.4 (34.1-44.9) % MCV 91.4 D (79.4-94.8) fl MCH 30.9 (25.6-32.2) pg MCHC 33.8 (32.2-35.5) g/dl RDW Std Deviation 48.9 H (36.4-46.3) fL Plt Count 229 (182-369) K/mm3 MPV 10.9 (9.4-12.3) fl Neut % (Auto) 84.4 H (34.0-71.1) % Lymph % (Auto) 7.6 L (19.3-51.7) % [facility] % (Auto) 7.4 (4.7-12.5) % Eos % (Auto) 0.1 L (0.7-5.8) Baso % (Auto) 0.2 (0.1-1.2) % Neut # (Auto) 10.78 H (1.56-6.13) K/mm3 Lymph # (Auto) 0.97 L (1.18-3.74) K/mm3 [facility] # (Auto) 0.95 H (0.24-0.36) K/mm3 Eos # (Auto) 0.01 L (0.04-0.36) K/mm3 Baso # (Auto) 0.02 (0.01-0.08) K/mm3 Sodium 138 (136-145) mEq/L Potassium 2.2 L* (3.5-5.1) mEq/L Chloride 98 D (98-107) mEq/L Carbon Dioxide 31 (21-32) mEq/L Anion Gap 11.2 (5-15) BUN 19 H (7-18) mg/dL Creatinine 0.9 (0.55-1.02) mg/dL Est Cr Clr Drug Dosing 44.49 mL/min Estimated GFR (MDRD) > 60 (>60) mL/min BUN/Creatinine Ratio 21.1 H (14-18) Glucose 115 H (70-99) mg/dL Lactic Acid (0.4-2.0) mmol/L Calcium 8.2 L (8.5-10.1) mg/dL Magnesium (1.8-2.4) mg/dL Total Bilirubin 0.9 (0.2-1.0) mg/dL AST 34 (15-37) U/L ALT 24 (14-59) U/L Alkaline Phosphatase 47 (46-116) U/L Troponin I < 0.017 (0.00-0.056) ng/mL C-Reactive Protein 13.6 H* (<1.0) mg/dL NT-Pro-B Natriuret Pep 859 H (0-450) pg/mL Total Protein 7.7 (6.4-8.2) g/dl Albumin 3.3 L (3.4-5.0) g/dl Globulin 4.4 gm/dL Albumin/Globulin Ratio 0.8 L (1-2) Urine Color (Yellow) Urine Appearance (Clear) Urine pH (5.0-8.0) Ur Specific [place] (1.005-1.030) Urine Protein (Negative) Urine Glucose (UA) (Negative) Urine Ketones (Negative) Urine Occult Blood (Negative) Urine Nitrite (Negative) Urine Bilirubin (Negative) Urine Urobilinogen (0.2-1.0) Ur Leukocyte Esterase (Negative) Urine RBC (0-5) /hpf Urine WBC (0-5) /hpf Ur Squamous Epith Cells (0-5) /hpf Urine Bacteria (FEW) /hpf Urine Mucus (FEW) /hpf Influenza Type A RNA (NEGATIVE) RSV RNA (INAAT) (NEGATIVE) Influenza Type B RNA (NEGATIVE) SARS-CoV-2 RNA (TERESA) (NEGATIVE) 04/14/21 04/14/21 04/14/21 Range/Units 15:00 15:16 15:16 WBC (3.98-10.04) K/mm3 RBC (3.98-5.22) M/mm3 Hgb (11.2-15.7) gm/dl Hct (34.1-44.9) % MCV (79.4-94.8) fl MCH (25.6-32.2) pg MCHC (32.2-35.5) g/dl RDW Std Deviation (36.4-46.3) fL Plt Count (182-369) K/mm3 MPV (9.4-12.3) fl Neut % (Auto) (34.0-71.1) % Lymph % (Auto) (19.3-51.7) % [facility] % (Auto) (4.7-12.5) % Eos % (Auto) (0.7-5.8) Baso % (Auto) (0.1-1.2) % Neut # (Auto) (1.56-6.13) K/mm3 Lymph # (Auto) (1.18-3.74) K/mm3 [facility] # (Auto) (0.24-0.36) K/mm3 Eos # (Auto) (0.04-0.36) K/mm3 Baso # (Auto) (0.01-0.08) K/mm3 Sodium (136-145) mEq/L Potassium (3.5-5.1) mEq/L Chloride (98-107) mEq/L Carbon Dioxide (21-32) mEq/L Anion Gap (5-15) BUN (7-18) mg/dL Creatinine (0.55-1.02) mg/dL Est Cr Clr Drug Dosing mL/min Estimated GFR (MDRD) (>60) mL/min BUN/Creatinine Ratio (14-18) Glucose (70-99) mg/dL Lactic Acid (0.4-2.0) mmol/L Calcium (8.5-10.1) mg/dL Magnesium 1.9 (1.8-2.4) mg/dL Total Bilirubin (0.2-1.0) mg/dL AST (15-37) U/L ALT (14-59) U/L Alkaline Phosphatase (46-116) U/L Troponin I (0.00-0.056) ng/mL C-Reactive Protein (<1.0) mg/dL NT-Pro-B Natriuret Pep (0-450) pg/mL Total Protein (6.4-8.2) g/dl Albumin (3.4-5.0) g/dl Globulin gm/dL Albumin/Globulin Ratio (1-2) Urine Color (Yellow) Urine Appearance (Clear) Urine pH (5.0-8.0) Ur Specific [place] (1.005-1.030) Urine Protein (Negative) Urine Glucose (UA) (Negative) Urine Ketones (Negative) Urine Occult Blood (Negative) Urine Nitrite (Negative) Urine Bilirubin (Negative) Urine Urobilinogen (0.2-1.0) Ur Leukocyte Esterase (Negative) Urine RBC (0-5) /hpf Urine WBC (0-5) /hpf Ur Squamous Epith Cells (0-5) /hpf Urine Bacteria (FEW) /hpf Urine Mucus (FEW) /hpf Influenza Type A RNA Negative (NEGATIVE) RSV RNA (INAAT) Positive H (NEGATIVE) Influenza Type B RNA Negative (NEGATIVE) SARS-CoV-2 RNA (TERESA) Negative (NEGATIVE) 04/14/21 04/14/21 Range/Units 15:30 17:32 WBC (3.98-10.04) K/mm3 RBC (3.98-5.22) M/mm3 Hgb (11.2-15.7) gm/dl Hct (34.1-44.9) % MCV (79.4-94.8) fl MCH (25.6-32.2) pg MCHC (32.2-35.5) g/dl RDW Std Deviation (36.4-46.3) fL Plt Count (182-369) K/mm3 MPV (9.4-12.3) fl Neut % (Auto) (34.0-71.1) % Lymph % (Auto) (19.3-51.7) % [facility] % (Auto) (4.7-12.5) % Eos % (Auto) (0.7-5.8) Baso % (Auto) (0.1-1.2) % Neut # (Auto) (1.56-6.13) K/mm3 Lymph # (Auto) (1.18-3.74) K/mm3 [facility] # (Auto) (0.24-0.36) K/mm3 Eos # (Auto) (0.04-0.36) K/mm3 Baso # (Auto) (0.01-0.08) K/mm3 Sodium (136-145) mEq/L Potassium (3.5-5.1) mEq/L Chloride (98-107) mEq/L Carbon Dioxide (21-32) mEq/L Anion Gap (5-15) BUN (7-18) mg/dL Creatinine (0.55-1.02) mg/dL Est Cr Clr Drug Dosing mL/min Estimated GFR (MDRD) (>60) mL/min BUN/Creatinine Ratio (14-18) Glucose (70-99) mg/dL Lactic Acid 0.7 (0.4-2.0) mmol/L Calcium (8.5-10.1) mg/dL Magnesium (1.8-2.4) mg/dL Total Bilirubin (0.2-1.0) mg/dL AST (15-37) U/L ALT (14-59) U/L Alkaline Phosphatase (46-116) U/L Troponin I (0.00-0.056) ng/mL C-Reactive Protein (<1.0) mg/dL NT-Pro-B Natriuret Pep (0-450) pg/mL Total Protein (6.4-8.2) g/dl Albumin (3.4-5.0) g/dl Globulin gm/dL Albumin/Globulin Ratio (1-2) Urine Color Yellow (Yellow) Urine Appearance Clear (Clear) Urine pH 6.0 (5.0-8.0) Ur Specific [place] 1.025 (1.005-1.030) Urine Protein 1+ H (Negative) Urine Glucose (UA) Negative (Negative) Urine Ketones Negative (Negative) Urine Occult Blood 1+ H (Negative) Urine Nitrite Negative (Negative) Urine Bilirubin Negative (Negative) Urine Urobilinogen 0.2 (0.2-1.0) Ur Leukocyte Esterase Negative (Negative) Urine RBC 5-10 H (0-5) /hpf Urine WBC 0-5 (0-5) /hpf Ur Squamous Epith Cells 0-5 (0-5) /hpf Urine Bacteria Few (FEW) /hpf Urine Mucus Few (FEW) /hpf Influenza Type A RNA (NEGATIVE) RSV RNA (INAAT) (NEGATIVE) Influenza Type B RNA (NEGATIVE) SARS-CoV-2 RNA (TERESA) (NEGATIVE) Result Diagrams: 04/14/21 15:00 04/14/21 15:00 Sepsis Event Note - Focused Exam Vital Signs: Vital Signs Temp Pulse Resp BP Pulse Ox 04/14/21 19:32 83 20 96/45 L 92 L 04/14/21 17:00 83 16 96/45 L 92 L 04/14/21 16:30 68 21 H 104/47 L 92 L 04/14/21 15:30 74 21 H 105/43 L 93 L 04/14/21 14:25 97.2 F 77 20 99/69 90 L - Problem List (1) Abdominal pain SNOMED Code(s): 18412044 ICD Code: R10.9 - UNSPECIFIED ABDOMINAL PAIN Status: Acute Priority: High Current Visit: Yes Qualifiers: Abdominal location: generalized Qualified Code(s): R10.84 - Generalized abdominal pain (2) Hypokalemia SNOMED Code(s): 43918236 ICD Code: E87.6 - HYPOKALEMIA Status: Acute Current Visit: Yes (3) Respiratory syncytial virus (RSV) SNOMED Code(s): 60151867 ICD Code: B97.4 - RESPIRATORY SYNCYTIAL VIRUS CAUSING DISEASES CLASSD ELSWHR Status: Acute Current Visit: Yes (4) Weakness SNOMED Code(s): 64691916 ICD Code: R53.1 - WEAKNESS Status: Acute Current Visit: Yes Problem List Initiated/Reviewed/Updated: Yes Orders Last 24hrs: Active Orders 24 hr Category Date Time Status Patient Status [ADT] Routine ADT 04/14/21 18:26 Active Peripheral IV Care [RC] . DIRECTED Care 04/14/21 14:43 Active Chest 2V [CR] Stat Exams 04/14/21 14:58 Taken BLOOD CULTURE [MREF] Stat Lab 04/14/21 17:32 Received BLOOD CULTURE [MREF] Stat Lab 04/14/21 17:39 Received Potassium Chloride [KCl in Water 10 MEQ/100 ML] 10 meq Med 04/14/21 16:00 Active Premix Bag 1 bag IV Q1H Sodium Chloride 0.9% [Normal Saline] 250 ml Med 04/14/21 16:30 Active IV ASDIRECTED Sodium Chloride 0.9% [Saline Flush] Med 04/14/21 14:42 Active 10 ml FLUSH ASDIRECTED PRN Blood Culture x2 Reflex Set [OM.PC] Stat Oth 04/14/21 16:50 Ordered Isolation [COMM] Routine Oth 04/14/21 16:03 Ordered Peripheral IV Insertion Adult [OM.PC] Stat Oth 04/14/21 14:42 Ordered Medication Orders Potassium Chloride 10 meq/ (Premix) 100 mls @ 100 mls/hr IV Q1H EDYTA Stop: 04/14/21 23:59 Last Infusion: 04/14/21 16:30 Dose: 50 mls/hr Documented by: Admin: 04/14/21 16:14 Dose: 100 mls/hr Documented by: HAILEY Sodium Chloride (Normal Saline) 250 mls @ 25 mls/hr IV ASDIRECTED EDYTA Last Infusion: 04/14/21 16:40 Dose: 50 mls/hr Documented by: Admin: 04/14/21 16:33 Dose: 25 mls/hr Documented by: HAILEY Sodium Chloride (Sodium Chloride 0.9% 10 Ml Syringe) 10 ml FLUSH ASDIRECTED PRN PRN Reason: Keep Vein Open Assessment/Plan Comment:: 80-year-old female who was started on Lasix a couple of weeks ago presented to the emergency department with weakness, falls x3, upper respiratory tract infection, and hypokalemia. Hypokalemia Weakness Falls * Potassium in the emergency department was 2.2. * Review of her labs shows that she has fairly chronic hypokalemia. Potassium drawn at our institution since March 2017 have all been low. Most recent was on March 22, 2021 at 3.0. * Loss of potassium likely both from diarrhea and from Lasix. * Given potassium chloride 40 mEq p.o. and 10 mEq IV in the emergency department. * ED ordered another 70 mEq to be given IV. * Hypokalemia likely because of her increasing weakness and falls. RSV upper respiratory tract infection * Complains of a runny nose for the last 2 weeks * No hypoxemia * 1 sick contact * Mildly elevated WBC at 12 * CRP elevated at 13.6 * Covid and influenza negative Elevated proBNP Possible CHF * proBNP 859 Plan * Refer for observation * Droplet isolation * Placed on telemetry * Hold Lasix * Finish the 80 mEq IV potassium * Recheck in the morning and consider adding another oral dose of potassium * Get echocardiogram * Reconcile home medications. Patient has a long history of hypokalemia and I do not see a clear indication from the charts we have for diuretics. Patient could have CHF per her mildly elevated proBNP. * Symptomatic respiratory care. VTE prophylaxis with Lovenox CODE STATUS: DNR/DNI Initial order for inpatient status was placed in error. Patient should be observation. - Mortality Measure Prognosis:: Good
[2021-04-14] MEDS ORDERED: Acetaminophen 325 MG Tab PO PRN (19:48)
[2021-04-14] MEDS ORDERED: Sodium Chloride 0.9% 1,000 ML IV SCH (22:00)
[2021-04-15] MEDS: Potassium Chloride 10 MEQ in Premix Bag 1 BAG IV SCH ×4 (00:46→04:38)
[2021-04-15] MEDS ORDERED: Potassium Chloride 10 MEQ in Premix Bag 1 BAG IV SCH (04:15)
[2021-04-15] MEDS ORDERED: Enoxaparin 40 MG/0.4 ML Syringe SUBCUT SCH (09:00)
[2021-04-15] MEDS ORDERED: Potassium Chloride 20 MEQ Tab.ER PO SCH (09:45)
[2021-04-15] MEDS ORDERED: Magnesium Sulfate/Water 2 GM in Premix Bag 1 BAG IV ONE (10:16)
[2021-04-15] MEDS ORDERED: Non-Formulary Medication 1 Each (Albuterol Sulfate [Albuterol Sulfate Hfa] 8.5 GM Hfa.Aer. IH PRN (10:18)
[2021-04-15] MEDS ORDERED: HYDROCODONE PO PRN (10:18)
[2021-04-15] MEDS ORDERED: [UNRECOGNIZED DRUG - OTHER] PO PRN (10:18)
[2021-04-15] MEDS ORDERED: ACETAMINOPHEN PO PRN (10:18)
[2021-04-15] MEDS ORDERED: NITROGLYCERIN 0.4 MG SL PRN (10:18)
[2021-04-15] MEDS ORDERED: Non-Formulary Medication 1 Each (Polyethylene Glycol 3350 [Miralax] 17 GM Packet) PO PRN (10:18)
[2021-04-15] MEDS ORDERED: ASPIRIN 81 MG PO SCH (10:30)
[2021-04-15] MEDS ORDERED: [UNRECOGNIZED DRUG - OTHER] EYEBOTH SCH (10:30)
[2021-04-15] MEDS ORDERED: Non-Formulary Medication 1 Each (Esomeprazole Magnesium [Nexium] 40 MG Capsule.Dr) PO SCH (10:30)
[2021-04-15] MEDS ORDERED: Non-Formulary Medication 1 Each (Sertraline [Zoloft] 50 MG Tablet) PO SCH (10:30)
[2021-04-15] MEDS ORDERED: Non-Formulary Medication 1 Each (Metoprolol Succinate [Metoprolol Succinate] 25 MG Tab.Er. PO SCH (10:30)
[2021-04-15] MEDS ORDERED: Non-Formulary Medication 1 Each (Pregabalin 150 MG Capsule) PO SCH (10:30)
[2021-04-15] MEDS ORDERED: Non-Formulary Medication 1 Each (Cholecalciferol (Vitamin D3) [Vitamin D3] 2,000 UNIT Caps PO SCH (10:30)
[2021-04-15] MEDS ORDERED: Non-Formulary Medication 1 Each (Fluticasone/Vilanterol 1 EACH Each) IH SCH (10:30)
[2021-04-15 12:22] VITALS: BP 136/85; PULSE 90
--- NOTE | 2021-04-15 13:01 | CR ---
EXAM: XR CHEST 2 VIEWS LOCATION: [facility] [employer] DATE/TIME: 04/14/2021 4:05 PM INDICATION: Cough COMPARISON: CT abdomen pelvis dated 04/14/2021. IMPRESSION: Elevated right hemidiaphragm with mild atelectasis at the lung bases. Normal heart size and pulmonary vascularity. Some respiratory motion no acute consolidation. No pneumothorax or pleural effusion. There has been apparent resection of the fifth posterior rib consistent with prior thoracotomy. There is a left shoulder prosthesis. SIGNED BY: Williams Moon MD 04/15/2021 1:57 PM [facility]
--- NOTE | 2021-04-15 13:55 | PCM.DCSUM1 ---
Discharge Summary - Hospital Course HPI Initial Comments: 80-year-old female brought to the emergency department secondary to weakness and 3 falls in the last 24 hours. Patient states that her legs just did not feel like they worked. She did not have any injury and did not hit her head or lose consciousness. She states that over the last couple of weeks she has had runny nose and mild congestion. She has had a bit of a cough and spitting up yellow sputum. In the emergency department she was found to be RSV positive and have a potassium of 2.2. She was given 40 mEq of p.o. potassium and started on KCl IV riders. Unfortunately they did burn and he was taking 2 hours to get 10 mEq of KCl administered. A total of 80 mEq IV was ordered. Apparently initially she had some significant abdominal pain and a CT of her abdomen showed constipation. She just told me that she has had bowel movements and is no longer constipated. Diagnosis: Stroke: No - Discharge Data Discharge Date: 04/15/21 (Admit date: 04/14/2021) Discharge Disposition: Home, Self-Care 01 Condition: Good - Referral to Home Health Primary Care Physician: Eun Allen MD - Discharge Diagnosis/Problem(s) (1) Hypokalemia SNOMED Code(s): 87976576 ICD Code: E87.6 - HYPOKALEMIA Status: Acute Priority: High Current Visit: Yes (2) Respiratory syncytial virus (RSV) SNOMED Code(s): 89023461 ICD Code: B97.4 - RESPIRATORY SYNCYTIAL VIRUS CAUSING DISEASES CLASSD ELSWHR Status: Acute Priority: Medium Current Visit: Yes (3) Weakness SNOMED Code(s): 36874064 ICD Code: R53.1 - WEAKNESS Status: Acute Priority: High Current Visit: Yes (4) Elevated brain natriuretic peptide (BNP) level SNOMED Code(s): 418155903, 291934674 ICD Code: R79.89 - OTHER SPECIFIED ABNORMAL FINDINGS OF BLOOD CHEMISTRY Status: Acute Priority: High Current Visit: Yes - Patient Summary/Data Consults: Consultations 04/14/21 19:54 PT Evaluation and Treatment [CONS] Routine Labs Pending at D/C: None Recommended Follow-up Testing/Procedures: Follow-up with primary care provider within 7 to 10 days of discharge, sooner if needed. * Echocardiogram was obtained and is pending. This will be forwarded to the primary care provider. * Patient's home Lasix was discontinued. * Patient's home potassium dosing was doubled. Please recheck potassium in follow-up and adjust as needed. * Patient did test positive for RSV and was on isolation while here. Hospital Course: This is a 80-year-old female who presents for ED reporting cough and weakness resulting in falls. She denies any injury secondary to her falls. She is a baseline smoker. She also reports abdominal pain. She reportedly just had her medications adjusted by her primary care provider and Lasix was added due to pedal edema. In the ED twelve-lead EKG was obtained showing a sinus rhythm at 77 bpm with a left bundle branch block proBNP was mildly elevated at 859. RSV was positive and potassium was very low at 2.2. Chest x-ray is obtained showing nothing acute. CT the abdomen pelvis was obtained and showed constipation but no other abnormalities. She was subsequently admitted to the floor observation status and was started on p.o. and IV potassium supplementation. Per report patient did have a bowel movement prior to coming to the floor and her abdominal pain had resolved. Recheck of labs in the morning showed an improved potassium to 3.0. Magnesium was 1.9 and so 2 g of IV magnesium supplementation were given. With her elevated proBNP there were concerns of possible CHF. Echocardiogram was obtained results will not be available until tomorrow and patient was discharged. Results will be forwarded to the primary care provider. Discussed discharge medications with Dr. Daniel, attending hospitalist who recommends discontinuing patient's Lasix as there is no clear indication for it. Patient does not currently have any pedal edema and chest x-ray did not show any concerns for pulmonary vascular congestion. We will increase her potassium supplementation at home to 20 mill equivalents twice daily. Patient should follow-up with her primary care provider for repeat lab work and possible adjustment of this. Recheck of potassium was ordered for 04/17/2021 with results to patient's primary care provider, Dr. Allen. PT did evaluate the patient and recommend home independent. Recommend follow-up within 7 to 10 days of discharge, sooner if needed. All other home medications were continued. As noted prior results of echocardiogram will be forwarded to the primary care provider who should discuss these with patient. Patient discharged home today. - Patient Instructions Diet: Usual Diet as Tolerated Activity: As Tolerated Showering/Bathing: May Shower Notify Provider of: Fever, Increased Pain, Nausea and/or Vomiting Other/Special Instructions: Up with primary care provider within 5 to 7 days of discharge, sooner if needed. Potassium lab draw ordered for 04/17/2021 with results to PCP - Dr. Allen. We obtained an echocardiogram, which is an ultrasound of your heart. Results of this will not be back for another day or 2. We will forward these to Dr. Allen and she will address it with you. Discontinued your Lasix as there is no clear indication for this at this time. You may discuss this with Dr. Allen in follow-up and she may switch her medications or adjust at her discretion. Your potassium was low here and was supplemented. We increased your home dosing of potassium from once a day to twice a day. Your primary care provider will follow up with this. Resume home medications as directed. Should symptoms return or worsen contact your primary care provider or return to the emergency room. - Discharge Plan *PRESCRIPTION DRUG MONITORING PROGRAM REVIEWED*: No *COPY OF PRESCRIPTION DRUG MONITORING REPORT IN PATIENT BOGDAN: No Prescriptions/Med Rec: Potassium Chloride 20 meq PO BID #40 tablet.er Tobacco Cessation Medication: Prescription Refused Home Medications: Home Meds Albuterol Sulfate [Albuterol Sulfate Hfa] 2 puff IH TID PRN 04/15/21 [History] Aspirin [Aspirin EC] 81 mg PO DAILY 04/15/21 [History] Baclofen 5 mg PO TID 04/15/21 [History] Cholecalciferol (Vitamin D3) [Vitamin D3] 2,000 units PO DAILY 04/15/21 [History] Esomeprazole Magnesium [Nexium] 40 mg PO DAILY 04/15/21 [History] Fluticasone/Vilanterol [Breo Ellipta 100-25 MCG Inhalation Kit] 1 puff IH DAILY 04/15/21 [History] Hydrocodone/Acetaminophen [HYDROcodone-Acetaminophen 10-325 MG] 1 tab PO Q6H PRN 04/15/21 [History] Levothyroxine 25 mcg PO ACBREAKFAST 04/15/21 [History] Metoprolol Succinate 25 mg PO DAILY 04/15/21 [History] Naloxone HCl [Narcan] 4 mg .XX ASDIRECTED PRN 04/15/21 [History] Nitroglycerin [Nitrostat] 0.4 mg SL ASDIRECTED PRN 04/15/21 [History] Potassium Chloride 20 meq PO BID #40 tablet.er 04/15/21 [Rx] Pregabalin 150 mg PO BID 04/15/21 [History] Sertraline [Zoloft] 75 mg PO DAILY 04/15/21 [History] Timolol Maleate [Timolol Maleate 0.25% O/S 10 ML] 1 drop EYEBOTH DAILY 04/15/21 [History] Travoprost [Travatan Z] 1 drop EYEBOTH DAILY 04/15/21 [History] atorvaSTATin Calcium [Atorvastatin Calcium] 80 mg PO BEDTIME 04/15/21 [History] polyethylene glycoL 3350 [MiraLAX] 17 gm PO DAILY PRN 04/15/21 [History] Oxygen Therapy Mode: Room Air Oxygen Flow Rate (L/min): 0 (2L at bedtime ) Patient Handouts: Hypokalemia, Potassium Content of Foods, Steps to Quit Smoking, Respiratory Syncytial Virus Infection, Adult Forms: ED Department Discharge Referrals: Eun Allen MD [Primary Care Provider] - 04/24/21 2:10 pm (Please follow up with Dr. Allen for possible referral for Home Health care. Please arrival at 2:10 for check in.) - Discharge Summary/Plan Comment DC Time >30 min.: Yes Total # of Minutes for Discharge Time: 40 - General Info Date of Service: 04/15/21 Admission Dx/Problem (Free Text: Admission Diagnosis/Problem Admission Diagnosis/Problem Hypokalemia Functional Status: Reports: Pain Controlled, Tolerating Diet, Ambulating, Urinating. Denies: New Symptoms - Review of Systems General: Reports: Weakness, Fatigue. Denies: Fever, Malaise, Chills HEENT: Reports: No Symptoms. Denies: Headaches, Sore Throat Pulmonary: Reports: Shortness of Breath, Cough, Sputum. Denies: Pleuritic Chest Pain, Wheezing Cardiovascular: Reports: Dyspnea on Exertion. Denies: Chest Pain, Palpitations, Edema Gastrointestinal: Reports: No Symptoms. Denies: Abdominal Pain, Constipation, Diarrhea, Nausea, Vomiting Genitourinary: Reports: No Symptoms Musculoskeletal: Reports: No Symptoms Skin: Reports: No Symptoms Neurological: Reports: Weakness. Denies: Confusion, Dizziness, Headache, Numbness, Pre-Existing Deficit, Seizure, Syncope, Tingling, Difficulty Walking, Gait Disturbance Psychiatric: Reports: No Symptoms - Patient Data Vitals - Most Recent: Last Vital Signs Temp 97.9 F 04/15/21 11:37 Pulse 90 04/15/21 11:37 Resp 18 04/15/21 11:37 BP 136/85 04/15/21 11:37 Pulse Ox 91 L 04/15/21 11:37 Weight - Most Recent: 134 lb 12.8 oz I&O - Last 24 hours: Intake & Output 04/14/21 04/15/21 04/15/21 22:59 06:59 14:59 Intake Total 1410 120 Balance 1410 120 Lab Results - Last 24 hrs: Laboratory Results - last 24 hr 04/14/21 04/14/21 04/14/21 Range/Units 15:00 15:00 15:00 WBC 12.77 H (3.98-10.04) K/mm3 RBC 4.31 (3.98-5.22) M/mm3 Hgb 13.3 D (11.2-15.7) gm/dl Hct 39.4 (34.1-44.9) % MCV 91.4 D (79.4-94.8) fl MCH 30.9 (25.6-32.2) pg MCHC 33.8 (32.2-35.5) g/dl RDW Std Deviation 48.9 H (36.4-46.3) fL Plt Count 229 (182-369) K/mm3 MPV 10.9 (9.4-12.3) fl Neut % (Auto) 84.4 H (34.0-71.1) % Lymph % (Auto) 7.6 L (19.3-51.7) % [place] % (Auto) 7.4 (4.7-12.5) % Eos % (Auto) 0.1 L (0.7-5.8) Baso % (Auto) 0.2 (0.1-1.2) % Neut # (Auto) 10.78 H (1.56-6.13) K/mm3 Lymph # (Auto) 0.97 L (1.18-3.74) K/mm3 [place] # (Auto) 0.95 H (0.24-0.36) K/mm3 Eos # (Auto) 0.01 L (0.04-0.36) K/mm3 Baso # (Auto) 0.02 (0.01-0.08) K/mm3 Sodium 138 (136-145) mEq/L Potassium 2.2 L* (3.5-5.1) mEq/L Chloride 98 D (98-107) mEq/L Carbon Dioxide 31 (21-32) mEq/L Anion Gap 11.2 (5-15) BUN 19 H (7-18) mg/dL Creatinine 0.9 (0.55-1.02) mg/dL Est Cr Clr Drug Dosing 44.49 mL/min Estimated GFR (MDRD) > 60 (>60) mL/min BUN/Creatinine Ratio 21.1 H (14-18) Glucose 115 H (70-99) mg/dL Lactic Acid (0.4-2.0) mmol/L Calcium 8.2 L (8.5-10.1) mg/dL Magnesium (1.8-2.4) mg/dL Total Bilirubin 0.9 (0.2-1.0) mg/dL AST 34 (15-37) U/L ALT 24 (14-59) U/L Alkaline Phosphatase 47 (46-116) U/L Troponin I < 0.017 (0.00-0.056) ng/mL C-Reactive Protein 13.6 H* (<1.0) mg/dL NT-Pro-B Natriuret Pep 859 H (0-450) pg/mL Total Protein 7.7 (6.4-8.2) g/dl Albumin 3.3 L (3.4-5.0) g/dl Globulin 4.4 gm/dL Albumin/Globulin Ratio 0.8 L (1-2) Urine Color (Yellow) Urine Appearance (Clear) Urine pH (5.0-8.0) Ur Specific [place] (1.005-1.030) Urine Protein (Negative) Urine Glucose (UA) (Negative) Urine Ketones (Negative) Urine Occult Blood (Negative) Urine Nitrite (Negative) Urine Bilirubin (Negative) Urine Urobilinogen (0.2-1.0) Ur Leukocyte Esterase (Negative) Urine RBC (0-5) /hpf Urine WBC (0-5) /hpf Ur Squamous Epith Cells (0-5) /hpf Urine Bacteria (FEW) /hpf Urine Mucus (FEW) /hpf Influenza Type A RNA (NEGATIVE) RSV RNA (INAAT) (NEGATIVE) Influenza Type B RNA (NEGATIVE) SARS-CoV-2 RNA (TERESA) (NEGATIVE) 04/14/21 04/14/21 04/14/21 Range/Units 15:00 15:16 15:16 WBC (3.98-10.04) K/mm3 RBC (3.98-5.22) M/mm3 Hgb (11.2-15.7) gm/dl Hct (34.1-44.9) % MCV (79.4-94.8) fl MCH (25.6-32.2) pg MCHC (32.2-35.5) g/dl RDW Std Deviation (36.4-46.3) fL Plt Count (182-369) K/mm3 MPV (9.4-12.3) fl Neut % (Auto) (34.0-71.1) % Lymph % (Auto) (19.3-51.7) % [place] % (Auto) (4.7-12.5) % Eos % (Auto) (0.7-5.8) Baso % (Auto) (0.1-1.2) % Neut # (Auto) (1.56-6.13) K/mm3 Lymph # (Auto) (1.18-3.74) K/mm3 [place] # (Auto) (0.24-0.36) K/mm3 Eos # (Auto) (0.04-0.36) K/mm3 Baso # (Auto) (0.01-0.08) K/mm3 Sodium (136-145) mEq/L Potassium (3.5-5.1) mEq/L Chloride (98-107) mEq/L Carbon Dioxide (21-32) mEq/L Anion Gap (5-15) BUN (7-18) mg/dL Creatinine (0.55-1.02) mg/dL Est Cr Clr Drug Dosing mL/min Estimated GFR (MDRD) (>60) mL/min BUN/Creatinine Ratio (14-18) Glucose (70-99) mg/dL Lactic Acid (0.4-2.0) mmol/L Calcium (8.5-10.1) mg/dL Magnesium 1.9 (1.8-2.4) mg/dL Total Bilirubin (0.2-1.0) mg/dL AST (15-37) U/L ALT (14-59) U/L Alkaline Phosphatase (46-116) U/L Troponin I (0.00-0.056) ng/mL C-Reactive Protein (<1.0) mg/dL NT-Pro-B Natriuret Pep (0-450) pg/mL Total Protein (6.4-8.2) g/dl Albumin (3.4-5.0) g/dl Globulin gm/dL Albumin/Globulin Ratio (1-2) Urine Color (Yellow) Urine Appearance (Clear) Urine pH (5.0-8.0) Ur Specific [place] (1.005-1.030) Urine Protein (Negative) Urine Glucose (UA) (Negative) Urine Ketones (Negative) Urine Occult Blood (Negative) Urine Nitrite (Negative) Urine Bilirubin (Negative) Urine Urobilinogen (0.2-1.0) Ur Leukocyte Esterase (Negative) Urine RBC (0-5) /hpf Urine WBC (0-5) /hpf Ur Squamous Epith Cells (0-5) /hpf Urine Bacteria (FEW) /hpf Urine Mucus (FEW) /hpf Influenza Type A RNA Negative (NEGATIVE) RSV RNA (INAAT) Positive H (NEGATIVE) Influenza Type B RNA Negative (NEGATIVE) SARS-CoV-2 RNA (TERESA) Negative (NEGATIVE) 04/14/21 04/14/21 04/15/21 Range/Units 15:30 17:32 08:28 WBC (3.98-10.04) K/mm3 RBC (3.98-5.22) M/mm3 Hgb (11.2-15.7) gm/dl Hct (34.1-44.9) % MCV (79.4-94.8) fl MCH (25.6-32.2) pg MCHC (32.2-35.5) g/dl RDW Std Deviation (36.4-46.3) fL Plt Count (182-369) K/mm3 MPV (9.4-12.3) fl Neut % (Auto) (34.0-71.1) % Lymph % (Auto) (19.3-51.7) % [place] % (Auto) (4.7-12.5) % Eos % (Auto) (0.7-5.8) Baso % (Auto) (0.1-1.2) % Neut # (Auto) (1.56-6.13) K/mm3 Lymph # (Auto) (1.18-3.74) K/mm3 [place] # (Auto) (0.24-0.36) K/mm3 Eos # (Auto) (0.04-0.36) K/mm3 Baso # (Auto) (0.01-0.08) K/mm3 Sodium 140 (136-145) mEq/L Potassium 3.0 L (3.5-5.1) mEq/L Chloride 102 (98-107) mEq/L Carbon Dioxide 26 (21-32) mEq/L Anion Gap 15.0 (5-15) BUN 13 (7-18) mg/dL Creatinine 0.6 (0.55-1.02) mg/dL Est Cr Clr Drug Dosing 66.73 mL/min Estimated GFR (MDRD) > 60 (>60) mL/min BUN/Creatinine Ratio 21.7 H (14-18) Glucose 105 H (70-99) mg/dL Lactic Acid 0.7 (0.4-2.0) mmol/L Calcium 7.5 L (8.5-10.1) mg/dL Magnesium 1.9 (1.8-2.4) mg/dL Total Bilirubin (0.2-1.0) mg/dL AST (15-37) U/L ALT (14-59) U/L Alkaline Phosphatase (46-116) U/L Troponin I (0.00-0.056) ng/mL C-Reactive Protein (<1.0) mg/dL NT-Pro-B Natriuret Pep (0-450) pg/mL Total Protein (6.4-8.2) g/dl Albumin (3.4-5.0) g/dl Globulin gm/dL Albumin/Globulin Ratio (1-2) Urine Color Yellow (Yellow) Urine Appearance Clear (Clear) Urine pH 6.0 (5.0-8.0) Ur Specific [place] 1.025 (1.005-1.030) Urine Protein 1+ H (Negative) Urine Glucose (UA) Negative (Negative) Urine Ketones Negative (Negative) Urine Occult Blood 1+ H (Negative) Urine Nitrite Negative (Negative) Urine Bilirubin Negative (Negative) Urine Urobilinogen 0.2 (0.2-1.0) Ur Leukocyte Esterase Negative (Negative) Urine RBC 5-10 H (0-5) /hpf Urine WBC 0-5 (0-5) /hpf Ur Squamous Epith Cells 0-5 (0-5) /hpf Urine Bacteria Few (FEW) /hpf Urine Mucus Few (FEW) /hpf Influenza Type A RNA (NEGATIVE) RSV RNA (INAAT) (NEGATIVE) Influenza Type B RNA (NEGATIVE) SARS-CoV-2 RNA ([place]) (NEGATIVE) Med Orders - Current: Current Medications Acetaminophen (Acetaminophen 325 Mg Tab) 650 mg PO Q4H PRN PRN Reason: Pain (Mild 1-3)/fever Enoxaparin Sodium (Enoxaparin 40 Mg/0.4 Ml Syringe) 40 mg SUBCUT DAILY [facility] Last Admin: 04/15/21 07:59 Dose: 40 mg Documented by: Non-Formulary Medication (Albuterol Sulfate [Albuterol Sulfate Hfa]) 2 puff IH TID PRN PRN Reason: Shortness of Breath Non-Formulary Medication (Aspirin [Aspirin Ec]) 81 mg PO DAILY [facility] Non-Formulary Medication (Atorvastatin Calcium [Atorvastatin Calcium]) 80 mg PO BEDTIME [facility] Non-Formulary Medication (Nitroglycerin [Nitrostat]) 0.4 mg SL ASDIRECTED PRN PRN Reason: Chest Pain Non-Formulary Medication (Travoprost [Travatan Z]) 1 drop EYEBOTH DAILY [facility] Non-Formulary Medication (Timolol Maleate [Timolol Maleate 0.25% O/S 10 Ml]) 1 drop EYEBOTH DAILY [facility] Non-Formulary Medication (Sertraline [Zoloft]) 75 mg PO DAILY [facility] Non-Formulary Medication (Pregabalin) 150 mg PO BID [facility] Non-Formulary Medication (Polyethylene Glycol 3350 [Miralax]) 17 gm PO DAILY PRN PRN Reason: Constipation Non-Formulary Medication (Metoprolol Succinate [Metoprolol Succinate]) 25 mg PO DAILY [facility] Non-Formulary Medication (Levothyroxine [Levothyroxine]) 25 mcg PO ACBREAKFAST [facility] Non-Formulary Medication (Hydrocodone/Acetaminophen [Hydrocodone-Acetaminophen 10-325 Mg]) 1 tab PO Q6H PRN PRN Reason: Pain (severe 7-10) Non-Formulary Medication (Fluticasone/Vilanterol) 1 puff IH DAILY [facility] Non-Formulary Medication (Esomeprazole Magnesium [Nexium]) 40 mg PO DAILY [facility] Non-Formulary Medication (Cholecalciferol (Vitamin D3) [Vitamin D3]) 2,000 units PO DAILY [facility] Non-Formulary Medication (Baclofen [Baclofen]) 5 mg PO TID [facility] Potassium Chloride (Potassium Chloride 20 Meq Tab.Er) 40 meq PO BID [facility] Last Admin: 04/15/21 10:03 Dose: 40 meq Documented by: Sodium Chloride (Sodium Chloride 0.9% 10 Ml Syringe) 10 ml FLUSH ASDIRECTED PRN PRN Reason: Keep Vein Open Discontinued Medications Potassium Chloride 10 meq/ (Premix) 100 mls @ 100 mls/hr IV Q1H [facility] Stop: 04/14/21 23:59 Last Admin: 04/15/21 04:38 Dose: 70 mls/hr Documented by: Sodium Chloride (Normal Saline) 250 mls @ 25 mls/hr IV ASDIRECTED [facility] Last Infusion: 04/14/21 19:54 Dose: 75 mls/hr Documented by: Sodium Chloride (Normal Saline Advbag) Confirm Administered Dose 250 mls @ as directed .ROUTE .STK-MED ONE Stop: 04/14/21 16:26 Last Admin: 04/14/21 16:36 Dose: Not Given Documented by: Sodium Chloride (Normal Saline) 1,000 mls @ 100 mls/hr IV ASDIRECTED [facility] Last Infusion: 04/15/21 00:47 Dose: 80 mls/hr Documented by: Potassium Chloride 10 meq/ (Premix) 100 mls @ 100 mls/hr IV Q1H [facility] Stop: 04/15/21 05:14 Last Admin: 04/15/21 05:15 Dose: Not Given Documented by: Magnesium Sulfate 2 gm/ Premix 50 mls @ 25 mls/hr IV ONETIME ONE Stop: 04/15/21 12:15 Last Admin: 04/15/21 11:31 Dose: 25 mls/hr Documented by: Iopamidol (Iopamidol 612 Mg/Ml 100 Ml Bottle) 100 ml IVPUSH ONETIME ONE Stop: 04/14/21 15:24 Last Admin: 04/14/21 16:02 Dose: 100 ml Documented by: Potassium Chloride (Potassium Chloride 20 Meq Tab.Er) 40 meq PO ONETIME ONE Stop: 04/14/21 15:49 Last Admin: 04/14/21 16:14 Dose: 40 meq Documented by: - Exam Quality Assessment: Reports: DVT Prophylaxis General: Reports: Alert, Oriented, Cooperative, No Acute Distress HEENT: Reports: Pupils Equal, Pupils Reactive, Mucous Membr. Moist/[place] Neck: Reports: Supple, Trachea Midline Lungs: Reports: Clear to Auscultation, Normal Respiratory Effort Cardiovascular: Reports: Regular Rate, Regular Rhythm GI/Abdominal Exam: Normal Bowel Sounds, Soft, Non-Tender, No Distention (Female) Exam: Deferred Rectal (Female) Exam: Deferred Back Exam: Reports: Normal Inspection, Full Range of Motion Extremities: Normal Inspection, Normal Range of Motion, Non-Tender, No Pedal Edema, Normal Capillary Refill Skin: Reports: Warm, Dry, Intact Neurological: Reports: No New Focal Deficit Psy/Mental Status: Reports: Alert, Normal Affect, Normal Mood
[2021-04-15] MEDS ORDERED: BACLOFEN 10 MG PO SCH (15:00)
[2021-04-15] MEDS ORDERED: Non-Formulary Medication 1 Each (Atorvastatin Calcium [Atorvastatin Calcium] 80 MG Tablet) PO SCH (21:00)
[2021-04-16] MEDS ORDERED: Non-Formulary Medication 1 Each (Levothyroxine [Levothyroxine] 25 MCG Tablet) PO SCH (06:00)
== END 2021-04-15 16:15 | disposition home or self-care (01) ==
LOC: JD.ED 13:58 → INTOOBSV 18:26 → JD.MS 18:26
PROVIDERS: ADMIT Family Medicine; ATTEND Family Medicine
DX: R53.1 Weakness (principal); E87.6 Hypokalemia; J06.9 Acute upper respiratory infection, unspecified; B97.4 Respiratory syncytial virus as the cause of diseases classified elsewhere; E78.00 Pure hypercholesterolemia, unspecified; I10 Essential (primary) hypertension; J44.9 Chronic obstructive pulmonary disease, unspecified; K21.9 Gastro-esophageal reflux disease without esophagitis; E03.9 Hypothyroidism, unspecified; F17.210 Nicotine dependence, cigarettes, uncomplicated; Z86.73 Personal history of transient ischemic attack (TIA), and cerebral infarction without residual deficits; Z79.890 Hormone replacement therapy; Z88.5 Allergy status to narcotic agent; Z79.899 Other long term (current) drug therapy; Z79.82 Long term (current) use of aspirin; Z98.890 Other specified postprocedural states; Z20.822 Contact with and (suspected) exposure to COVID-19
CPT/HCPCS: 0240U; 36415; 71046; 74177; 80048; 80053; 81001; 83605; 83735; 83880; 84484; 85025; 86140; 87040; 87634; 93005; 93306; 96365; 96366; 96367; 96372; 97162; 97530; 99285; A9270; G0378; J1650; J3475; J3480; J7030; J7050; Q9967

== ENCOUNTER 2021-11-20 10:48 | Inpatient (IN) | payer MEDICARE, MEDICAID ==
[2021-11-20] MEDS ORDERED: Famotidine 20 MG/2 ML SDV IVPUSH ONE (11:16)
[2021-11-20] MEDS ORDERED: Ondansetron 4 MG/2 ML SDV IVPUSH ONE (11:16)
[2021-11-20] MEDS ORDERED: Sodium Chloride 0.9% 10 ML Syringe FLUSH PRN ×2 (11:16→13:30)
[2021-11-20] MEDS ORDERED: Sodium Chloride 0.9% 1,000 ML IV SCH (11:30)
[2021-11-20] MEDS ORDERED: Sodium Chloride 0.9% 1,000 ML ONE (11:31)
[2021-11-20] MEDS ORDERED: HYDROmorphone 0.5 MG/0.5 ML Syringe IVPUSH ONE (12:27)
[2021-11-20] MEDS ORDERED: Iopamidol 612 MG/ML 100 ML Bottle IVPUSH ONE (13:30)
[2021-11-20] MEDS ORDERED: Potassium Chloride 10 MEQ in Premix Bag 1 BAG IV ONE ×2 (14:10→15:53)
[2021-11-20] MEDS: Sodium Chloride 0.9% 1,000 ML IV SCH (14:20)
[2021-11-20] MEDS: Ondansetron 8 MG in Sodium Chloride 0.9% 50 ML IV PRN (18:08)
[2021-11-20] MEDS ORDERED: Albuterol 6.7 GM Inhaler INH PRN (18:47)
[2021-11-20] MEDS: Potassium Chloride 10 MEQ in Premix Bag 1 BAG IV SCH ×5 (20:15→23:20)
[2021-11-21] MEDS: Ondansetron 8 MG in Sodium Chloride 0.9% 50 ML IV PRN ×3 (03:39→15:16)
[2021-11-21] MEDS: Sodium Chloride 0.9% 1,000 ML IV SCH ×4 (03:41→19:19)
[2021-11-21] MEDS ORDERED: Acetaminophen 325 MG Tab PO PRN (08:20)
[2021-11-21] MEDS: Timolol Maleate 0.25% Ophth Soln 5 ML Bottle EYEBOTH SCH (08:30)
[2021-11-21] MEDS: Formoterol/Mometasone 100-5 MCG 8.8 GM Inhaler IH SCH ×2 (08:59→20:08)
[2021-11-21] MEDS: Potassium Chloride 10 MEQ in Premix Bag 1 BAG IV SCH ×6 (10:42→21:18)
[2021-11-21] MEDS ORDERED: Levothyroxine 100 MCG Vial IVPUSH SCH (10:45)
[2021-11-21] MEDS ORDERED: LORazepam 2 MG/ML SDV IVPUSH PRN (13:53)
[2021-11-21] MEDS ORDERED: Metoprolol Tartrate 5 MG/5 ML SDV IVPUSH PRN (14:26)
[2021-11-21] MEDS ORDERED: Nitroglycerin 0.2 MG/HR Transdermal Patch TRDERM SCH (14:30)
[2021-11-21] MEDS ORDERED: HYDROmorphone 0.5 MG/0.5 ML Syringe IVPUSH PRN (14:37)
[2021-11-21] MEDS: Nitroglycerin 0.1 MG/HR Transdermal Patch TRDERM SCH (15:34)
[2021-11-21] MEDS: Furosemide 20 MG/2 ML VIAL IVPUSH SCH (15:35)
[2021-11-21] MEDS: Latanoprost 0.005% Ophth Soln 2.5 ML Bottle EYEBOTH SCH (21:18)
[2021-11-21] MEDS: Enoxaparin 40 MG/0.4 ML Syringe SUBCUT SCH (21:18)
[2021-11-22] MEDS ORDERED: Sodium Chloride 0.9% 1,000 ML IV SCH (01:00)
[2021-11-22] MEDS: [UNRECOGNIZED DRUG - REMARK] TRDERM SCH ×2 (03:00→20:49)
[2021-11-22] MEDS: Formoterol/Mometasone 100-5 MCG 8.8 GM Inhaler IH SCH ×2 (08:29→20:23)
[2021-11-22] MEDS: Furosemide 20 MG/2 ML VIAL IVPUSH SCH (08:45)
[2021-11-22] MEDS: Timolol Maleate 0.25% Ophth Soln 5 ML Bottle EYEBOTH SCH (08:45)
[2021-11-22] MEDS: Nitroglycerin 0.1 MG/HR Transdermal Patch TRDERM SCH (08:47)
[2021-11-22] MEDS ORDERED: Nitroglycerin 0.1 MG/HR Transdermal Patch TRDERM SCH (09:00)
[2021-11-22] MEDS: Potassium Chloride 20 MEQ Tab.ER PO SCH ×2 (14:06→20:49)
[2021-11-22] MEDS: Latanoprost 0.005% Ophth Soln 2.5 ML Bottle EYEBOTH SCH (20:47)
[2021-11-22] MEDS: Losartan 25 MG Tab PO SCH (20:49)
[2021-11-22] MEDS: Enoxaparin 40 MG/0.4 ML Syringe SUBCUT SCH (20:49)
[2021-11-23] MEDS: Formoterol/Mometasone 100-5 MCG 8.8 GM Inhaler IH SCH (08:38)
[2021-11-23] MEDS: Losartan 25 MG Tab PO SCH (09:32)
[2021-11-23] MEDS: Potassium Chloride 20 MEQ Tab.ER PO SCH (09:33)
[2021-11-23] MEDS: Furosemide 20 MG/2 ML VIAL IVPUSH SCH (09:37)
[2021-11-23] MEDS: Nitroglycerin 0.1 MG/HR Transdermal Patch TRDERM SCH (09:37)
[2021-11-23] MEDS: Timolol Maleate 0.25% Ophth Soln 5 ML Bottle EYEBOTH SCH (09:38)
[2021-11-23 09:39] VITALS: BP 157/79
[2021-11-23] MEDS: Furosemide 20 MG Tab PO SCH ×2 (10:35→11:07)
[2021-11-23 12:01] VITALS: PULSE 68
== END 2021-11-23 11:20 | disposition home or self-care (01) | DRG 388 ==
LOC: JD.ED 10:48 → JD.MS 16:28
PROVIDERS: ADMIT Pediatrics; ATTEND Internal Medicine
PROC: 8E0ZXY6 Isolation (ICD-10-PCS; principal; 2021-11-20)
DX: K56.609 Unspecified intestinal obstruction, unspecified as to partial versus complete obstruction (principal); U07.1 COVID-19; D84.9 Immunodeficiency, unspecified; E78.5 Hyperlipidemia, unspecified; E87.6 Hypokalemia; I10 Essential (primary) hypertension; E03.9 Hypothyroidism, unspecified; H40.9 Unspecified glaucoma; E78.00 Pure hypercholesterolemia, unspecified; I35.1 Nonrheumatic aortic (valve) insufficiency; J44.9 Chronic obstructive pulmonary disease, unspecified; K21.9 Gastro-esophageal reflux disease without esophagitis; K44.9 Diaphragmatic hernia without obstruction or gangrene; K22.70 Barrett's esophagus without dysplasia; M19.90 Unspecified osteoarthritis, unspecified site; M54.9 Dorsalgia, unspecified; G89.4 Chronic pain syndrome; I11.0 Hypertensive heart disease with heart failure; I50.9 Heart failure, unspecified; F03.90 Unspecified dementia, unspecified severity, without behavioral disturbance, psychotic disturbance, mood disturbance, and anxiety; E86.0 Dehydration; M48.061 Spinal stenosis, lumbar region without neurogenic claudication; R79.89 Other specified abnormal findings of blood chemistry; F41.9 Anxiety disorder, unspecified; F32.A Depression, unspecified; D64.9 Anemia, unspecified; Z96.653 Presence of artificial knee joint, bilateral; F17.210 Nicotine dependence, cigarettes, uncomplicated; L57.0 Actinic keratosis; Z98.49 Cataract extraction status, unspecified eye; Z90.49 Acquired absence of other specified parts of digestive tract; Z86.73 Personal history of transient ischemic attack (TIA), and cerebral infarction without residual deficits; Z85.3 Personal history of malignant neoplasm of breast; Z98.890 Other specified postprocedural states; Z79.82 Long term (current) use of aspirin; Z79.899 Other long term (current) drug therapy; Z79.890 Hormone replacement therapy; Z88.5 Allergy status to narcotic agent; Z87.442 Personal history of urinary calculi; Z90.710 Acquired absence of both cervix and uterus; Z90.12 Acquired absence of left breast and nipple; Z85.118 Personal history of other malignant neoplasm of bronchus and lung
CPT/HCPCS: 36415; 71045; 74019; 74177; 80053; 83690; 85025; 86140; J1170; J2405; J3480; J3490 ×3; J7030 ×2; Q9967; U0002; 80048; 82272; 83735; 83880; 84443; 87493; 94640; 94760; 94761; 96361; 96365; 96366; 96375; 99284; 99285-25; A9270-GY; J1650; J1940

== ENCOUNTER 2021-11-25 02:00 | Emergency (ER) | payer MEDICARE, MEDICAID ==
[2021-11-25 02:19] VITALS: BP 146/66; PULSE 92
[2021-11-25] MEDS ORDERED: Ondansetron 4 MG/2 ML SDV IVPUSH ONE ×2 (02:33→09:15)
[2021-11-25] MEDS ORDERED: Sodium Chloride 0.9% 1,000 ML IV SCH (02:45)
[2021-11-25 03:53] LABS: ESTIMATED GFR 91 mL/min (>60)
[2021-11-25] MEDS ORDERED: Magnesium Sulfate/Water 4 GM in Premix Bag 1 BAG IV ONE (04:04)
[2021-11-25] MEDS ORDERED: Potassium Chloride 20 MEQ Tab.ER PO ONE (04:05)
[2021-11-25] MEDS ORDERED: HYDROmorphone 0.5 MG/0.5 ML Syringe IVPUSH ONE (09:15)
== END 2021-11-25 09:48 | disposition home or self-care (01) ==
LOC: JD.ED 02:00
DX: E83.42 Hypomagnesemia (principal); E87.6 Hypokalemia; M11.211 Other chondrocalcinosis, right shoulder; I11.0 Hypertensive heart disease with heart failure; I50.9 Heart failure, unspecified; J44.9 Chronic obstructive pulmonary disease, unspecified; Z88.5 Allergy status to narcotic agent; Z79.899 Other long term (current) drug therapy; Z79.82 Long term (current) use of aspirin; Z86.16 Personal history of COVID-19; Z90.49 Acquired absence of other specified parts of digestive tract; Z90.710 Acquired absence of both cervix and uterus
CPT/HCPCS: 36415; 73030; 80053; 81001; 83605; 83690; 83735; 84484; 85025; 93005; 96361; 96365; 96366; 96375; 96376; 99284; A9270; J1170; J2405; J3475; J7030; 93010

== ENCOUNTER → 2023-01-10 | Day surgery (SDC) | payer MEDICARE ==
[~2023-01-10] MED LIST changes: -Lidocaine 1% 4 ML ONE; -Lidocaine 1%/Sod Bicarbonate in NS 8.4% 1 ML Syringe IDERM PRN; -Propofol 200 MG/20 ML SDV ONE; +Sodium Chloride 0.9% 10 ML Syringe FLUSH SCH
[2023-01-10 07:53] VITALS: BP 115/65; PULSE 56
== END ==
LOC: JD.SDS 06:56
PROVIDERS: ATTEND Surgery
DX: Z53.9 Procedure and treatment not carried out, unspecified reason (principal); I25.10 Atherosclerotic heart disease of native coronary artery without angina pectoris; K21.9 Gastro-esophageal reflux disease without esophagitis; F32.A Depression, unspecified; I11.0 Hypertensive heart disease with heart failure; I50.9 Heart failure, unspecified; E78.00 Pure hypercholesterolemia, unspecified; J44.9 Chronic obstructive pulmonary disease, unspecified; K58.9 Irritable bowel syndrome, unspecified; F41.9 Anxiety disorder, unspecified; E03.9 Hypothyroidism, unspecified; F17.210 Nicotine dependence, cigarettes, uncomplicated; Z90.49 Acquired absence of other specified parts of digestive tract; Z98.890 Other specified postprocedural states; Z88.5 Allergy status to narcotic agent; Z79.82 Long term (current) use of aspirin; Z79.899 Other long term (current) drug therapy
CPT/HCPCS: 96360; J7120

== ENCOUNTER 2023-11-24 11:30 | Inpatient (IN) | payer MEDICARE, MEDICAID ==
[2023-11-24] MEDS: Sodium Chloride 0.9% 1,000 ML IV ONE (12:14)
[2023-11-24] MEDS: Sodium Chloride 0.9% 10 ML Syringe FLUSH PRN (12:37)
[2023-11-24] MEDS: Ondansetron 4 MG/2 ML SDV IVPUSH ONE (12:58)
[2023-11-24 13:17] LABS: HEMATOCRIT 39.1 % (37.0-47.0); HEMOGLOBIN 13.9 gm/dl (12.0-16.0); MEAN CORPUSCULAR HEMOGLOBIN 30.8 pg (28.0-32.0); MEAN CORPUSCULAR HGB CONC 35.5 g/dl (32.0-36.0); MEAN CORPUSCULAR VOLUME 86.5 fl (83.0-99.0); MEAN PLATELET VOLUME 12.4 fl (9.4-12.3); PLATELET COUNT,PLT 113 K/mm3 (150-400); RED BLOOD CELL COUNT 4.52 M/mm3 (4.10-5.30); WHITE BLOOD CELL COUNT,WBC 15.16 K/mm3 (3.9-11.3)
[2023-11-24 13:22] LABS: INR 1.1; PROTHROMBIN TIME 11.6 SECONDS (9.7-12.0)
[2023-11-24 13:25] LABS: A/G RATIO 0.8 (1-2); ALBUMIN 3.1 g/dl (3.4-5.0); ANION GAP 16.5 (5-15); BILIRUBIN TOTAL 0.9 mg/dL (0.2-1.0); C-REACTIVE PROTEIN 4.51 mg/dL (<0.30); CALCIUM 8.6 mg/dL (8.5-10.1); CREATININE 0.5 mg/dL (0.55-1.02); EST CRCL DRUG DOSING (CG) 69.79 mL/min; PROTEIN TOTAL,TP 6.8 g/dl (6.4-8.2)
[2023-11-24 13:32] LABS: POTASSIUM,K 2.5 mEq/L (3.5-5.1)
[2023-11-24 13:42] LABS: LACTIC ACID 0.8 mmol/L (0.4-2.0)
[2023-11-24] MEDS: Potassium Chloride 10 MEQ in Premix Bag 1 BAG IV SCH (14:31)
[2023-11-24] MEDS: Sodium Chloride 0.9% 1,000 ML IV SCH (14:32)
[2023-11-24] MEDS: HYDROmorphone 0.5 MG/0.5 ML Syringe IVPUSH ONE (14:32)
[2023-11-24 15:11] LABS: BAND PERCENT MAN 0 % (0-10); BASOPHILS PERCENT MAN 1 (0.1-1.2); EOSINOPHILS PERCENT MAN 0 % (0.7-5.8); LYMPHOCYTES % ATYPICAL MANUAL 0 %; LYMPHOCYTES PERCENT MAN 7 % (20-40); MONOCYTES PERCENT MAN 8 % (2-10)
[2023-11-24 15:12] LABS: PLATELET COUNT ESTIMATE DECREASED
[2023-11-24 15:36] LABS: APPEARANCE,URINE CLEAR (Clear); BILIRUBIN,URINE 1+ (Negative); COLOR,URINE YELLOW (Yellow); GLUCOSE,URINE NEGATIVE (Negative); KETONES,URINE 3+ (Negative); LEUKOCYTE ESTERASE,URINE TRACE (Negative); NITRITE,URINE NEGATIVE (Negative); OCCULT BLOOD,URINE 1+ (Negative); PROTEIN,URINE 2+ (Negative)
[2023-11-24] MEDS: Labetalol 100 MG/20 ML MDV IVPUSH ONE (15:42)
[2023-11-24 15:45] LABS: BACTERIA,URINE MODERATE /hpf (FEW)
[2023-11-24 15:46] LABS: MUCUS,URINE MANY /hpf (FEW)
[2023-11-24 16:31] LABS: CORONAVIRUS COVID-19 NAA NEGATIVE (NEGATIVE); INFLUENZA A NAA NEGATIVE (NEGATIVE); RESPIRATORY SYNCYTIAL VIR NAA NEGATIVE (NEGATIVE)
[2023-11-24] MEDS ORDERED: Ondansetron 4 MG/2 ML SDV IV PRN (16:35)
[2023-11-24] MEDS ORDERED: Albuterol/Ipratropium 3.0-0.5 MG/3 ML Neb Soln NEB PRN (16:35)
[2023-11-24] MEDS ORDERED: HYDROmorphone 0.5 MG/0.5 ML Syringe IVPUSH PRN (16:35)
[2023-11-24] MEDS ORDERED: Diclofenac Sodium 1% Gel 100 GM Tube TOP PRN ×2 (16:38→21:35)
[2023-11-24] MEDS ORDERED: Non-Formulary Medication 1 Each (Sennosides [Senna] 8.6 MG Tablet) PO PRN (16:39)
[2023-11-24] MEDS ORDERED: hydrALAZINE 20 MG/ML SDV IVPUSH PRN (16:42)
[2023-11-24] MEDS: Potassium Chloride 20 MEQ Tab.ER PO ONE (17:05)
[2023-11-24] MEDS: cefTRIAXone 2 GM in Sodium Chloride 0.9% 100 ML IV ONE (17:05)
[2023-11-24] MEDS: Magnesium Sulfate/Water 4 GM in Premix Bag 1 BAG IV ONE (17:06)
[2023-11-24] MEDS: Nicotine 21 MG/24 Hr Patch TRDERM SCH (17:12)
[2023-11-24] MEDS: Baclofen 10 MG Tab PO SCH (17:29)
[2023-11-24] MEDS: Non-Formulary Medication 1 Each (Pregabalin 150 MG Capsule) PO SCH (17:30)
[2023-11-24] MEDS: Enoxaparin 40 MG/0.4 ML Syringe SUBCUT SCH (17:31)
[2023-11-24] MEDS: Acetaminophen 325 MG Tab PO PRN (18:46)
[2023-11-24] MEDS ORDERED: atorvaSTATin 40 MG Tab PO SCH (21:15)
[2023-11-24] MEDS: atorvaSTATin 40 MG Tab PO SCH (21:27)
[2023-11-24] MEDS: Non-Formulary Medication 1 Each (Atorvastatin Calcium [Atorvastatin Calcium] 80 MG Tablet) PO SCH (22:56)
[2023-11-25] MEDS: Acetaminophen/HYDROcodone 325-10 MG Tab PO PRN (01:27)
[2023-11-25] MEDS: Sodium Chloride 0.9% 1,000 ML IV SCH (03:16)
[2023-11-25] MEDS: Levothyroxine 25 MCG Tab PO SCH (06:01)
[2023-11-25] MEDS: Pantoprazole 40 MG Tab.CR PO SCH (06:02)
[2023-11-25 06:35] LABS: BASOPHILS ABSOLUTE AUTO 0.1 K/mm3 (0.0-0.2); BASOPHILS PERCENT AUTO 0.4 % (0.0-1.0); EOSINOPHILS ABSOLUTE AUTO 0.1 K/mm3 (0.0-0.4); EOSINOPHILS PERCENT AUTO 0.6 % (0.0-6.0); HEMATOCRIT 34.9 % (37.0-47.0); HEMOGLOBIN 11.9 gm/dl (12.0-16.0); IMMATURE GRAN ABSOLUTE AUTO 0.05 K/mm3 (0.00-0.05); IMMATURE GRAN PERCENT AUTO 0.4 % (0.0-0.4); LYMPHOCYTES ABSOLUTE AUTO 1.8 K/mm3 (1.0-4.8); LYMPHOCYTES PERCENT AUTO 16.1 % (24.0-44.0); MEAN CORPUSCULAR HEMOGLOBIN 30.2 pg (28.0-32.0); MEAN CORPUSCULAR HGB CONC 34.1 g/dl (32.0-36.0); MEAN CORPUSCULAR VOLUME 88.6 fl (83.0-99.0); MEAN PLATELET VOLUME 12.6 fl (9.4-12.3); MONOCYTES ABSOLUTE AUTO 1.2 K/mm3 (0.0-0.8); MONOCYTES PERCENT AUTO 10.8 % (0.0-8.0); NEUTROPHILS PERCENT AUTO 71.7 % (41.0-71.0); PLATELET COUNT,PLT 149 K/mm3 (150-400); RED BLOOD CELL COUNT 3.94 M/mm3 (4.10-5.30); WHITE BLOOD CELL COUNT,WBC 11.21 K/mm3 (3.9-11.3)
[2023-11-25 07:00] LABS: A/G RATIO 0.7 (1-2); ALBUMIN 2.6 g/dl (3.4-5.0); ANION GAP 11.2 (5-15); BILIRUBIN TOTAL 0.7 mg/dL (0.2-1.0); BUN/CREATININE RATIO 13.3 (14-18); C-REACTIVE PROTEIN 10.1 mg/dL (<0.30); CALCIUM 8.3 mg/dL (8.5-10.1); CREATININE 0.6 mg/dL (0.55-1.02); EST CRCL DRUG DOSING (CG) 58.16 mL/min; PHOSPHORUS 2.8 mg/dL (2.6-4.7); POTASSIUM,K 3.2 mEq/L (3.5-5.1); PROTEIN TOTAL,TP 6.2 g/dl (6.4-8.2)
[2023-11-25] MEDS: Formoterol/Mometasone 100-5 MCG 8.8 GM Inhaler INH SCH (07:09)
[2023-11-25 07:32] LABS: URIC ACID 2.8 mg/dL (2.6-6.0)
[2023-11-25] MEDS ORDERED: Levothyroxine 25 MCG Tab PO SCH (08:00)
[2023-11-25] MEDS: Pregabalin 75 MG Cap PO SCH (08:42)
[2023-11-25] MEDS: Oxybutynin 5 MG Tab.ER PO SCH (08:42)
[2023-11-25] MEDS: Cholecalciferol (Vitamin D3) 5,000 UNIT Cap PO SCH (08:43)
[2023-11-25] MEDS: Metoprolol Succinate 25 MG Tab.ER PO SCH (08:43)
[2023-11-25] MEDS: Sertraline 50 MG Tab PO SCH (08:43)
[2023-11-25] MEDS: Tamsulosin 0.4 MG Cap.ER PO SCH (08:45)
[2023-11-25] MEDS: Lisinopril 5 MG Tab PO SCH (08:45)
[2023-11-25] MEDS: Furosemide 20 MG Tab PO SCH (08:46)
[2023-11-25] MEDS: Isosorbide Mononitrate 30 MG Tab.ER PO SCH (08:46)
[2023-11-25] MEDS: Potassium Chloride 20 MEQ Tab.ER PO SCH (08:46)
[2023-11-25] MEDS: Latanoprost 0.005% Ophth Soln 2.5 ML Bottle EYEBOTH SCH (08:48)
[2023-11-25] MEDS ORDERED: Non-Formulary Medication 1 Each (Esomeprazole Magnesium [Nexium] 40 MG Capsule.Dr) PO SCH (09:00)
[2023-11-25] MEDS ORDERED: [UNRECOGNIZED DRUG - OTHER] EYEBOTH SCH (09:00)
[2023-11-25] MEDS ORDERED: Non-Formulary Medication 1 Each (Oxybutynin Chloride [Oxybutynin Chloride Er] 10 MG Tab.Er PO SCH (09:00)
[2023-11-25] MEDS ORDERED: Isosorbide Mononitrate 60 MG Tab.ER PO SCH (09:00)
[2023-11-25] MEDS ORDERED: TRAVOPROST EYEBOTH SCH (09:00)
[2023-11-25] MEDS ORDERED: TIMOLOL MALEATE EYEBOTH SCH (09:00)
[2023-11-25] MEDS: Timolol Maleate 0.25% Ophth Soln 5 ML Bottle EYEBOTH SCH (09:17)
[2023-11-25] MEDS: predniSONE 20 MG Tab PO ONE (09:17)
[2023-11-25] MEDS: Docusate Sodium 100 MG Cap PO PRN (16:25)
[2023-11-25] MEDS: cefTRIAXone 2 GM in Sodium Chloride 0.9% 100 ML IV SCH (16:25)
[2023-11-26 05:41] LABS: BASOPHILS PERCENT AUTO 0.4 % (0.0-1.0); EOSINOPHILS ABSOLUTE AUTO 0.1 K/mm3 (0.0-0.4); HEMATOCRIT 34.7 % (37.0-47.0); IMMATURE GRAN ABSOLUTE AUTO 0.05 K/mm3 (0.00-0.05); IMMATURE GRAN PERCENT AUTO 0.5 % (0.0-0.4); LYMPHOCYTES ABSOLUTE AUTO 1.8 K/mm3 (1.0-4.8); LYMPHOCYTES PERCENT AUTO 17.3 % (24.0-44.0); MEAN CORPUSCULAR HEMOGLOBIN 30.8 pg (28.0-32.0); MEAN CORPUSCULAR HGB CONC 34.6 g/dl (32.0-36.0); MEAN CORPUSCULAR VOLUME 89.2 fl (83.0-99.0); MEAN PLATELET VOLUME 11.8 fl (9.4-12.3); MONOCYTES ABSOLUTE AUTO 0.8 K/mm3 (0.0-0.8); MONOCYTES PERCENT AUTO 7.4 % (0.0-8.0); NEUTROPHILS ABSOLUTE AUTO 7.6 K/mm3 (1.8-7.7); NEUTROPHILS PERCENT AUTO 73.4 % (41.0-71.0); PLATELET COUNT,PLT 155 K/mm3 (150-400); RED BLOOD CELL COUNT 3.89 M/mm3 (4.10-5.30); WHITE BLOOD CELL COUNT,WBC 10.34 K/mm3 (3.9-11.3)
[2023-11-26 06:11] LABS: A/G RATIO 0.7 (1-2); ALBUMIN 2.5 g/dl (3.4-5.0); BILIRUBIN TOTAL 0.3 mg/dL (0.2-1.0); BUN/CREATININE RATIO 21.4 (14-18); C-REACTIVE PROTEIN 8.48 mg/dL (<0.30); CALCIUM 9.2 mg/dL (8.5-10.1); CREATININE 0.7 mg/dL (0.55-1.02); EST CRCL DRUG DOSING (CG) 49.85 mL/min; MAGNESIUM 1.8 mg/dL (1.8-2.4); PROTEIN TOTAL,TP 6.3 g/dl (6.4-8.2)
[2023-11-26] MEDS: Polyethylene Glycol 3350 Powder 17 GM Packet PO PRN (18:41)
[2023-11-26] MEDS: Sennosides 8.6 MG Tab PO PRN (18:41)
[2023-11-26] MEDS ORDERED: Nitroglycerin 0.4 MG Tab.SL SL PRN (20:15)
[2023-11-26] MEDS: Lactulose Soln 10 GM/15 ML 30 ML UD Cup PO SCH (21:00)
[2023-11-27 06:14] LABS: ANION GAP 12.8 (5-15); BUN/CREATININE RATIO 25.7 (14-18); CALCIUM 9.1 mg/dL (8.5-10.1); CREATININE 0.7 mg/dL (0.55-1.02); EST CRCL DRUG DOSING (CG) 49.85 mL/min; MAGNESIUM 1.4 mg/dL (1.8-2.4); PHOSPHORUS 4.2 mg/dL (2.6-4.7); POTASSIUM,K 3.8 mEq/L (3.5-5.1); TSH 2.797 uIU/mL (0.358-3.74)
[2023-11-27] MEDS: Magnesium Sulfate/Water 4 GM in Premix Bag 1 BAG IV ONE (08:19)
[2023-11-27] MEDS: Potassium Chloride 20 MEQ Tab.ER PO ONE (08:27)
[2023-11-27] MEDS: cefTRIAXone 1 GM in Sodium Chloride 0.9% 100 ML IV SCH (16:01)
[2023-11-28 06:48] LABS: ANION GAP 11.9 (5-15); BUN/CREATININE RATIO 32.2 (14-18); C-REACTIVE PROTEIN 2.42 mg/dL (<0.30); CALCIUM 9.5 mg/dL (8.5-10.1); CREATININE 0.9 mg/dL (0.55-1.02); EST CRCL DRUG DOSING (CG) 38.77 mL/min; MAGNESIUM 1.9 mg/dL (1.8-2.4); POTASSIUM,K 3.9 mEq/L (3.5-5.1)
[2023-11-28 12:40] VITALS: BP 111/86; PULSE 91
== END 2023-11-28 13:50 | disposition home health service (06) | DRG 690 ==
LOC: JD.ED 11:30 → JD.MS 15:50
PROVIDERS: ADMIT Internal Medicine; ATTEND Internal Medicine
DX: N39.0 Urinary tract infection, site not specified (principal); D84.9 Immunodeficiency, unspecified; R53.1 Weakness; M25.531 Pain in right wrist; Z66 Do not resuscitate; I11.0 Hypertensive heart disease with heart failure; I50.9 Heart failure, unspecified; J44.9 Chronic obstructive pulmonary disease, unspecified; K21.9 Gastro-esophageal reflux disease without esophagitis; F41.9 Anxiety disorder, unspecified; Z86.16 Personal history of COVID-19; E03.9 Hypothyroidism, unspecified; D64.9 Anemia, unspecified; G89.4 Chronic pain syndrome; E78.00 Pure hypercholesterolemia, unspecified; H35.30 Unspecified macular degeneration; M19.90 Unspecified osteoarthritis, unspecified site; M48.00 Spinal stenosis, site unspecified; E87.6 Hypokalemia; G44.229 Chronic tension-type headache, not intractable; R29.6 Repeated falls; E88.09 Other disorders of plasma-protein metabolism, not elsewhere classified; E83.42 Hypomagnesemia; I16.0 Hypertensive urgency; K59.00 Constipation, unspecified; K44.9 Diaphragmatic hernia without obstruction or gangrene; R19.7 Diarrhea, unspecified; R11.2 Nausea with vomiting, unspecified; F32.89 Other specified depressive episodes; F17.210 Nicotine dependence, cigarettes, uncomplicated; Z85.3 Personal history of malignant neoplasm of breast; Z90.10 Acquired absence of unspecified breast and nipple; Z90.2 Acquired absence of lung [part of]; Z88.5 Allergy status to narcotic agent; Z98.49 Cataract extraction status, unspecified eye; Z90.89 Acquired absence of other organs; Z90.49 Acquired absence of other specified parts of digestive tract; Z79.899 Other long term (current) drug therapy; Z79.890 Hormone replacement therapy; Z87.442 Personal history of urinary calculi; Z90.710 Acquired absence of both cervix and uterus; Z96.659 Presence of unspecified artificial knee joint; Z98.890 Other specified postprocedural states
CPT/HCPCS: 0241U; 36415; 71045; 73110; 80048; 80053; 81001; 83605; 83735; 84100; 84443; 84550; 85007; 85025; 85027; 85610; 86140; 87040; 87086; 94640; 94761; 96361; 96374; 96375; 97161; 99285; 99223; 99231; 99232; 99239; A9270-GY; J0696; J1170; J1650; J1921; J2405; J3475; J3480; J3490; J7030; J7512

== ENCOUNTER 2024-01-02 08:05 | Inpatient (IN) | payer MEDICARE, MEDICAID ==
[2024-01-02 08:52] LABS: BASOPHILS ABSOLUTE AUTO 0.1 K/mm3 (0.0-0.2); BASOPHILS PERCENT AUTO 0.6 % (0.0-1.0); EOSINOPHILS ABSOLUTE AUTO 0.4 K/mm3 (0.0-0.4); EOSINOPHILS PERCENT AUTO 3.3 % (0.0-6.0); HEMATOCRIT 38.1 % (37.0-47.0); HEMOGLOBIN 12.6 gm/dl (12.0-16.0); IMMATURE GRAN ABSOLUTE AUTO 0.05 K/mm3 (0.00-0.05); IMMATURE GRAN PERCENT AUTO 0.5 % (0.0-0.4); LYMPHOCYTES ABSOLUTE AUTO 1.5 K/mm3 (1.0-4.8); MEAN CORPUSCULAR HEMOGLOBIN 30.5 pg (28.0-32.0); MEAN CORPUSCULAR HGB CONC 33.1 g/dl (32.0-36.0); MEAN CORPUSCULAR VOLUME 92.3 fl (83.0-99.0); MEAN PLATELET VOLUME 12.6 fl (9.4-12.3); MONOCYTES ABSOLUTE AUTO 0.8 K/mm3 (0.0-0.8); MONOCYTES PERCENT AUTO 7.4 % (0.0-8.0); NEUTROPHILS ABSOLUTE AUTO 8.1 K/mm3 (1.8-7.7); NEUTROPHILS PERCENT AUTO 74.2 % (41.0-71.0); PLATELET COUNT,PLT 163 K/mm3 (150-400); RED BLOOD CELL COUNT 4.13 M/mm3 (4.10-5.30)
[2024-01-02 09:15] LABS: INR 0.97; PROTHROMBIN TIME 10.3 SECONDS (9.7-12.0)
[2024-01-02 09:24] LABS: A/G RATIO 1.1 (1-2); ALBUMIN 3.4 g/dl (3.4-5.0); ANION GAP 13.6 (5-15); BILIRUBIN TOTAL 0.5 mg/dL (0.2-1.0); BUN/CREATININE RATIO 25.9 (14-18); CREATININE 1.7 mg/dL (0.55-1.02); EST CRCL DRUG DOSING (CG) 24.3 mL/min; POTASSIUM,K 3.6 mEq/L (3.5-5.1); PROTEIN TOTAL,TP 6.6 g/dl (6.4-8.2)
[2024-01-02] MEDS: Sodium Chloride 0.9% 500 ML IV SCH ×2 (10:25→11:25)
[2024-01-02] MEDS: Sodium Chloride 0.9% 10 ML Syringe FLUSH PRN (10:26)
[2024-01-02] MEDS: Sodium Chloride 0.9% 1,000 ML IV ONE (12:05)
[2024-01-02 12:29] LABS: LACTIC ACID 1.4 mmol/L (0.4-2.0)
[2024-01-02] MEDS ORDERED: Ondansetron 4 MG/2 ML SDV IV PRN (13:49)
[2024-01-02] MEDS ORDERED: Acetaminophen 325 MG Tab PO PRN (13:49)
[2024-01-02] MEDS ORDERED: Albuterol 0.083% 2.5 MG/3 ML Neb Soln NEB PRN (13:51)
[2024-01-02] MEDS ORDERED: Sodium Chloride 0.9% 500 ML IV SCH (14:00)
[2024-01-02] MEDS: Heparin Sodium 5,000 Units/ML Vial SUBCUT SCH (15:10)
[2024-01-02] MEDS: Pregabalin 75 MG Cap PO SCH (16:46)
[2024-01-02 18:07] LABS: APPEARANCE,URINE SLT CLOUDY (Clear); BILIRUBIN,URINE NEGATIVE (Negative); COLOR,URINE YELLOW (Yellow); GLUCOSE,URINE NEGATIVE (Negative); KETONES,URINE NEGATIVE (Negative); LEUKOCYTE ESTERASE,URINE NEGATIVE (Negative); NITRITE,URINE NEGATIVE (Negative); OCCULT BLOOD,URINE NEGATIVE (Negative); PROTEIN,URINE NEGATIVE (Negative); UROBILINOGEN,URINE 0.2 (0.2-1.0)
[2024-01-02] MEDS: atorvaSTATin 40 MG Tab PO SCH (20:40)
[2024-01-03 04:47] LABS: HEMATOCRIT 35.1 % (37.0-47.0); HEMOGLOBIN 11.4 gm/dl (12.0-16.0); MEAN CORPUSCULAR HEMOGLOBIN 30.2 pg (28.0-32.0); MEAN CORPUSCULAR HGB CONC 32.5 g/dl (32.0-36.0); MEAN CORPUSCULAR VOLUME 92.9 fl (83.0-99.0); MEAN PLATELET VOLUME 12.4 fl (9.4-12.3); PLATELET COUNT,PLT 146 K/mm3 (150-400); RED BLOOD CELL COUNT 3.78 M/mm3 (4.10-5.30)
[2024-01-03 05:44] LABS: ALBUMIN 2.9 g/dl (3.4-5.0); ANION GAP 12.1 (5-15); BILIRUBIN TOTAL 0.4 mg/dL (0.2-1.0); BUN/CREATININE RATIO 34.3 (14-18); C-REACTIVE PROTEIN 0.64 mg/dL (<0.30); CALCIUM 8.5 mg/dL (8.5-10.1); CREATININE 0.7 mg/dL (0.55-1.02); EST CRCL DRUG DOSING (CG) 47.56 mL/min; POTASSIUM,K 4.1 mEq/L (3.5-5.1); PROTEIN TOTAL,TP 5.9 g/dl (6.4-8.2)
[2024-01-03] MEDS: Levothyroxine 25 MCG Tab PO SCH (07:14)
[2024-01-03] MEDS: Sertraline 50 MG Tab PO SCH (08:31)
[2024-01-03] MEDS: Pantoprazole 40 MG Tab.CR PO SCH (08:31)
[2024-01-03] MEDS: Metoprolol Succinate 25 MG Tab.ER PO SCH (08:31)
[2024-01-03] MEDS: Acetaminophen/HYDROcodone 325-10 MG Tab PO PRN (10:30)
[2024-01-03] MEDS ORDERED: Sennosides 8.6 MG Tab PO PRN (10:32)
[2024-01-03] MEDS: Baclofen 10 MG Tab PO SCH (12:42)
[2024-01-03] MEDS: Latanoprost 0.005% Ophth Soln 2.5 ML Bottle EYEBOTH SCH (20:14)
[2024-01-03] MEDS: Formoterol/Mometasone 100-5 MCG 8.8 GM Inhaler INH SCH (22:02)
[2024-01-04 05:40] LABS: A/G RATIO 0.9 (1-2); ALBUMIN 2.6 g/dl (3.4-5.0); ANION GAP 11.8 (5-15); BILIRUBIN TOTAL 0.5 mg/dL (0.2-1.0); CALCIUM 8.6 mg/dL (8.5-10.1); CREATININE 0.5 mg/dL (0.55-1.02); EST CRCL DRUG DOSING (CG) 66.59 mL/min; HEMATOCRIT 34.5 % (37.0-47.0); HEMOGLOBIN 11.5 gm/dl (12.0-16.0); MEAN CORPUSCULAR HEMOGLOBIN 30.7 pg (28.0-32.0); MEAN CORPUSCULAR HGB CONC 33.3 g/dl (32.0-36.0); MEAN CORPUSCULAR VOLUME 92.2 fl (83.0-99.0); MEAN PLATELET VOLUME 12.8 fl (9.4-12.3); PLATELET COUNT,PLT 135 K/mm3 (150-400); POTASSIUM,K 3.8 mEq/L (3.5-5.1); PROTEIN TOTAL,TP 5.6 g/dl (6.4-8.2); RED BLOOD CELL COUNT 3.74 M/mm3 (4.10-5.30)
[2024-01-04] MEDS: Cholecalciferol (Vitamin D3) 5,000 UNIT Cap PO SCH (08:38)
[2024-01-04] MEDS: Isosorbide Mononitrate 60 MG Tab.ER PO SCH (08:39)
[2024-01-04] MEDS: Lisinopril 2.5 MG Tab PO SCH (08:39)
[2024-01-04 13:45] VITALS: BP 119/81; PULSE 72
== END 2024-01-04 13:30 | disposition home or self-care (01) | DRG 683 ==
LOC: JD.ED 08:05 → JD.ICU 12:05 → JD.MS 01-03 18:41
PROVIDERS: ADMIT Internal Medicine; ATTEND Internal Medicine
DX: N17.9 Acute kidney failure, unspecified (principal); R53.1 Weakness; D84.9 Immunodeficiency, unspecified; I10 Essential (primary) hypertension; I50.32 Chronic diastolic (congestive) heart failure; J44.9 Chronic obstructive pulmonary disease, unspecified; I11.0 Hypertensive heart disease with heart failure; I95.9 Hypotension, unspecified; Z79.899 Other long term (current) drug therapy; Z79.84 Long term (current) use of oral hypoglycemic drugs; H54.7 Unspecified visual loss; E78.00 Pure hypercholesterolemia, unspecified; K21.9 Gastro-esophageal reflux disease without esophagitis; M19.90 Unspecified osteoarthritis, unspecified site; F41.9 Anxiety disorder, unspecified; F32.A Depression, unspecified; D64.9 Anemia, unspecified; E03.9 Hypothyroidism, unspecified; J41.1 Mucopurulent chronic bronchitis; S09.90XA Unspecified injury of head, initial encounter; E86.1 Hypovolemia; E86.0 Dehydration; G89.29 Other chronic pain; R29.6 Repeated falls; F17.210 Nicotine dependence, cigarettes, uncomplicated; Z88.5 Allergy status to narcotic agent; Z86.73 Personal history of transient ischemic attack (TIA), and cerebral infarction without residual deficits; Z79.52 Long term (current) use of systemic steroids; Z86.16 Personal history of COVID-19; Z90.49 Acquired absence of other specified parts of digestive tract; Z90.89 Acquired absence of other organs; Z90.710 Acquired absence of both cervix and uterus; Z79.890 Hormone replacement therapy; Z96.659 Presence of unspecified artificial knee joint; Z98.890 Other specified postprocedural states; W19.XXXA Unspecified fall, initial encounter
CPT/HCPCS: 36415; 70450; 71045; 80053; 83605; 84484; 85025; 85610; 87040; 93005; J3490; J7030 ×2; 81003; 85027; 86140; 94640; 94760; 97161-GP; A9270-GY; J1644

== ENCOUNTER 2024-01-08 13:41 | Emergency (ER) | payer MEDICARE, MEDICAID ==
[2024-01-08 14:05] VITALS: BP 190/61; PULSE 93
[2024-01-08] MEDS: Sodium Chloride 0.9% 500 ML IV ONE (14:59)
[2024-01-08 15:06] LABS: BASOPHILS ABSOLUTE AUTO 0.1 K/mm3 (0.0-0.2); BASOPHILS PERCENT AUTO 0.7 % (0.0-1.0); EOSINOPHILS ABSOLUTE AUTO 0.1 K/mm3 (0.0-0.4); EOSINOPHILS PERCENT AUTO 1.3 % (0.0-6.0); HEMATOCRIT 41.1 % (37.0-47.0); IMMATURE GRAN ABSOLUTE AUTO 0.06 K/mm3 (0.00-0.05); IMMATURE GRAN PERCENT AUTO 0.7 % (0.0-0.4); LYMPHOCYTES ABSOLUTE AUTO 0.9 K/mm3 (1.0-4.8); LYMPHOCYTES PERCENT AUTO 10.7 % (24.0-44.0); MEAN CORPUSCULAR HEMOGLOBIN 30.6 pg (28.0-32.0); MEAN CORPUSCULAR HGB CONC 34.1 g/dl (32.0-36.0); MEAN CORPUSCULAR VOLUME 89.7 fl (83.0-99.0); MEAN PLATELET VOLUME 12.8 fl (9.4-12.3); MONOCYTES ABSOLUTE AUTO 0.5 K/mm3 (0.0-0.8); MONOCYTES PERCENT AUTO 6.6 % (0.0-8.0); NEUTROPHILS ABSOLUTE AUTO 6.5 K/mm3 (1.8-7.7); PLATELET COUNT,PLT 178 K/mm3 (150-400); RED BLOOD CELL COUNT 4.58 M/mm3 (4.10-5.30); WHITE BLOOD CELL COUNT,WBC 8.15 K/mm3 (3.9-11.3)
[2024-01-08 15:34] LABS: ALANINE AMINOTRANSFERASE,ALT 25 U/L (14-59); ALBUMIN 3.7 g/dl (3.4-5.0); ALKALINE PHOSPHATASE 63 U/L (46-116); ASPARTATE AMNIOTRANSFERASE,AST 23 U/L (15-37); BILIRUBIN TOTAL 0.8 mg/dL (0.2-1.0); BLOOD UREA NITROGEN,BUN 14 mg/dL (7-18); C-REACTIVE PROTEIN 0.34 mg/dL (<0.30); CALCIUM 9.6 mg/dL (8.5-10.1); CARBON DIOXIDE,CO2 23 mEq/L (21-32); CHLORIDE,CL 108 mEq/L (98-107); CREATININE 0.7 mg/dL (0.55-1.02); ESTIMATED GFR 87 mL/min (>60); GLUCOSE RANDOM 96 mg/dL (70-99); LIPASE 18 U/L (16-77); PROTEIN TOTAL,TP 7.6 g/dl (6.4-8.2); SODIUM,NA 146 mEq/L (136-145)
[2024-01-08] MEDS: Ondansetron 4 MG/2 ML SDV IVPUSH ONE ×2 (16:41→18:19)
[2024-01-08] MEDS: Potassium Chloride 10 MEQ in Premix Bag 1 BAG IV SCH (16:42)
[2024-01-08] MEDS: Potassium Chloride 20 MEQ Tab.ER PO ONE ×2 (17:21→19:06)
== END 2024-01-08 20:18 | disposition home or self-care (01) ==
LOC: JD.ED 13:41
DX: E87.6 Hypokalemia (principal); R11.2 Nausea with vomiting, unspecified; I10 Essential (primary) hypertension; E78.00 Pure hypercholesterolemia, unspecified; J44.9 Chronic obstructive pulmonary disease, unspecified; E03.9 Hypothyroidism, unspecified; Z88.5 Allergy status to narcotic agent; Z79.51 Long term (current) use of inhaled steroids; Z79.899 Other long term (current) drug therapy; Z79.890 Hormone replacement therapy; Z86.73 Personal history of transient ischemic attack (TIA), and cerebral infarction without residual deficits; Z86.16 Personal history of COVID-19; Z90.49 Acquired absence of other specified parts of digestive tract; Z87.891 Personal history of nicotine dependence
CPT/HCPCS: 36415; 80053; 83690; 83880; 85025; 86140; 96361; 96365; 96366; 96375; 96376; 99284; A9270; J2405; J3480; J7030

== ENCOUNTER 2024-02-04 09:34 | Observation (INO) | payer MEDICARE, MEDICAID ==
[2024-02-04 11:14] LABS: BASOPHILS PERCENT AUTO 0.4 % (0.0-1.0); EOSINOPHILS PERCENT AUTO 0.4 % (0.0-6.0); HEMOGLOBIN 13.9 gm/dl (12.0-16.0); IMMATURE GRAN ABSOLUTE AUTO 0.03 K/mm3 (0.00-0.05); IMMATURE GRAN PERCENT AUTO 0.3 % (0.0-0.4); LYMPHOCYTES ABSOLUTE AUTO 1.2 K/mm3 (1.0-4.8); LYMPHOCYTES PERCENT AUTO 11.9 % (24.0-44.0); MEAN CORPUSCULAR HEMOGLOBIN 30.7 pg (28.0-32.0); MEAN CORPUSCULAR HGB CONC 33.9 g/dl (32.0-36.0); MEAN CORPUSCULAR VOLUME 90.5 fl (83.0-99.0); MONOCYTES ABSOLUTE AUTO 0.5 K/mm3 (0.0-0.8); MONOCYTES PERCENT AUTO 4.7 % (0.0-8.0); NEUTROPHILS ABSOLUTE AUTO 8.5 K/mm3 (1.8-7.7); NEUTROPHILS PERCENT AUTO 82.3 % (41.0-71.0); PLATELET COUNT,PLT 193 K/mm3 (150-400); RED BLOOD CELL COUNT 4.53 M/mm3 (4.10-5.30); WHITE BLOOD CELL COUNT,WBC 10.29 K/mm3 (3.9-11.3)
[2024-02-04 11:30] LABS: CORONAVIRUS COVID-19 NAA NEGATIVE (NEGATIVE); INFLUENZA A NAA NEGATIVE (NEGATIVE); RESPIRATORY SYNCYTIAL VIR NAA NEGATIVE (NEGATIVE)
[2024-02-04 11:42] LABS: HEMOGLOBIN A1C 5.3 %
[2024-02-04 12:03] LABS: SLIDE REVIEW NORMAL SMEAR
[2024-02-04] MEDS: HYDROmorphone 0.5 MG/0.5 ML Syringe IVPUSH ONE (12:15)
[2024-02-04] MEDS: diphenhydrAMINE 50 MG/ML SDV IVPUSH ONE (12:15)
[2024-02-04] MEDS: Metoclopramide 10 MG/2 ML SDV IVPUSH ONE (12:15)
[2024-02-04] MEDS: Dextrose 5%-0.9% NaCl 1,000 ML IV SCH (12:16)
[2024-02-04 12:42] LABS: LACTIC ACID 0.9 mmol/L (0.4-2.0)
[2024-02-04 12:49] LABS: ALBUMIN 3.3 g/dl (3.4-5.0); ANION GAP 18.2 (5-15); BILIRUBIN TOTAL 0.6 mg/dL (0.2-1.0); CREATININE 0.6 mg/dL (0.55-1.02); EST CRCL DRUG DOSING (CG) 52.82 mL/min; POTASSIUM,K 3.2 mEq/L (3.5-5.1); PROTEIN TOTAL,TP 6.7 g/dl (6.4-8.2)
[2024-02-04 12:52] LABS: C-REACTIVE PROTEIN 0.14 mg/dL (<0.30); MAGNESIUM 1.4 mg/dL (1.8-2.4)
[2024-02-04 13:20] LABS: APPEARANCE,URINE CLOUDY (Clear); BILIRUBIN,URINE 2+ (Negative); COLOR,URINE DARK YELLOW (Yellow); GLUCOSE,URINE NEGATIVE (Negative); KETONES,URINE 3+ (Negative); LEUKOCYTE ESTERASE,URINE NEGATIVE (Negative); NITRITE,URINE NEGATIVE (Negative); OCCULT BLOOD,URINE 3+ (Negative); PROTEIN,URINE 2+ (Negative); UROBILINOGEN,URINE 0.2 (0.2-1.0)
[2024-02-04 13:34] LABS: BACTERIA,URINE MODERATE /hpf (FEW); MUCUS,URINE MANY /hpf (FEW); RBC,URINE >100 /hpf (0-5)
[2024-02-04] MEDS: Magnesium Sulfate/Water Premix 4 GM in Premix Bag 1 BAG IV ONE (14:03)
[2024-02-04] MEDS: Potassium Chloride 10 MEQ in Premix Bag 1 BAG IV SCH (14:03)
[2024-02-04] MEDS: cefTRIAXone 2 GM in Sodium Chloride 0.9% 100 ML IV ONE (16:18)
[2024-02-04] MEDS ORDERED: hydrALAZINE 20 MG/ML SDV IVPUSH PRN (17:21)
[2024-02-04] MEDS ORDERED: Labetalol 100 MG/20 ML MDV IVPUSH PRN (17:21)
[2024-02-04] MEDS ORDERED: Sodium Chloride 0.9% 1,000 ML IV ONE (17:42)
[2024-02-04] MEDS ORDERED: Sennosides/Docusate Sodium 50-8.6 MG Tab PO PRN (17:50)
[2024-02-04] MEDS ORDERED: Melatonin 3 MG Tab PO PRN (17:50)
[2024-02-04] MEDS ORDERED: Acetaminophen 325 MG Tab PO PRN (17:50)
[2024-02-04] MEDS ORDERED: Ondansetron 4 MG/2 ML SDV IV PRN (17:50)
[2024-02-04] MEDS ORDERED: 50% Dextrose in Water 50 ML Syringe IVPUSH PRN (18:00)
[2024-02-04] MEDS: Iopamidol 612 MG/ML 100 ML Bottle IVPUSH ONE (18:07)
[2024-02-04] MEDS: Sodium Chloride 0.9% 100 ML IV ONE (18:13)
[2024-02-04] MEDS: oxyCODONE 5 MG Tab PO PRN (18:16)
[2024-02-04] MEDS ORDERED: Nitroglycerin 0.4 MG Tab.SL SL PRN (18:32)
[2024-02-04] MEDS ORDERED: Non-Formulary Medication 1 Each (Albuterol 8.5 GM Hfa.Aer.Ad) INH PRN (18:32)
[2024-02-04] MEDS ORDERED: Psyllium Husk Powder Sugar Free 5.85 GM Packet PO PRN (18:32)
[2024-02-04] MEDS ORDERED: Albuterol 0.083% 2.5 MG/3 ML Neb Soln NEB PRN (18:32)
[2024-02-04] MEDS ORDERED: Non-Formulary Medication 1 Each (Naloxone Hcl 4 MG Spray) NAS PRN (18:32)
[2024-02-04] MEDS: Sodium Chloride 0.9% 100 ML IV SCH (20:10)
[2024-02-04] MEDS: atorvaSTATin 40 MG Tab PO SCH (20:16)
[2024-02-04] MEDS: Insulin Lispro 100 Unit/ML 3 ML KwikPen SUBCUT SCH (20:50)
[2024-02-05 06:06] LABS: ANION GAP 15.2 (5-15); BUN/CREATININE RATIO 13.3 (14-18); CALCIUM 8.8 mg/dL (8.5-10.1); CREATININE 0.6 mg/dL (0.55-1.02); EST CRCL DRUG DOSING (CG) 63.5 mL/min; POTASSIUM,K 3.2 mEq/L (3.5-5.1); TSH 2.043 uIU/mL (0.358-3.74)
[2024-02-05] MEDS: Pantoprazole 40 MG Tab.CR PO SCH (06:13)
[2024-02-05] MEDS: Levothyroxine 25 MCG Tab PO SCH (06:13)
[2024-02-05] MEDS ORDERED: [UNRECOGNIZED DRUG - OTHER] INH SCH (09:00)
[2024-02-05] MEDS ORDERED: TRAVOPROST EYEBOTH SCH (09:00)
[2024-02-05] MEDS ORDERED: Timolol Maleate 0.25% Ophth Soln 5 ML Bottle EYEBOTH SCH (09:00)
[2024-02-05] MEDS ORDERED: Tiotropium Bromide 4 GM Inhalation Spray (2.5mcg/1 dose; 10 doses) INH SCH (09:00)
[2024-02-05] MEDS: Sertraline 50 MG Tab PO SCH (09:04)
[2024-02-05] MEDS: Metoprolol Succinate 25 MG Tab.ER PO SCH (09:05)
[2024-02-05] MEDS: Pregabalin 75 MG Cap PO SCH (09:08)
[2024-02-05] MEDS: Lisinopril 5 MG Tab PO SCH (09:08)
[2024-02-05] MEDS: Aspirin 81 MG Tab.EC PO SCH (09:08)
[2024-02-05] MEDS: Cholecalciferol (Vitamin D3) 5,000 UNIT Cap PO SCH (09:08)
[2024-02-05] MEDS: Enoxaparin 40 MG/0.4 ML Syringe SUBCUT SCH (09:09)
[2024-02-05] MEDS: Potassium Chloride 20 MEQ Tab.ER PO ONE (09:09)
[2024-02-05] MEDS: Baclofen 10 MG Tab PO SCH (09:12)
[2024-02-05 14:40] VITALS: BP 110/52; PULSE 95
[2024-02-05] MEDS ORDERED: Nicotine 7 MG/24 Hr Patch TRDERM SCH (21:00)
== END 2024-02-05 13:41 | disposition home or self-care (01) ==
LOC: JD.ED 09:34 → JD.MS 14:09
PROVIDERS: ADMIT Student in an Organized Health Care Education/Training Program; ATTEND Student in an Organized Health Care Education/Training Program
DX: R19.7 Diarrhea, unspecified (principal); R11.2 Nausea with vomiting, unspecified; J44.9 Chronic obstructive pulmonary disease, unspecified; I11.0 Hypertensive heart disease with heart failure; I50.30 Unspecified diastolic (congestive) heart failure; F17.210 Nicotine dependence, cigarettes, uncomplicated; E78.00 Pure hypercholesterolemia, unspecified; F41.9 Anxiety disorder, unspecified; E03.9 Hypothyroidism, unspecified; Z79.899 Other long term (current) drug therapy
CPT/HCPCS: 0241U; 36415; 71045; 74177; 80048; 80053; 81001; 82010; 82947; 83036; 83605; 83690; 83735; 83880; 84100; 84443; 84484; 85025; 86140; 93005; 94760; 94761; 96361; 96365; 96375; 99285; A9270; J0696; J1171; J1200; J1650; J2765; J3475; J3480; J3490; J7042; Q9967; 96366; 96368; 96372; G0378

== ENCOUNTER 2024-12-01 00:13 | Emergency (ER) | payer MEDICARE, MEDICAID ==
[2024-12-01] MEDS: Acetaminophen/oxyCODONE 325-5 MG Tab PO ONE (00:53)
[2024-12-01 03:18] VITALS: BP 139/63; PULSE 62
== END 2024-12-01 04:37 | disposition home or self-care (01) ==
LOC: JD.ED 00:13
DX: S82.62XA Displaced fracture of lateral malleolus of left fibula, initial encounter for closed fracture (principal); I10 Essential (primary) hypertension; I25.10 Atherosclerotic heart disease of native coronary artery without angina pectoris; E03.9 Hypothyroidism, unspecified; E78.00 Pure hypercholesterolemia, unspecified; K21.9 Gastro-esophageal reflux disease without esophagitis; J44.9 Chronic obstructive pulmonary disease, unspecified; Z88.5 Allergy status to narcotic agent; Z79.899 Other long term (current) drug therapy; Z79.890 Hormone replacement therapy; Z86.16 Personal history of COVID-19; Z90.710 Acquired absence of both cervix and uterus; Z90.49 Acquired absence of other specified parts of digestive tract; W01.0XXA Fall on same level from slipping, tripping and stumbling without subsequent striking against object, initial encounter
CPT/HCPCS: 29515; 73610; 99283; A9270; 99284